=== PATIENT | male | born 1935 | race Caucasian/White ===

== ENCOUNTER 2017-12-18 22:21 | Inpatient (IN) | payer OTHER, SELFPAY ==
[2017-12-18 22:30] VITALS: BP 181/77; BP 181/87; PULSE 70; RESP 27; RESP 36; TEMP 36.1; O2SAT 98
[2017-12-18] MEDS: HYDROMORPHONE 1 MG INJ IV (22:35)
--- NOTE | 2017-12-18 22:44 | DI.CT.S_ITS ---
PROCEDURE: CT CHEST ABD PEL WO CON INDICATIONS: 82-year-old male with severe central abdominal pain. TECHNIQUE: Intravenous contrast was not administered due to poor renal function. Noncontrast 5 mm thick sections acquired from the lung apices to the symphysis pubis. 5 mm thick coronal and sagittal reformats acquired, with additional 7 mm coronal MIP reformats through the lungs. For radiation dose reduction, the following was used: automated exposure control, adjustment of mA and/or kV according to patient size. COMPARISON: [facility], CT, THORAX WITHOUT CONTRAST, 08/02/2016, 9:55. Outside Facility, [facility], CT THORAX/ABD/PELVIS W/O CONTRAST, 09/21/2011, 8:53. FINDINGS: Preliminary interpretation rendered by [facility]. Image quality: Multiple images are degraded by respiratory motion. CHEST: Lungs and pleura: No acute pulmonary opacities. Several calcified right middle lobe granulomas are again noted. No pleural effusions or pneumothorax. Central and peripheral airways are patent are normal in caliber. Mediastinum: There is moderate cardiomegaly, without pericardial effusion. No mediastinal adenopathy by CT size criteria. Calcified right hilar lymph node is again noted. Thoracic aorta and central pulmonary arteries are normal in size. Esophagus is normal in caliber, with small hiatal hernia. Chest wall: No axillary or supraclavicular adenopathy by size criteria. Nonacute lateral left seventh rib fracture is present. Thyroid gland is small in size. ABDOMEN: Solid organs: Liver is normal in size. Gallbladder wall thickness is normal. Pancreas is normal in contours. Spleen is normal in size. No adrenal nodules. Both kidneys are normal in size, without hydronephrosis or nephrolithiasis. Peritoneum and bowel: Small and large bowel loops are normal in caliber and wall thickness. There is mild descending and sigmoid colon diverticulosis. The appendix is unable to be visualized in the absence of contrast. No free fluid or air. Nodes and vessels: No retroperitoneal or mesenteric adenopathy by size criteria. Aorta and inferior vena cava are normal in size. There is bilateral renal artery ostial atherosclerosis. Miscellaneous: No ventral hernias. PELVIS: Genitourinary: Bladder wall thickness is normal. Prostate gland is normal in size. Miscellaneous: Small fat-containing left inguinal hernia is present. No inguinal adenopathy by CT size criteria. Bones: No suspicious bony lesions. No vertebral body compression fractures. There is moderate right and mild left hip joint degeneration. There is multilevel lumbar and lower thoracic spine disc degeneration. IMPRESSION: 1. No imaging explanation for severe abdominal pain. The appendix is unable to be visualized in the absence of contrast. Absence of right lower quadrant mesentery inflammatory changes would make acute appendicitis less likely. 2. Descending and sigmoid colon diverticulosis, without acute diverticulitis. 3. Right hilar and pulmonary remote granulomatous disease. 4. Small retrocardiac hiatal hernia. 5. Small fat-containing left inguinal hernia. No significant discrepancy with preliminary [employer] report. Dictated by: Benji Guzman M.D. on 12/19/2017 at 7:42 Approved by: Benji Guzman M.D. on 12/19/2017 at 8:01
[2017-12-18 22:53] LABS: Add Manual Diff / Slide Review NO; Basophils Percent Auto 0.9 % (0-2); Eosinophils Percent Auto 5.4 % (2-4); Hematocrit 43.5 % (41-53); Hemoglobin 14.5 g/dL (13.5-17.5); Lymphocytes Percent Auto 29.7 % (25-40); Mean Corpuscular HGB Conc 33.4 % (30-36); Mean Corpuscular Hemoglobin 30.7 PG (26-34); Mean Corpuscular Volume 91.9 fL (80-100); Monocytes Percent Auto 10.3 % (3-14); Neutrophils Absolute Auto 4100 /uL (3000-5900); Neutrophils Percent Auto 53.7 % (50-75); Platelet Count 187 X10^3/uL (150-400); Red Blood Cell Count 4.74 X10^6/uL (4.5-5.9); Red Cell Distribution Width 14.6 % (11.6-14.8); White Blood Cell Count 7.7 X10^3/uL (4.5-11.0)
[2017-12-18 23:00] VITALS: BP 191/99; PULSE 97; RESP 15; O2SAT 100
[2017-12-18 23:03] LABS: Alanine Aminotransferase 25 IU/L (21-72); Albumin 4.9 g/dL (3.5-5.0); Albumin Globulin Ratio 1.2 (1.0-2.8); Alkaline Phosphatase 85 U/L (38-126); Aspartate Aminotransferase 24 IU/L (17-59); BUN Creatinine Ratio 17.5 (6-22); Bilirubin Total 0.6 mg/dL (0.2-1.3); Blood Urea Nitrogen 28 mg/dL (9-20); Calcium 9.6 mg/dL (8.4-10.2); Carbon Dioxide 25 mmol/L (22-32); Chloride 102 mmol/L (98-107); Estimated Glomerular Filt Rate 41.7 mL/min (>60); Glucose 117 mg/dL (80-110); HEMOLYSIS < 15 (0-50); Lipase 182 U/L (23-300); Potassium 3.8 mmol/L (3.4-5.1); Sodium 144 mmol/L (137-145); Total Protein 8.9 g/dL (6.3-8.2)
--- NOTE | 2017-12-18 23:05 | ED_ITS ---
HPI - Abdominal Pain General Chief Complaint: Abdominal Pain Stated Complaint: STOMACH PAIN SHAKY Time Seen by Provider: 12/18/17 22:34 Source: patient Mode of arrival: ambulatory Limitations: no limitations History of Present Illness HPI narrative: The patient experienced sudden onset of central abdominal pain about 2 hr ago. He was at rest when the pain occurred suddenly. The pain is focused centrally but is throughout his abdomen. There is no associated back pain. He has no chest pain, palpitations or dyspnea, although he is breathing rapidly. He has no recent illness. He is not experiencing nausea, vomiting or any recent diarrhea or constipation. He has no urinary complaints. He has had no recent fever or chills. He denies any history of coronary artery disease, arrhythmia, or known vascular disease. Related Data Home Medications Medication Instructions Recorded Confirmed [cinnamon] #0 07/13/16 11/15/17 [coQ10] #0 07/13/16 11/15/17 cholecalciferol (vitamin D3) 2,000 units PO DAILY #0 07/13/16 12/19/17 [Vitamin D3] multivitamin [Multiple Vitamins] 1 dose PO DAILY #0 07/13/16 12/19/17 vit C,N-[id number]-lutein-zeaxan 1 dose PO DAILY #0 07/13/16 12/19/17 [PreserVision AREDS 2] polyethylene glycol 3350 [Miralax] 17 gm PO QDAY #0 04/04/17 12/19/17 folic acid 0.4 mg PO DAILY #0 08/29/17 12/19/17 amlodipine 10 mg tablet 10 mg PO DAILY 11/15/17 12/19/17 donepezil 10 mg tablet 10 mg PO BEDTIME 11/15/17 12/19/17 Don-Mag 1 dose PO DAILY 12/19/17 12/19/17 fluocinonide 1 % TOPICAL SEE INSTRUCTIONS 12/19/17 12/19/17 Previous Rx's Medication Instructions Recorded levothyroxine [Levoxyl] 112 mcg PO QDAY #90 tab 05/03/17 tamsulosin [Flomax] 0.4 mg PO QDAY #90 cap 05/03/17 triamcinolone acetonide 1 shima TOPICAL BID #60 ml 05/12/17 varicella-zoster glycoE [id number] 0.5 ml IM ONCE #1 each 11/15/17 adj(PF) 50 mcg/0.5 mL IM suspension Allergies Allergy/AdvReac Type Severity Reaction Status Date / Time SULFA Allergy Severe Difficulty Uncoded 12/19/17 03:32 Breathing Review of Systems Review of Systems All systems reviewed & are unremarkable except as noted in HPI and below Constitutional Reports as per HPI, Denies chills, Denies fatigue, Denies fever(s) and Denies night sweats ENT Ears, Nose, Mouth, and Throat: Denies change in voice, Denies dizziness and Denies neck pain Cardiovascular Denies chest pain, Denies irregular heart rhythm, Denies lightheadedness, Denies palpitations, Denies dyspnea, Denies dyspnea on exertion and Denies orthopnea Respiratory Denies cough, Denies dyspnea, Denies dyspnea on exertion and Denies wheezing Gastrointestinal Gastrointestinal: Reports as per HPI Genitourinary Denies hematuria, Denies flank pain, Denies urinary incontinence and Denies urinary urgency Musculoskeletal Denies back pain, Denies myalgias, Denies neck pain and Denies numbness Integumentary/Breasts Denies pruritus, Denies erythema, Denies rash and Denies wounds Neurologic Denies confusion, Denies dizziness and Denies numbness Psychiatric Denies confusion Endocrine Denies fatigue and Denies palpitations Allergic/Immunologic Denies wheezing PFSH Medical History BPH (benign prostatic hyperplasia) (Acute) Chicken pox (Acute) Hypertension (Acute) Hypothyroid (Acute) Kidney insufficiency (Acute) Pulmonary fibrosis (Acute) Tuberculosis, pulmonary fibrosis, bacterial/histologic exam unknown (Acute) Surgical History Total knee replacement status (Acute) History of tonsillectomy Status post appendectomy Family History Father Heart disease Social History Smoking Status: Never smoker Exam Initial Vital Signs Initial Vital Signs: Vital Signs Temperature 97.0 F L 12/18/17 22:30 Pulse Rate 70 12/18/17 22:30 Respiratory Rate 36 H 12/18/17 22:30 Blood Pressure 181/77 H 12/18/17 22:30 Pulse Oximetry 98 12/18/17 22:30 Const General: cooperative, well developed and in distress Nutritional Appearance: overweight Orientation: alert and oriented x3 HENMT Head: normocephalic and atraumatic Ears: external ears normal and TM's normal bilaterally Nose: external nose normal and No nasal discharge Face and sinus: sinuses nontender, face symmetric, no sinus tenderness and No dry mucous membranes Mouth: oral mucosae normal and moist mucous membranes Teeth and gingiva: dentition normal Throat: tonsils normal and uvula midline Eyes General: appearance normal, both eyes and all related structures Eyelids: eyelids normal Conjunctivae: conjunctivae normal Sclera: sclerae normal Pupils: PERRL EOM: EOM intact bilaterally Neck Neck: normal visual inspection, trachea midline, No lymphadenopathy, No midline deformity and No JVD Chest Chest: normal inspection of the chest Resp Effort & Inspection: normal respiratory effort, able to speak in complete sentences, no respiratory distress and no use of accessory muscles Auscultation: clear to auscultation bilaterally, no rales, no rhonchi and no wheezes Cardio Rate: regular rate Rhythm: regular rhythm Heart Sounds: no click, no gallops, no murmurs and no rubs Pulses: normal peripheral pulses GI Inspection: distended Palpation: no hepatosplenomegaly, No pulsatile mass and tender (Significant central abdominal tenderness with guarding and mild rebound) Percussion: abnormal to percussion and no fluid wave Auscultation: normal bowel sounds Back/Spine/Pelvis Back: No CVA tenderness Thoracic/Lumbar Spine: thoracic and lumbar spine normal to inspection Skin General: no rashes or lesions noted, No jaundice and No petechiae Neuro General: alert, oriented x3, gait normal and no focal motor deficits Speech: speech normal Extrem General: full ROM, no clubbing, cyanosis or edema, no pedal edema and no calf tenderness Course Orders Ordered: ED Orders 12/18/17 22:44 CT chest abd pel wo con Stat EKG-12 Lead Stat 12/18/17 22:48 Complete Blood Count AUTO DIFF Stat Comprehensive Metabolic Panel Stat Lipase Stat 12/18/17 23:20 Urine Microscopic Stat 12/18/17 23:25 Troponin I Stat Acetaminophen (Tylenol) 650 mg PO Q6HR PRN PRN Reason: As Needed for Fever/Mild Pain Sodium Chloride (Normal Saline 0.9%) 1,000 mls @ 150 mls/hr IV CONT DEBBIE Last Infusion: 12/19/17 02:55 Dose: 150 mls/hr Admin: 12/18/17 23:41 Dose: 150 mls/hr Sodium Chloride (Normal Saline 0.9%) 1,000 mls @ 125 mls/hr IV CONT DEBBIE Discontinued Medications Acetaminophen (Tylenol) 650 mg PO NOW ONE Stop: 12/18/17 23:42 Last Admin: 12/18/17 23:45 Dose: 325 mg Hydromorphone HCl (Dilaudid) 1 mg IV Q15M DEBBIE Stop: 12/18/17 23:01 Last Admin: 12/18/17 22:35 Dose: 1 mg Lorazepam (Ativan) 1 mg IV NOW ONE Stop: 12/18/17 23:42 Last Admin: 12/18/17 23:49 Dose: 1 mg Ondansetron HCl (Zofran) 4 mg IV NOW ONE Stop: 12/19/17 00:23 Last Admin: 12/19/17 00:30 Dose: 4 mg Vital Signs - 8 hr 12/18/17 22:30 12/18/17 23:00 12/19/17 00:07 Temperature 97.0 F L Pulse Rate 70 97 H 74 Pulse Rate [Orthostatic Lying] Pulse Rate [Orthostatic Sitting] Pulse Rate [Orthostatic Standing] Respiratory Rate 27 H 15 16 Blood Pressure 181/87 H Blood Pressure [Orthostatic Lying] Blood Pressure [Orthostatic Sitting] Blood Pressure [Orthostatic Standing] Blood Pressure [Right Arm] 181/77 H 191/99 H 179/98 H Pulse Oximetry 98 100 99 12/19/17 00:29 12/19/17 01:15 12/19/17 02:31 Temperature Pulse Rate 74 78 Pulse Rate [Orthostatic Lying] 79 Pulse Rate [Orthostatic Sitting] 84 Pulse Rate [Orthostatic Standing] 94 H Respiratory Rate 14 14 Blood Pressure Blood Pressure [Orthostatic Lying] 167/93 H Blood Pressure [Orthostatic Sitting] 179/132 H Blood Pressure [Orthostatic Standing] 182/97 H Blood Pressure [Right Arm] 179/98 H 147/91 H Pulse Oximetry 99 100 MDM - Abdominal Pain Medical Records Attestation: I reviewed the patient's medical records. Lab Data Attestation: I reviewed the patient's lab results. Result diagrams: 12/18/17 22:48 12/18/17 22:48 Lab Results 12/18/17 12/18/17 12/18/17 Range/Units 22:48 22:48 23:20 WBC 7.7 (4.5-11.0) X10^3/uL RBC 4.74 (4.5-5.9) X10^6/uL Hgb 14.5 (13.5-17.5) g/dL Hct 43.5 (41-53) % MCV 91.9 (80-100) fL MCH 30.7 (26-34) PG MCHC 33.4 (30-36) % RDW 14.6 (11.6-14.8) % Plt Count 187 (150-400) X10^3/uL Neut % (Auto) 53.7 (50-75) % Lymph % (Auto) 29.7 (25-40) % [place] % (Auto) 10.3 (3-14) % Eos % (Auto) 5.4 H (2-4) % Baso % (Auto) 0.9 (0-2) % Neut # (Auto) 4100 (8158-8751) /uL Sodium 144 (137-145) mmol/L Potassium 3.8 (3.4-5.1) mmol/L Chloride 102 (98-107) mmol/L Carbon Dioxide 25 (22-32) mmol/L BUN 28 H (9-20) mg/dL Creatinine 1.60 H (0.66-1.25) mg/dL Estimated GFR 41.7 L (>60) mL/min BUN/Creatinine Ratio 17.5 (6-22) Glucose 117 H (80-110) mg/dL Calcium 9.6 (8.4-10.2) mg/dL Total Bilirubin 0.6 (0.2-1.3) mg/dL AST 24 (17-59) IU/L ALT 25 (21-72) IU/L Alkaline Phosphatase 85 (38-126) U/L Troponin I (0.01-0.034) ng/mL Total Protein 8.9 H (6.3-8.2) g/dL Albumin 4.9 (3.5-5.0) g/dL Globulin 4.0 (1.7-4.1) g/dL Albumin/Globulin Ratio 1.2 (1.0-2.8) Lipase 182 (23-300) U/L Urine RBC None seen (0-5/HPF) Urine WBC None seen (0-5/HPF) Urine Bacteria None seen (None) Ur Culture Indicated? Cult not indicated Micro UA Comment Microscopic normal 12/18/17 Range/Units 23:25 WBC (4.5-11.0) X10^3/uL RBC (4.5-5.9) X10^6/uL Hgb (13.5-17.5) g/dL Hct (41-53) % MCV (80-100) fL MCH (26-34) PG MCHC (30-36) % RDW (11.6-14.8) % Plt Count (150-400) X10^3/uL Neut % (Auto) (50-75) % Lymph % (Auto) (25-40) % [place] % (Auto) (3-14) % Eos % (Auto) (2-4) % Baso % (Auto) (0-2) % Neut # (Auto) (0525-1062) /uL Sodium (137-145) mmol/L Potassium (3.4-5.1) mmol/L Chloride (98-107) mmol/L Carbon Dioxide (22-32) mmol/L BUN (9-20) mg/dL Creatinine (0.66-1.25) mg/dL Estimated GFR (>60) mL/min BUN/Creatinine Ratio (6-22) Glucose (80-110) mg/dL Calcium (8.4-10.2) mg/dL Total Bilirubin (0.2-1.3) mg/dL AST (17-59) IU/L ALT (21-72) IU/L Alkaline Phosphatase (38-126) U/L Troponin I 0.040 H (0.01-0.034) ng/mL Total Protein (6.3-8.2) g/dL Albumin (3.5-5.0) g/dL Globulin (1.7-4.1) g/dL Albumin/Globulin Ratio (1.0-2.8) Lipase (23-300) U/L Urine RBC (0-5/HPF) Urine WBC (0-5/HPF) Urine Bacteria (None) Ur Culture Indicated? Micro UA Comment Imaging Data CT-Chest/abd/pelvis: Radiologist's impression: No pulmonary consolidation or mass. Atherosclerotic disease. Small esophageal hiatal hernia. Fat containing inguinal and umbilical hernias. No appendicitis, diverticulitis or mechanical bowel obstruction. ECG Data Attestation: I personally reviewed and interpreted this ECG as follows: (Normal sinus rhythm rate 74 bpm. Borderline left axis deviation. Moderate IVCD. Nonspecific T-wave changes, no acute ST elevation. Normal intervals.) MDM Narrative Medical decision making narrative: The patient's workup has been relatively benign. He continues to complain of abdominal pain. His blood pressure has been running high, often up to 180 systolic. He has no complaints of headache, visual changes or chest pain. Cardiac workup was benign. We have tried to stand the patient, he will not stand. He will not ambulate. It is recognized that he has memory issues, obviously a degree of dementia. His tells me now that he is slow to ambulate at home. He is up and about very infrequently. The abdominal pain is ongoing, but nonspecific. I discussed his care with the on-call physician, Dr. Herman. The patient be admitted observation. Discharge Plan Departure Patient Disposition: Admitted as Observation Clinical Impression: Abdominal pain, Memory deficit, Ambulatory dysfunction Discharge Date/Time: 12/19/17 02:56 Interventions: ED Discharge Assessment Last Done: 12/19/17 02:55 Admit Date/Time: 12/19/17 02:09 Admit Provider: Vinnie Herman
[2017-12-18 23:33] LABS: Bacteria Urine None Seen; RBC Urine None Seen (0-5/HPF); WBC Urine None Seen (0-5/HPF)
[2017-12-18 23:40] LABS: Culture Indicated Urine Cult Not Indicated; Urine Comments Microscopic Normal
[2017-12-18] MEDS: SODIUM CHLORIDE 0.9% 1,000 ML 150 ML IV (23:41)
[2017-12-18] MEDS: ACETAMINOPHEN 325 MG TABLET 650 MG PO (23:45)
[2017-12-18] MEDS: LORazepam 2 MG/ML SYRINGE 1 MG IV (23:49)
[2017-12-19] VITALS (24 sets, daily range): BP systolic 114–182; BP diastolic 73–132; PULSE 56–94; RESP 12–23; TEMP 36.3–36.9; O2SAT 90–100; BMI 32.3
--- NOTE | 2017-12-19 | DI.CT.S_ITS ---
PROCEDURE: CT ANGIO CHEST INDICATIONS: 82 year-old male with abdominal pain and hypoxia. TECHNIQUE: eGFR level is 41.7. After the administration of intravenous contrast, 2 mm thick sections acquired from the pulmonary apices to the posterior costophrenic angles. 3-dimensional maximum intensity projection (MIP) coronal and sagittal reformats were then acquired through the thorax. For radiation dose reduction, the following was used: automated exposure control, adjustment of mA and/or kV according to patient size. COMPARISON: [facility], CT, CT CHEST ABD PEL WO CON, 12/18/2017, 22:52. FINDINGS: Image quality: Excellent. Pulmonary arteries: Pulmonary arteries are normal in size, and demonstrate no intraluminal filling defects to suggest central pulmonary embolism. Lungs and pleura: No acute airspace opacities. On axial image 26, 4 mm nodule lies adjacent to the right minor fissure, likely a small intrapulmonary lymph node. Several calcified right middle lobe granulomas are again noted. No pleural effusions or pneumothorax. Central and peripheral airways are patent. Mediastinum: There is cardiomegaly as before, without pericardial effusion. No mediastinal or hilar adenopathy. Several calcified right hilar lymph nodes are again noted. Thoracic aorta is normal in caliber and enhancement. Esophagus is normal in caliber, with a small hiatal hernia. Bones and chest wall: No suspicious bony lesions. Nonacute lateral left seventh rib fracture is present. There is lower thoracic spine disc degeneration. Thyroid gland is small in overall size. No axillary or supraclavicular adenopathy. Abdomen: Visualized upper abdominal solid organs appear normal in the early arterial phase of enhancement. IMPRESSION: 1. No evidence for central pulmonary embolism. 2. Right hilar and right middle lobe remote granulomatous disease. 3. Nonacute lateral left seventh rib fracture. Dictated by: Benji Guzman M.D. on 12/19/2017 at 9:12 Approved by: Benji Guzman M.D. on 12/19/2017 at 9:24
--- NOTE | 2017-12-19 00:15 | PC.NURSE ---
Pt states the pain in my stomach is not as bad as it was. Unable to put a number on 0-10 pain scale, but states it is better than before.
[2017-12-19] MEDS: ONDANSETRON 4 MG/2 ML INJ IV (00:30)
--- NOTE | 2017-12-19 01:17 | PC.NURSE ---
Pt unable to stand without assistance. Was holding onto two RN's on either side of him to stand straight. Did not attempt to ambulate him, due to unsteadiness on his feet. Provider aware.
[2017-12-19] MEDS: SODIUM CHLORIDE 0.9% 1,000 ML 125 ML IV ×2 (02:50→08:29)
--- NOTE | 2017-12-19 04:03 | PC.ADMIT ---
Addendum entered by Katelyn Hassan R.N. 12/19/17 06:54: Pt daughter, Faith called, spoke with her and updated her on POC for pt. Pt brought in med list and will update. Pt asleep. voiding in the urinal. will continue to monitor. bed alarm on, side rails upx3. belongings and call light within reach. Original Note: Admit note/outfitter cabin: Pt arrive to floor via stretcher with TIANA LONG and . fluids running, 125cc/hr, NS. Pt oriented but seems to have mild dementia. Pt able to scoot onto slider board and help with rolling. brief applied, pt uses urinal and voids about 100cc at a time. Pt states he dribbles during the night. Pt and worried about his oxygen as pt has severe sleep apnea (not yet diagnosed or treated) after med adim in ED pt stated he de-sated down to the 80s and oxygen was applied. upon transfer and vitals taken pt was 100 on RA, oxygen removed. and pt seemed a bit upset and was worried. admission completed by and pt laying comfortably in bed. Pt oxygen checked and was 95% on RA but pt said angrily that he wasn't sleeping yet and that it will get lower Pt placed on 1L oxygen. Pt given call light, warm blankets and water. Pt bed alarm on. side rails upx3. belongings and call light within reach. will continue to monitor pt for safety. has pt belongings. pt and oriented to room and hospital procedures.
[2017-12-19 10:11] LABS: Add Manual Diff / Slide Review NO; Eosinophils Percent Auto 1.6 % (2-4); Hematocrit 41.1 % (41-53); Hemoglobin 13.8 g/dL (13.5-17.5); Mean Corpuscular HGB Conc 33.5 % (30-36); Mean Corpuscular Hemoglobin 30.6 PG (26-34); Mean Corpuscular Volume 91.3 fL (80-100); Monocytes Percent Auto 8.4 % (3-14); Neutrophils Absolute Auto 10400 /uL (3000-5900); Platelet Count 157 X10^3/uL (150-400); Red Cell Distribution Width 14.1 % (11.6-14.8); White Blood Cell Count 13.5 X10^3/uL (4.5-11.0)
--- NOTE | 2017-12-19 11:42 | PT.IPTN ---
Surgery Performed Operation Date: 12/19/17 12:15 <No data on this case meets the specified criteria> Physical Therapy Treatment Note M3 PT-IP Subjective Start: 12/19/17 11:40 Freq: NEEDED Status: Active Protocol: Document 12/19/17 11:40 AB (Rec: 12/19/17 11:42 AB [id number]) Subjective Physical Therapy Visit Type Notes checked on pt and pt was being wheeled out of his room. nurse stated that pt will be having umbilical hernia repair surgery. will f/u when pt is ready for PT.
[2017-12-19] MEDS: CEFAZOLIN VIAL 1 GM in SODIUM CHLORIDE 0.9% 100 ML 200 ML IV (11:55)
--- NOTE | 2017-12-19 11:56 | PC.NURSE ---
Pt down to surgery at 1000 am for a hernia repair. He has been A&ox3 this morning. Skin clear. BT hypoactive on the left side and abscent on the r.side. Pt has been A&ox3, family in room and very attentive to care.
--- NOTE | 2017-12-19 12:07 | SUR.OPER ---
Supine on padded OR bed, head on pillow, arms secured on padded arm boards at <90 degrees abduction, legs uncrossed, safety belt at thigh, tape over blanket over lower legs.
[2017-12-19] MEDS: BUPIVACAINE 0.5% (PF) 30 ML VIAL INJ (12:21)
--- NOTE | 2017-12-19 13:42 | PM.HP.1 ---
History of Present Illness Date Patient Seen: 12/19/17 Time Patient Seen: 13:43 Chief complaint: ABD Pain/ Memory Deficit/ Ambulatory Dysfunction Narrative: Abdominal pain Patient admitted early this morning through the emergency room for abdominal pain. Patient began to have vague abdominal pain yesterday afternoon after having had some soup. During the course of the day the pain seemed to increase. He apparently vomited last night Two days ago on Monday he felt perfectly well. He also felt perfectly well yesterday morning on Monday no fever chills has had decreased urine output decreased energy had 1 bowel movement yesterday normally has more than 1. Para pain is periumbilical at generalized. He was seen in the emergency room and apparently emergency room was issues thought there may well be a umbilical hernia and pushed on him umbilicus presumably ?reduced? the hernia and the patient states his pain M improved and since he went away. is here with him and she agrees with his impression He has had no melena no hematochezia no history of same. No history of any in hernias Patient currently denies any pain however has been given some medications Patient History Medical History BPH (benign prostatic hyperplasia) (Acute) Cataract (Acute) Chicken pox (Acute) Hypertension (Acute) Hypothyroid (Acute) Kidney insufficiency (Acute) Macular degeneration (Acute) Pulmonary fibrosis (Acute) Sleep apnea (Acute) Tuberculosis, pulmonary fibrosis, bacterial/histologic exam unknown (Acute) Surgical History Total knee replacement status (Acute) History of tonsillectomy Status post appendectomy Family & Social History Family History: Reviewed 12/19/17 by Cortes Sanders MD Social History: household members spouse Prior Living Arrangements House Safety & Behavioral: Feels Safe in Current Yes Environment Been Physically Hurt or No Threatened By a Person Suicidal Ideation Description None Suicide Plan Description No Plan Tobacco & Substance use: Smoking Status Never smoker alcohol intake never Substance Use Type does not use Comment: Patient has recent history of memory impairment is being in the process of being evaluated by same. Has been placed on donepezil 10 mg daily does not seem to be helping Additionally he has a diagnosis of sleep apnea apparently was evaluated by neurologist in [place] recommended sleep study but insurance would not cover him so we made a referral to the local sleeps lab which apparently appointment is not available until end of January. So this will be pursued. Meds Home Medications Medication Instructions Recorded Confirmed Type cholecalciferol (vitamin D3) 2,000 units PO DAILY #0 07/13/16 12/19/17 History [Vitamin D3] multivitamin [Multiple Vitamins] 1 dose PO DAILY #0 07/13/16 12/19/17 History polyethylene glycol 3350 [Miralax] 17 gm PO QDAY #0 04/04/17 12/19/17 History levothyroxine [Levoxyl] 112 mcg PO QDAY #90 tab 05/03/17 12/19/17 Rx tamsulosin [Flomax] 0.4 mg PO QDAY #90 cap 05/03/17 12/19/17 Rx triamcinolone acetonide 1 shima TOPICAL BID #60 ml 05/12/17 12/19/17 Rx folic acid 0.4 mg PO DAILY #0 08/29/17 12/19/17 History donepezil 10 mg tablet 10 mg PO BEDTIME 11/15/17 12/19/17 History varicella-zoster glycoE vacc-[id number] 0.5 ml IM ONCE #1 each 11/15/17 12/19/17 Rx adj(PF) 50 mcg/0.5 mL IM susp, kit amlodipine 5 mg PO DAILY 12/19/17 12/19/17 History calcium carb-D3-mag ox-zinc ox 1 dose PO DAILY 12/19/17 12/19/17 History [Don Mag Zinc Plus D3] cinnamon bark [Cinnamon] 500 mg PO DAILY 12/19/17 12/19/17 History fluocinonide 1 % TOPICAL SEE INSTRUCTIONS 12/19/17 12/19/17 History Allergies Allergy/AdvReac Type Severity Reaction Status Date / Time SULFA Allergy Severe Difficulty Uncoded 12/19/17 10:18 Breathing Review of Systems Review of Systems All systems reviewed & are unremarkable except as noted in HPI and below Exam Vital Signs (past 8 hours): - 12/19/17 08:40 12/19/17 10:19 12/19/17 10:57 Temperature 97.5 F L 97.4 F L Pulse Rate 66 68 Respiratory Rate 18 17 Blood Pressure 151/97 H 168/95 H Pulse Oximetry 97 95 95 12/19/17 11:34 12/19/17 12:23 12/19/17 12:28 Temperature 98.2 F Pulse Rate 67 67 Respiratory Rate 20 20 Blood Pressure 139/89 H 132/88 H Pulse Oximetry 99 93 94 12/19/17 12:34 12/19/17 12:38 12/19/17 12:54 Temperature Pulse Rate 67 61 60 Respiratory Rate 23 14 18 Blood Pressure 149/95 H 154/91 H 148/85 H Pulse Oximetry 98 98 90 L 12/19/17 13:10 12/19/17 13:33 Temperature 98.2 F 98.1 F Pulse Rate 63 58 L Respiratory Rate 16 18 Blood Pressure 146/80 H 145/80 H Pulse Oximetry 94 Oxygen Delivery Method Room Air Oxygen Flow Rate 4 Narrative Exam Narrative: Gen.: Skin: Warm well perfused. No prominent lesions. Nonicteric. HEENT: PERRL., normal EOM, external ears canals TMs normal, nasal mucosa normal and midline septum, oropharynx without lesions. Neck: Trachea midline. Thyroid nontender and not enlarged. Carotids without bruits. No lymphadenopathy Back: No obvious deformity or tenderness. Chest: Clear to P&A. Symmetric. CV: RRR no murmur or gallop. No JVD. Abdomen: No masses bruits. He has decreased bowel sounds. He does have generalized tenderness periumbilically no rebound no guarding no actual hernias palpated but there does seem to be some weakness around the umbilicus y. Neuro: Cranial nerves II through XII grossly intact. Sensory and motor exams intact. Gait normal. Mental status: Intact for screening overall memory is impaired to some degree but aware that he is in the hospital Extremities: No cyanosis clubbing or edema Musculoskeletal: No gross deformities Lymphatics: Negative for lymphadenopathy, supraclavicular axillary or inguinal Objective Labs Result Diagrams: 12/19/17 09:57 12/18/17 22:48 Labs: Laboratory Results - last 24 hr 12/18/17 12/18/17 12/18/17 22:48 22:48 23:20 WBC 7.7 RBC 4.74 Hgb 14.5 Hct 43.5 MCV 91.9 MCH 30.7 MCHC 33.4 RDW 14.6 Plt Count 187 Neut % (Auto) 53.7 Lymph % (Auto) 29.7 Lamb % (Auto) 10.3 Eos % (Auto) 5.4 H Baso % (Auto) 0.9 Neut # (Auto) 4100 Sodium 144 Potassium 3.8 Chloride 102 Carbon Dioxide 25 BUN 28 H Creatinine 1.60 H Estimated GFR 41.7 L BUN/Creatinine Ratio 17.5 Glucose 117 H Calcium 9.6 Total Bilirubin 0.6 AST 24 ALT 25 Alkaline Phosphatase 85 Troponin I Total Protein 8.9 H Albumin 4.9 Globulin 4.0 Albumin/Globulin Ratio 1.2 Lipase 182 Urine RBC None seen Urine WBC None seen Urine Bacteria None seen Ur Culture Indicated? Cult not indicated Micro UA Comment Microscopic normal Blood Type Antibody Screen 12/18/17 12/19/17 12/19/17 23:25 09:57 09:57 WBC 13.5 H D RBC 4.50 Hgb 13.8 Hct 41.1 MCV 91.3 MCH 30.6 MCHC 33.5 RDW 14.1 Plt Count 157 Neut % (Auto) 77.0 H D Lymph % (Auto) 12.0 L Lamb % (Auto) 8.4 Eos % (Auto) 1.6 L Baso % (Auto) 1.0 Neut # (Auto) 28749 H Sodium Potassium Chloride Carbon Dioxide BUN Creatinine Estimated GFR BUN/Creatinine Ratio Glucose Calcium Total Bilirubin AST ALT Alkaline Phosphatase Troponin I 0.040 H Total Protein Albumin Globulin Albumin/Globulin Ratio Lipase Urine RBC Urine WBC Urine Bacteria Ur Culture Indicated? Micro UA Comment Blood Type O Positive labs reviewed Antibody Screen Negative Assessment & Plan Plan: Assessment/Plan Narrative: 1. Patient has abdominal pain of less than 24 hr duration. General exam shows persistent tenderness. Concern being he has ventral/umbilical hernia/inguinal hernia that may be contributing to his discomfort. Will have surgical consult. Additionally will get a chest CTA concern being pulmonary embolism. Because of patient's memory impairment perhaps history is less than ideal 2. Memory impairment stable getting along with family medications probably not terribly helpful 3. History of hypothyroidism stable. Para 4. BPH stable. As stated paste will be be placed NPO IV fluids to be obtained surgical consult forthcoming Quality VTE Deep Vein Thrombosis/Pulmonary Embolism Present on Admission: No
[2017-12-19] MEDS: SODIUM CHLORIDE 0.9% 1,000 ML 150 ML IV (13:43)
--- NOTE | 2017-12-19 15:43 | CM.DANOTE ---
DCP/Assessment: Reviewed chart. Patient is a 82yr old male admitted under OBS status with abd pain. Primary payor is 1)[facility]. PCP is Dr. Sanders. Spoke with Dr. Sanders this AM. He reports that patient/family will need assistance with d/c planning. PT/OT evaluations pending. In addition, Dr. Sanders ordered surgery evaluation. Turns out patient evaluated by surgery and needed hernia repair. Surgery completed today. Met with patient and son/Kai at bedside explained CM/SW role. Patient recently returned from surgery and is very groggy at time of visit. Son reports that patient resides with spouse/Marva in [place]. Patient and spouse have been fairly I in ADL's. However, son and daughter/Steffanie have been interested in getting them some additional assistance in the home for everyday tasks. At this time d/c needs unknown. Notified son that once therapy has seen patient, recommendations will be made. They could possibly include home with HH vs. SNF. Son believes that patient will be much more open to HH. Son also indicates that family having been trying to get patient into sleep clinic for consultation. Patient sleeping poorly which has had an effect on his activity. VIOLIN TEACHER placed call to sleep clinic and they confirm that consultation scheduled for 02-21-18. VIOLIN TEACHER asked if there was anyway that could be done sooner? Clinic reports that they do not have any sooner appointments but that patient will be placed on wait list if there is a cancellation. If patient/family decide that they do not want to wait there are sleep centers at [facility], [facility], and [facility]. [place] would need to verify that these locations are contracted if patient chooses to switch locations. In addition, unsure if they have appointments any sooner. Notified son that CM team would follow up closely with patient and spouse re: safe planning. If HH recommended by therapy might be helpful to add JAZMIN,RN, and VIOLIN TEACHER. Son indicates patient with early stages of dementia. P: CM team to follow closely. Anticipate home with HH vs. SNF. [place] CM is Marline Hall [phone]. IRVIN Higgins
--- NOTE | 2017-12-19 16:21 | PT.IIE ---
Surgery Performed Operation Date: 12/19/17 12:15 Actual Procedures p Hernia Repair - Umbilical - Beau Donaldson MD Surgical History (Last Reviewed 12/19/17 @ 13:46 by Cortes Sanders MD) Total knee replacement status (Acute) History of tonsillectomy Status post appendectomy Medical History (Last Reviewed 12/19/17 @ 13:46 by Cortes Sanders MD) Abdominal distention (Acute) BPH (benign prostatic hyperplasia) (Acute) Abdominal pain (Acute) Memory deficit (Acute) Ambulatory dysfunction (Acute) BPH (benign prostatic hyperplasia) (Acute) Cataract (Acute) Chicken pox (Acute) Hypertension (Acute) Hypothyroid (Acute) Kidney insufficiency (Acute) Macular degeneration (Acute) Pulmonary fibrosis (Acute) Sleep apnea (Acute) Tuberculosis, pulmonary fibrosis, bacterial/histologic exam unknown (Acute) Physical Therapy Inpatient Evaluation/Re-Eval M1 PT/OT-IP Prior Functional Status Start: 12/19/17 11:40 Freq: NEEDED Status: Active Protocol: Document 12/19/17 16:04 IJS (Rec: 12/19/17 16:20 IJS [email or web address]) Medical Review Prior Functional Status Medical History Reviewed Yes Diet/Fluid Consistency Regular Communication Indonesian Mobility and Gait Independent with periodic single point cane use. Activities of Daily Living and IADL's Independent Prior Functional Level (Other details) Does not drive much but still can. Social History Household Members spouse Living Arrangements House Number of Floors (Floors) One Floor Number of Stairs To Enter/Railing? one step with rail or ramp entry Home Environment Standard Height Toilet Ramp Home Equipment Front Wheel Walker Straight Cane Grab Bars In Shower Employment Status Retired Additional Social History Comment Son present for treatment and very supportive. M2 PT-IP Current Condition Start: 12/19/17 11:40 Freq: NEEDED Status: Active Protocol: Document 12/19/17 16:04 IJS (Rec: 12/19/17 16:20 IJS [email or web address]) Physical Therapy Current Condition Current Condition Evaluation Date 12/19/17 Treatment Diagnosis Walking/gait disturbance secondary to hernia repair/ surgery Onset Date 12-19-17 Precautions Other Precautions Umbilical hernia repair put gait belt above this area. Weight Bearing Status Weight Bearing Status Full Weight Bearing M3 PT-IP Subjective Start: 12/19/17 11:40 Freq: NEEDED Status: Active Protocol: Document 12/19/17 16:04 IJS (Rec: 12/19/17 16:20 IJS [email or web address]) Subjective Physical Therapy Visit Type Type Initial Evaluation Visit Start Time 03:45 Visit Stop Time 04:05 Total Visit Minutes 20 Number of BALL POINT SPLITTER Visits 0 Physical Therapy Visit Comments Patient Comments Only hurts when moving around, has been moving legs in bed, agrees to get up. Wants to be as independent as he can. Patient/Caregiver Goals Return home Therapy Pain Assessment Pain When Pain Assessed During Mobility Pain Present Pain Present Pain Reported Location Lower Abdomen Scale Used Numeric (1 - 10) Description Acute Pain Behaviors Facial Grimacing Pain Management Techniques Re-positioning M4 PT-IP Mobility and Gait Start: 12/19/17 11:40 Freq: NEEDED Status: Active Protocol: Document 12/19/17 16:04 IJS (Rec: 12/19/17 16:20 IJS [email or web address]) PT-Bed Mobility Assessment Rolling Type of Rolling Log Rolling Roll to Left Level of Assist Moderate Assistance 1 Person Assistance Supine to Sit Supine to Sit Minimal Assistance 1 Person Assistance Bedrails Scooting Scooting to Edge of Bed Independent PT-Transfer Assessment Sit to and From Stand Sit to and from Stand Contact Guard Assistance Equipment Transfer Assistive Device Front Wheeled Walker Orthotic/Prosthetic Devices or Brace: No Transfers Transfer Destination Chair Transfer Technique Stand Pivot Transfer Ability Level of Assist Contact Guard Assistance Comments Mobility Comments Pain rated as 1/10 at rest, 4/ 10 with mobility. Gait Assessment Gait Gait Assistance Required: Contact Guard Assist Distance (Feet) (feet) 20 Able to Maintain Weight Bearing Status Yes During Gait Assistive Devices Assistive Device Gait Belt Front Wheeled Walker Orthotic/Prosthetic Devices or Brace: No Gait Deviations General Gait Pattern Decreased Stride Length Decreased Feet Clearance Factors Limiting Gait Function Factors Limiting Gait Function Decreased Activity Tolerance Comments Gait Comments Tends to want to shuffle feet, unequal stride lengths but stable with walker. PT-Balance Assessment Sitting Balance and Reactions Static Sitting Balance Ability Good Dynamic Sitting Balance Ability Good Standing Balance and Reactions Static Standing Balance Ability Good Dynamic Standing Balance Ability Good Comments Other Balance Tests/Deviations/Treatment Standing with walker reaching : with one hand at a time to touch mine. M5 PT-IP Objective Assessments Start: 12/19/17 11:40 Freq: NEEDED Status: Active Protocol: Document 12/19/17 16:04 IJS (Rec: 12/19/17 16:20 IJS [email or web address]) Orientation Orientation/Cognition Level of Alertness Alert Orientation Name Age Birthday Date Situation Language Function Ability No Deficits Noted Safety Awareness Understands Safety Issues Memory Description No Deficits Noted Comments It is noted in his history that he has short term memory impairment but I did not notice during evaluation. Gross Range of Motion Upper Extremity ROM Assessment Within Functional Limits Lower Extremity ROM Assessment Within Functional Limits Strength Upper Extremity Strength Assessment Within Functional Limits Lower Extremity Strength Assessment Within Functional Limits Coordination Assessment Gross Coordination Gross Coordination WNL Assessment Pronation/Supination Test Normal Performance Foot Tapping Test Normal Performance Heel on Brumfield Test Normal Performance Sensation Assessment Sensation Gross Sensation WNL Light Touch Intact Muscle Tone Muscle Tone WNL Yes M6 PT-IP Treatment Start: 12/19/17 11:40 Freq: NEEDED Status: Active Protocol: Document 12/19/17 16:04 IJS (Rec: 12/19/17 16:20 IJS [email or web address]) Physical Therapy Treatment Exercises Exercises Ankle Pumps Heel Slides Shoulder Flexion Elbow Flexion/Extension Wrist ROM Hand ROM Education Education Provided Safety M7 PT-IP Assessment and Plan Start: 12/19/17 11:40 Freq: NEEDED Status: Active Protocol: Document 12/19/17 16:04 IJS (Rec: 12/19/17 16:20 IJS [email or web address]) PT Summary Assessment and Plan Potential Rehabilitation Potential Excellent Status of Condition at Evaluation Stable Summary Impairments Pain Assessment Summary Day of surgery, expected pain, did well with mobility. Goals Bed Mobility Goal Independent Transfer Goal Standby Assistance Gait Goal Standby Assistance Front Wheel Walker Gait Distance 150 Days to Meet Goals 2 Frequency of Treatment Frequency Of Treatment Twice a Day Treatment Plan Physical Therapy Treatment Plan Bed Mobility Training Transfer Training Gait Training Therapeutic Exercise Discharge Planning Recommendations To Nursing Amount of Assist Needed 1 Person Assist Discharge Recommendations PT Discharge Recommendations Home Home Health Equipment Needed for Home Before Will likely need a FWW he said Discharge he has one but not sure where it is.
--- NOTE | 2017-12-19 16:25 | OT.IP.EVAL ---
M3 OT- IP Subjective and Pain Start: 12/19/17 16:23 Freq: Status: Active Protocol: Document 12/19/17 16:23 NORRIS (Rec: 12/19/17 16:24 PJIsra [id number]) OT- Subjective Occupational Therapy Visit Type Notes OT referral received. Pt to surgery today so will hold OT evaluation until tomorrow and recheck status in AM. No charge.
--- NOTE | 2017-12-19 16:34 | OP_ITS ---
DATE OF SERVICE: 12/19/2017 PREOP DIAGNOSIS: Umbilical hernia, recently incarcerated. POSTOP DIAGNOSIS: Umbilical hernia, recently incarcerated. PROCEDURE: Repair of umbilical hernia. SURGEON: Beau Donaldson MD DESCRIPTION OF PROCEDURE: The patient was properly identified during a surgical pause. Under general endotracheal anesthesia prepped and draped in a sterile fashion with exposure of the mid abdomen. A curvilinear infraumbilical incision was made exposing the linea alba fascia. The umbilicus was elevated cephalad exposing a 1.5 cm clearly marginated umbilical hernia defect. There was properitoneal fat incarcerated in this defect at surgery, and I'm thinking last night when he came to the ER there was probably that loop of small bowel which you can see on CT scan in the hernia. At this time, there was no bowel in the hernia sac. I did a direct repair in this 82-year-old man not using mesh, suturing the fascia back together with 0 Prolene in continuous fashion, 2 layers of repair. The wound was irrigated, the subcu closed with fine Vicryl. There was excellent hemostasis achieved with the Bovie, and then the skin was stapled. A sterile dressing was applied. He tolerated this procedure very well. Rom Paulino - /duke/katlin doc#: [id number]/job#: [id number] dd: 12/19/2017 12:28:00 dt: 12/19/2017 16:25:00 DICTATING /COPIES TO: Beau Donaldson MD COPIES MNE: LIBORIO
[2017-12-20 00:25] VITALS: BP 159/98; PULSE 80; RESP 18; TEMP 36.7; O2SAT 94
[2017-12-20 00:30] VITALS: O2SAT 94
[2017-12-20 04:49] VITALS: BP 163/97; PULSE 74; RESP 19; TEMP 36.5; O2SAT 94
--- NOTE | 2017-12-20 05:40 | PC.NURSE ---
NOC Note: Pt is able to reposition in bed with minimal assist. drsg to ABD with small amount of shadowing. Stated that he only has pain in the ABD with movement and declined PRN medication. BT x4 and denies nausea. LCTA. PP++. Pt is able to use the call light to make needs known but has attempted to get out of bed with out assistance twice this shift, bed alarm on for safety.
[2017-12-20 06:12] LABS: Add Manual Diff / Slide Review NO; Basophils Percent Auto 0.6 % (0-2); Eosinophils Percent Auto 4.6 % (2-4); Hematocrit 40.4 % (41-53); Hemoglobin 13.8 g/dL (13.5-17.5); Lymphocytes Percent Auto 12.4 % (25-40); Mean Corpuscular HGB Conc 34.1 % (30-36); Mean Corpuscular Hemoglobin 31.1 PG (26-34); Mean Corpuscular Volume 91.3 fL (80-100); Monocytes Percent Auto 10.6 % (3-14); Neutrophils Absolute Auto 7100 /uL (3000-5900); Neutrophils Percent Auto 71.8 % (50-75); Platelet Count 160 X10^3/uL (150-400); Red Blood Cell Count 4.43 X10^6/uL (4.5-5.9); Red Cell Distribution Width 14.3 % (11.6-14.8); White Blood Cell Count 9.8 X10^3/uL (4.5-11.0)
[2017-12-20 06:24] LABS: BUN Creatinine Ratio 12.3 (6-22); Blood Urea Nitrogen 16 mg/dL (9-20); Calcium 8.6 mg/dL (8.4-10.2); Carbon Dioxide 25 mmol/L (22-32); Chloride 104 mmol/L (98-107); Glucose 121 mg/dL (80-110); HEMOLYSIS < 15 (0-50); Potassium 3.5 mmol/L (3.4-5.1); Sodium 142 mmol/L (137-145)
[2017-12-20 07:00] VITALS: O2SAT 93
[2017-12-20 07:35] VITALS: BP 136/94; PULSE 89; RESP 18; TEMP 36.4; O2SAT 94
--- NOTE | 2017-12-20 09:52 | PC.NURSE ---
pt is slightly agitated this morning. He used call mace and had to use the urinal. Voided about 75cc. Moved to chair where he ate a bit of his breakfast and had some hot chocolate. Ate a few bites of food and drank about 3/4 of sathish. Up with 1pa and his walker. Pt is unsteady on his feet. He is a possible discharge today. dressing to abdomen with some old shadow drainage and bt+x4 in all quadrants.
--- NOTE | 2017-12-20 11:08 | PT.IPTN ---
Surgery Performed Operation Date: 12/19/17 12:15 Actual Procedures p Hernia Repair - Umbilical - Beau Donaldson MD Physical Therapy Treatment Note M2 PT-IP Current Condition Start: 12/19/17 11:40 Freq: NEEDED Status: Active Protocol: Document 12/19/17 16:04 IJS (Rec: 12/19/17 16:20 IJS [email or web address]) Physical Therapy Current Condition Current Condition Evaluation Date 12/19/17 Treatment Diagnosis Walking/gait disturbance secondary to hernia repair/ surgery Onset Date 12-19-17 Precautions Other Precautions Umbilical hernia repair put gait belt above this area. Weight Bearing Status Weight Bearing Status Full Weight Bearing M3 PT-IP Subjective Start: 12/19/17 11:40 Freq: NEEDED Status: Active Protocol: Document 12/20/17 11:05 GGD (Rec: 12/20/17 11:08 GGD [id number]) Subjective Physical Therapy Visit Type Type Treatment Note Visit Start Time 10:15 Visit Stop Time 11:00 Total Visit Minutes 45 Number of LINUX SERVER ADMINISTRATOR Visits 1 Physical Therapy Visit Comments Patient Comments Pt states he will need help at home. Therapy Pain Assessment Pain When Pain Assessed During Mobility Pain Present Pain Present Pain Reported M4 PT-IP Mobility and Gait Start: 12/19/17 11:40 Freq: NEEDED Status: Active Protocol: Document 12/20/17 11:05 GGD (Rec: 12/20/17 11:08 GGD [id number]) PT-Bed Mobility Assessment Rolling Type of Rolling Log Rolling Supine to Sit Supine to Sit Contact Guard Assistance Bedrails Sit to Supine Sit to Supine Minimal Assistance 1 Person Assistance Bedrails PT-Transfer Assessment Sit to and From Stand Sit to and from Stand Contact Guard Assistance Comments Mobility Comments hearing care professional training for bed mobility and transfers. Gait Assessment Gait Gait Assistance Required: Contact Guard Assist Distance (Feet) (feet) 40 Able to Maintain Weight Bearing Status Yes During Gait Assistive Devices Assistive Device Gait Belt Front Wheeled Walker Orthotic/Prosthetic Devices or Brace: No Gait Deviations General Gait Pattern Decreased Stride Length Decreased Feet Clearance Factors Limiting Gait Function Factors Limiting Gait Function Decreased Activity Tolerance Comments Gait Comments Pt ambulated to bathroom and then chair, in chair with alarm on. M5 PT-IP Objective Assessments Start: 12/19/17 11:40 Freq: NEEDED Status: Active Protocol: Document 12/19/17 16:04 IJS (Rec: 12/19/17 16:20 IJS [email or web address]) Orientation Orientation/Cognition Level of Alertness Alert Orientation Name Age Birthday Date Situation Language Function Ability No Deficits Noted Safety Awareness Understands Safety Issues Memory Description No Deficits Noted Comments It is noted in his history that he has short term memory impairment but I did not notice during evaluation. Gross Range of Motion Upper Extremity ROM Assessment Within Functional Limits Lower Extremity ROM Assessment Within Functional Limits Strength Upper Extremity Strength Assessment Within Functional Limits Lower Extremity Strength Assessment Within Functional Limits Coordination Assessment Gross Coordination Gross Coordination WNL Assessment Pronation/Supination Test Normal Performance Foot Tapping Test Normal Performance Heel on Brumfield Test Normal Performance Sensation Assessment Sensation Gross Sensation WNL Light Touch Intact Muscle Tone Muscle Tone WNL Yes M6 PT-IP Treatment Start: 12/19/17 11:40 Freq: NEEDED Status: Active Protocol: Document 12/20/17 11:05 GGD (Rec: 12/20/17 11:08 GGD [id number]) Physical Therapy Treatment Education Education Provided Safety M7 PT-IP Assessment and Plan Start: 12/19/17 11:40 Freq: NEEDED Status: Active Protocol: Document 12/20/17 11:05 GGD (Rec: 12/20/17 11:08 GGD [id number]) PT Summary Assessment and Plan Frequency of Treatment Frequency Of Treatment Twice a Day Treatment Plan Physical Therapy Treatment Plan Bed Mobility Training Transfer Training Gait Training Therapeutic Exercise Discharge Planning Recommendations To Nursing Amount of Assist Needed 1 Person Assist Discharge Recommendations PT Discharge Recommendations Home Home Health
--- NOTE | 2017-12-20 13:10 | PC.NURSE ---
Pt is getting in shower now, cnas are going to assist pt. He is going home today. Per Report from Noc shift the last two days. Pt has been on 1-2L of o2 as sats have dropped down into the high 70s and low 80s. Just called and got orders for RT to evaluate pts o2 sats and see if he can qualify for home oxygen.
--- NOTE | 2017-12-20 13:15 | OT.IP.EVAL ---
Surgery Performed Operation Date: 12/19/17 12:15 Actual Procedures p Hernia Repair - Umbilical - Beau Donaldson MD Past Medical History (Last Reviewed 12/19/17 @ 13:46 by Cortes Sanders MD) Abdominal distention (Acute) BPH (benign prostatic hyperplasia) (Acute) Abdominal pain (Acute) Memory deficit (Acute) Ambulatory dysfunction (Acute) BPH (benign prostatic hyperplasia) (Acute) Cataract (Acute) Chicken pox (Acute) Hypertension (Acute) Hypothyroid (Acute) Kidney insufficiency (Acute) Macular degeneration (Acute) Pulmonary fibrosis (Acute) Sleep apnea (Acute) Tuberculosis, pulmonary fibrosis, bacterial/histologic exam unknown (Acute) Surgical History (Last Reviewed 12/19/17 @ 13:46 by Cortes Sanders MD) Total knee replacement status (Acute) History of tonsillectomy Status post appendectomy Occupational Therapy Inpatient Evaluation/Re-Eval M1 PT/OT-IP Prior Functional Status Start: 12/19/17 11:40 Freq: NEEDED Status: Active Protocol: Document 12/20/17 12:52 PJM (Rec: 12/20/17 13:14 PJM [id number]) Medical Review Prior Functional Status Medical History Reviewed Yes Diet/Fluid Consistency Regular Communication Welsh Mobility and Gait Independent with periodic single point cane use. Activities of Daily Living and IADL's Independent with eating, grooming, dressing except struggling with socks per . Pt reluctant to shower at home due to fear of falling, per . Prior Functional Level (Other details) does all IADLS and driving. Social History Household Members spouse Living Arrangements House Number of Floors (Floors) One Floor Number of Stairs To Enter/Railing? one step with rail or ramp entry Home Environment Standard Height Toilet High Toilet Ramp Home Equipment Front Wheel Walker Straight Cane Shower Seat with Backrest Hand Held Shower Long Handled Shoe Horn Instrument Room Technician Grab Bars In Shower Employment Status Retired Additional Social History Comment and daughter here this session. has obtained toilet safety frame from [employer] and purchased shower seat with backrest and armrests. Daughter installed hand held shower hose. Daughter to obtain hard sock aid for pt. M2 OT-IP Current Condition Start: 12/19/17 16:23 Freq: Status: Active Protocol: Document 12/20/17 12:52 PJM (Rec: 12/20/17 13:14 PJM [id number]) Occupational Therapy Current Condition Current Condition Evaluation Date 12/20/17 Treatment Diagnosis decreased self care and functional mobility s/p umbilical hernia repair Post Operative Precautions Abdominal Surgery Precautions Log Roll Lifting Restrictions Gait Belt above Incisional Area Weight Bearing Status Weight Bearing Status Full Weight Bearing M3 OT- IP Subjective and Pain Start: 12/19/17 16:23 Freq: Status: Active Protocol: Document 12/20/17 12:52 PJM (Rec: 12/20/17 13:14 PJM [id number]) OT- Subjective Occupational Therapy Visit Type Type Initial Evaluation Visit Start Time 11:20 Visit Stop Time 12:07 Total Visit Minutes 47 Occupational Therapy Visit Comments Patient Comments I know I will be able to do better when I am healed up. Patient/Caregiver Goals to go home today OT Pain Assessment Pain When Pain Assessed After Treatment Pain Present Pain Present Pain Reported Location Lower Abdomen Intensity 3 Scale Used Numeric (1 - 10) Description Aching Pain Behaviors Guarding M4 OT- IP ADL's Start: 12/19/17 16:23 Freq: Status: Active Protocol: Document 12/20/17 12:52 PJM (Rec: 12/20/17 13:14 PJ [id number]) OT [id number] General Evaluation Diet Level for Self-Feeding general Self-Feeding Ability Independent OT ADL-Grooming General Evaluation Grooming Ability Standby Assistance Areas Needing Assistance Retrieving/Set-up of Grooming Items Comments OT Grooming Comments Recommend pt complete grooming tasks seated until dynamic standing balance improves. OT ADL-Oral Care General Eval Oral Care Ability Standby Assistance Comments Oral Care Comments Recommend pt complete grooming tasks seated until dynamic standing balance improves. OT ADL-Dressing General Eval Upper Body Dressing Ability Standby Assistance Lower Body Dressing Ability Minimal Assistance Areas Needing Assistance Pull-Over Shirt Pants/Shorts Socks Shoes Assistive Devices Dressing Assistive Devices Long Handled Shoe Horn Instrument Room Technician Sock Aid Comments OT Dressing Comments Pt had one significant loss of balance while standing to remove robe requiring min assist from therapist to correct. educated and verbalizes understanding that she will need to provide close SBA to CGA for standing balance during standing dressing tasks. OT ADL-Toileting Comments OT Toileting Comments did not occur this session. can assist PRN at home OT ADL-Bathing Comments OT Bathing Comments Pt declined to shower here. reports pt needs RX shampoo which is not here. Provided education re: bathroom safety equipt options and daughter will obtain long bath sponge for pt. M5 OT- IP IADL's Start: 12/19/17 16:23 Freq: Status: Active Protocol: Document 12/20/17 12:52 PJM (Rec: 12/20/17 13:14 [facility] NR) OT-Instrumental Activities of Daily Living Deficits IADL Deficits Identified Deficits Home Safety Awareness Awareness of Need for Assistance at Home Good Awareness Medication Management Medication Management Caregiver Administers Money Management Money Management Caregiver Provides Assistance Meal Preparation Meal Preparation Caregiver Provides Assist Concrete Precast Moulder Concrete Precast Moulder Caregiver Provides Assist Driving Driving Caregiver Provides Assist M6 OT- IP Functional Cognition Start: 12/19/17 16:23 Freq: Status: Active Protocol: Document 12/20/17 12:52 PJM (Rec: 12/20/17 13:14 [facility] NR) Cognitive Factors Limiting Selfcare Function Cognitive Ability Level of Alertness Alert Patient Orientation Name Place Situation Attention Span Ability Capable of Focused Attention Ability to Follow Commands Able to Follow One Step Commands Safety Awareness Decreased Ability to Apply Precautions Underestimates Need for Assistance Problem Solving Ability Needs Assist to Identify Solutions Cognitive Comments Cognitive Assessment Comments Pt recalls abdominal precautions but needs min cues to follow them. OT- Vision and Hearing OT- Hearing Assessment OT- Hearing Assessment WFL OT- Vision Assessment Vision History Cataracts Glaucoma Visual Acuity WFL Glasses All The Time Vision Assessment Comments Pt denies any changes since admit. M7 OT- IP Mobility and Balance Start: 12/19/17 16:23 Freq: Status: Active Protocol: Document 12/20/17 12:52 PJM (Rec: 12/20/17 13:14 [facility] NR) OT-Transfer Assessment Comments Mobility Comments did not occur, pt seen up in recliner, see P.T. notes OT- Gait Assessment Comments Gait Ability Comments see P.T. notes OT- Balance Assessment Sitting Balance and Reactions Static Sitting Balance Ability Good Dynamic Sitting Balance Ability Good Standing Balance and Reactions Static Standing Balance Ability Fair Dynamic Standing Balance Ability Fair Comments Other Balance Tests/Deviations/Treatment Pt comes to standing with : effort and attempting to manage lower body clothing in partial stand. M8 OT- IP Objective Assessments Start: 12/19/17 16:23 Freq: Status: Active Protocol: Document 12/20/17 12:52 PJM (Rec: 12/20/17 13:14 PJM [id number]) OT Gross Range of Motion Upper Extremity Range of Motion Assessment Within Functional Limits OT Strength Upper Extremity Strength Assessment Within Functional Limits OT- Coordination Assessment Comments Coordination Comments BUE WFL OT-Muscle Tone Assessment Muscle Tone WNL Yes OT Sensation Assessment Comments Summary Comments Pt denies BUE deficits. M9 OT- IP Assessment and Plan Start: 12/19/17 16:23 Freq: Status: Active Protocol: Document 12/20/17 12:52 PJM (Rec: 12/20/17 13:14 PJM [id number]) OT Summary Assessment and Plan Potential Rehabilitation Potential Good Analytic Complexity at Evaluation Low Summary OT Impairments Pain Balance Functional Cognition Functional Mobility Dressing Toileting Bathing Toilet Transfers Shower Transfers Assessment Summary Low complexity OT assessment completed with emphasis on self care skills. Pt currently has performance deficits in standing balance during lower body dressing and grooming, bathing and toileting. Provided education to pt, , daughter re: bathroom safety equipt options and use of financial aid coordinator, sock aid, long shoe horn for lower body dressing. Pt/family verbalize understanding of all education and pt plans to d/c home today with 24 hr assist from , 2 daughters. Recommend HH OT followup to increased independence and safety with self care skills in home setting. Goals Self-Feeding Goal Minimal Assistance Discharge Recommendations OT Discharge Recommendations Home with 24/ Assist Other Discharge Recommendations HH OT Home Equipment Needs daughter to obtain hard sock aid and long bath sponge for pt
--- NOTE | 2017-12-20 15:28 | CM.DPNOTE ---
DC NOte: Requested to review DCP w/pt and family by Dr Sanders. F2F signed for HH. Met w/pt, spouse, and two dtrs Steffanie and Rachell, son Kai arriving later. Watched as PT worked w/pt then allowed spouse to assist w/bed mobility. PT has cleared pt for home although all agree the home plan may be difficult if pt does not comply w/spouse or family's cueing and/or suggestions for safe transfer, ambulation, etc. Pt fairly grumpy during this visit, raises his voice at family members and shouts directives. 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 All agree pt can go home today if DC and all approve HH referral, whomever can f/u the soonest. Dtrs and son will assist spouse at home for at least 48-72 hrs. Requested that senior admin assist [place] make HH referral to agency that can f/u w/in 24 hrs, ideally. [facility] can f/u tomorrow, , if pt is DC today. Made referral for RN/PT/OT/SAWMILL OR TIMBER YARD WORKER/TECHNICAL MAINTENANCE SPECIALIST (per request of pt's family). This TECHNICAL MAINTENANCE SPECIALIST updated pt's family outside the rm (pt getting a shower) that [facility] can f/u w/in 24 hrs, also provided Senior Resource Guide w/home cg agency numbers dog eared. Home is expected, w/[facility], likely later today, w/family to assist at home. IRVIN Norton
--- NOTE | 2017-12-20 16:36 | PC.NURSE ---
Discharge note: Patient discharged home via WC with daughter and at side. Patient awake and alert, in no apparent distress. Discussed discharge instructions and importance of F/U with PMD Sanders for suture removal. PMD nurse to call to arrange appointment. Family and patient verabalized understanding of discharge instructions.
--- NOTE | 2017-12-20 19:59 | P.DS_ITS ---
History of Present Illness Chief complaint: ABD Pain/ Memory Deficit/ Ambulatory Dysfunction Narrative: Abdominal pain Patient admitted early this morning through the emergency room for abdominal pain. Patient began to have vague abdominal pain yesterday afternoon after having had some soup. During the course of the day the pain seemed to increase. He apparently vomited last night Two days ago on Monday he felt perfectly well. He also felt perfectly well yesterday morning on Monday no fever chills has had decreased urine output decreased energy had 1 bowel movement yesterday normally has more than 1. Para pain is periumbilical at generalized. He was seen in the emergency room and apparently emergency room was issues thought there may well be a umbilical hernia and pushed on him umbilicus presumably ?reduced? the hernia and the patient states his pain M improved and since he went away. is here with him and she agrees with his impression He has had no melena no hematochezia no history of same. No history of any in hernias Patient currently denies any pain however has been given some medications Discharge Providers Date of admission: 12/20/17 15:32 Primary care physician: Cortes Sanders MD Consults: 12/19/17 08:25 Consult to Physical Therapy Evaluate & Treat Comment: Physician Instructions: Evaluate and Treat 12/19/17 08:26 Consult to General Surgery Routine Comment: Consulting Provider: Cortes Sanders Reason for consultation: abd pain Has provider been notified: Yes 12/19/17 08:28 Consult to Discharge Planning Routine Comment: needs sleep study 12/19/17 08:29 Consult to Physical Therapy Evaluate & Treat Comment: Physician Instructions: Evaluate and Treat 12/19/17 08:53 Consult to Occupational Therapy Evaluate & Treat Comment: Physician Instructions: Evaluate and treat 12/20/17 12:12 Consult to Home Health Routine Comment: Reason For Exam: HH RN/PT/OT/INCIDENT ANALYST/WASHCOAT WIPER Upon DC Discharge provider: Cortes Sanders MD Summary Discharge Diagnosis: Incarcerated umbilical hernia. 2. sleep apnea. 3. memory impairment Hospital Course: Patient was admitted to the emergency room for abdominal pain. The pain seemed improved after Dr. Emanuel apparently reduced incarcerated umbilical hernia. The patient was seen by general surgeon who felt that the umbilical hernia was in fact the problem and the patient underwent repair of the umbilical hernia. The surgery went well without difficulties Patient was eating normal foods on discharge and passing gas His 2nd problem was his sleep apnea patient has had chronic sleep apnea has been evaluated by this in the past. During the daytime his oxygen saturation on room air would be 96% when he laid down and go to sleep his oxygen levels could drop into the mid 70s but responded medially to 2 L of nasal oxygen. The patient had been arranged to have a sleep study as an outpatient but not until end of January to [facility]. After much consultation and discussion and has sling with [place] he has an appointment made by me with sleep study lab she had a Shmuel January 03 Patient was sent home on nighttime oxygen and presumably and I times sleep study will be evaluated as per oxygen supply organization I will see him back for follow-up in approximately 2 weeks unclear when the surgeon wants to see him but yet to be determined Exam Vital Signs (past 8 hours): Oxygen Delivery Method Room Air Oxygen Flow Rate 2 Objective Labs Result Diagrams: 12/20/17 05:50 12/20/17 05:50 Labs: Laboratory Results - last 24 hr 12/20/17 12/20/17 05:50 05:50 WBC 9.8 RBC 4.43 L Hgb 13.8 Hct 40.4 L MCV 91.3 MCH 31.1 MCHC 34.1 RDW 14.3 Plt Count 160 Neut % (Auto) 71.8 Lymph % (Auto) 12.4 L Guadalupe % (Auto) 10.6 Eos % (Auto) 4.6 H Baso % (Auto) 0.6 Neut # (Auto) 7100 H Sodium 142 Potassium 3.5 Chloride 104 Carbon Dioxide 25 BUN 16 Creatinine 1.30 H Estimated GFR 53.0 L BUN/Creatinine Ratio 12.3 Glucose 121 H Calcium 8.6 Discharge Plan Discharge Plan Patient Disposition: Home, Self-Care Discharge comment: [facility] sleep [facility], , january 03 Provider Discharge Instructions Diet: Regular Activity: normal Oxygen: 1-2 l/m at bedtime Wound Care Report to your healthcare provider any signs of infection, such as:: chills, fever, night sweats, increased pain and unusual drainage Dressing: change dressing daily Discharge Data Primary Care Provider: Cortes Sanders Attending Provider: Beau Donaldson Admit Date/Time: 12/20/17 15:32 Discharges patient from system. Discharge Date/Time: 12/20/17 16:36 Quality VTE Deep Vein Thrombosis/Pulmonary Embolism Present on Admission: No
--- NOTE | 2017-12-21 15:24 | CM.SWNOTE ---
ED SUPERVISOR [employer] was contacted as pt returned to the ED after being home one day. It was reported that the home oxygen was not delivered by [facility]. Respiratory Therapy, Wilver, was contacted and stated that he would contact [facility] to inquire what occurred as it was supposed to be delivered last night. SUPERVISOR [employer] spoke briefly with pt's who stated that [facility] did arrive this AM, took pt's vitals and suggested that he come to the ED. Respiratory to follow up with contacting [facility] and clarifying any concerns regarding the Home 02 delivery. No further SW needs identified.
== END 2017-12-20 16:36 | disposition home or self-care (01) | DRG 355 ==
LOC: ED 12-19 01:39 → AC 12-19 02:12
PROVIDERS: Admitting Provider Internal Medicine; Emergency Provider Emergency Medicine; Family Provider Family Medicine; PCP Family Medicine; Visit Provider Surgery
PROC: 0WQF0ZZ Repair Abdominal Wall, Open Approach (ICD-10-PCS; principal; 2017-12-19 12:15)
DX: K42.0 Umbilical hernia with obstruction, without gangrene (principal); N40.0 Benign prostatic hyperplasia without lower urinary tract symptoms; I10 Essential (primary) hypertension; E03.9 Hypothyroidism, unspecified; H35.30 Unspecified macular degeneration; G47.33 Obstructive sleep apnea (adult) (pediatric); R41.3 Other amnesia
CPT/HCPCS: 36415; 36591; 49587; 71250; 71275; 74176; 80048; 80053; 81003; 81015; 83690; 84484; 85025; 86850; 86900; 86901; 93005; 94760; 96374; 96375; 97116; 97161; 97165; 97530; 97535; 99238; 99285; G0378; J0131; J0690; J1170; J2060; J2405; J2704; J3010; Q9967

== ENCOUNTER 2017-12-21 14:17 | Observation (INO) | payer OTHER, SELFPAY ==
[2017-12-19 02:17] VITALS: BMI 32.3
[2017-12-21] VITALS (7 sets, daily range): BP systolic 127–159; BP diastolic 78–97; PULSE 59–79; RESP 18–22; TEMP 36.4–36.8; O2SAT 94–97; BMI 32.0
--- NOTE | 2017-12-21 14:26 | ED_ITS ---
HPI - General Adult General Chief complaint: Abdominal Pain Stated complaint: ELEVATED BP,SAYS DISCHARGED TO SOON Time Seen by Provider: 12/21/17 14:23 Source: patient Mode of arrival: wheelchair Limitations: no limitations History of Present Illness HPI narrative: Patient is an 82-year-old male who was discharged yesterday. Apparently visiting nurse saw him him that his oxygen level was low and that his recent umbilical hernia surgery incision site looked infected. He is overall of requiring more help the home extremely weak. He has not had any fever or chills no chest pain or shortness of breath. He has longstanding sleep apnea he was supposed to get oxygen at home however it has not yet been delivered. He has not yet had a sleep study. He has been passing gas but no bowel movements he has no vomiting. He has not had any fever. He had a CT chest abdomen and pelvis on December 18. CT was negative for PE at that time. However he was found to have incarcerated umbilical hernia. Related Data Home Medications Medication Instructions Recorded Confirmed cholecalciferol (vitamin D3) 2,000 units PO DAILY #0 07/13/16 12/21/17 [Vitamin D3] multivitamin [Multiple Vitamins] 1 dose PO DAILY #0 07/13/16 12/21/17 polyethylene glycol 3350 [Miralax] 17 gm PO QDAY #0 04/04/17 12/21/17 folic acid 0.4 mg PO DAILY #0 08/29/17 12/21/17 donepezil 10 mg tablet 10 mg PO BEDTIME 11/15/17 12/21/17 amlodipine 5 mg PO DAILY 12/19/17 12/21/17 calcium carb-D3-mag ox-zinc ox 1 dose PO DAILY 12/19/17 12/21/17 [Don Mag Zinc Plus D3] cinnamon bark [Cinnamon] 500 mg PO DAILY 12/19/17 12/21/17 fluocinonide 1 % TOPICAL SEE INSTRUCTIONS 12/19/17 12/21/17 acetaminophen [Acetaminophen Extra 1,000 mg PO Q6H PRN 12/21/17 12/21/17 Strength] Previous Rx's Medication Instructions Recorded levothyroxine [Levoxyl] 112 mcg PO QDAY #90 tab 05/03/17 tamsulosin [Flomax] 0.4 mg PO QDAY #90 cap 05/03/17 triamcinolone acetonide 1 shima TOPICAL BID #60 ml 05/12/17 Allergies Allergy/AdvReac Type Severity Reaction Status Date / Time Sulfa (Sulfonamide Allergy Intermediate Hives Verified 12/21/17 14:33 Antibiotics) Review of Systems Review of Systems All systems reviewed & are unremarkable except as noted in HPI and below Constitutional Reports as per HPI ENT Ears, Nose, Mouth, and Throat: Denies dizziness Cardiovascular Denies chest pain, Denies irregular heart rhythm, Denies lightheadedness, Denies palpitations and Denies orthopnea Respiratory Reports as per HPI Gastrointestinal Gastrointestinal: Reports as per HPI, Reports abdominal pain, Reports change in bowel habits, Denies diarrhea, Denies nausea and Denies vomiting Musculoskeletal Denies back pain, Denies muscle weakness, Denies numbness and Denies tingling Neurologic Denies confusion, Denies dizziness, Denies numbness and Denies tingling Psychiatric Denies confusion Endocrine Denies palpitations [facility] Medical History Abdominal distention (Acute) BPH (benign prostatic hyperplasia) (Acute) Abdominal pain (Acute) Memory deficit (Acute) Ambulatory dysfunction (Acute) BPH (benign prostatic hyperplasia) (Acute) Cataract (Acute) Chicken pox (Acute) Hypertension (Acute) Hypothyroid (Acute) Kidney insufficiency (Acute) Macular degeneration (Acute) Pulmonary fibrosis (Acute) Sleep apnea (Acute) Tuberculosis, pulmonary fibrosis, bacterial/histologic exam unknown (Acute) Surgical History History of umbilical hernia repair (Acute ~12/19/17) Total knee replacement status (Acute) History of tonsillectomy Status post appendectomy Social History household members: spouse Smoking Status: Never smoker alcohol intake: never Exam Initial Vital Signs Initial Vital Signs: Vital Signs Pulse Rate 70 12/21/17 14:25 Respiratory Rate 18 12/21/17 14:25 Blood Pressure 127/97 H 12/21/17 14:25 Pulse Oximetry 95 12/21/17 14:25 Const General: cooperative and comfortable Nutritional Appearance: average body habitus and well nourished HENMT Head: normal to inspection and normocephalic Chest Chest: normal inspection of the chest Resp Effort & Inspection: normal respiratory effort and able to speak in complete sentences Auscultation: clear to auscultation bilaterally Cardio Palpation: normal PMI Rhythm: regular rhythm Heart Sounds: S1 normal and S2 normal GI Palpation: soft, No firm and tender (Mild diffuse tenderness) Other: Incision site is does is clean and dry, with clean bandage no surrounding erythema Skin General: no rashes or lesions noted Neuro General: alert, awake and oriented x3 Cranial Nerves: CN's II-XI intact bilaterally Extrem General: normal to inspection and full ROM Right upper extremity: normal to inspection and full ROM Left upper extremity: normal to inspection and full ROM Right lower extremity: normal to inspection and full ROM Course Orders Ordered: ED Orders 12/21/17 14:44 XR acute abdomen series Stat 12/21/17 14:58 Complete Blood Count AUTO DIFF Stat Comprehensive Metabolic Panel Stat 12/21/17 15:01 Consult to Painter Helper Stat 12/21/17 15:46 Consult to Physical Therapy Evaluate & Treat Vital Signs - 8 hr 12/21/17 14:25 12/21/17 14:29 12/21/17 15:02 Temperature 97.5 F L Pulse Rate 70 72 71 Respiratory Rate 18 22 19 Blood Pressure 159/83 H Blood Pressure [Right Arm] 127/97 H 142/88 H Pulse Oximetry 95 96 95 12/21/17 16:18 12/21/17 16:22 Temperature 97.6 F Pulse Rate 79 59 L Respiratory Rate 22 18 Blood Pressure Blood Pressure [Right Arm] 141/78 H Pulse Oximetry 97 96 Medical Decision Making [facility] Narrative Medical decision making narrative: Patient is not hypoxic while he is awake. However it has been documented multiple times that he is hypoxic when he sleeps. Even though oxygen was delivered upon discharge apparently he does not qualify. They need more testing and studies done. He has progressively become weaker after being discharged. He is requiring significant assistance. Physical therapy on available to evaluate in the ED. Dr. Sanders has been updated on symptoms and test results. He agrees to observation, with intent on getting oxygen for home tomorrow. Lab Data Result diagrams: 12/21/17 14:58 12/21/17 14:58 Lab Results 12/21/17 12/21/17 Range/Units 14:58 14:58 WBC 7.7 (4.5-11.0) X10^3/uL RBC 4.27 L (4.5-5.9) X10^6/uL Hgb 13.2 L (13.5-17.5) g/dL Hct 39.0 L (41-53) % MCV 91.4 (80-100) fL MCH 31.0 (26-34) PG MCHC 34.0 (30-36) % RDW 14.5 (11.6-14.8) % Plt Count 170 (150-400) X10^3/uL Neut % (Auto) 61.7 (50-75) % Lymph % (Auto) 18.4 L (25-40) % [place] % (Auto) 12.3 (3-14) % Eos % (Auto) 6.7 H (2-4) % Baso % (Auto) 0.9 (0-2) % Neut # (Auto) 4700 (0302-7807) /uL Sodium 140 (137-145) mmol/L Potassium 3.7 (3.4-5.1) mmol/L Chloride 102 (98-107) mmol/L Carbon Dioxide 26 (22-32) mmol/L BUN 25 H (9-20) mg/dL Creatinine 1.40 H (0.66-1.25) mg/dL Estimated GFR 48.6 L (>60) mL/min BUN/Creatinine Ratio 17.9 (6-22) Glucose 104 (80-110) mg/dL Calcium 8.8 (8.4-10.2) mg/dL Total Bilirubin 0.9 (0.2-1.3) mg/dL AST 31 (17-59) IU/L ALT 22 (21-72) IU/L Alkaline Phosphatase 68 (38-126) U/L Total Protein 7.7 (6.3-8.2) g/dL Albumin 4.2 (3.5-5.0) g/dL Globulin 3.5 (1.7-4.1) g/dL Albumin/Globulin Ratio 1.2 (1.0-2.8) Imaging Data Abdominal x-ray: Radiologist's impression: PROCEDURE: XR ACUTE ABDOMEN SERIES INDICATIONS: 82 year-old male with recent hernia repair and shortness of breath. TECHNIQUE: One view chest and two views of the abdomen were acquired. COMPARISON: [facility], ABDOMEN ACUTE SERIES, 03/28/2017, 14:15. [facility], CHEST 2 VIEW, 07/09/2016, 9:55. [facility], CR, CHEST 2 VIEW , 05/11/2016, 12:28. FINDINGS: Surgical changes and devices: Lower abdominal laparotomy staple line is present. Chest: Lungs are clear. Mild cardiomegaly is unchanged. No pleural effusions. No pneumoperitoneum. Abdomen: Bowel gas pattern is normal. No suspicious calcifications. Visualized solid organ contours appear normal. Bones: No suspicious bony lesions. There is multilevel lumbar spine disc degeneration, as well as mild bilateral hip joint degeneration. IMPRESSION: 1. No radiographic explanation for postoperative abdominal pain. 2. Cardiomegaly as before. Dictated by: Benji Guzman M.D. on 12/21/2017 at 15:31 Discharge Plan Departure Patient Disposition: Admitted as Observation Clinical Impression: Hypoventilation, Weakness, MOJGAN (obstructive sleep apnea)
--- NOTE | 2017-12-21 14:44 | DI.RAD.S_ITS ---
PROCEDURE: XR ACUTE ABDOMEN SERIES INDICATIONS: 82 year-old male with recent hernia repair and shortness of breath. TECHNIQUE: One view chest and two views of the abdomen were acquired. COMPARISON: [facility], ABDOMEN ACUTE SERIES, 03/28/2017, 14:15. [facility], CHEST 2 VIEW, 07/09/2016, 9:55. [facility], CHEST 2 VIEW, 05/11/2016, 12:28. FINDINGS: Surgical changes and devices: Lower abdominal laparotomy staple line is present. Chest: Lungs are clear. Mild cardiomegaly is unchanged. No pleural effusions. No pneumoperitoneum. Abdomen: Bowel gas pattern is normal. No suspicious calcifications. Visualized solid organ contours appear normal. Bones: No suspicious bony lesions. There is multilevel lumbar spine disc degeneration, as well as mild bilateral hip joint degeneration. IMPRESSION: 1. No radiographic explanation for postoperative abdominal pain. 2. Cardiomegaly as before. Dictated by: Benji Guzman M.D. on 12/21/2017 at 15:31 Approved by: Benji Guzman M.D. on 12/21/2017 at 15:32
[2017-12-21 15:01] LABS: Add Manual Diff / Slide Review NO; Basophils Percent Auto 0.9 % (0-2); Eosinophils Percent Auto 6.7 % (2-4); Hemoglobin 13.2 g/dL (13.5-17.5); Lymphocytes Percent Auto 18.4 % (25-40); Mean Corpuscular Volume 91.4 fL (80-100); Monocytes Percent Auto 12.3 % (3-14); Neutrophils Absolute Auto 4700 /uL (3000-5900); Neutrophils Percent Auto 61.7 % (50-75); Platelet Count 170 X10^3/uL (150-400); Red Blood Cell Count 4.27 X10^6/uL (4.5-5.9); Red Cell Distribution Width 14.5 % (11.6-14.8); White Blood Cell Count 7.7 X10^3/uL (4.5-11.0)
[2017-12-21 15:12] LABS: Alanine Aminotransferase 22 IU/L (21-72); Albumin 4.2 g/dL (3.5-5.0); Albumin Globulin Ratio 1.2 (1.0-2.8); Alkaline Phosphatase 68 U/L (38-126); Aspartate Aminotransferase 31 IU/L (17-59); BUN Creatinine Ratio 17.9 (6-22); Bilirubin Total 0.9 mg/dL (0.2-1.3); Blood Urea Nitrogen 25 mg/dL (9-20); Calcium 8.8 mg/dL (8.4-10.2); Carbon Dioxide 26 mmol/L (22-32); Chloride 102 mmol/L (98-107); Estimated Glomerular Filt Rate 48.6 mL/min (>60); Globulin 3.5 g/dL (1.7-4.1); Glucose 104 mg/dL (80-110); HEMOLYSIS < 15 (0-50); Potassium 3.7 mmol/L (3.4-5.1); Sodium 140 mmol/L (137-145); Total Protein 7.7 g/dL (6.3-8.2)
--- NOTE | 2017-12-21 16:19 | PC.NURSE ---
Pt w/ unsteady gait, generalized weakness, increased shortness of breath w/ ambulation. Increased abd pain w/ ambulation. states she is unable to care for him at home.
--- NOTE | 2017-12-21 17:41 | P.HP_ITS ---
History of Present Illness Date Patient Seen: 12/21/17 Time Patient Seen: 17:19 Chief complaint: ELEVATED BP,SAYS DISCHARGED TO SOON Narrative: Hypoventilation Patient presented to the ER this afternoon. Complaining of shortness of breath and and blood pressure being elevated. The patient was discharged last evening from [facility]. He was admitted that morning for abdominal pain found to have a reduced incarcerated umbilical hernia. This was repaired by a surgeon no difficulty. He was discharged after he was eating normal foods home without difficulties Since then is he has had some discomfort is abdominal incision Primary problem is his hypoventilation. Patient has documented sleep apnea in the past has documented sleep apnea in the present. He has not had a official sleep study due to scheduling difficulties. He currently has a sleep study scheduled with with the P mallorie seen Shmuel January 03. Meanwhile patient has hypoventilation when he goes to sleep his oxygen saturations dropped down into the 70s This was observed been documented here on hospital and with was given supplemental oxygen oxygen levels returned to 95%. The patient is awake and talking his O2 sats on room air 95%. As stated above when he goes to sleep his oxygen saturations dropped into the 80s and 70s responding easily to nasal oxygen. We attempted to get him home O2 last night upon discharge but was unsuccessful for very since administrative difficulties Patient can came back to the ER today after having been seen by home health who is concerned about blood pressure and is abdominal incision neither which are issues The patient is seen in the ER this evening resting quietly awake conversant on room air O2 sats normal The patient is admitted for observation stay to get a continuous 12 18 our oxygen saturation monitor for documentation purposes so that [employer] will pay for [facility] to provide home oxygen. Documentation it was in the chart on the admission 2 days ago was inadequate apparently Otherwise is been no change in the patient's status or his history Patient History Medical History Abdominal distention (Acute) BPH (benign prostatic hyperplasia) (Acute) Abdominal pain (Acute) Memory deficit (Acute) Ambulatory dysfunction (Acute) BPH (benign prostatic hyperplasia) (Acute) Cataract (Acute) Chicken pox (Acute) Hypertension (Acute) Hypothyroid (Acute) Kidney insufficiency (Acute) Macular degeneration (Acute) Pulmonary fibrosis (Acute) Sleep apnea (Acute) Tuberculosis, pulmonary fibrosis, bacterial/histologic exam unknown (Acute) Surgical History History of umbilical hernia repair (Acute ~12/19/17) Total knee replacement status (Acute) History of tonsillectomy Status post appendectomy Family & Social History Social History: household members spouse Safety & Behavioral: Feels Safe in Current Yes Environment Tobacco & Substance use: Smoking Status Never smoker alcohol intake never Substance Use Type does not use Meds Home Medications Medication Instructions Recorded Confirmed Type cholecalciferol (vitamin D3) 2,000 units PO DAILY #0 07/13/16 12/21/17 History [Vitamin D3] multivitamin [Multiple Vitamins] 1 dose PO DAILY #0 07/13/16 12/21/17 History polyethylene glycol 3350 [Miralax] 17 gm PO QDAY #0 04/04/17 12/21/17 History levothyroxine [Levoxyl] 112 mcg PO QDAY #90 tab 05/03/17 12/21/17 Rx tamsulosin [Flomax] 0.4 mg PO QDAY #90 cap 05/03/17 12/21/17 Rx triamcinolone acetonide 1 shmia TOPICAL BID #60 ml 05/12/17 12/21/17 Rx folic acid 0.4 mg PO DAILY #0 08/29/17 12/21/17 History donepezil 10 mg tablet 10 mg PO BEDTIME 11/15/17 12/21/17 History amlodipine 5 mg PO DAILY 12/19/17 12/21/17 History calcium carb-D3-mag ox-zinc ox 1 dose PO DAILY 12/19/17 12/21/17 History [Don Mag Zinc Plus D3] cinnamon bark [Cinnamon] 500 mg PO DAILY 12/19/17 12/21/17 History fluocinonide 1 % TOPICAL SEE INSTRUCTIONS 12/19/17 12/21/17 History acetaminophen [Acetaminophen Extra 1,000 mg PO Q6H PRN 12/21/17 12/21/17 History Strength] Allergies Allergy/AdvReac Type Severity Reaction Status Date / Time Sulfa (Sulfonamide Allergy Intermediate Hives Verified 12/21/17 14:33 Antibiotics) Exam Vital Signs (past 8 hours): - 12/21/17 14:25 12/21/17 14:29 12/21/17 15:02 Temperature 97.5 F L Pulse Rate 70 72 71 Respiratory Rate 18 22 19 Blood Pressure 159/83 H Blood Pressure [Right Arm] 127/97 H 142/88 H Pulse Oximetry 95 96 95 12/21/17 16:18 12/21/17 16:22 Temperature 97.6 F Pulse Rate 79 59 L Respiratory Rate 22 18 Blood Pressure Blood Pressure [Right Arm] 141/78 H Pulse Oximetry 97 96 Oxygen Delivery Method Room Air Narrative Exam Narrative: Gen.: Skin: Warm well perfused. No prominent lesions. Nonicteric. HEENT: PERRL., normal EOM, external ears canals TMs normal, nasal mucosa normal and midline septum, oropharynx without lesions. Neck: Trachea midline. Thyroid nontender and not enlarged. Carotids without bruits. No lymphadenopathy Back: [No obvious deformity or tenderness]. Chest: [Clear to P&A. Symmetric]. CV: [RRR no murmur or gallop. No JVD]. Abdomen: [No masses bruits tenderness or visceromegaly]. Neuro: [Cranial nerves II through XII grossly intact. Sensory and motor exams intact. Gait normal.] Mental status: [Intact for screening] Extremities: [No cyanosis clubbing or edema] Musculoskeletal: [No gross deformities] Lymphatics: [Negative for lymphadenopathy, supraclavicular axillary or inguinal ] . Patient is seen in the ER resting quietly appears in no distress on room air conversant alert and oriented x3 Lab x-rays reviewed all of which were unremarkable Objective Labs Result Diagrams: 12/21/17 14:58 12/21/17 14:58 Labs: Laboratory Results - last 24 hr 12/21/17 12/21/17 14:58 14:58 WBC 7.7 RBC 4.27 L Hgb 13.2 L Hct 39.0 L MCV 91.4 MCH 31.0 MCHC 34.0 RDW 14.5 Plt Count 170 Neut % (Auto) 61.7 Lymph % (Auto) 18.4 L [place] % (Auto) 12.3 Eos % (Auto) 6.7 H Baso % (Auto) 0.9 Neut # (Auto) 4700 Sodium 140 Potassium 3.7 Chloride 102 Carbon Dioxide 26 BUN 25 H Creatinine 1.40 H Estimated GFR 48.6 L BUN/Creatinine Ratio 17.9 Glucose 104 Calcium 8.8 Total Bilirubin 0.9 AST 31 ALT 22 Alkaline Phosphatase 68 Total Protein 7.7 Albumin 4.2 Globulin 3.5 Albumin/Globulin Ratio 1.2 Assessment & Plan Plan: Assessment/Plan Narrative: Patient has well documented sleep apnea in the past. He has not had a recent sleep study and that is scheduled for December 30. He clearly will be benefitting from CPAP para 1 area. He currently has hypoventilation as documented here and on hospital but none in adequate documentation for [place]/apparatus and oxygen. He will be a a admitted overnight observation for continuous O2 saturation monitoring he will be given supplemental oxygen with his O2 sat drops under 85% for instructions to Respiratory therapy Once this is completed overnight will be discharged with intent of having home O2 arranged and delivered tomorrow afternoon for him to use tomorrow night There is no change in medications no other labs ordered. Dr. Ferraro is teacher emotionally impaired for me to night. Dr. John is on-call tomorrow. 1 of whom will be seeing patient tomorrow and be discharging him
--- NOTE | 2017-12-21 21:13 | PC.NURSE ---
Admit note: Patient admitted from ED to AC accompanied by and son via gurney. Awake and alert, calm and cooperative. Needs occasional re orientation and reassurance. Reports minimal pain to abdominal incision with activity only. Patient had an explosive large soft BM upon arrival to floor, reported relief. Up out of bed to BSC with 2 person assist, only able to stand and pivot. Generalized weakness noted. RT notified regarding continuos pulse ox monitoring. O2 sat 96% on RA while awake and during light sleep. Family and patient updated regarding plan of care, BA active and call light within reach.
[2017-12-22 00:10] VITALS: BP 131/83; PULSE 67; RESP 16; TEMP 37.2; O2SAT 94
[2017-12-22 05:37] VITALS: BP 142/90; PULSE 71; RESP 16; TEMP 36.6; O2SAT 93
[2017-12-22 07:45] VITALS: BP 113/68; PULSE 70; RESP 16; TEMP 36.6; O2SAT 95
--- NOTE | 2017-12-22 09:52 | PM.DS.1 ---
History of Present Illness Date Patient Seen: 12/22/17 Time Patient Seen: 08:00 Chief complaint: ELEVATED BP,SAYS DISCHARGED TO SOON Discharge Providers Date of admission: 12/21/17 18:29 Primary care physician: Cortes Sanders MD Consults: 12/21/17 15:01 Consult to Demand Equipment Repairer Stat Comment: 12/21/17 15:46 Consult to Physical Therapy Evaluate & Treat Comment: Physician Instructions: Evaluate and Treat 12/22/17 08:37 Consult to Occupational Therapy Evaluate & Treat Comment: Physician Instructions: Evaluate and treat Discharge provider: Kelly Ferraro MD Summary Discharge Diagnosis: Obesity hypoventilation syndrome/probable obstructive sleep apnea with sleep study pending January 03, 2018 History of tuberculosis Hypothyroidism Mild cognitive impairment BPH Status post abdominal hernia repair Hospital Course: Patient is a 82-year-old gentleman who presented to the emergency room after feeling generally unwell with hypertension. He is status post abdominal hernia repair. Attempt was made to get the patient home oxygen until at which time it can be determined whether he had obstructive sleep apnea which required positive pressure. However, this was not possible and patient was kept in the hospital overnight for an oxygen study. He did meet the criteria and did qualify for home O2. He did desaturate multiple times to below 85% for a cumulative total of 12-1/2 minutes at rest. His diagnosis is at this point, obesity (E66.2). Patient's vital signs with the exception of the above otherwise remained stable and unconcerning. Status at Discharge Overall status at discharge: patient is back to baseline Time Spent with Patient Less than 30 minutes Exam Vital Signs (past 8 hours): - GENERAL: Well-developed well-nourished man in no acute distress, but appearing uncomfortable. HEENT: Normocephalic, atraumatic, pupils equal and reactive to light and accommodation. LUNG: Clear to auscultation bilaterally. No wheeze or crackles or rhonchi. No increased work in breathing. CV: Regular rate and rhythm. No murmurs rubs or gallops. No lower extremity edema AFFECT: Alert and oriented X3. Conversational and appropriate. 12/22/17 05:37 12/22/17 07:45 Temperature 97.9 F 97.8 F Pulse Rate 71 70 Respiratory Rate 16 16 Blood Pressure 142/90 H 113/68 Pulse Oximetry 93 95 Oxygen Delivery Method Room Air Objective Labs Result Diagrams: 12/21/17 14:58 12/21/17 14:58 Labs: Laboratory Results - last 24 hr 12/21/17 12/21/17 14:58 14:58 WBC 7.7 RBC 4.27 L Hgb 13.2 L Hct 39.0 L MCV 91.4 MCH 31.0 MCHC 34.0 RDW 14.5 Plt Count 170 Neut % (Auto) 61.7 Lymph % (Auto) 18.4 L [place] % (Auto) 12.3 Eos % (Auto) 6.7 H Baso % (Auto) 0.9 Neut # (Auto) 4700 Sodium 140 Potassium 3.7 Chloride 102 Carbon Dioxide 26 BUN 25 H Creatinine 1.40 H Estimated GFR 48.6 L BUN/Creatinine Ratio 17.9 Glucose 104 Calcium 8.8 Total Bilirubin 0.9 AST 31 ALT 22 Alkaline Phosphatase 68 Total Protein 7.7 Albumin 4.2 Globulin 3.5 Albumin/Globulin Ratio 1.2 Discharge Plan Discharge Plan Discharge Problem: Hypoventilation, Weakness, MOJGAN (obstructive sleep apnea) Patient Disposition: Home, Self-Care Under care of provider: Dr. Cortes Sanders MD Transportation: Private vehicle Provider Discharge Instructions Oxygen: Home O2 as per above Wound Care Other wound treatment: Follow-up with Dr. Cortes Sanders Discharge Data Primary Care Provider: Cortes Sanders Attending Provider: Cortes Sanders Admit Date/Time: 12/21/17 18:29
--- NOTE | 2017-12-22 10:05 | PT.IIE ---
Surgical History (Last Updated 12/21/17 @ 14:33 by Yamila Harmon RN) History of umbilical hernia repair (Acute ~12/19/17) Total knee replacement status (Acute) History of tonsillectomy Status post appendectomy Medical History (Last Reviewed 12/21/17 @ 17:19 by Elly Dias DO) Abdominal distention (Acute) BPH (benign prostatic hyperplasia) (Acute) Abdominal pain (Acute) Memory deficit (Acute) Ambulatory dysfunction (Acute) BPH (benign prostatic hyperplasia) (Acute) Cataract (Acute) Chicken pox (Acute) Hypertension (Acute) Hypothyroid (Acute) Kidney insufficiency (Acute) Macular degeneration (Acute) Pulmonary fibrosis (Acute) Sleep apnea (Acute) Tuberculosis, pulmonary fibrosis, bacterial/histologic exam unknown (Acute) Physical Therapy Inpatient Evaluation/Re-Eval M1 PT/OT-IP Prior Functional Status Start: 12/22/17 09:44 Freq: NEEDED Status: Active Protocol: Document 12/22/17 09:45 IJS (Rec: 12/22/17 10:04 IJS [id number]) Medical Review Prior Functional Status Medical History Reviewed Yes Diet/Fluid Consistency Regular Communication Some short term memory loss. Not sure why he is here as he has had truble with breathing at night for a long time. Mobility and Gait Independent without assistive device, now needs walker. Activities of Daily Living and IADL's assists with putting on socks otherwise he states independent. Social History Household Members spouse Living Arrangements House Number of Floors (Floors) One Floor Home Environment Standard Height Toilet Home Equipment Front Wheel Walker Straight Cane Grab Bars Near Toilet Grab Bars In Shower Employment Status Retired Additional Social History Comment Family states they cannot physically assist him at home. M2 PT-IP Current Condition Start: 12/22/17 09:44 Freq: NEEDED Status: Active Protocol: Document 12/22/17 09:45 IJS (Rec: 12/22/17 10:04 IJS [id number]) Physical Therapy Current Condition Current Condition Evaluation Date 12/22/17 Treatment Diagnosis Weakness, SOB Onset Date 12/19/17 Precautions Abdominal Surgery Precautions Log Roll Lifting Restrictions Gait Belt above Incisional Area Weight Bearing Status Weight Bearing Status Full Weight Bearing M3 PT-IP Subjective Start: 12/22/17 09:44 Freq: NEEDED Status: Active Protocol: Document 12/22/17 09:45 IJS (Rec: 12/22/17 10:04 IJS [id number]) Subjective Physical Therapy Visit Type Type Initial Evaluation Visit Start Time 09:00 Visit Stop Time 09:28 Total Visit Minutes 28 Number of ACCOUNT SUPPORT SPECIALIST Visits 0 Physical Therapy Visit Comments Patient Comments Agreeable to get up and walk, not sure why he has not gotten up eariler. Therapy Pain Assessment Pain When Pain Assessed During Mobility Pain Present Pain Present Pain Reported Location Lower Abdomen Scale Used Numeric (1 - 10) Description Dull Pain Management Techniques Re-positioning M4 PT-IP Mobility and Gait Start: 12/22/17 09:44 Freq: NEEDED Status: Active Protocol: Document 12/22/17 09:45 IJS (Rec: 12/22/17 10:04 S [id number]) PT-Bed Mobility Assessment Rolling Type of Rolling Log Rolling Roll to Right Level of Assist Standby Assistance 1 Person Assistance Supine to Sit Supine to Sit Standby Assistance Bedrails Scooting Scooting to Edge of Bed Independent PT-Transfer Assessment Sit to and From Stand Sit to and from Stand Contact Guard Assistance Equipment Transfer Assistive Device Gait Belt Front Wheeled Walker Transfers Transfer Destination Chair Transfer Technique Stand Step Pivot Transfer Ability Level of Assist Standby Assistance 1 Person Assistance Comments Mobility Comments Slow to move but able to get up with SBA and bed rail. Pain graded as 2/10 with mobility in his abdominal incision area. Dressing dry with ink outline of where there was some slight drainage . Gait Assessment Gait Gait Assistance Required: Contact Guard Assist 1 Person Assist Able to Maintain Weight Bearing Status Yes During Gait Assistive Devices Assistive Device Gait Belt Front Wheeled Walker Orthotic/Prosthetic Devices or Brace: No Gait Deviations General Gait Pattern Decreased Stride Length Comments Gait Comments Gait X 212' with FWW initially to the bathroom but unable to void. Then walked around loop. PT-Balance Assessment Sitting Balance and Reactions Static Sitting Balance Ability Normal Dynamic Sitting Balance Ability Normal Standing Balance and Reactions Static Standing Balance Ability Normal Dynamic Standing Balance Ability Good Device Used FWW M5 PT-IP Objective Assessments Start: 12/22/17 09:44 Freq: NEEDED Status: Active Protocol: Document 12/22/17 09:45 IJS (Rec: 12/22/17 10:04 IJS [id number]) Orientation Orientation/Cognition Level of Alertness Alert Orientation Name Age Place Language Function Ability No Deficits Noted Safety Awareness Understands Safety Issues Memory Description Short Term Impaired Gross Range of Motion Upper Extremity ROM Assessment Within Functional Limits Lower Extremity ROM Assessment Within Functional Limits Strength Upper Extremity Strength Assessment Within Functional Limits Lower Extremity Strength Assessment Within Functional Limits Comments Strength Comments Low endurance, encouragement to keep active and move more frequently. Coordination Assessment Gross Coordination Gross Coordination WNL Assessment Pronation/Supination Test Normal Performance Foot Tapping Test Normal Performance Heel on Brumfield Test Normal Performance Sensation Assessment Sensation Gross Sensation WNL Light Touch Intact Proprioception (Position) Intact Muscle Tone Muscle Tone WNL Yes Other Assessments Other Other Assessments Will need encouragement to stay active at home. Declined a shower because it would take too much energy. M6 PT-IP Treatment Start: 12/22/17 09:44 Freq: NEEDED Status: Active Protocol: Document 12/22/17 09:45 IJS (Rec: 12/22/17 10:04 IJS [id number]) Physical Therapy Treatment Exercises Exercises Ankle Pumps M7 PT-IP Assessment and Plan Start: 12/22/17 09:44 Freq: NEEDED Status: Active Protocol: Document 12/22/17 09:45 IJS (Rec: 12/22/17 10:04 IJS [id number]) PT Summary Assessment and Plan Potential Rehabilitation Potential Good Status of Condition at Evaluation Stable Summary Impairments Pain Assessment Summary Post admit day #1, did well with mobility and encouragement, no loss of balance with use of walker. Goals Bed Mobility Goal Independent Transfer Goal Independent Gait Goal Standby Assistance Gait Distance 250' Days to Meet Goals 1 Frequency of Treatment Frequency Of Treatment Twice a Day Treatment Plan Physical Therapy Treatment Plan Bed Mobility Training Transfer Training Gait Training Therapeutic Exercise Balance Retraining Recommendations To Nursing Amount of Assist Needed Standby Assistance 1 Person Assist Discharge Recommendations PT Discharge Recommendations Home Home Health Equipment Needed for Home Before Would benefit from a bed rail Discharge for assist in/out of bed.
--- NOTE | 2017-12-22 10:16 | PC.NURSE ---
Pt denies pain and nausea, oxygen study complete by RT, Dr Ferraro in to assess patient. Pt ambulated in [place] with therapy and fww. Spoke with patients spouse who reports oxygen was delivered to home last evening. Pt has discharge orders.
--- NOTE | 2017-12-22 14:49 | CM.DPNOTE ---
Reviewed chart. Met w/pt and his before pt left the floor. Pt went home and HH RN sent him back to the ER for high BP. Pt's home O2 was not delivered until last night at approx 2300. Spouse appreciative of the HH RN and wants [facility] to be notified that she will be taking pt back home today. Pt's son and dtrs will be available over the w/e to assist prn. Updated Zee w/ [facility] [employer] that pt went back home today, then faxed H+P and DC summary per request. IRVIN Norton
== END 2017-12-22 11:34 | disposition home or self-care (01) ==
LOC: ED 16:30 → AC 18:30
PROVIDERS: Admitting Provider Family Medicine; Emergency Provider Emergency Medicine; Family Provider Family Medicine; PCP Family Medicine; Visit Provider Family Medicine
DX: R06.89 Other abnormalities of breathing (principal); R10.9 Unspecified abdominal pain; G47.33 Obstructive sleep apnea (adult) (pediatric); R53.1 Weakness; E66.9 Obesity, unspecified; E03.9 Hypothyroidism, unspecified; Z98.890 Other specified postprocedural states; G31.84 Mild cognitive impairment of uncertain or unknown etiology
CPT/HCPCS: 36591; 74022; 80053; 85025; 94762; 97161; 99283; 99285; G0378

== ENCOUNTER 2018-02-02 16:05 | Emergency (ER) | payer OTHER, SELFPAY ==
[2018-02-02 14:18] VITALS: BMI 32.0
[2018-02-02 16:25] VITALS: BP 142/72; PULSE 61; RESP 18; TEMP 36.4; O2SAT 97
--- NOTE | 2018-02-02 16:52 | ED.SOB ---
HPI - SOB/Dyspnea General Chief Complaint: Shortness of Breath/Dyspnea Stated Complaint: SENT FROM WALK IN Time Seen by Provider: 02/02/18 16:51 Source: patient Mode of arrival: ambulatory Limitations: no limitations History of Present Illness The patient is here due to nocturnal dyspnea. Patient underwent repair of an umbilical hernia about 1 month ago. During the operation was discovered that he drops his O2 sats when sedated. It sounds as if he was a bit sleepy diagnosed with sleep apnea. He started a CPAP machine 3 days ago. He is having difficulty with the fit, his oxygen sats dropped when he uses the machine. He is using the machine during daytime hours to try to become accustomed to it. Between last month and now he has been using oxygen at night. He denies fever, productive cough, orthopnea or peripheral edema. Related Data Home Medications Medication Instructions Recorded Confirmed cholecalciferol (vitamin D3) 2,000 units PO DAILY #0 07/13/16 02/02/18 [Vitamin D3] multivitamin [Multiple Vitamins] 1 dose PO DAILY #0 07/13/16 02/02/18 polyethylene glycol 3350 [Miralax] 17 gm PO QDAY PRN #0 04/04/17 02/02/18 folic acid 0.4 mg PO DAILY #0 08/29/17 02/02/18 donepezil 10 mg tablet 10 mg PO QAM 11/15/17 02/02/18 amlodipine 5 mg PO DAILY 12/19/17 02/02/18 calcium carb-D3-mag ox-zinc ox 1 dose PO DAILY 12/19/17 02/02/18 [Don Mag Zinc Plus D3] fluocinonide 1 % TOPICAL SEE INSTRUCTIONS 12/19/17 02/02/18 acetaminophen [Acetaminophen Extra 1,000 mg PO Q6H PRN 12/21/17 02/02/18 Strength] tamsulosin [Flomax] 0.4 mg PO QPM 02/02/18 02/02/18 triamcinolone acetonide 1 shima TOPICAL BID PRN 02/02/18 02/02/18 Previous Rx's Medication Instructions Recorded levothyroxine [Levoxyl] 112 mcg PO QDAY #90 tab 05/03/17 Allergies Allergy/AdvReac Type Severity Reaction Status Date / Time Sulfa (Sulfonamide Allergy Intermediate Hives Verified 02/02/18 16:29 Antibiotics) Review of Systems Review of Systems All systems reviewed & are unremarkable except as noted in HPI and below Constitutional Denies chills, Denies fever(s), Denies lethargy and Denies weakness Eyes Denies change in vision, Denies eye discharge, Denies irritation and Denies loss of vision ENT Ears, Nose, Mouth, and Throat: Denies change in voice, Denies neck pain and Denies sore throat Cardiovascular Denies chest pain, Denies diaphoresis, Denies syncope, Denies rapid heart rate, Denies irregular heart rhythm, Denies lightheadedness, Denies palpitations, Reports dyspnea (At night only), Denies dyspnea on exertion and Denies orthopnea Respiratory Denies cough, Reports dyspnea (At night only), Denies dyspnea on exertion and Denies wheezing Gastrointestinal Gastrointestinal: Denies abdominal pain, Denies change in bowel habits, Denies diarrhea, Denies nausea and Denies vomiting Musculoskeletal Denies back pain and Denies neck pain Integumentary/Breasts Denies pruritus, Denies erythema, Denies rash and Denies wounds Neurologic Denies syncope, Denies loss of vision and Denies weakness Endocrine Denies palpitations Allergic/Immunologic Denies wheezing [facility] Medical History Hypothyroidism (04/05/16) Abdominal distention (Chronic) Abdominal pain (Chronic) Memory deficit (Chronic) Ambulatory dysfunction (Chronic) BPH (benign prostatic hyperplasia) (Chronic) Cataract (Chronic 1999) Dandruff (Chronic) Hearing loss (Chronic) Hypertension (Chronic) Hypothyroid (Chronic) Kidney insufficiency (Chronic) Macular degeneration (Chronic) Polymyalgia rheumatica (Chronic) Psoriasis (Chronic) Pulmonary fibrosis (Chronic) Scoliosis (Chronic) Sleep apnea (Chronic) Abnormal CXR (chest x-ray) (Resolved ~194) Chicken pox (Resolved ~1955) Finger fracture (Resolved ~1945) Measles (Resolved ~1955) Mumps (Resolved ~1955) Rubella (Resolved) Tuberculosis (Resolved ~1939) Vertigo (Resolved 2009) Surgical History Anesthesia (Resolved) History of tonsillectomy (Resolved ~1940) History of umbilical hernia repair (Resolved 12/19/17) Status post appendectomy (Resolved 2008) Family History Father Heart disease Brother No problems noted. Grandfather No problems noted. Mother Tuberculosis Son FSHD (facioscapulohumeral muscular dystrophy) Social History household members: spouse Smoking Status: Never smoker alcohol intake: never Exam Initial Vital Signs Initial Vital Signs: Vital Signs Temperature 97.6 F 02/02/18 16:25 Pulse Rate 61 02/02/18 16:25 Respiratory Rate 18 02/02/18 16:25 Blood Pressure 142/72 H 02/02/18 16:25 Pulse Oximetry 97 02/02/18 16:25 Const General: cooperative, healthy appearing, comfortable, well developed, well groomed and No acute distress Nutritional Appearance: well nourished Orientation: alert, awake, oriented x3 and not confused HENMT Head: normocephalic and atraumatic Ears: external ears normal and TM's normal bilaterally Nose: external nose normal and No nasal discharge Face and sinus: sinuses nontender, face symmetric, no sinus tenderness and No dry mucous membranes Mouth: oral mucosae normal and moist mucous membranes Teeth and gingiva: dentition normal Throat: tonsils normal and uvula midline Neck Neck: No lymphadenopathy and No JVD Thyroid: thyroid normal Carotids: normal carotid upstroke Chest Chest: normal inspection of the chest Resp Effort & Inspection: normal respiratory effort, able to speak in complete sentences, no respiratory distress, not tachypneic and no use of accessory muscles Auscultation: clear to auscultation bilaterally, no rales, no rhonchi and no wheezes Cardio Rate: regular rate Rhythm: regular rhythm Heart Sounds: no click, no gallops, no murmurs and no rubs Pulses: normal peripheral pulses GI Inspection: non-distended Palpation: soft, no hepatosplenomegaly, No guarding, No pulsatile mass and No tender Auscultation: normal bowel sounds Back/Spine/Pelvis Back: No CVA tenderness Cervical Spine: cervical ROM normal and No pain with cervical ROM Thoracic/Lumbar Spine: thoracic and lumbar spine normal to inspection Skin General: no rashes or lesions noted, No jaundice and No petechiae Neuro General: alert, oriented x3, gait normal and no focal motor deficits Speech: speech normal Extrem General: full ROM, no clubbing, cyanosis or edema and no calf tenderness Course Orders Ordered: ED Orders 02/02/18 16:52 Consult to Respiratory Therapy Evaluate & Treat EKG-12 Lead Stat 02/02/18 16:53 XR chest 1V Stat 02/02/18 17:23 Blood Culture Stat Urine Culture Stat Urine Microscopic Stat 02/02/18 17:25 B Type Natriuretic Peptide Stat Basic Metabolic Panel Stat Complete Blood Count AUTO DIFF Stat D Dimer Stat Magnesium Stat Troponin & CK Cardiac Panel Stat Discontinued Medications Albuterol/Ipratropium (Duoneb) 3 ml INH NOW ONE Stop: 02/02/18 16:53 Last Admin: 02/02/18 17:25 Dose: 3 ml Methylprednisolone (Solu-Medrol 125 Mg Vial) 125 mg IV NOW ONE Stop: 02/02/18 16:53 Last Admin: 02/02/18 17:36 Dose: 125 mg Vital Signs - 8 hr 02/02/18 16:25 02/02/18 17:25 Temperature 97.6 F Pulse Rate 61 61 Respiratory Rate 18 22 Blood Pressure 142/72 H Pulse Oximetry 97 98 MDM - SOB/Dyspnea Lab Data Result diagrams: 02/02/18 17:25 02/02/18 17:25 Lab Results 02/02/18 02/02/18 02/02/18 Range/Units 17:23 17:25 17:25 WBC 5.6 (4.5-11.0) X10^3/uL RBC 4.10 L (4.5-5.9) X10^6/uL Hgb 12.7 L (13.5-17.5) g/dL Hct 37.3 L (41-53) % MCV 91.0 (80-100) fL MCH 30.9 (26-34) PG MCHC 33.9 (30-36) % RDW 14.5 (11.6-14.8) % Plt Count 174 (150-400) X10^3/uL Neut % (Auto) 51.2 (50-75) % Lymph % (Auto) 28.2 (25-40) % [place] % (Auto) 12.4 (3-14) % Eos % (Auto) 6.8 H (2-4) % Baso % (Auto) 1.4 (0-2) % Neut # (Auto) 2900 L (3776-3063) /uL D-Dimer 571 H (<230) ng/mL Sodium (137-145) mmol/L Potassium (3.4-5.1) mmol/L Chloride (98-107) mmol/L Carbon Dioxide (22-32) mmol/L BUN (9-20) mg/dL Creatinine (0.66-1.25) mg/dL Estimated GFR (>60) mL/min BUN/Creatinine Ratio (6-22) Glucose (80-110) mg/dL Calcium (8.4-10.2) mg/dL Magnesium (1.6-2.3) mg/dL Total Creatine Kinase (55-170) U/L Troponin I (0.01-0.034) ng/mL B-Natriuretic Peptide 146.0 H (<100) Urine RBC None seen (0-5/HPF) Urine WBC 5-10/hpf H (0-5/HPF) Urine Bacteria None seen (None) Ur Culture Indicated? Specimen cultured Micro UA Comment Not Reportable 02/02/18 Range/Units 17:25 WBC (4.5-11.0) X10^3/uL RBC (4.5-5.9) X10^6/uL Hgb (13.5-17.5) g/dL Hct (41-53) % MCV (80-100) fL MCH (26-34) PG MCHC (30-36) % RDW (11.6-14.8) % Plt Count (150-400) X10^3/uL Neut % (Auto) (50-75) % Lymph % (Auto) (25-40) % [place] % (Auto) (3-14) % Eos % (Auto) (2-4) % Baso % (Auto) (0-2) % Neut # (Auto) (2177-0005) /uL D-Dimer (<230) ng/mL Sodium 141 (137-145) mmol/L Potassium 3.7 (3.4-5.1) mmol/L Chloride 101 (98-107) mmol/L Carbon Dioxide 30 (22-32) mmol/L BUN 23 H (9-20) mg/dL Creatinine 1.80 H (0.66-1.25) mg/dL Estimated GFR 36.4 L (>60) mL/min BUN/Creatinine Ratio 12.8 (6-22) Glucose 84 (80-110) mg/dL Calcium 8.9 (8.4-10.2) mg/dL Magnesium 2.2 (1.6-2.3) mg/dL Total Creatine Kinase 78 (55-170) U/L Troponin I < 0.012 (0.01-0.034) ng/mL B-Natriuretic Peptide (<100) Urine RBC (0-5/HPF) Urine WBC (0-5/HPF) Urine Bacteria (None) Ur Culture Indicated? Micro UA Comment Imaging Data Chest x-ray: Radiologist's impression: Small 3 mm pulmonary nodules at the lateral right lung base, which may represent pulmonary granulomas. An outpatient followup CT of the chest is suggested if there are clinical risk factors for lung malignancy such as a history of smoking. Otherwise, no focal airspace disease ECG Data Attestation: I personally reviewed and interpreted this ECG as follows: (Sinus bradycardia rate 52 bpm. Borderline left axis deviation. Nonspecific ST T wave changes. Normal intervals. No ectopy.) [facility] Narrative Medical decision making narrative: The patient's clinical findings were discussed with the on-call physician, Dr. Herman. The elevation to the D-dimer was discussed. The patient has no hypoxia, dyspnea, or hemoptysis. He has no peripheral edema. Furthermore he has no evidence of arrhythmia, or evidence of infection. Dr. Herman concurs with outpatient follow-up and management. I think his nocturnal dyspnea is his primary disease process, sleep apnea. There are no acute findings. Discharge Plan Departure Patient Disposition: Home, Self-Care Clinical Impression: Apnea, sleep Instructions: DI for Obstructive Sleep Apnea -- Adult Activity Restrictions/Additional Instructions: Continue using nighttime oxygen. There is no acute cardiac, respiratory, or infectious process. Mature experiencing is likely just a continuation of the sleep apnea which is being treated. I have contacted the on-call physician for Dr. Sanders. You will be given a follow-up appointment Dr. Sanders. Return here as needed. Prescriptions: No Action cholecalciferol (vitamin D3) [Vitamin D3] 2,000 UNIT capsule 2,000 units PO DAILY Qty: 0 RF: 0 multivitamin [Multiple Vitamins] 1 EACH tablet 1 dose PO DAILY Qty: 0 RF: 0 polyethylene glycol 3350 [Miralax] 119 GM powder 17 gm PO QDAY PRN (Reason: Constipation) Qty: 0 RF: 0 levothyroxine [Levoxyl] 112 MCG tablet 112 mcg PO QDAY Qty: 90 RF: 3 folic acid 0.4 MG tablet 0.4 mg PO DAILY Qty: 0 RF: 0 donepezil 10 mg tablet 10 mg PO QAM RF: 0 acetaminophen [Acetaminophen Extra Strength] 500 mg Tablet 1,000 mg PO Q6H PRN (Reason: Pain (Scale Score 1-3)) RF: 0 tamsulosin [Flomax] 0.4 MG capsule 0.4 mg PO QPM RF: 0 triamcinolone acetonide 0.1 % lotion 1 shima Topical BID PRN (Reason: skin condition) RF: 0 fluocinonide 0.05 % solution 1 % Topical SEE INSTRUCTIONS RF: 0 amlodipine 5 mg Tablet 5 mg PO DAILY RF: 0 calcium carb-D3-mag ox-zinc ox [Don Mag Zinc Plus D3] 333 mg-133 unit -133 mg-5 mg Tablet 1 dose PO DAILY RF: 0
--- NOTE | 2018-02-02 16:53 | DI.RAD.S_ITS ---
PROCEDURE: XR CHEST 1V INDICATIONS: Dyspnea TECHNIQUE: One view of the chest was acquired. COMPARISON: [facility], CHEST 2 VIEW, 07/09/2016, 9:55. [facility], CHEST 2 VIEW, 05/11/2016, 12:28. FINDINGS: Surgical changes and devices: None. Lungs and pleura: No pleural effusions or pneumothorax. Lungs are clear. Mediastinum: Cardiac and mediastinal silhouettes appear enlarged/widened, but this is unchanged from prior exams of 07/09/16 and 05/11/16. There are multiple small pulmonary nodules at the lateral right lung base measuring up to 3 mm in greatest diameter. Bones and chest wall: No suspicious bony lesions. Overlying soft tissues appear unremarkable. There are multilevel degenerative changes of the spine. IMPRESSION: Small 3 mm pulmonary nodules at the lateral right lung base, which may represent pulmonary granulomas. An outpatient followup CT of the chest is suggested if there are clinical risk factors for lung malignancy such as a history of smoking. Otherwise, no focal airspace disease. Dictated by: Rm Obrien M.D. on 02/02/2018 at 17:25 Approved by: Rm Obrien M.D. on 02/02/2018 at 17:30
[2018-02-02 17:25] VITALS: PULSE 61; RESP 22; O2SAT 98
[2018-02-02] MEDS: ALBUTEROL/IPRATROPIUM 3 ML AMPUL INH (17:25)
[2018-02-02 17:34] LABS: Add Manual Diff / Slide Review NO; Basophils Percent Auto 1.4 % (0-2); Eosinophils Percent Auto 6.8 % (2-4); Hematocrit 37.3 % (41-53); Hemoglobin 12.7 g/dL (13.5-17.5); Lymphocytes Percent Auto 28.2 % (25-40); Mean Corpuscular HGB Conc 33.9 % (30-36); Mean Corpuscular Hemoglobin 30.9 PG (26-34); Monocytes Percent Auto 12.4 % (3-14); Neutrophils Absolute Auto 2900 /uL (3000-5900); Neutrophils Percent Auto 51.2 % (50-75); Platelet Count 174 X10^3/uL (150-400); Red Cell Distribution Width 14.5 % (11.6-14.8); White Blood Cell Count 5.6 X10^3/uL (4.5-11.0)
[2018-02-02] MEDS: methylPREDNISolone 125 MG/2 ML VIAL IV (17:36)
[2018-02-02 17:39] LABS: Bacteria Urine None Seen; RBC Urine None Seen (0-5/HPF)
[2018-02-02 17:45] LABS: D Dimer 571 ng/mL (<230)
[2018-02-02 17:46] LABS: BUN Creatinine Ratio 12.8 (6-22); Blood Urea Nitrogen 23 mg/dL (9-20); Calcium 8.9 mg/dL (8.4-10.2); Carbon Dioxide 30 mmol/L (22-32); Chloride 101 mmol/L (98-107); Creatine Kinase 78 U/L (55-170); Estimated Glomerular Filt Rate 36.4 mL/min (>60); Glucose 84 mg/dL (80-110); HEMOLYSIS < 15 (0-50); Magnesium 2.2 mg/dL (1.6-2.3); Potassium 3.7 mmol/L (3.4-5.1); Sodium 141 mmol/L (137-145)
[2018-02-02 17:50] LABS: WBC Urine 5-10/HPF (0-5/HPF)
[2018-02-02 17:51] LABS: Culture Indicated Urine Specimen Cultured
[2018-02-02 17:58] LABS: Troponin I < 0.012 ng/mL (0.01-0.034)
[2018-02-02 18:47] VITALS: BP 123/71; PULSE 64; RESP 15; O2SAT 99
== END 2018-02-02 18:48 | disposition home or self-care (01) ==
PROVIDERS: Emergency Provider Emergency Medicine; Family Provider Family Medicine; PCP Family Medicine
DX: G47.30 Sleep apnea, unspecified (principal)
CPT/HCPCS: 36415; 36591; 71045; 80048; 81003; 81015; 82550; 82553; 82962; 83735; 83880; 84484; 85025; 85379; 87040; 87086; 93005; 93010; 94640; 96372; 99283; 99285; J2930

== ENCOUNTER → 2018-02-16 16:28 | Outpatient (CLI) | payer OTHER, SELFPAY ==
[2018-02-02 14:18] VITALS: BMI 32.0
[2018-02-16 18:06] LABS: Thyroid Stimulating Hormone 3.34 uIU/mL (0.47-4.68)
== END ==
PROVIDERS: Family Provider Family Medicine; PCP Family Medicine; Visit Provider Family Medicine
DX: E03.9 Hypothyroidism, unspecified (principal)
CPT/HCPCS: 36415; 84443

== ENCOUNTER → 2018-02-22 16:09 | Outpatient (CLI) | payer OTHER, SELFPAY ==
[2018-02-02 14:18] VITALS: BMI 32.0
[2018-02-22 17:39] LABS: Add Manual Diff / Slide Review NO; Basophils Percent Auto 1.3 % (0-2); Eosinophils Percent Auto 6.7 % (2-4); Hematocrit 40.6 % (41-53); Hemoglobin 13.6 g/dL (13.5-17.5); Lymphocytes Percent Auto 29.2 % (25-40); Mean Corpuscular HGB Conc 33.6 % (30-36); Mean Corpuscular Hemoglobin 30.7 PG (26-34); Mean Corpuscular Volume 91.4 fL (80-100); Monocytes Percent Auto 10.3 % (3-14); Neutrophils Absolute Auto 2900 /uL (3000-5900); Neutrophils Percent Auto 52.5 % (50-75); Platelet Count 194 X10^3/uL (150-400); Red Blood Cell Count 4.44 X10^6/uL (4.5-5.9); Red Cell Distribution Width 14.9 % (11.6-14.8); White Blood Cell Count 5.5 X10^3/uL (4.5-11.0)
[2018-02-22 17:48] LABS: BUN Creatinine Ratio 14.7 (6-22); Blood Urea Nitrogen 22 mg/dL (9-20); Estimated Glomerular Filt Rate 44.9 mL/min (>60)
== END ==
PROVIDERS: Family Provider Family Medicine; PCP Family Medicine; Visit Provider Family Medicine
DX: R42 Dizziness and giddiness (principal)
CPT/HCPCS: 36415; 82565; 84520; 85025

== ENCOUNTER 2018-05-11 06:26 | Emergency (ER) | payer OTHER, SELFPAY ==
[2018-03-21 16:59] VITALS: BMI 32.0
[2018-05-11 06:30] VITALS: BP 154/127; PULSE 68; RESP 18; O2SAT 100
[2018-05-11 06:36] VITALS: BP 154/127; PULSE 68; RESP 22; TEMP 37; O2SAT 99; BMI 29.5
--- NOTE | 2018-05-11 06:47 | ED.ABDPAIN ---
HPI - Abdominal Pain <Tima Cheng, DO - Last Filed: 05/16/18 07:07> General Chief Complaint: Abdominal Pain Stated Complaint: PAIN IN STOMACH Time Seen by Provider: 05/11/18 06:33 Source: patient and family Mode of arrival: ambulatory Limitations: no limitations History of Present Illness HPI narrative: 83-year-old gentleman who earlier this year had a umbilical hernia repair here for evaluation of lower left-sided abdominal pain. Patient states that it started a couple hours prior to arrival here in the emergency department. He states that it woke him up from sleep. He states that he did vomit twice which did not changes abdominal pain. He states that he urinated a couple times this morning and had no problems with this in this also did not changes abdominal pain. He also had 1 bowel movement this morning which did not change his pain. Does not know whether not there was any blood. No fevers. Related Data Home Medications Medication Instructions Recorded Confirmed cholecalciferol (vitamin D3) 2,000 units PO DAILY #0 07/13/16 05/11/18 [Vitamin D3] multivitamin [Multiple Vitamins] 1 dose PO DAILY #0 07/13/16 05/11/18 polyethylene glycol 3350 [Miralax] 17 gm PO QDAY PRN #0 04/04/17 05/11/18 folic acid 0.4 mg PO DAILY #0 08/29/17 05/11/18 donepezil 10 mg tablet 10 mg PO QAM 11/15/17 05/11/18 calcium carb-D3-mag ox-zinc ox 1 tab PO DAILY 12/19/17 05/11/18 [Don Mag Zinc Plus D3] fluocinonide 1 % TOPICAL SEE INSTRUCTIONS 12/19/17 05/11/18 acetaminophen [Acetaminophen Extra 1,000 mg PO Q6H PRN 12/21/17 05/11/18 Strength] tamsulosin [Flomax] 0.4 mg PO QPM 02/02/18 05/11/18 triamcinolone acetonide 1 shima TOPICAL BID PRN 02/02/18 05/11/18 trazodone 50 mg tablet 50 mg PO DAILY 03/21/18 05/11/18 levothyroxine 112 mcg PO DAILY 05/11/18 05/11/18 Previous Rx's Medication Instructions Recorded loperamide 2 mg capsule 2 mg PO Q2-4H PRN #30 cap 02/20/18 meclizine 25 mg tablet 25 mg PO BID-TID PRN #30 tab 02/22/18 alprazolam 0.25 mg tablet 0.25 mg PO QID PRN #30 tab 03/21/18 amlodipine 5 mg tablet 5 mg PO DAILY #90 tab 03/22/18 hydrocodone-acetaminophen [[place]] 1 tab PO Q4-6H PRN #10 tab 05/11/18 ondansetron 4 mg PO Q6-8H PRN #10 tab 05/11/18 Allergies Allergy/AdvReac Type Severity Reaction Status Date / Time Sulfa (Sulfonamide Allergy Intermediate Hives Verified 05/11/18 06:40 Antibiotics) Review of Systems <Tima Cheng DO - Last Filed: 05/16/18 07:07> Constitutional Denies fever(s) and Denies headache(s) ENT Ears, Nose, Mouth, and Throat: Denies vertigo, Denies dizziness and Denies headache(s) Cardiovascular Denies chest pain and Denies dyspnea Respiratory Denies dyspnea Gastrointestinal Gastrointestinal: Reports abdominal pain, Denies melena, Denies constipation, Reports nausea and Reports vomiting Genitourinary Denies dysuria Musculoskeletal Denies myalgias and Denies arthralgias Integumentary/Breasts Denies lesions and Denies rash Neurologic Denies vertigo, Denies dizziness and Denies headache(s) Hematologic/Lymphatic Denies easy bleeding and Denies easy bruising Exam <Tima Cheng DO - Last Filed: 05/16/18 07:07> Initial Vital Signs Initial Vital Signs: Vital Signs Pulse Rate 68 05/11/18 06:30 Respiratory Rate 18 05/11/18 06:30 Blood Pressure 154/127 H 05/11/18 06:30 Pulse Oximetry 100 05/11/18 06:30 Const General: cooperative, well developed, well groomed and No acute distress Orientation: alert, awake, oriented to person, oriented to place and not oriented to time [facility] Head: normocephalic Resp Effort & Inspection: normal respiratory effort Auscultation: clear to auscultation bilaterally Cardio Rate: regular rate Rhythm: regular rhythm GI Inspection: non-distended Palpation: soft, No firm, guarding and tender (Bilateral lower abdomen left upper abdomen) Back/Spine/Pelvis Back: No CVA tenderness Skin Lesions: no lesions Rashes: no rashes Other: Well-healed incision infraumbilical consistent with his umbilical hernia repair Neuro General: alert, awake and moves all extremities Speech: speech normal Extrem General: normal to inspection, capillary refill normal and No edema Psych Appearance: grossly normal and well kempt <DO Shannon Rios Last Filed: 05/11/18 13:25> Initial Vital Signs Initial Vital Signs: Vital Signs Pulse Rate 68 05/11/18 06:30 Respiratory Rate 18 05/11/18 06:30 Blood Pressure 154/127 H 05/11/18 06:30 Pulse Oximetry 100 05/11/18 06:30 Course <DO Shannon Cabrales Last Filed: 05/16/18 07:07> Orders Ordered: Discontinued Medications Sodium Chloride (Normal Saline 0.9%) 1,000 mls @ 500 mls/hr IV BOLUS ONE Stop: 05/11/18 08:39 Last Infusion: 05/11/18 08:42 Dose: 0 mls/hr Admin: 05/11/18 06:50 Dose: 500 mls/hr Morphine Sulfate (Morphine) 4 mg IV NOW ONE Stop: 05/11/18 06:47 Last Admin: 05/11/18 06:51 Dose: 4 mg Morphine Sulfate (Morphine Sulfate) 2 mg IV NOW ONE Stop: 05/11/18 09:43 Last Admin: 05/11/18 09:47 Dose: 2 mg Ondansetron HCl (Zofran) 4 mg IV NOW ONE Stop: 05/11/18 06:47 Last Admin: 05/11/18 06:52 Dose: 4 mg Vital Signs - 8 hr 05/11/18 06:30 05/11/18 06:36 05/11/18 07:30 Temperature 98.6 F Pulse Rate 68 68 66 Respiratory Rate 18 22 20 Blood Pressure 154/127 H Blood Pressure [Right Arm] 154/127 H 165/91 H Pulse Oximetry 100 99 98 05/11/18 08:00 05/11/18 09:56 05/11/18 11:20 Temperature Pulse Rate 70 65 70 Respiratory Rate 18 15 Blood Pressure 126/67 Blood Pressure [Right Arm] 154/85 H Pulse Oximetry 96 95 93 <DO Shannon Rios Last Filed: 05/11/18 13:25> Orders Ordered: Discontinued Medications Sodium Chloride (Normal Saline 0.9%) 1,000 mls @ 500 mls/hr IV BOLUS ONE Stop: 05/11/18 08:39 Last Infusion: 05/11/18 08:42 Dose: 0 mls/hr Admin: 05/11/18 06:50 Dose: 500 mls/hr Morphine Sulfate (Morphine) 4 mg IV NOW ONE Stop: 05/11/18 06:47 Last Admin: 05/11/18 06:51 Dose: 4 mg Morphine Sulfate (Morphine Sulfate) 2 mg IV NOW ONE Stop: 05/11/18 09:43 Last Admin: 05/11/18 09:47 Dose: 2 mg Ondansetron HCl (Zofran) 4 mg IV NOW ONE Stop: 05/11/18 06:47 Last Admin: 05/11/18 06:52 Dose: 4 mg Vital Signs - 8 hr 05/11/18 06:30 05/11/18 06:36 05/11/18 07:30 Temperature 98.6 F Pulse Rate 68 68 66 Respiratory Rate 18 22 20 Blood Pressure 154/127 H Blood Pressure [Right Arm] 154/127 H 165/91 H Pulse Oximetry 100 99 98 05/11/18 08:00 05/11/18 09:56 05/11/18 11:20 Temperature Pulse Rate 70 65 70 Respiratory Rate 18 15 Blood Pressure 126/67 Blood Pressure [Right Arm] 154/85 H Pulse Oximetry 96 95 93 MDM - Abdominal Pain <Tima Cheng DO - Last Filed: 05/16/18 07:07> Lab Data Result diagrams: 05/11/18 06:53 05/11/18 06:53 Lab Results 05/11/18 05/11/18 Range/Units 06:53 06:53 WBC 8.6 (4.5-11.0) X10^3/uL RBC 4.43 L (4.5-5.9) X10^6/uL Hgb 13.9 (13.5-17.5) g/dL Hct 40.2 L (41-53) % MCV 90.7 (80-100) fL MCH 31.4 (26-34) PG MCHC 34.6 (30-36) % RDW 14.5 (11.6-14.8) % Plt Count 185 (150-400) X10^3/uL Neut % (Auto) 80.7 H (50-75) % Lymph % (Auto) 11.6 L (25-40) % Pershing % (Auto) 6.3 (3-14) % Eos % (Auto) 0.5 L (2-4) % Baso % (Auto) 0.9 (0-2) % Neut # (Auto) 7000 H (7411-3910) /uL Sodium 143 (137-145) mmol/L Potassium 3.9 (3.4-5.1) mmol/L Chloride 101 (98-107) mmol/L Carbon Dioxide 25 (22-32) mmol/L BUN 22 H (9-20) mg/dL Creatinine 1.60 H (0.66-1.25) mg/dL Estimated GFR 41.6 L (>60) mL/min BUN/Creatinine Ratio 13.8 (6-22) Glucose 142 H (80-110) mg/dL Calcium 9.4 (8.4-10.2) mg/dL Total Bilirubin 0.5 (0.2-1.3) mg/dL AST 20 (17-59) IU/L ALT 15 L (21-72) IU/L Alkaline Phosphatase 87 (38-126) U/L Total Protein 8.4 H (6.3-8.2) g/dL Albumin 4.7 (3.5-5.0) g/dL Globulin 3.7 (1.7-4.1) g/dL Albumin/Globulin Ratio 1.3 (1.0-2.8) Lipase 169 (23-300) U/L Point of care testing: Urine Dip Bedside Urine Glucose Negative Bedside Urine Bilirubin - Negative Bedside Urine Ketone - Negative Urine Specific [place] 1.015 Bedside Urine Occult Blood - Negative Bedside Urine pH 8.0 Bedside Urine Protein +/- 15 Bedside Urine Urobilinogen - Negative Bedside Urine Nitrite - Negative Bedside Urine Leukocytes - Negative Esterase MDM Narrative Medical decision making narrative: Patient with bilateral lower abdomen and left-sided abdominal pain with some guarding. Labs ordered. CT scan ordered. Patient was given pain medication. Care turned over to day provider change of shift to follow up on labs and CT results. <Elly Dias, DO - Last Filed: 05/11/18 13:25> Lab Data Attestation: I reviewed the patient's lab results. Lab Results 05/11/18 05/11/18 Range/Units 06:53 06:53 WBC 8.6 (4.5-11.0) X10^3/uL RBC 4.43 L (4.5-5.9) X10^6/uL Hgb 13.9 (13.5-17.5) g/dL Hct 40.2 L (41-53) % MCV 90.7 (80-100) fL MCH 31.4 (26-34) PG MCHC 34.6 (30-36) % RDW 14.5 (11.6-14.8) % Plt Count 185 (150-400) X10^3/uL Neut % (Auto) 80.7 H (50-75) % Lymph % (Auto) 11.6 L (25-40) % Pershing % (Auto) 6.3 (3-14) % Eos % (Auto) 0.5 L (2-4) % Baso % (Auto) 0.9 (0-2) % Neut # (Auto) 7000 H (2547-0620) /uL Sodium 143 (137-145) mmol/L Potassium 3.9 (3.4-5.1) mmol/L Chloride 101 (98-107) mmol/L Carbon Dioxide 25 (22-32) mmol/L BUN 22 H (9-20) mg/dL Creatinine 1.60 H (0.66-1.25) mg/dL Estimated GFR 41.6 L (>60) mL/min BUN/Creatinine Ratio 13.8 (6-22) Glucose 142 H (80-110) mg/dL Calcium 9.4 (8.4-10.2) mg/dL Total Bilirubin 0.5 (0.2-1.3) mg/dL AST 20 (17-59) IU/L ALT 15 L (21-72) IU/L Alkaline Phosphatase 87 (38-126) U/L Total Protein 8.4 H (6.3-8.2) g/dL Albumin 4.7 (3.5-5.0) g/dL Globulin 3.7 (1.7-4.1) g/dL Albumin/Globulin Ratio 1.3 (1.0-2.8) Lipase 169 (23-300) U/L Point of care testing: Urine Dip Bedside Urine Glucose Negative Bedside Urine Bilirubin - Negative Bedside Urine Ketone - Negative Urine Specific [place] 1.015 Bedside Urine Occult Blood - Negative Bedside Urine pH 8.0 Bedside Urine Protein +/- 15 Bedside Urine Urobilinogen - Negative Bedside Urine Nitrite - Negative Bedside Urine Leukocytes - Negative Esterase Imaging Data CT scan - abdomen: Radiologist's impression: Signed Patient: Rom Paulino CMR#: [id number] : 6Acct:[id number] Age/Sex: 83 / MDate of Service: 05/11/18 Loc: ED Accession Number: [id number] Procedure: CT abdomen pelvis w con Ordering Provider: Tima Cheng D.O. PROCEDURE: CT ABDOMEN PELVIS W CON INDICATIONS: Left-sided abdominal pain TECHNIQUE: After the administration of intravenous contrast, 5 mm thick sections acquired from the diaphragm to the symphysis. 5 mm coronal and sagittal reformats were acquired. For radiation dose reduction, the following was used: automated exposure control, adjustment of mA and/or kV according to patient size. COMPARISON: None. FINDINGS: Image quality: Excellent. ABDOMEN: Lung bases: Lung bases are clear except for 2 small adjacent calcified granulomas lateral segment right middle lobe. Heart size is normal. Solid organs: Liver is normal in size and enhancement. Gallbladder gallstones are present within the gallbladder lumen.. Biliary system is non dilated. Pancreas enhances normally. Spleen is normal in size and enhancement. No adrenal nodules. Kidneys demonstrate normal size and enhancement, without hydronephrosis. Peritoneum and bowel: Bowel loops demonstrate normal wall thickness and caliber. No free fluid or air. Nodes and vessels: No retroperitoneal or mesenteric adenopathy by size criteria. Aorta and inferior vena cava are normal in size. Miscellaneous: No ventral hernias. PELVIS: Genitourinary: Bladder wall thickness is normal. Miscellaneous: No inguinal hernias or adenopathy. Mild diverticulosis without acute diverticulitis. Bones: No suspicious bony lesions. No vertebral body compression fractures. IMPRESSION: Gallbladder calculi are present, but they are radiolucent. They would be more accurately assessed if clinically indicated by gallbladder ultrasound which also could accurately assess for gallbladder wall thickening. Through the abdomen and pelvis no intestinal obstruction or perforation is seen. Mild sigmoid diverticulosis, no acute diverticulitis. Incidental note is made of 2 very small adjacent calcified granulomas at the right lower lung, lateral segment right middle lobe, requiring no followup. Dictated by: Lucio Pinon M.D. on 05/11/2018 at 9:09 US - abdomen: Radiologist's impression: [address] [id number] Ultrasound Report Signed Patient: Rom Paulino [facility]#: [id number] : 6Acct:[id number] Age/Sex: 83 / MDate of Service: 05/11/18 Loc: ED Accession Number: [id number] Procedure: US abdomen limited Ordering Provider: Elly Dias D.O. PROCEDURE: US ABDOMEN LIMITED INDICATIONS: RUQ pain TECHNIQUE: Real-time focused scanning was performed of the abdomen, with image documentation. COMPARISON: [facility], CT, CT ABDOMEN PELVIS W CON, 05/11/2018, 7:39. FINDINGS: The gallbladder is normal in size and contains multiple gallstones and probable sludge. There appears to be mild thickening of the gallbladder wall, which measures up to 4 mm in thickness. No pericholecystic fluid is identified. The patient did not exhibit a positive sonographic Aguilar's sign. The common bile duct measures approximately 4 mm in diameter. Please note that the liver, pancreas, right kidney, abdominal aorta, and inferior vena cava were not imaged. IMPRESSION: Cholelithiasis with gallbladder wall thickening is nonspecific. Please correlate clinically to exclude acute cholecystitis. Dictated by: Silvano Spencer M.D. on 05/11/2018 at 9:39 Approved by: Silvano Spencer M.D. on 05/11/2018 at 9:41 MDM Narrative Medical decision making narrative: Patient seen evaluated by me signed out by mold shifter provider. Awaiting CT results. His pain is better after the morphine seems to have more periumbilical pain. He has no right upper quadrant pain. CT does show gallstones however he does not have any bilirubin or liver enzymes if he is not tenderness right upper quadrant. At this time blood work is reassuring CT does not show any sign of obstruction. Possible gastroenteritis. I discussed all findings with the patient and son, Education has been performed regarding treatment plan, diagnosis, warning signs and symptoms and all concerns have been addressed. Verbally agree with and understood all of the above. Discharge Plan Departure Patient Disposition: Home Clinical Impression: Abdominal pain, Cholelithiasis Discharge Date/Time: 05/11/18 11:20 Interventions: ED Discharge Assessment Last Done: 05/11/18 11:20 Instructions: DI for Gallstones, DI for Abdominal Pain-Adult Activity Restrictions/Additional Instructions: *You have been diagnosed with abdominal pain, gallstone *What to do: At this time gallstones are not causing a problem. There is no sign of infection or blockage. Blood work is reassuring. *Continue to take medications as directed [place] 1-2 tablet every 6 hr if needed for severe pain Zofran 4 mg every 6-8 hours if needed for nausea *Follow up with your primary care provider in 2-3 days *Return to ER if you should have worsening pain persistent vomiting, fever or any new, worsening or concerning symptoms CONTROLLED SUBSTANCE DISCHARGE (Narcotoic/benzodiazepine/Flexeril/Phenergan) 1. You have been prescribed narcotic medications, it does have acetaminophen/Tylenol/paracetamol in it so do not take extra Tylenol or Tylenol containing products 2. Please understand that we cannot provide further refills of narcotics, benzodiazepines or controlled substances through the ED and her pain management will need to be through your provider. 3. While on these medications you cannot drive or operate heavy machinery. 4. You cannot sign legal documents or perform any duties such as this. 5. As long as you're taking opiate pain medications he should also be taking a stool softener such as Colace, Dulcolax, MiraLAX or prune juice, to help avoid constipation. Prescriptions: New hydrocodone-acetaminophen [[place]] 5-325 mg tablet 1 tab PO Q4-6H PRN (Reason: pain) Qty: 10 RF: 0 ondansetron 4 mg tablet,disintegrating 4 mg PO Q6-8H PRN (Reason: nausea and vomiting) Qty: 10 RF: 0 No Action cholecalciferol (vitamin D3) [Vitamin D3] 2,000 UNIT capsule 2,000 units PO DAILY Qty: 0 RF: 0 multivitamin [Multiple Vitamins] 1 EACH tablet 1 dose PO DAILY Qty: 0 RF: 0 polyethylene glycol 3350 [Miralax] 119 GM powder 17 gm PO QDAY PRN (Reason: Constipation) Qty: 0 RF: 0 folic acid 0.4 MG tablet 0.4 mg PO DAILY Qty: 0 RF: 0 loperamide 2 mg capsule 2 mg PO Q2-4H PRN (Reason: loose stool) Qty: 30 RF: 0 amlodipine 5 mg tablet 5 mg PO DAILY Qty: 90 RF: 3 donepezil 10 mg tablet 10 mg PO QAM RF: 0 meclizine 25 mg tablet 25 mg PO BID-TID PRN (Reason: dizziness) Qty: 30 RF: 5 trazodone 50 mg tablet 50 mg PO DAILY RF: 0 alprazolam [Xanax] 0.25 mg tablet 0.25 mg PO QID PRN (Reason: anxiety) Qty: 30 RF: 5 acetaminophen [Acetaminophen Extra Strength] 500 mg Tablet 1,000 mg PO Q6H PRN (Reason: Pain (Scale Score 1-3)) RF: 0 tamsulosin [Flomax] 0.4 MG capsule 0.4 mg PO QPM RF: 0 triamcinolone acetonide 0.1 % lotion 1 shima Topical BID PRN (Reason: skin condition) RF: 0 levothyroxine 112 mcg Tablet 112 mcg PO DAILY RF: 0 fluocinonide 0.05 % solution 1 % Topical SEE INSTRUCTIONS RF: 0 calcium carb-D3-mag ox-zinc ox [Don Mag Zinc Plus D3] 333 mg-133 unit -133 mg-5 mg Tablet 1 tab PO DAILY RF: 0 Referrals: Cortes Sanders MD [Primary Care Provider] -
[2018-05-11] MEDS: SODIUM CHLORIDE 0.9% 1,000 ML 500 ML IV (06:50)
[2018-05-11] MEDS: MORPHINE 4 MG/ML INJ IV (06:51)
--- NOTE | 2018-05-11 06:51 | ED_ITS ---
HPI - Abdominal Pain <Tima Cheng, DO - Last Filed: 05/16/18 07:07> General Chief Complaint: Abdominal Pain Stated Complaint: PAIN IN STOMACH Time Seen by Provider: 05/11/18 06:33 Source: patient and family Mode of arrival: ambulatory Limitations: no limitations History of Present Illness HPI narrative: 83-year-old gentleman who earlier this year had a umbilical hernia repair here for evaluation of lower left-sided abdominal pain. Patient states that it started a couple hours prior to arrival here in the emergency department. He states that it woke him up from sleep. He states that he did vomit twice which did not changes abdominal pain. He states that he urinated a couple times this morning and had no problems with this in this also did not changes abdominal pain. He also had 1 bowel movement this morning which did not change his pain. Does not know whether not there was any blood. No fevers. Related Data Home Medications Medication Instructions Recorded Confirmed cholecalciferol (vitamin D3) 2,000 units PO DAILY #0 07/13/16 05/11/18 [Vitamin D3] multivitamin [Multiple Vitamins] 1 dose PO DAILY #0 07/13/16 05/11/18 polyethylene glycol 3350 [Miralax] 17 gm PO QDAY PRN #0 04/04/17 05/11/18 folic acid 0.4 mg PO DAILY #0 08/29/17 05/11/18 donepezil 10 mg tablet 10 mg PO QAM 11/15/17 05/11/18 calcium carb-D3-mag ox-zinc ox 1 tab PO DAILY 12/19/17 05/11/18 [Don Mag Zinc Plus D3] fluocinonide 1 % TOPICAL SEE INSTRUCTIONS 12/19/17 05/11/18 acetaminophen [Acetaminophen Extra 1,000 mg PO Q6H PRN 12/21/17 05/11/18 Strength] tamsulosin [Flomax] 0.4 mg PO QPM 02/02/18 05/11/18 triamcinolone acetonide 1 shima TOPICAL BID PRN 02/02/18 05/11/18 trazodone 50 mg tablet 50 mg PO DAILY 03/21/18 05/11/18 levothyroxine 112 mcg PO DAILY 05/11/18 05/11/18 Previous Rx's Medication Instructions Recorded loperamide 2 mg capsule 2 mg PO Q2-4H PRN #30 cap 02/20/18 meclizine 25 mg tablet 25 mg PO BID-TID PRN #30 tab 02/22/18 alprazolam 0.25 mg tablet 0.25 mg PO QID PRN #30 tab 03/21/18 amlodipine 5 mg tablet 5 mg PO DAILY #90 tab 03/22/18 hydrocodone-acetaminophen [Brockway] 1 tab PO Q4-6H PRN #10 tab 05/11/18 ondansetron 4 mg PO Q6-8H PRN #10 tab 05/11/18 Allergies Allergy/AdvReac Type Severity Reaction Status Date / Time Sulfa (Sulfonamide Allergy Intermediate Hives Verified 05/11/18 06:40 Antibiotics) Review of Systems <Tima Cheng DO - Last Filed: 05/16/18 07:07> Constitutional Denies fever(s) and Denies headache(s) ENT Ears, Nose, Mouth, and Throat: Denies vertigo, Denies dizziness and Denies headache(s) Cardiovascular Denies chest pain and Denies dyspnea Respiratory Denies dyspnea Gastrointestinal Gastrointestinal: Reports abdominal pain, Denies melena, Denies constipation, Reports nausea and Reports vomiting Genitourinary Denies dysuria Musculoskeletal Denies myalgias and Denies arthralgias Integumentary/Breasts Denies lesions and Denies rash Neurologic Denies vertigo, Denies dizziness and Denies headache(s) Hematologic/Lymphatic Denies easy bleeding and Denies easy bruising Exam <Tima Cheng DO - Last Filed: 05/16/18 07:07> Initial Vital Signs Initial Vital Signs: Vital Signs Pulse Rate 68 05/11/18 06:30 Respiratory Rate 18 05/11/18 06:30 Blood Pressure 154/127 H 05/11/18 06:30 Pulse Oximetry 100 05/11/18 06:30 Const General: cooperative, well developed, well groomed and No acute distress Orientation: alert, awake, oriented to person, oriented to place and not oriented to time [facility] Head: normocephalic Resp Effort & Inspection: normal respiratory effort Auscultation: clear to auscultation bilaterally Cardio Rate: regular rate Rhythm: regular rhythm GI Inspection: non-distended Palpation: soft, No firm, guarding and tender (Bilateral lower abdomen left upper abdomen) Back/Spine/Pelvis Back: No CVA tenderness Skin Lesions: no lesions Rashes: no rashes Other: Well-healed incision infraumbilical consistent with his umbilical hernia repair Neuro General: alert, awake and moves all extremities Speech: speech normal Extrem General: normal to inspection, capillary refill normal and No edema Psych Appearance: grossly normal and well kempt <DO Shannon Rios Last Filed: 05/11/18 13:25> Initial Vital Signs Initial Vital Signs: Vital Signs Pulse Rate 68 05/11/18 06:30 Respiratory Rate 18 05/11/18 06:30 Blood Pressure 154/127 H 05/11/18 06:30 Pulse Oximetry 100 05/11/18 06:30 Course <DO Shannon Cabrales Last Filed: 05/16/18 07:07> Orders Ordered: Discontinued Medications Sodium Chloride (Normal Saline 0.9%) 1,000 mls @ 500 mls/hr IV BOLUS ONE Stop: 05/11/18 08:39 Last Infusion: 05/11/18 08:42 Dose: 0 mls/hr Admin: 05/11/18 06:50 Dose: 500 mls/hr Morphine Sulfate (Morphine) 4 mg IV NOW ONE Stop: 05/11/18 06:47 Last Admin: 05/11/18 06:51 Dose: 4 mg Morphine Sulfate (Morphine Sulfate) 2 mg IV NOW ONE Stop: 05/11/18 09:43 Last Admin: 05/11/18 09:47 Dose: 2 mg Ondansetron HCl (Zofran) 4 mg IV NOW ONE Stop: 05/11/18 06:47 Last Admin: 05/11/18 06:52 Dose: 4 mg Vital Signs - 8 hr 05/11/18 06:30 05/11/18 06:36 05/11/18 07:30 Temperature 98.6 F Pulse Rate 68 68 66 Respiratory Rate 18 22 20 Blood Pressure 154/127 H Blood Pressure [Right Arm] 154/127 H 165/91 H Pulse Oximetry 100 99 98 05/11/18 08:00 05/11/18 09:56 05/11/18 11:20 Temperature Pulse Rate 70 65 70 Respiratory Rate 18 15 Blood Pressure 126/67 Blood Pressure [Right Arm] 154/85 H Pulse Oximetry 96 95 93 <DO Shannon Rios Last Filed: 05/11/18 13:25> Orders Ordered: Discontinued Medications Sodium Chloride (Normal Saline 0.9%) 1,000 mls @ 500 mls/hr IV BOLUS ONE Stop: 05/11/18 08:39 Last Infusion: 05/11/18 08:42 Dose: 0 mls/hr Admin: 05/11/18 06:50 Dose: 500 mls/hr Morphine Sulfate (Morphine) 4 mg IV NOW ONE Stop: 05/11/18 06:47 Last Admin: 05/11/18 06:51 Dose: 4 mg Morphine Sulfate (Morphine Sulfate) 2 mg IV NOW ONE Stop: 05/11/18 09:43 Last Admin: 05/11/18 09:47 Dose: 2 mg Ondansetron HCl (Zofran) 4 mg IV NOW ONE Stop: 05/11/18 06:47 Last Admin: 05/11/18 06:52 Dose: 4 mg Vital Signs - 8 hr 05/11/18 06:30 05/11/18 06:36 05/11/18 07:30 Temperature 98.6 F Pulse Rate 68 68 66 Respiratory Rate 18 22 20 Blood Pressure 154/127 H Blood Pressure [Right Arm] 154/127 H 165/91 H Pulse Oximetry 100 99 98 05/11/18 08:00 05/11/18 09:56 05/11/18 11:20 Temperature Pulse Rate 70 65 70 Respiratory Rate 18 15 Blood Pressure 126/67 Blood Pressure [Right Arm] 154/85 H Pulse Oximetry 96 95 93 MDM - Abdominal Pain <Tima Cheng DO - Last Filed: 05/16/18 07:07> Lab Data Result diagrams: 05/11/18 06:53 05/11/18 06:53 Lab Results 05/11/18 05/11/18 Range/Units 06:53 06:53 WBC 8.6 (4.5-11.0) X10^3/uL RBC 4.43 L (4.5-5.9) X10^6/uL Hgb 13.9 (13.5-17.5) g/dL Hct 40.2 L (41-53) % MCV 90.7 (80-100) fL MCH 31.4 (26-34) PG MCHC 34.6 (30-36) % RDW 14.5 (11.6-14.8) % Plt Count 185 (150-400) X10^3/uL Neut % (Auto) 80.7 H (50-75) % Lymph % (Auto) 11.6 L (25-40) % [place] % (Auto) 6.3 (3-14) % Eos % (Auto) 0.5 L (2-4) % Baso % (Auto) 0.9 (0-2) % Neut # (Auto) 7000 H (0412-5697) /uL Sodium 143 (137-145) mmol/L Potassium 3.9 (3.4-5.1) mmol/L Chloride 101 (98-107) mmol/L Carbon Dioxide 25 (22-32) mmol/L BUN 22 H (9-20) mg/dL Creatinine 1.60 H (0.66-1.25) mg/dL Estimated GFR 41.6 L (>60) mL/min BUN/Creatinine Ratio 13.8 (6-22) Glucose 142 H (80-110) mg/dL Calcium 9.4 (8.4-10.2) mg/dL Total Bilirubin 0.5 (0.2-1.3) mg/dL AST 20 (17-59) IU/L ALT 15 L (21-72) IU/L Alkaline Phosphatase 87 (38-126) U/L Total Protein 8.4 H (6.3-8.2) g/dL Albumin 4.7 (3.5-5.0) g/dL Globulin 3.7 (1.7-4.1) g/dL Albumin/Globulin Ratio 1.3 (1.0-2.8) Lipase 169 (23-300) U/L Point of care testing: Urine Dip Bedside Urine Glucose Negative Bedside Urine Bilirubin - Negative Bedside Urine Ketone - Negative Urine Specific Burna 1.015 Bedside Urine Occult Blood - Negative Bedside Urine pH 8.0 Bedside Urine Protein +/- 15 Bedside Urine Urobilinogen - Negative Bedside Urine Nitrite - Negative Bedside Urine Leukocytes - Negative Esterase MDM Narrative Medical decision making narrative: Patient with bilateral lower abdomen and left -sided abdominal pain with some guarding. Labs ordered. CT scan ordered. Patient was given pain medication. Care turned over to day provider change of shift to follow up on labs and CT results. <Elly Dias, DO - Last Filed: 05/11/18 13:25> Lab Data Attestation: I reviewed the patient's lab results. Lab Results 05/11/18 05/11/18 Range/Units 06:53 06:53 WBC 8.6 (4.5-11.0) X10^3/uL RBC 4.43 L (4.5-5.9) X10^6/uL Hgb 13.9 (13.5-17.5) g/dL Hct 40.2 L (41-53) % MCV 90.7 (80-100) fL MCH 31.4 (26-34) PG MCHC 34.6 (30-36) % RDW 14.5 (11.6-14.8) % Plt Count 185 (150-400) X10^3/uL Neut % (Auto) 80.7 H (50-75) % Lymph % (Auto) 11.6 L (25-40) % [place] % (Auto) 6.3 (3-14) % Eos % (Auto) 0.5 L (2-4) % Baso % (Auto) 0.9 (0-2) % Neut # (Auto) 7000 H (9548-1587) /uL Sodium 143 (137-145) mmol/L Potassium 3.9 (3.4-5.1) mmol/L Chloride 101 (98-107) mmol/L Carbon Dioxide 25 (22-32) mmol/L BUN 22 H (9-20) mg/dL Creatinine 1.60 H (0.66-1.25) mg/dL Estimated GFR 41.6 L (>60) mL/min BUN/Creatinine Ratio 13.8 (6-22) Glucose 142 H (80-110) mg/dL Calcium 9.4 (8.4-10.2) mg/dL Total Bilirubin 0.5 (0.2-1.3) mg/dL AST 20 (17-59) IU/L ALT 15 L (21-72) IU/L Alkaline Phosphatase 87 (38-126) U/L Total Protein 8.4 H (6.3-8.2) g/dL Albumin 4.7 (3.5-5.0) g/dL Globulin 3.7 (1.7-4.1) g/dL Albumin/Globulin Ratio 1.3 (1.0-2.8) Lipase 169 (23-300) U/L Point of care testing: Urine Dip Bedside Urine Glucose Negative Bedside Urine Bilirubin - Negative Bedside Urine Ketone - Negative Urine Specific Burna 1.015 Bedside Urine Occult Blood - Negative Bedside Urine pH 8.0 Bedside Urine Protein +/- 15 Bedside Urine Urobilinogen - Negative Bedside Urine Nitrite - Negative Bedside Urine Leukocytes - Negative Esterase Imaging Data CT scan - abdomen: Radiologist's impression: Signed Patient: Rom Paulino CMR#: [id number] : 6Acct:[id number] Age/Sex: 83 / MDate of Service: 05/11/18 Loc: ED Accession Number: [id number] Procedure: CT abdomen pelvis w con Ordering Provider: Tima Cheng D.O. PROCEDURE: CT ABDOMEN PELVIS W CON INDICATIONS: Left-sided abdominal pain TECHNIQUE: After the administration of intravenous contrast, 5 mm thick sections acquired from the diaphragm to the symphysis. 5 mm coronal and sagittal reformats were acquired. For radiation dose reduction, the following was used: automated exposure control, adjustment of mA and/or kV according to patient size. COMPARISON: None. FINDINGS: Image quality: Excellent. ABDOMEN: Lung bases: Lung bases are clear except for 2 small adjacent calcified granulomas lateral segment right middle lobe. Heart size is normal. Solid organs: Liver is normal in size and enhancement. Gallbladder gallstones are present within the gallbladder lumen.. Biliary system is non dilated. Pancreas enhances normally. Spleen is normal in size and enhancement. No adrenal nodules. Kidneys demonstrate normal size and enhancement, without hydronephrosis. Peritoneum and bowel: Bowel loops demonstrate normal wall thickness and caliber. No free fluid or air. Nodes and vessels: No retroperitoneal or mesenteric adenopathy by size criteria. Aorta and inferior vena cava are normal in size. Miscellaneous: No ventral hernias. PELVIS: Genitourinary: Bladder wall thickness is normal. Miscellaneous: No inguinal hernias or adenopathy. Mild diverticulosis without acute diverticulitis. Bones: No suspicious bony lesions. No vertebral body compression fractures. IMPRESSION: Gallbladder calculi are present, but they are radiolucent. They would be more accurately assessed if clinically indicated by gallbladder ultrasound which also could accurately assess for gallbladder wall thickening. Through the abdomen and pelvis no intestinal obstruction or perforation is seen. Mild sigmoid diverticulosis, no acute diverticulitis. Incidental note is made of 2 very small adjacent calcified granulomas at the right lower lung, lateral segment right middle lobe, requiring no followup. Dictated by: Lucio Pinon M.D. on 05/11/2018 at 9:09 US - abdomen: Radiologist's impression: [address] [id number] Ultrasound Report Signed Patient: Rom Paulino [facility]#: [id number] : 6Acct:[id number] Age/Sex: 83 / MDate of Service: 05/11/18 Loc: ED Accession Number: [id number] Procedure: US abdomen limited Ordering Provider: Elly Dias D.O. PROCEDURE: US ABDOMEN LIMITED INDICATIONS: RUQ pain TECHNIQUE: Real-time focused scanning was performed of the abdomen, with image documentation. COMPARISON: [facility], CT, CT ABDOMEN PELVIS W CON, 05/11/2018, 7:39. FINDINGS: The gallbladder is normal in size and contains multiple gallstones and probable sludge. There appears to be mild thickening of the gallbladder wall, which measures up to 4 mm in thickness. No pericholecystic fluid is identified. The patient did not exhibit a positive sonographic Aguilar's sign. The common bile duct measures approximately 4 mm in diameter. Please note that the liver, pancreas, right kidney, abdominal aorta, and inferior vena cava were not imaged. IMPRESSION: Cholelithiasis with gallbladder wall thickening is nonspecific. Please correlate clinically to exclude acute cholecystitis. Dictated by: Silvano Spencer M.D. on 05/11/2018 at 9:39 Approved by: Silvano Spencer M.D. on 05/11/2018 at 9:41 MDM Narrative Medical decision making narrative: Patient seen evaluated by me signed out by night filler provider. Awaiting CT results. His pain is better after the morphine seems to have more periumbilical pain. He has no right upper quadrant pain. CT does show gallstones however he does not have any bilirubin or liver enzymes if he is not tenderness right upper quadrant. At this time blood work is reassuring CT does not show any sign of obstruction. Possible gastroenteritis. I discussed all findings with the patient and son, Education has been performed regarding treatment plan, diagnosis, warning signs and symptoms and all concerns have been addressed. Verbally agree with and understood all of the above. Discharge Plan Departure Patient Disposition: Home Clinical Impression: Abdominal pain, Cholelithiasis Discharge Date/Time: 05/11/18 11:20 Interventions: ED Discharge Assessment Last Done: 05/11/18 11:20 Instructions: DI for Gallstones, DI for Abdominal Pain-Adult Activity Restrictions/Additional Instructions: *You have been diagnosed with abdominal pain, gallstone *What to do: At this time gallstones are not causing a problem. There is no sign of infection or blockage. Blood work is reassuring. *Continue to take medications as directed Brockway 1-2 tablet every 6 hr if needed for severe pain Zofran 4 mg every 6-8 hours if needed for nausea *Follow up with your primary care provider in 2-3 days *Return to ER if you should have worsening pain persistent vomiting, fever or any new, worsening or concerning symptoms CONTROLLED SUBSTANCE DISCHARGE (Narcotoic/benzodiazepine/Flexeril/Phenergan) 1. You have been prescribed narcotic medications, it does have acetaminophen/ Tylenol/paracetamol in it so do not take extra Tylenol or Tylenol containing products 2. Please understand that we cannot provide further refills of narcotics, benzodiazepines or controlled substances through the ED and her pain management will need to be through your provider. 3. While on these medications you cannot drive or operate heavy machinery. 4. You cannot sign legal documents or perform any duties such as this. 5. As long as you're taking opiate pain medications he should also be taking a stool softener such as Colace, Dulcolax, MiraLAX or prune juice, to help avoid constipation. Prescriptions: New hydrocodone-acetaminophen [Brockway] 5-325 mg tablet 1 tab PO Q4-6H PRN (Reason: pain) Qty: 10 RF: 0 ondansetron 4 mg tablet,disintegrating 4 mg PO Q6-8H PRN (Reason: nausea and vomiting) Qty: 10 RF: 0 No Action cholecalciferol (vitamin D3) [Vitamin D3] 2,000 UNIT capsule 2,000 units PO DAILY Qty: 0 RF: 0 multivitamin [Multiple Vitamins] 1 EACH tablet 1 dose PO DAILY Qty: 0 RF: 0 polyethylene glycol 3350 [Miralax] 119 GM powder 17 gm PO QDAY PRN (Reason: Constipation) Qty: 0 RF: 0 folic acid 0.4 MG tablet 0.4 mg PO DAILY Qty: 0 RF: 0 loperamide 2 mg capsule 2 mg PO Q2-4H PRN (Reason: loose stool) Qty: 30 RF: 0 amlodipine 5 mg tablet 5 mg PO DAILY Qty: 90 RF: 3 donepezil 10 mg tablet 10 mg PO QAM RF: 0 meclizine 25 mg tablet 25 mg PO BID-TID PRN (Reason: dizziness) Qty: 30 RF: 5 trazodone 50 mg tablet 50 mg PO DAILY RF: 0 alprazolam [Xanax] 0.25 mg tablet 0.25 mg PO QID PRN (Reason: anxiety) Qty: 30 RF: 5 acetaminophen [Acetaminophen Extra Strength] 500 mg Tablet 1,000 mg PO Q6H PRN (Reason: Pain (Scale Score 1-3)) RF: 0 tamsulosin [Flomax] 0.4 MG capsule 0.4 mg PO QPM RF: 0 triamcinolone acetonide 0.1 % lotion 1 shima Topical BID PRN (Reason: skin condition) RF: 0 levothyroxine 112 mcg Tablet 112 mcg PO DAILY RF: 0 fluocinonide 0.05 % solution 1 % Topical SEE INSTRUCTIONS RF: 0 calcium carb-D3-mag ox-zinc ox [Don Mag Zinc Plus D3] 333 mg-133 unit -133 mg- 5 mg Tablet 1 tab PO DAILY RF: 0 Referrals: Cortes Sanders MD [Primary Care Provider] -
[2018-05-11] MEDS: ONDANSETRON 4 MG/2 ML INJ IV (06:52)
[2018-05-11 07:03] LABS: Add Manual Diff / Slide Review NO; Basophils Percent Auto 0.9 % (0-2); Eosinophils Percent Auto 0.5 % (2-4); Hematocrit 40.2 % (41-53); Hemoglobin 13.9 g/dL (13.5-17.5); Lymphocytes Percent Auto 11.6 % (25-40); Mean Corpuscular HGB Conc 34.6 % (30-36); Mean Corpuscular Hemoglobin 31.4 PG (26-34); Mean Corpuscular Volume 90.7 fL (80-100); Monocytes Percent Auto 6.3 % (3-14); Neutrophils Absolute Auto 7000 /uL (3000-5900); Neutrophils Percent Auto 80.7 % (50-75); Platelet Count 185 X10^3/uL (150-400); Red Blood Cell Count 4.43 X10^6/uL (4.5-5.9); Red Cell Distribution Width 14.5 % (11.6-14.8); White Blood Cell Count 8.6 X10^3/uL (4.5-11.0)
[2018-05-11 07:12] LABS: Alanine Aminotransferase 15 IU/L (21-72); Albumin 4.7 g/dL (3.5-5.0); Albumin Globulin Ratio 1.3 (1.0-2.8); Alkaline Phosphatase 87 U/L (38-126); Aspartate Aminotransferase 20 IU/L (17-59); BUN Creatinine Ratio 13.8 (6-22); Bilirubin Total 0.5 mg/dL (0.2-1.3); Blood Urea Nitrogen 22 mg/dL (9-20); Calcium 9.4 mg/dL (8.4-10.2); Carbon Dioxide 25 mmol/L (22-32); Chloride 101 mmol/L (98-107); Estimated Glomerular Filt Rate 41.6 mL/min (>60); Globulin 3.7 g/dL (1.7-4.1); Glucose 142 mg/dL (80-110); HEMOLYSIS < 15 (0-50); Lipase 169 U/L (23-300); Potassium 3.9 mmol/L (3.4-5.1); Sodium 143 mmol/L (137-145); Total Protein 8.4 g/dL (6.3-8.2)
[2018-05-11 07:30] VITALS: BP 165/91; PULSE 66; RESP 20; O2SAT 98
--- NOTE | 2018-05-11 07:54 | DI.CT.S_ITS ---
PROCEDURE: CT ABDOMEN PELVIS W CON INDICATIONS: Left-sided abdominal pain TECHNIQUE: After the administration of intravenous contrast, 5 mm thick sections acquired from the diaphragm to the symphysis. 5 mm coronal and sagittal reformats were acquired. For radiation dose reduction, the following was used: automated exposure control, adjustment of mA and/or kV according to patient size. COMPARISON: None. FINDINGS: Image quality: Excellent. ABDOMEN: Lung bases: Lung bases are clear except for 2 small adjacent calcified granulomas lateral segment right middle lobe. Heart size is normal. Solid organs: Liver is normal in size and enhancement. Gallbladder gallstones are present within the gallbladder lumen.. Biliary system is non dilated. Pancreas enhances normally. Spleen is normal in size and enhancement. No adrenal nodules. Kidneys demonstrate normal size and enhancement, without hydronephrosis. Peritoneum and bowel: Bowel loops demonstrate normal wall thickness and caliber. No free fluid or air. Nodes and vessels: No retroperitoneal or mesenteric adenopathy by size criteria. Aorta and inferior vena cava are normal in size. Miscellaneous: No ventral hernias. PELVIS: Genitourinary: Bladder wall thickness is normal. Miscellaneous: No inguinal hernias or adenopathy. Mild diverticulosis without acute diverticulitis. Bones: No suspicious bony lesions. No vertebral body compression fractures. IMPRESSION: Gallbladder calculi are present, but they are radiolucent. They would be more accurately assessed if clinically indicated by gallbladder ultrasound which also could accurately assess for gallbladder wall thickening. Through the abdomen and pelvis no intestinal obstruction or perforation is seen. Mild sigmoid diverticulosis, no acute diverticulitis. Incidental note is made of 2 very small adjacent calcified granulomas at the right lower lung, lateral segment right middle lobe, requiring no followup. Dictated by: Lucio Pinon M.D. on 05/11/2018 at 9:09 Approved by: Lucio Pinon M.D. on 05/11/2018 at 9:11
[2018-05-11 08:00] VITALS: PULSE 70; O2SAT 96
--- NOTE | 2018-05-11 09:42 | DI.US.S_ITS ---
PROCEDURE: US ABDOMEN LIMITED INDICATIONS: RUQ pain TECHNIQUE: Real-time focused scanning was performed of the abdomen, with image documentation. COMPARISON: [facility], CT, CT ABDOMEN PELVIS W CON, 05/11/2018, 7:39. FINDINGS: The gallbladder is normal in size and contains multiple gallstones and probable sludge. There appears to be mild thickening of the gallbladder wall, which measures up to 4 mm in thickness. No pericholecystic fluid is identified. The patient did not exhibit a positive sonographic Aguilar's sign. The common bile duct measures approximately 4 mm in diameter. Please note that the liver, pancreas, right kidney, abdominal aorta, and inferior vena cava were not imaged. IMPRESSION: Cholelithiasis with gallbladder wall thickening is nonspecific. Please correlate clinically to exclude acute cholecystitis. Dictated by: Silvano Spencer M.D. on 05/11/2018 at 9:39 Approved by: Silvano Spencer M.D. on 05/11/2018 at 9:41
[2018-05-11] MEDS: MORPHINE 5 MG/ML INJ 2 MG IV (09:47)
[2018-05-11 09:56] VITALS: BP 154/85; PULSE 65; RESP 18; O2SAT 95
[2018-05-11 11:20] VITALS: BP 126/67; PULSE 70; RESP 15; O2SAT 93
--- NOTE | 2018-05-12 15:26 | PC.NURSE ---
call back, no questions, satisfied with visits.
== END 2018-05-11 11:20 | disposition home or self-care (01) ==
PROVIDERS: Emergency Medicine; Emergency Provider Emergency Medicine; Family Provider Family Medicine; PCP Family Medicine
DX: K80.20 Calculus of gallbladder without cholecystitis without obstruction (principal); R10.9 Unspecified abdominal pain
CPT/HCPCS: 36591; 51798; 74177; 76700; 76705; 80053; 81003; 83690; 85025; 96361; 96374; 96375; 96376; 99284; 99285; J2270; J2405; Q9967

== ENCOUNTER 2018-05-25 14:49 | Emergency (ER) | payer OTHER, SELFPAY ==
[2018-05-22 08:39] VITALS: BMI 32.0
[2018-05-25 15:11] VITALS: BP 150/77; PULSE 49; RESP 12; TEMP 36.3; O2SAT 100
--- NOTE | 2018-05-25 15:27 | DI.RAD.S_ITS ---
PROCEDURE: XR CHEST 1V INDICATIONS: chest pain TECHNIQUE: One view of the chest was acquired. COMPARISON: [facility], CR, XR CHEST 1V, 02/02/2018, 16:57. FINDINGS: Surgical changes and devices: None. Lungs and pleura: No pleural effusions or pneumothorax. Increased interstitial lung markings are again seen suggestive of chronic interstitial lung parenchymal disease. Mediastinum: Tortuous thoracic aorta is seen.. Heart size is enlarged. Bones and chest wall: No suspicious bony lesions. Overlying soft tissues appear unremarkable. IMPRESSION: Cardiomegaly. No acute cardiopulmonary pathology. Dictated by: Lang Hernandez M.D. on 05/25/2018 at 16:50 Approved by: Lang Hernandez M.D. on 05/25/2018 at 16:51
[2018-05-25 15:30] VITALS: BP 137/70; PULSE 52; RESP 18; O2SAT 98
--- NOTE | 2018-05-25 15:47 | DI.US.S_ITS ---
PROCEDURE: US ABDOMEN LIMITED INDICATIONS: abdominal pain, hx gallstones TECHNIQUE: Real-time focused scanning was performed of the abdomen, with image documentation. COMPARISON: [facility], , US ABDOMEN LIMITED, 05/11/2018, 10:04. FINDINGS: Stones and sludge are seen. The gallbladder wall is mildly thickened at 4 mm. No specific pericholecystic fluid is seen. The sonographic Aguilar sign is negative. The common bile duct measures at the upper limits of normal for a patient of this age at 7 mm. IMPRESSION: Gallstones and sludge can be seen. Mild thickening of the gallbladder wall is seen. These imaging findings are moderately suspicious for cholecystitis. However, no pericholecystic fluid is seen and a sonographic Aguilar sign is negative. Please correlate with physical examination findings, patient presentation, and laboratory values. Note: Concordant preliminary findings given by the pathology manager upon the completion of the examination to Dr. Taylor at [address] time on May 25, 2018. Dictated by: Manny Del Cid M.D. on 05/25/2018 at 16:28 Approved by: Manny Del Cid M.D. on 05/25/2018 at 16:30
--- NOTE | 2018-05-25 15:53 | ED_ITS ---
HPI - Weakness General Chief complaint: Weakness Stated complaint: Weakness Time Seen by Provider: 05/25/18 15:14 Source: patient and family () Mode of arrival: EMS Limitations: altered mental status History of Present Illness HPI Narrative: An 83-year-old male who comes to the emergency department with complaint of weakness or fatigue. According the patient he feels fine. His states that earlier today he was doing fine he walked from the kitchen to the living area and was sitting in his chair. She states that he was not very talkative Um and seemed very tired. She states that he seemed weak. She did not note any new weakness. He has chronic lower extremity weakness on the right side but this did not seem increased. Patient has not been complaining of any headaches, no chest pain, no shortness of breath, he denies any nausea or vomiting. He did have some loose stool when they were sitting him up for EMS. Patient has not been having any urinary issues that him in her his described. Patient has some memory issues according to his and he has difficulty giving history majority of the history comes from his . He had a HIDA scan and evaluation for gallbladder infection or stones week or 2 ago. He is being set up to see Dr. Galeano for possible removal of his gallbladder. He is currently denying abdominal pain but when he has palpation of his abdomen he is quite tender. He is able to tell me his name, he does ask me some questions repeatedly. He is somewhat cooperative but not always. Related Data Home Medications Medication Instructions Recorded Confirmed cholecalciferol (vitamin D3) 2,000 units PO DAILY #0 07/13/16 05/25/18 [Vitamin D3] multivitamin [Multiple Vitamins] 1 dose PO DAILY #0 07/13/16 05/25/18 polyethylene glycol 3350 [Miralax] 17 gm PO QDAY PRN #0 04/04/17 05/25/18 folic acid 0.4 mg PO DAILY #0 08/29/17 05/25/18 calcium carb-D3-mag ox-zinc ox 1 tab PO DAILY 12/19/17 05/25/18 [Don Mag Zinc Plus D3] fluocinonide 1 % TOPICAL SEE INSTRUCTIONS 12/19/17 05/25/18 acetaminophen [Acetaminophen Extra 1,000 mg PO Q6H PRN 12/21/17 05/25/18 Strength] tamsulosin [Flomax] 0.4 mg PO QPM 02/02/18 05/25/18 trazodone 50 mg tablet 50 mg PO BEDTIME 03/21/18 05/25/18 levothyroxine 112 mcg PO DAILY 05/11/18 05/25/18 PreserVision AREDS-2 2 cap PO DAILY 05/25/18 05/25/18 donepezil 10 mg PO DAILY 05/25/18 05/25/18 loperamide 2 mg PO PRN PRN 05/25/18 05/25/18 Previous Rx's Medication Instructions Recorded alprazolam 0.25 mg tablet 0.25 mg PO QID PRN #30 tab 03/21/18 amlodipine 5 mg tablet 5 mg PO DAILY #90 tab 03/22/18 hydrocodone-acetaminophen [[place]] 1 tab PO Q4-6H PRN #10 tab 05/11/18 ondansetron 4 mg PO Q6-8H PRN #10 tab 05/11/18 Allergies Allergy/AdvReac Type Severity Reaction Status Date / Time Sulfa (Sulfonamide Allergy Intermediate Hives Verified 05/25/18 15:10 Antibiotics) Review of Systems Review of Systems All systems reviewed & are unremarkable except as noted in HPI and below Constitutional Denies chills, Denies fever(s), Denies frequent falls, Denies headache(s), Reports malaise and Reports weakness ENT Ears, Nose, Mouth, and Throat: Denies dizziness and Denies headache(s) Cardiovascular Denies chest pain, Denies syncope, Denies irregular heart rhythm, Denies lightheadedness, Denies palpitations, Denies dyspnea, Denies dyspnea on exertion and Denies orthopnea Respiratory Denies cough, Denies dyspnea, Denies dyspnea on exertion and Denies wheezing Gastrointestinal Gastrointestinal: Denies abdominal pain, Denies change in bowel habits, Denies constipation, Reports diarrhea, Denies nausea and Denies vomiting Genitourinary Denies hematuria, Denies flank pain, Denies urinary incontinence and Denies urinary urgency Musculoskeletal Denies numbness Neurologic Reports as per HPI, Denies dizziness, Denies syncope, Denies frequent falls, Denies headache(s), Reports focal weakness (chronic lower extremity weakness), Denies numbness, Denies sensory deficit, Reports weakness and Reports other ( chronic memory loss.) Endocrine Denies palpitations Allergic/Immunologic Denies wheezing [facility] Medical History Hypothyroidism (Chronic 04/05/16) Abdominal distention (Chronic) Abdominal pain (Chronic) Memory deficit (Chronic) Ambulatory dysfunction (Chronic) BPH (benign prostatic hyperplasia) (Chronic) Cataract (Chronic 1999) Dandruff (Chronic) Hearing loss (Chronic) Hypertension (Chronic) Hypothyroid (Chronic) Kidney insufficiency (Chronic) Macular degeneration (Chronic) Polymyalgia rheumatica (Chronic) Psoriasis (Chronic) Pulmonary fibrosis (Chronic) Scoliosis (Chronic) Sleep apnea (Chronic) Abnormal CXR (chest x-ray) (Resolved ~194) Chicken pox (Resolved ~1955) Finger fracture (Resolved ~1945) Measles (Resolved ~1955) Mumps (Resolved ~1955) Rubella (Resolved) Tuberculosis (Resolved ~1939) Vertigo (Resolved 2009) Surgical History Anesthesia (Resolved) History of tonsillectomy (Resolved ~1940) History of umbilical hernia repair (Resolved 12/19/17) Status post appendectomy (Resolved 2008) Social History household members: spouse Smoking Status: Never smoker alcohol intake: never Exam Narrative Exam Narrative: GEN: well nourished, well appearing male, alert and oriented x 2, patient appears to be in mild distress. Per patient is at normal mental baseline. HEENT: Atraumatic, pupils are equal round reactive to light, extraocular movements are intact, nares are clear, TMs are clear with no fluid, there is no conjunctival pallor. Throat is clear without any exudates, erythema, tonsillar enlargement or uvular deviation, no facial droop HEART: Regular rate and rhythm without murmur, clicks, rubs. Pulses are equal in upper and lower extremities LUNGS:Lungs clear to auscultation, no wheezes, rales, crackles, chest moves symmetrically ABD:bowel sounds normal, soft, moderate generalized abdominal tenderness, no guarding, rebound, rigidity, non-distended, no masses noted, no hepatosplenomegaly :No CVA tenderness MSCL: Non-tender, no muscle atrophy, muscles strength 5/5 upper extremities, full range of motion upper extremities. NEURO:CN 2-12 intact, sensation normal Initial Vital Signs Initial Vital Signs: Vital Signs Temperature 97.4 F L 05/25/18 15:11 Pulse Rate 49 L 05/25/18 15:11 Respiratory Rate 12 05/25/18 15:11 Blood Pressure 150/77 H 05/25/18 15:11 Pulse Oximetry 100 05/25/18 15:11 Course Orders Ordered: ED Orders 05/25/18 15:27 XR chest 1V Stat 05/25/18 15:47 US abdomen limited Stat 05/25/18 15:48 Complete Blood Count AUTO DIFF Stat Comprehensive Metabolic Panel Stat Lipase Stat Partial Thromboplastin Time Stat Prothrombin Time INR Stat Troponin & CK Cardiac Panel Stat Discontinued Medications Sodium Chloride (Normal Saline 0.9%) 1,000 mls @ 150 mls/hr IV CONT DEBBIE Last Infusion: 05/25/18 18:48 Dose: 0 mls/hr Admin: 05/25/18 16:09 Dose: 150 mls/hr Morphine Sulfate (Morphine) 4 mg IV NOW ONE Stop: 05/25/18 15:48 Last Admin: 05/25/18 16:08 Dose: 4 mg Vital Signs - 8 hr 05/25/18 15:11 05/25/18 15:30 05/25/18 16:00 Temperature 97.4 F L Pulse Rate 49 L 52 L 63 Respiratory Rate 12 18 26 H Blood Pressure 150/77 H Blood Pressure [Right Arm] 137/70 139/77 Pulse Oximetry 100 98 100 05/25/18 17:04 05/25/18 18:00 Temperature Pulse Rate 56 L 54 L Respiratory Rate 18 18 Blood Pressure Blood Pressure [Right Arm] 155/77 H 128/67 Pulse Oximetry 97 96 MDM - Weakness Lab Data Attestation: I reviewed the patient's lab results. Result diagrams: 05/25/18 15:48 05/25/18 15:48 Lab Results 05/25/18 05/25/18 05/25/18 Range/Units 15:48 15:48 15:48 WBC 6.6 (4.5-11.0) X10^3/uL RBC 4.38 L (4.5-5.9) X10^6/uL Hgb 13.6 (13.5-17.5) g/dL Hct 39.7 L (41-53) % MCV 90.8 (80-100) fL MCH 31.1 (26-34) PG MCHC 34.2 (30-36) % RDW 14.6 (11.6-14.8) % Plt Count 235 (150-400) X10^3/uL Neut % (Auto) 52.8 (50-75) % Lymph % (Auto) 29.2 (25-40) % Walsh % (Auto) 11.3 (3-14) % Eos % (Auto) 5.5 H (2-4) % Baso % (Auto) 1.2 (0-2) % Neut # (Auto) 3500 (9944-2979) /uL PT 13.3 H (10.1-12.7) SECONDS INR 1.2 (0.9-1.3) APTT 29 (26.4-36.2) SECONDS Sodium 142 (137-145) mmol/L Potassium 4.0 (3.4-5.1) mmol/L Chloride 103 (98-107) mmol/L Carbon Dioxide 24 (22-32) mmol/L BUN 22 H (9-20) mg/dL Creatinine 1.70 H (0.66-1.25) mg/dL Estimated GFR 38.8 L (>60) mL/min BUN/Creatinine Ratio 12.9 (6-22) Glucose 88 (80-110) mg/dL Calcium 9.3 (8.4-10.2) mg/dL Total Bilirubin 0.6 (0.2-1.3) mg/dL AST 20 (17-59) IU/L ALT 16 L (21-72) IU/L Alkaline Phosphatase 84 (38-126) U/L Total Creatine Kinase 50 L (55-170) U/L CK-MB (CK-2) TNP CK-MB (CK-2) Rel Index TNP Troponin I < 0.012 (0.01-0.034) ng/mL Total Protein 8.2 (6.3-8.2) g/dL Albumin 4.5 (3.5-5.0) g/dL Globulin 3.7 (1.7-4.1) g/dL Albumin/Globulin Ratio 1.2 (1.0-2.8) Lipase 281 (23-300) U/L Urine Dip Bedside Urine Glucose Negative Bedside Urine Bilirubin - Negative Bedside Urine Ketone +/- 5 Bedside Urine Occult Blood - Negative Bedside Urine pH 8.5 Bedside Urine Protein +/- 15 Bedside Urine Urobilinogen - Negative Bedside Urine Nitrite - Negative Bedside Urine Leukocytes - Negative Esterase Imaging Data Chest x-ray: Radiologist's impression: [address] [address] XRay Report Signed Patient: Rom Paulino CMR#: [id number] : [id number]:[id number] Age/Sex: 83 / MDate of Service: 05/25/18 Loc: ED Accession Number: [id number] Procedure: XR chest 1V Ordering Provider: Stacy Taylor D.O. PROCEDURE: XR CHEST 1V INDICATIONS: chest pain TECHNIQUE: One view of the chest was acquired. COMPARISON: [facility], , XR CHEST 1V, 02/02/2018, 16:57. FINDINGS: Surgical changes and devices: None. Lungs and pleura: No pleural effusions or pneumothorax. Increased interstitial lung markings are again seen suggestive of chronic interstitial lung parenchymal disease. Mediastinum: Tortuous thoracic aorta is seen.. Heart size is enlarged. Bones and chest wall: No suspicious bony lesions. Overlying soft tissues appear unremarkable. IMPRESSION: Cardiomegaly. No acute cardiopulmonary pathology. Dictated by: Lang Hernandez M.D. on 05/25/2018 at 16:50 Approved by: Lang Hernandez M.D. on 05/25/2018 at 16:51 US - abdomen: Radiologist's impression: [address] [address] Ultrasound Report Signed Patient: Rom Paulino CMR#: [id number] : [id number]:[id number] Age/Sex: 83 / MDate of Service: 05/25/18 Loc: ED Accession Number: [id number] Procedure: US abdomen limited Ordering Provider: Stacy Taylor D.O. PROCEDURE: US ABDOMEN LIMITED INDICATIONS: abdominal pain, hx gallstones TECHNIQUE: Real-time focused scanning was performed of the abdomen, with image documentation. COMPARISON: [facility], , US ABDOMEN LIMITED, 05/11/2018, 10:04. FINDINGS: Stones and sludge are seen. The gallbladder wall is mildly thickened at 4 mm. No specific pericholecystic fluid is seen. The sonographic Aguilar sign is negative. The common bile duct measures at the upper limits of normal for a patient of this age at 7 mm. IMPRESSION: Gallstones and sludge can be seen. Mild thickening of the gallbladder wall is seen. These imaging findings are moderately suspicious for cholecystitis. However, no pericholecystic fluid is seen and a sonographic Aguilar sign is negative. Please correlate with physical examination findings, patient presentation, and laboratory values. Note: Concordant preliminary findings given by the asw/asuw tactical air controller upon the completion of the examination to Dr. Taylor at [address] [place] time on May 25, 2018. Dictated by: Manny Del Cid M.D. on 05/25/2018 at 16:28 Approved by: Manny Del Cid M.D. on 05/25/2018 at 16:30 ECG Data Attestation: I personally reviewed and interpreted this ECG as follows: Interpretation: Sinus bradycardia with a rate of 50 P are 236 QRS of 114 and QTC of 454. Nonspecific ST changes. 02/02/18 EKG is similar. MDM Narrative Medical decision making narrative: Patient's lab work shows no acute changes, he does have some ketones in his urine. Ultrasound shows gallstones as well as sludge there is negative sonographic Aguilar sign. Patient has possibility of cholecystitis but no clear infection. Patient was generalized tenderness on exam but on re-evaluation is no longer tender in the abdomen. He did receive pain medication here in the department. Patient has not had any fevers he has follow-up on Monday with Dr. Galeano about getting his gallbladder removed he has no other neurologic signs or symptoms. He would like to return home and his is comfortable with him returning home. Plan for patient to return if any worsening symptoms over the weekend otherwise. Discharge Plan Departure Patient Disposition: Home Clinical Impression: Weakness, Gallstones Discharge Date/Time: 05/25/18 18:50 Interventions: ED Discharge Assessment Last Done: 05/25/18 18:49 Activity Restrictions/Additional Instructions: Follow up at your appointment with Dr. Galeano on Monday. Continue home medications as prescribed. Increase fluid intake/Encourage hydration as your labs/urine show you are a little dehydrated. Return to ER for fevers greater than 100.4F, new abdominal pain, vomiting, black or bloody stools, worsening weakness, vision changes, new speech changes, shortness of breath, chest pain or other new/concerning symptoms. Prescriptions: No Action cholecalciferol (vitamin D3) [Vitamin D3] 2,000 UNIT capsule 2,000 units PO DAILY Qty: 0 RF: 0 multivitamin [Multiple Vitamins] 1 EACH tablet 1 dose PO DAILY Qty: 0 RF: 0 polyethylene glycol 3350 [Miralax] 119 GM powder 17 gm PO QDAY PRN (Reason: Constipation) Qty: 0 RF: 0 folic acid 0.4 MG tablet 0.4 mg PO DAILY Qty: 0 RF: 0 amlodipine 5 mg tablet 5 mg PO DAILY Qty: 90 RF: 3 trazodone 50 mg tablet 50 mg PO BEDTIME RF: 0 alprazolam [Xanax] 0.25 mg tablet 0.25 mg PO QID PRN (Reason: anxiety) Qty: 30 RF: 5 acetaminophen [Acetaminophen Extra Strength] 500 mg Tablet 1,000 mg PO Q6H PRN (Reason: Pain (Scale Score 1-3)) RF: 0 tamsulosin [Flomax] 0.4 MG capsule 0.4 mg PO QPM RF: 0 levothyroxine 112 mcg Tablet 112 mcg PO DAILY RF: 0 hydrocodone-acetaminophen [[place]] 5-325 mg tablet 1 tab PO Q4-6H PRN (Reason: pain) Qty: 10 RF: 0 ondansetron 4 mg tablet,disintegrating 4 mg PO Q6-8H PRN (Reason: nausea and vomiting) Qty: 10 RF: 0 loperamide 2 mg Capsule 2 mg PO PRN PRN (Reason: Diarrhea) RF: 0 donepezil 10 mg tablet 10 mg PO DAILY RF: 0 PreserVision AREDS-2 2 cap PO DAILY RF: 0 fluocinonide 0.05 % solution 1 % Topical SEE INSTRUCTIONS RF: 0 calcium carb-D3-mag ox-zinc ox [Don Mag Zinc Plus D3] 333 mg-133 unit -133 mg- 5 mg Tablet 1 tab PO DAILY RF: 0 Referrals: Cortes Sanders MD [Primary Care Provider] -
[2018-05-25 15:56] LABS: Add Manual Diff / Slide Review NO; Basophils Percent Auto 1.2 % (0-2); Eosinophils Percent Auto 5.5 % (2-4); Hematocrit 39.7 % (41-53); Hemoglobin 13.6 g/dL (13.5-17.5); Lymphocytes Percent Auto 29.2 % (25-40); Mean Corpuscular HGB Conc 34.2 % (30-36); Mean Corpuscular Hemoglobin 31.1 PG (26-34); Mean Corpuscular Volume 90.8 fL (80-100); Monocytes Percent Auto 11.3 % (3-14); Neutrophils Absolute Auto 3500 /uL (3000-5900); Neutrophils Percent Auto 52.8 % (50-75); Platelet Count 235 X10^3/uL (150-400); Red Blood Cell Count 4.38 X10^6/uL (4.5-5.9); Red Cell Distribution Width 14.6 % (11.6-14.8); White Blood Cell Count 6.6 X10^3/uL (4.5-11.0)
[2018-05-25 16:00] VITALS: BP 139/77; PULSE 63; RESP 26; O2SAT 100
[2018-05-25 16:02] LABS: INR 1.2 (0.9-1.3); Prothrombin Time 13.3 SECONDS (10.1-12.7)
[2018-05-25 16:05] LABS: PTT Partial Thromboplastin Tim 29 SECONDS (26.4-36.2)
[2018-05-25 16:06] LABS: Alanine Aminotransferase 16 IU/L (21-72); Albumin 4.5 g/dL (3.5-5.0); Albumin Globulin Ratio 1.2 (1.0-2.8); Alkaline Phosphatase 84 U/L (38-126); Aspartate Aminotransferase 20 IU/L (17-59); BUN Creatinine Ratio 12.9 (6-22); Bilirubin Total 0.6 mg/dL (0.2-1.3); Blood Urea Nitrogen 22 mg/dL (9-20); Calcium 9.3 mg/dL (8.4-10.2); Carbon Dioxide 24 mmol/L (22-32); Chloride 103 mmol/L (98-107); Creatine Kinase 50 U/L (55-170); Estimated Glomerular Filt Rate 38.8 mL/min (>60); Globulin 3.7 g/dL (1.7-4.1); Glucose 88 mg/dL (80-110); HEMOLYSIS 15 (0-50); Lipase 281 U/L (23-300); Sodium 142 mmol/L (137-145); Total Protein 8.2 g/dL (6.3-8.2)
[2018-05-25] MEDS: MORPHINE 4 MG/ML INJ IV (16:08)
[2018-05-25] MEDS: SODIUM CHLORIDE 0.9% 1,000 ML 150 ML IV (16:09)
[2018-05-25 16:22] LABS: Troponin I < 0.012 ng/mL (0.01-0.034)
[2018-05-25 17:04] VITALS: BP 155/77; PULSE 56; RESP 18; O2SAT 97
[2018-05-25 18:00] VITALS: BP 128/67; PULSE 54; RESP 18; O2SAT 96
== END 2018-05-25 18:50 | disposition home or self-care (01) ==
PROVIDERS: Emergency Provider Emergency Medicine; Family Provider Family Medicine; PCP Family Medicine
DX: K80.20 Calculus of gallbladder without cholecystitis without obstruction (principal); R53.1 Weakness
CPT/HCPCS: 36415; 71045; 76705; 80053; 81003; 82550; 83690; 84484; 85025; 85610; 85730; 93005; 96361; 96374; 99283; 99285; J2270

== ENCOUNTER 2018-06-04 11:15 | Outpatient (RCR) | payer OTHER, SELFPAY ==
[2018-03-21 16:59] VITALS: BMI 32.0
--- NOTE | 2018-04-19 11:15 | PT.OIE ---
Current Diagnoses Other abnormalities of gait and mobility (04/19/18) Weakness (04/19/18) Past Medical History (Last Reviewed 02/02/18 @ 18:18 by Hank Emanuel MD) Hypothyroidism (Chronic 04/05/16) Abdominal distention (Chronic) Abdominal pain (Chronic) Memory deficit (Chronic) Ambulatory dysfunction (Chronic) BPH (benign prostatic hyperplasia) (Chronic) Cataract (Chronic 1999) Dandruff (Chronic) Hearing loss (Chronic) Hypertension (Chronic) Hypothyroid (Chronic) Kidney insufficiency (Chronic) Macular degeneration (Chronic) Polymyalgia rheumatica (Chronic) Psoriasis (Chronic) Pulmonary fibrosis (Chronic) Scoliosis (Chronic) Sleep apnea (Chronic) Abnormal CXR (chest x-ray) (Resolved ~1939) Chicken pox (Resolved ~1955) Finger fracture (Resolved ~1945) Measles (Resolved ~1955) Mumps (Resolved ~1955) Rubella (Resolved) Tuberculosis (Resolved ~1939) Vertigo (Resolved 2009) Past Surgical History (Last Reviewed 02/02/18 @ 18:18 by Hank Emanuel MD) Anesthesia (Resolved) History of tonsillectomy (Resolved ~1940) History of umbilical hernia repair (Resolved 12/19/17) Status post appendectomy (Resolved 2008) Provider Visit Care Team Role Provider Type Cortes Sanders MD Attending Provider Physician Family Provider Primary Care Provider Specialty: Family Practice Address: [address] [place] [address] Email: [email or web address] Physical Therapy Initial Evaluation PT-OP-A Visit Information Start: 04/19/18 11:13 Freq: Status: Active Protocol: Document 04/19/18 11:15 AMB (Rec: 04/22/18 14:22 AMB [email or web address]) Out-Patient Physical Therapy Visit Information Visit Information Visit Type Initial Evaluation Visit Start Time 11:15 Visit Stop Time 12:05 Total Visit Minutes 50 Visit Number 1 Evaluation Information Evaluation Date 04/19/18 PT-OP-B Current Condition Start: 04/19/18 11:13 Freq: Status: Active Protocol: Document 04/19/18 11:15 AMB (Rec: 04/22/18 14:22 AMB [email or web address]) Current Condition History of Current Condition Onset Date Summer 2017 Current Complaints impaired balance/ gait History of Current Condition The patient attends PT with his who does the majority of the talking. She states that in November, the patient had hernia surgery and since then his mobility has declined. He has a history of dementia, and it has been getting worse. Previously he was ambulating with a SPC, now he uses a 4WW in home and a FWW in the community. He has just finished with home health. They have a caregiver who comes into the home 4x/week for 6 hours. The patient has a lift recliner, his helps him with lower body dressing, but he does the upper body dressing. He stands in the shower and has grab bars, he does not want a shower chair. He has had one fall in the last 6 months, when [place] the [employer] [place] in [place], per the caregiver's report he was able to crawl and pull himself up with the railing. He does have some urinary incontinence and therefore does not drink much water. He has a history of vertigo. About 1 month ago , spinning. Now reports that he can move his head around and get in and out of bed without any spinning. Treatment Goals Patient/Caregiver Goals Improve sit to stand/ gait Prior Functional Status Baseline Function- ADL's Modified Independent Baseline Function- Mobility Modified Independent Current Functional Impairments (Reported) Functional Limitations- ADL's Assist with shower/ lower body dressing Functional Limitations- Mobility/Gait Uses 4WW/ FWW for mobility Personal Factors Other Personal Factors That May Effect History of TB as a child, HTN, Therapy/Recovery macular degeneration, vertigo PT-OP-C Subjective Start: 04/19/18 11:13 Freq: Status: Active Protocol: Document 04/19/18 11:15 AMB (Rec: 04/22/18 14:22 AMB [email or web address]) Patient Questionnaires ABC- Activity Specific Balance Confidence Scale ABC Score 83 ABC Functional Impairment 1 to <20% Impaired (Score 81- 99) Dizziness Handicap Inventory DHI Score 32 DHI Functional Impairment 20 to 39% Impaired (Score 20- 39) OP-PT Pain Assessment Comments Pain Comments pt denies current pain PT-OP-E Functional Tests Start: 04/19/18 11:13 Freq: Status: Active Protocol: Document 04/19/18 11:15 AMB (Rec: 10/28/18 14:11 AMB [email or web address]) Functional Tests Dynamic Gait Index (DGI) Score 9 DGI Impairment Rating 60 to <80% Impaired (Score 5-9 ) Timed Up and Go (TUG) Score 34 Comments with FWW TUG Impairment Rating 100% Impaired (Score 20) PT-OP-G Mobility & Gait Start: 04/19/18 11:13 Freq: Status: Active Protocol: Document 04/19/18 11:15 AMB (Rec: 04/22/18 14:11 AMB [email or web address]) OP Gait Assessment Comments Gait Comments Pt ambulates very slowly with his FWW, when asked he can walk faster, but his chosen speed is slow and careful. Stair Climbing Evaluation Evaluation Level of Assist On Stairs Standby Assistance Devices Stair Climbing Assistive Devices Left Railing Right Railing Technique/Endurance Stair Climbing Direction Ascend and Descend Stair Climbing Technique Step Over Step Number of Steps Climbed 3 Stair Climbing Set # Repetitions (reps) 1 PT-OP-M Strength Start: 04/22/18 13:54 Freq: Status: Active Protocol: Document 04/19/18 11:15 AMB (Rec: 04/22/18 14:11 AMB [email or web address]) Hip Strength Hip Manual Muscle Testing Right Flexion (L2) 3 Fair Extension (S1) 3 Fair Abduction 3 Fair Adduction 3 Fair Comments pain with abdominal cramp during testing Left Flexion (L2) 4- Good- Extension (S1) 4- Good- Abduction 4- Good- Adduction 4- Good- Knee Strength Knee Manual Muscle Testing Right Flexion (S2) 4+ Good+ Left Flexion (S2) 4 Good Extension (L3) 4+ Good+ Ankle/Foot Strength Ankle and Foot Manual Muscle Testing Right Dorsiflexion (L4) 4 Good Plantarflexion (S1) 3 Fair Left Dorsiflexion (L4) 4 Good Plantarflexion (S1) 3 Fair PT-OP-T Assessment and Plan Start: 04/19/18 11:13 Freq: Status: Active Protocol: Document 04/19/18 11:15 AMB (Rec: 04/22/18 14:30 AMB [email or web address]) Physical Therapy Assessment Rehab Potential Rehabilitation Potential Good Evaluation Complexity Number of Personal Factors/Comorbidities 3 or More Number of Body Systems Impaired 4 or More Clinical Presentation at Evaluation Evolving Impairments Impairments Balance Functional Mobility Gait Strength Transfers Other Concerns Fall Risk high Goals Three Impairment LE strength Short Term Goal (STG) The patient will be independent and consistent with a LE strengthening program. STG Duration 5 weeks Two Impairment balance Short Term Goal (STG) The patient will show reduced risk of falling by increasing his DGI score from 924 to 15. STG Duration 5 weeks Wire Hanger Goal (LTG) The patient will show improved static balance by balancing without UE support and a narrow base of support for 10 seconds without LOB. LTG Duration 10 weeks One Impairment gait Short Term Goal (STG) The patient will ambulate in his home with his FWW for 10 minutes without need for a rest break and without LOB. STG Duration 5 weeks Skilled Nursing Goal (LTG) The patient will improve his TUG from 34 seconds to 18 seconds with a FWW. LTG Duration 10 weeks Assessment Summary Assessment The patient attends physical therapy following discharge from home health physical therapy. He has had a decline in function over the past 6 months since his hernia surgery, and now walks quite slowly with a walker and needs assistance for lower body dressing, showering, and intermittently sit to stand. He will benefit from PT to encourage him in strengthening , improving his balance, and endurance, and reducing his overall fall risk. Physical Therapy Plan Frequency and Duration Frequency of Treatment 1x/Week Duration of Treatment 10 weeks Plan of Care Start Date 04/19/18 Plan of Care End Date 06/28/18 Therapeutic Interventions Therapeutic Interventions Balance Training Gait Training Home Exercise Program Manual Therapy Neuromuscular Re-education Self-Care/Home Management Therapeutic Activities Therapeutic Exercises Next Visit Focus/Plan Next Note Type Treatment Note Next Visit Plan Progress gait/ balance/ LE strengthening
--- NOTE | 2018-04-19 11:15 | PT.OPPOC ---
Current Diagnoses Other abnormalities of gait and mobility (04/19/18) Weakness (04/19/18) Provider Visit Care Team Role Provider Type Cortes Sanders MD Attending Provider Physician Family Provider Primary Care Provider Specialty: Family Practice Address: [address] [place] [address], [id number] Email: [email or web address] Plan Of Care PT-OP-T Assessment and Plan Start: 04/19/18 11:13 Freq: Status: Active Protocol: Document 04/19/18 11:15 AMB (Rec: 04/22/18 14:30 AMB [email or web address]) Physical Therapy Assessment Rehab Potential Rehabilitation Potential Good Evaluation Complexity Number of Personal Factors/Comorbidities 3 or More Number of Body Systems Impaired 4 or More Clinical Presentation at Evaluation Evolving Impairments Impairments Balance Functional Mobility Gait Strength Transfers Other Concerns Fall Risk high Goals Three Impairment LE strength Short Term Goal (STG) The patient will be independent and consistent with a LE strengthening program. STG Duration 5 weeks Two Impairment balance Short Term Goal (STG) The patient will show reduced risk of falling by increasing his DGI score from 03/19 to . STG Duration 5 weeks Prison Goal (LTG) The patient will show improved static balance by balancing without UE support and a narrow base of support for 10 seconds without LOB. LTG Duration 10 weeks One Impairment gait Short Term Goal (STG) The patient will ambulate in his home with his FWW for 10 minutes without need for a rest break and without LOB. STG Duration 5 weeks Type Caster Goal (LTG) The patient will improve his TUG from 34 seconds to 18 seconds with a FWW. LTG Duration 10 weeks Assessment Summary Assessment The patient attends physical therapy following discharge from home health physical therapy. He has had a decline in function over the past 6 months since his hernia surgery, and now walks quite slowly with a walker and needs assistance for lower body dressing, showering, and intermittently sit to stand. He will benefit from PT to encourage him in strengthening , improving his balance, and endurance, and reducing his overall fall risk. Physical Therapy Plan Frequency and Duration Frequency of Treatment 1x/Week Duration of Treatment 10 weeks Plan of Care Start Date 04/19/18 Plan of Care End Date 06/28/18 Therapeutic Interventions Therapeutic Interventions Balance Training Gait Training Home Exercise Program Manual Therapy Neuromuscular Re-education Self-Care/Home Management Therapeutic Activities Therapeutic Exercises Next Visit Focus/Plan Next Note Type Treatment Note Next Visit Plan Progress gait/ balance/ LE strengthening Plan of Care Dates Plan of Care Start Date 04/19/18 Plan of Care End Date 06/28/18 Please Sign and Return: I have reviewed this Plan of Care and certify that the skilled therapy services above are required to meet the patient?s needs. Physician Signature Date Printed Name and Credentials Clinical Instructor Signature Printed Name and Credentials
--- NOTE | 2018-04-26 12:00 | PT.OTN ---
Current Diagnoses Other abnormalities of gait and mobility (04/26/18) Weakness (04/26/18) Physical Therapy Treatment Note PT-OP-A Visit Information Start: 04/19/18 11:13 Freq: Status: Active Protocol: Document 04/26/18 10:30 AMB (Rec: 04/30/18 07:26 AMB [email or web address]) Out-Patient Physical Therapy Visit Information Visit Information Visit Type Treatment Note Visit Start Time 10:35 Visit Stop Time 11:15 Total Visit Minutes 40 Visit Number 2 PT-OP-B Current Condition Start: 04/19/18 11:13 Freq: Status: Active Protocol: Document 04/19/18 11:15 AMB (Rec: 04/22/18 14:22 AMB [email or web address]) Current Condition History of Current Condition Onset Date Summer 2017 Current Complaints impaired balance/ gait History of Current Condition The patient attends PT with his who does the majority of the talking. She states that in November, the patient had hernia surgery and since then his mobility has declined. He has a history of dementia, and it has been getting worse. Previously he was ambulating with a SPC, now he uses a 4WW in home and a FWW in the community. He has just finished with home health. They have a caregiver who comes into the home 4x/week for 6 hours. The patient has a lift recliner, his helps him with lower body dressing, but he does the upper body dressing. He stands in the shower and has grab bars, he does not want a shower chair. He has had one fall in the last 6 months, when [place] on the [employer] [place] in February, per the caregiver's report he was able to crawl and pull himself up with the railing. He does have some urinary incontinence and therefore does not drink much water. He has a history of vertigo. About 1 month ago , spinning. Now reports that he can move his head around and get in and out of bed without any spinning. 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 The caregiver states that the patient was quite tired after his last PT visit and that he slept most of the day. PT-OP-E Functional Tests Start: 04/19/18 11:13 Freq: Status: Active Protocol: Document 04/19/18 11:15 AMB (Rec: 04/22/18 14:11 AMB [email or web address]) Functional Tests Dynamic Gait Index (DGI) Score 9 DGI Impairment Rating 60 to <80% Impaired (Score 5-9 ) Timed Up and Go (TUG) Score 34 Comments with FWW TUG Impairment Rating 100% Impaired (Score 20) PT-OP-G Mobility & Gait Start: 04/19/18 11:13 Freq: Status: Active Protocol: Document 04/19/18 11:15 AMB (Rec: 04/22/18 14:11 AMB [email or web address]) OP Gait Assessment Comments Gait Comments Pt ambulates very slowly with his FWW, when asked he can walk faster, but his chosen speed is slow and careful. Stair Climbing Evaluation Evaluation Level of Assist On Stairs Standby Assistance Devices Stair Climbing Assistive Devices Left Railing Right Railing Technique/Endurance Stair Climbing Direction Ascend and Descend Stair Climbing Technique Step Over Step Number of Steps Climbed 3 Stair Climbing Set # Repetitions (reps) 1 PT-OP-M Strength Start: 04/22/18 13:54 Freq: Status: Active Protocol: Document 04/19/18 11:15 AMB (Rec: 04/22/18 14:11 AMB [email or web address]) Hip Strength Hip Manual Muscle Testing Right Flexion (L2) 3 Fair Extension (S1) 3 Fair Abduction 3 Fair Adduction 3 Fair Comments pain with abdominal cramp during testing Left Flexion (L2) 4- Good- Extension (S1) 4- Good- Abduction 4- Good- Adduction 4- Good- Knee Strength Knee Manual Muscle Testing Right Flexion (S2) 4+ Good+ Left Flexion (S2) 4 Good Extension (L3) 4+ Good+ Ankle/Foot Strength Ankle and Foot Manual Muscle Testing Right Dorsiflexion (L4) 4 Good Plantarflexion (S1) 3 Fair Left Dorsiflexion (L4) 4 Good Plantarflexion (S1) 3 Fair PT-OP-Q Treatments Start: 04/19/18 11:13 Freq: Status: Active Protocol: Document 04/26/18 10:30 AMB (Rec: 04/30/18 07:26 AMB [email or web address]) Cardio Equipment Recumbent Elliptical (Biodex) Duration (Minutes) 5 Resistance 2 Gym Equipment Shuttle Balance 1 Details YELLOW Reps/Duration 10 min Comments WBOS: head turns, eyes open/ eyes closed Therapeutic Exercises Standing Exercises 3 Standing Exercise Name hip abduction Reps/Minutes with UE support 2 Standing Exercise Name marching in place Comments with UE support 1 Standing Exercise Name sit to stand Comments needs to use UE support Neuro Re-Education Treatment Balance Activities 2 Details single leg stance Comments with Ue support, CGA 1 Details tandem stance Comments with UE support, CGA PT-OP-T Assessment and Plan Start: 04/19/18 11:13 Freq: Status: Active Protocol: Document 04/26/18 10:30 AMB (Rec: 04/30/18 07:26 AMB [email or web address]) Physical Therapy Assessment Assessment Summary Assessment Discussed HEP with caregiver, she seems to be giving him approriate cues with his exercises, although the balance exercises are hard. Physical Therapy Plan Next Visit Focus/Plan Next Note Type Treatment Note Next Visit Plan Progress gait/ balance/ LE strengthening
--- NOTE | 2018-05-02 13:24 | PT.OTN ---
Current Diagnoses Other abnormalities of gait and mobility (05/02/18) Weakness (05/02/18) Physical Therapy Treatment Note PT-OP-A Visit Information Start: 04/19/18 11:13 Freq: Status: Active Protocol: Document 05/02/18 11:15 AMB (Rec: 05/02/18 13:24 AMB [email or web address]) Out-Patient Physical Therapy Visit Information Visit Information Visit Type Treatment Note Visit Start Time 11:15 Visit Stop Time 12:00 Total Visit Minutes 40 Visit Number 3 Evaluation Information Evaluation Date 04/19/18 PT-OP-B Current Condition Start: 04/19/18 11:13 Freq: Status: Active Protocol: Document 04/19/18 11:15 AMB (Rec: 04/22/18 14:22 AMB [email or web address]) Current Condition History of Current Condition Onset Date Summer 2017 Current Complaints impaired balance/ gait History of Current Condition The patient attends PT with his who does the majority of the talking. She states that in November, the patient had hernia surgery and since then his mobility has declined. He has a history of dementia, and it has been getting worse. Previously he was ambulating with a SPC, now he uses a 4WW in home and a FWW in the community. He has just finished with home health. They have a caregiver who comes into the home 4x/week for 6 hours. The patient has a lift recliner, his helps him with lower body dressing, but he does the upper body dressing. He stands in the shower and has grab bars, he does not want a shower chair. He has had one fall in the last 6 months, when [place], per the caregiver's report he was able to crawl and pull himself up with the railing. He does have some urinary incontinence and therefore does not drink much water. He has a history of vertigo. About 1 month ago , spinning. Now reports that he can move his head around and get in and out of bed without any spinning. 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 She states that he did fine after last appointment. PT-OP-E Functional Tests Start: 04/19/18 11:13 Freq: Status: Active Protocol: Document 04/19/18 11:15 AMB (Rec: 04/22/18 14:11 AMB [email or web address]) Functional Tests Dynamic Gait Index (DGI) Score 9 DGI Impairment Rating 60 to <80% Impaired (Score 5-9 ) Timed Up and Go (TUG) Score 34 Comments with FWW TUG Impairment Rating 100% Impaired (Score 20) PT-OP-G Mobility & Gait Start: 04/19/18 11:13 Freq: Status: Active Protocol: Document 04/19/18 11:15 AMB (Rec: 04/22/18 14:11 AMB [email or web address]) OP Gait Assessment Comments Gait Comments Pt ambulates very slowly with his FWW, when asked he can walk faster, but his chosen speed is slow and careful. Stair Climbing Evaluation Evaluation Level of Assist On Stairs Standby Assistance Devices Stair Climbing Assistive Devices Left Railing Right Railing Technique/Endurance Stair Climbing Direction Ascend and Descend Stair Climbing Technique Step Over Step Number of Steps Climbed 3 Stair Climbing Set # Repetitions (reps) 1 PT-OP-M Strength Start: 04/22/18 13:54 Freq: Status: Active Protocol: Document 04/19/18 11:15 AMB (Rec: 04/22/18 14:11 AMB [email or web address]) Hip Strength Hip Manual Muscle Testing Right Flexion (L2) 3 Fair Extension (S1) 3 Fair Abduction 3 Fair Adduction 3 Fair Comments pain with abdominal cramp during testing Left Flexion (L2) 4- Good- Extension (S1) 4- Good- Abduction 4- Good- Adduction 4- Good- Knee Strength Knee Manual Muscle Testing Right Flexion (S2) 4+ Good+ Left Flexion (S2) 4 Good Extension (L3) 4+ Good+ Ankle/Foot Strength Ankle and Foot Manual Muscle Testing Right Dorsiflexion (L4) 4 Good Plantarflexion (S1) 3 Fair Left Dorsiflexion (L4) 4 Good Plantarflexion (S1) 3 Fair PT-OP-Q Treatments Start: 04/19/18 11:13 Freq: Status: Active Protocol: Document 05/02/18 11:15 AMB (Rec: 05/02/18 13:24 AMB [email or web address]) Gym Equipment Shuttle Recovery Bilateral Squats Resistance 100# Reps/Time 3x10 Therapeutic Exercises Standing Exercises 6 Standing Exercise Name side stepping Comments with yellow t band at rail 5 Standing Exercise Name hamstring stretch Reps/Minutes 30x2 Comments on stair 4 Standing Exercise Name calf stretch Reps/Minutes 30x2 Comments on [place] Gait Training Gait Activity 3 Description hurdles Comments in // bars, trying to reduce UE support 2 Description stair step ups Comments with 2 rails 1 Description FWW smooth surface Distance/Duration 250' Comments vc for posture Neuro Re-Education Treatment Balance Activities 4 Details forward/retro walking Reps/Duration 30'x4 Comments at railing 3 Details stair tap ups Comments 6 step without rail, Quentin required to prevent LOB PT-OP-T Assessment and Plan Start: 04/19/18 11:13 Freq: Status: Active Protocol: Document 05/02/18 11:15 AMB (Rec: 05/02/18 13:24 AMB [email or web address]) Physical Therapy Assessment Assessment Summary Assessment Pt tolerated treatment well today, needed two water breaks for a bit of a rest, but otherwise kept working the entire time. Physical Therapy Plan Next Visit Focus/Plan Next Note Type Treatment Note Next Visit Plan Progress gait/ balance/ LE strengthening
--- NOTE | 2018-05-08 15:39 | PT.OTN ---
Current Diagnoses Other abnormalities of gait and mobility (05/08/18) Weakness (05/08/18) Physical Therapy Treatment Note PT-OP-A Visit Information Start: 04/19/18 11:13 Freq: Status: Active Protocol: Document 05/08/18 15:31 SA (Rec: 05/08/18 15:38 SA [email or web address]) Out-Patient Physical Therapy Visit Information Visit Information Visit Type Treatment Note Visit Start Time 13:00 Visit Stop Time 13:45 Total Visit Minutes 45 Visit Number 4 Number of GAS COMBUSTION ENGINEER Visits 1 PT-OP-B Current Condition Start: 04/19/18 11:13 Freq: Status: Active Protocol: Document 04/19/18 11:15 AMB (Rec: 04/22/18 14:22 AMB [email or web address]) Current Condition History of Current Condition Onset Date Summer 2017 Current Complaints impaired balance/ gait History of Current Condition The patient attends PT with his who does the majority of the talking. She states that in November, the patient had hernia surgery and since then his mobility has declined. He has a history of dementia, and it has been getting worse. Previously he was ambulating with a SPC, now he uses a 4WW in home and a FWW in the community. He has just finished with home health. They have a caregiver who comes into the home 4x/week for 6 hours. The patient has a lift recliner, his helps him with lower body dressing, but he does the upper body dressing. He stands in the shower and has grab bars, he does not want a shower chair. He has had one fall in the last 6 months, when out on the [place] [place] in February, per the caregiver's report he was able to crawl and pull himself up with the railing. He does have some urinary incontinence and therefore does not drink much water. He has a history of vertigo. About 1 month ago , spinning. Now reports that he can move his head around and get in and out of bed without any spinning. 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 Patient Reported Progress Improving PT-OP-E Functional Tests Start: 04/19/18 11:13 Freq: Status: Active Protocol: Document 04/19/18 11:15 AMB (Rec: 04/22/18 14:11 AMB [email or web address]) Functional Tests Dynamic Gait Index (DGI) Score 9 DGI Impairment Rating 60 to <80% Impaired (Score 5-9 ) Timed Up and Go (TUG) Score 34 Comments with FWW TUG Impairment Rating 100% Impaired (Score 20) PT-OP-G Mobility & Gait Start: 04/19/18 11:13 Freq: Status: Active Protocol: Document 04/19/18 11:15 AMB (Rec: 04/22/18 14:11 AMB [email or web address]) OP Gait Assessment Comments Gait Comments Pt ambulates very slowly with his FWW, when asked he can walk faster, but his chosen speed is slow and careful. Stair Climbing Evaluation Evaluation Level of Assist On Stairs Standby Assistance Devices Stair Climbing Assistive Devices Left Railing Right Railing Technique/Endurance Stair Climbing Direction Ascend and Descend Stair Climbing Technique Step Over Step Number of Steps Climbed 3 Stair Climbing Set # Repetitions (reps) 1 PT-OP-M Strength Start: 04/22/18 13:54 Freq: Status: Active Protocol: Document 04/19/18 11:15 AMB (Rec: 04/22/18 14:11 AMB [email or web address]) Hip Strength Hip Manual Muscle Testing Right Flexion (L2) 3 Fair Extension (S1) 3 Fair Abduction 3 Fair Adduction 3 Fair Comments pain with abdominal cramp during testing Left Flexion (L2) 4- Good- Extension (S1) 4- Good- Abduction 4- Good- Adduction 4- Good- Knee Strength Knee Manual Muscle Testing Right Flexion (S2) 4+ Good+ Left Flexion (S2) 4 Good Extension (L3) 4+ Good+ Ankle/Foot Strength Ankle and Foot Manual Muscle Testing Right Dorsiflexion (L4) 4 Good Plantarflexion (S1) 3 Fair Left Dorsiflexion (L4) 4 Good Plantarflexion (S1) 3 Fair PT-OP-Q Treatments Start: 04/19/18 11:13 Freq: Status: Active Protocol: Document 05/08/18 15:31 SA (Rec: 05/08/18 15:38 SA [email or web address]) Cardio Equipment Recumbent Elliptical (Biodex) Duration (Minutes) 5 Resistance 2 Gym Equipment Shuttle Recovery Bilateral Squats Resistance 100# Reps/Time 3x10 Shuttle Balance 1 Details YELLOW Reps/Duration 10 min Comments Head turns, eyes closed/open, UE movements Therapeutic Exercises Standing Exercises 6 Standing Exercise Name side stepping Comments with yellow t band at rail 5 Standing Exercise Name hamstring stretch Reps/Minutes 30x2 Comments on stair 4 Standing Exercise Name calf stretch Reps/Minutes 30x2 Comments on OM 3 Standing Exercise Name hip abduction Reps/Minutes with UE support 2 Standing Exercise Name marching in place Comments with UE support 1 Standing Exercise Name sit to stand Reps/Minutes 6x Comments UE use Gait Training Gait Activity 3 Description hurdles Comments single bar with LORRAINE support 2 Description stair step ups Comments with 2 rails 1 Description 4WW today, even surface Distance/Duration 200 feet Comments vc for posture PT-OP-T Assessment and Plan Start: 04/19/18 11:13 Freq: Status: Active Protocol: Document 05/08/18 15:31 SA (Rec: 05/08/18 15:38 SA [email or web address]) Physical Therapy Assessment Assessment Summary Assessment Pt tolerated treatment well, 2 seated rest breaks. Education provided for safe use of 4WW during transfers but pateint not receptive. Physical Therapy Plan Next Visit Focus/Plan Next Note Type Treatment Note Next Visit Plan Continue to progress dynamic balance, revisit safe use of AD.
--- NOTE | 2018-05-15 14:22 | PT.OTN ---
Current Diagnoses Other abnormalities of gait and mobility (05/15/18) Weakness (05/15/18) Physical Therapy Treatment Note PT-OP-A Visit Information Start: 04/19/18 11:13 Freq: Status: Active Protocol: Document 05/15/18 14:12 SA (Rec: 05/15/18 14:22 SA [email or web address]) Out-Patient Physical Therapy Visit Information Visit Information Visit Type Treatment Note Visit Start Time 13:00 Visit Stop Time 13:45 Total Visit Minutes 45 Visit Number 5 Number of BUSINESS PROCESS MANAGER Visits 2 PT-OP-B Current Condition Start: 04/19/18 11:13 Freq: Status: Active Protocol: Document 04/19/18 11:15 AMB (Rec: 04/22/18 14:22 AMB [email or web address]) Current Condition History of Current Condition Onset Date Summer 2017 Current Complaints impaired balance/ gait History of Current Condition The patient attends PT with his who does the majority of the talking. She states that in November, the patient had hernia surgery and since then his mobility has declined. He has a history of dementia, and it has been getting worse. Previously he was ambulating with a SPC, now he uses a 4WW in home and a FWW in the community. He has just finished with home health. They have a caregiver who comes into the home 4x/week for 6 hours. The patient has a lift recliner, his helps him with lower body dressing, but he does the upper body dressing. He stands in the shower and has grab bars, he does not want a shower chair. He has had one fall in the last 6 months, [place] [employer] [place], per the caregiver's report he was able to crawl and pull himself up with the railing. He does have some urinary incontinence and therefore does not drink much water. He has a history of vertigo. About 1 month ago , spinning. Now reports that he can move his head around and get in and out of bed without any spinning. 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 It was worse yesterday than it is today. PT-OP-E Functional Tests Start: 04/19/18 11:13 Freq: Status: Active Protocol: Document 04/19/18 11:15 AMB (Rec: 04/22/18 14:11 AMB [email or web address]) Functional Tests Dynamic Gait Index (DGI) Score 9 DGI Impairment Rating 60 to <80% Impaired (Score 5-9 ) Timed Up and Go (TUG) Score 34 Comments with FWW TUG Impairment Rating 100% Impaired (Score 20) PT-OP-G Mobility & Gait Start: 04/19/18 11:13 Freq: Status: Active Protocol: Document 04/19/18 11:15 AMB (Rec: 04/22/18 14:11 AMB [email or web address]) OP Gait Assessment Comments Gait Comments Pt ambulates very slowly with his FWW, when asked he can walk faster, but his chosen speed is slow and careful. Stair Climbing Evaluation Evaluation Level of Assist On Stairs Standby Assistance Devices Stair Climbing Assistive Devices Left Railing Right Railing Technique/Endurance Stair Climbing Direction Ascend and Descend Stair Climbing Technique Step Over Step Number of Steps Climbed 3 Stair Climbing Set # Repetitions (reps) 1 PT-OP-M Strength Start: 04/22/18 13:54 Freq: Status: Active Protocol: Document 04/19/18 11:15 AMB (Rec: 04/22/18 14:11 AMB [email or web address]) Hip Strength Hip Manual Muscle Testing Right Flexion (L2) 3 Fair Extension (S1) 3 Fair Abduction 3 Fair Adduction 3 Fair Comments pain with abdominal cramp during testing Left Flexion (L2) 4- Good- Extension (S1) 4- Good- Abduction 4- Good- Adduction 4- Good- Knee Strength Knee Manual Muscle Testing Right Flexion (S2) 4+ Good+ Left Flexion (S2) 4 Good Extension (L3) 4+ Good+ Ankle/Foot Strength Ankle and Foot Manual Muscle Testing Right Dorsiflexion (L4) 4 Good Plantarflexion (S1) 3 Fair Left Dorsiflexion (L4) 4 Good Plantarflexion (S1) 3 Fair PT-OP-Q Treatments Start: 04/19/18 11:13 Freq: Status: Active Protocol: Document 05/15/18 14:12 SA (Rec: 05/15/18 14:22 [email or web address]) Cardio Equipment Recumbent Bicycle Duration (Minutes) 7 Resistance 8 Therapeutic Exercises Standing Exercises 6 Standing Exercise Name side stepping Comments Red TB 5 Standing Exercise Name hamstring stretch Reps/Minutes 30x2 Comments on stair 4 Standing Exercise Name calf stretch Reps/Minutes 30x2 Comments on MO 3 Standing Exercise Name Hip ABD and hip EXT Reps/Minutes with UE support 2 Standing Exercise Name marching in place Comments with UE support 1 Standing Exercise Name sit to stand Reps/Minutes 6x Comments from low chair with UE use Gait Training Gait Activity Safe transfers with 4WW Comments Pt to square up to chair with 4WW prior to sitting. Tends to park 4WW off to side than struggle to step over it prior to sitting. 2 Description stair step ups Comments with 2 rails 1 Description 4WW, even surfaces Distance/Duration 250 feet Comments Cues for upright posture. PT-OP-T Assessment and Plan Start: 04/19/18 11:13 Freq: Status: Active Protocol: Document 05/15/18 14:12 (Rec: 05/15/18 14:22 [email or web address]) Physical Therapy Assessment Progress Towards Goals Progress Towards Goals Slow Progress due to Medical Issues Assessment Summary Assessment Limited dynamic balance training, focusing on LE strength d/t patient's c/o dizziness and Vertigo like sx. BP WNLs Physical Therapy Plan Next Visit Focus/Plan Next Note Type Treatment Note Next Visit Plan Continue with LE strengthening , safe gait and transfer training with 4WW and assess Vertigo like sx next visit.
--- NOTE | 2018-05-21 12:59 | PT.OTN ---
Current Diagnoses Other abnormalities of gait and mobility (05/21/18) Weakness (05/21/18) Physical Therapy Treatment Note PT-OP-A Visit Information Start: 04/19/18 11:13 Freq: Status: Active Protocol: Document 05/21/18 11:15 AMB (Rec: 05/21/18 11:25 AMB [id number]) Out-Patient Physical Therapy Visit Information Visit Information Visit Type Treatment Note Visit Start Time 11:15 Visit Stop Time 12:00 Total Visit Minutes 45 Visit Number 6 Number of ARTIFACTS CONSERVATOR Visits 0 Evaluation Information Evaluation Date 04/19/18 PT-OP-B Current Condition Start: 04/19/18 11:13 Freq: Status: Active Protocol: Document 04/19/18 11:15 AMB (Rec: 04/22/18 14:22 AMB [email or web address]) Current Condition History of Current Condition Onset Date Summer 2017 Current Complaints impaired balance/ gait History of Current Condition The patient attends PT with his who does the majority of the talking. She states that in November, the patient had hernia surgery and since then his mobility has declined. He has a history of dementia, and it has been getting worse. Previously he was ambulating with a SPC, now he uses a 4WW in home and a FWW in the community. He has just finished with home health. They have a caregiver who comes into the home 4x/week for 6 hours. The patient has a lift recliner, his helps him with lower body dressing, but he does the upper body dressing. He stands in the shower and has grab bars, he does not want a shower chair. He has had one fall in the last 6 months, when out on the [place] in February, per the caregiver's report he was able to crawl and pull himself up with the railing. He does have some urinary incontinence and therefore does not drink much water. He has a history of vertigo. About 1 month ago , spinning. Now reports that he can move his head around and get in and out of bed without any spinning. 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 PT-OP-E Functional Tests Start: 04/19/18 11:13 Freq: Status: Active Protocol: Document 04/19/18 11:15 AMB (Rec: 04/22/18 14:11 AMB [email or web address]) Functional Tests Dynamic Gait Index (DGI) Score 9 DGI Impairment Rating 60 to <80% Impaired (Score 5-9 ) Timed Up and Go (TUG) Score 34 Comments with FWW TUG Impairment Rating 100% Impaired (Score 20) PT-OP-G Mobility & Gait Start: 04/19/18 11:13 Freq: Status: Active Protocol: Document 04/19/18 11:15 AMB (Rec: 04/22/18 14:11 AMB [email or web address]) OP Gait Assessment Comments Gait Comments Pt ambulates very slowly with his FWW, when asked he can walk faster, but his chosen speed is slow and careful. Stair Climbing Evaluation Evaluation Level of Assist On Stairs Standby Assistance Devices Stair Climbing Assistive Devices Left Railing Right Railing Technique/Endurance Stair Climbing Direction Ascend and Descend Stair Climbing Technique Step Over Step Number of Steps Climbed 3 Stair Climbing Set # Repetitions (reps) 1 PT-OP-M Strength Start: 04/22/18 13:54 Freq: Status: Active Protocol: Document 04/19/18 11:15 AMB (Rec: 04/22/18 14:11 AMB [email or web address]) Hip Strength Hip Manual Muscle Testing Right Flexion (L2) 3 Fair Extension (S1) 3 Fair Abduction 3 Fair Adduction 3 Fair Comments pain with abdominal cramp during testing Left Flexion (L2) 4- Good- Extension (S1) 4- Good- Abduction 4- Good- Adduction 4- Good- Knee Strength Knee Manual Muscle Testing Right Flexion (S2) 4+ Good+ Left Flexion (S2) 4 Good Extension (L3) 4+ Good+ Ankle/Foot Strength Ankle and Foot Manual Muscle Testing Right Dorsiflexion (L4) 4 Good Plantarflexion (S1) 3 Fair Left Dorsiflexion (L4) 4 Good Plantarflexion (S1) 3 Fair PT-OP-Q Treatments Start: 04/19/18 11:13 Freq: Status: Active Protocol: Document 05/21/18 11:15 AMB (Rec: 05/21/18 11:33 AMB [id number]) Cardio Equipment Recumbent Elliptical ([employer]) Duration (Minutes) 5 Resistance 3 Gym Equipment Shuttle Recovery Unilateral Squats Resistance 75# Shuttle Recovery Platform Stable Reps/Time 3x10 Shuttle Balance 1 Details YELLOW Reps/Duration 10 min Comments Head turns, eyes closed/open, UE movements Therapeutic Exercises Standing Exercises 2 Standing Exercise Name marching in place Comments with UE support 1 Standing Exercise Name sit to stand Reps/Minutes 6x Comments UE use PT-OP-T Assessment and Plan Start: 04/19/18 11:13 Freq: Status: Active Protocol: Document 05/21/18 11:15 AMB (Rec: 05/21/18 12:57 AMB [email or web address]) Physical Therapy Assessment Assessment Summary Assessment Pt with apparent resolution of dizziness. Pt needed encouragement in strengthening exercises, but was able to tolerate well.
--- NOTE | 2018-06-04 13:54 | PT.OTN ---
Current Diagnoses Other abnormalities of gait and mobility (06/04/18) Weakness (06/04/18) Physical Therapy Treatment Note PT-OP-A Visit Information Start: 04/19/18 11:13 Freq: Status: Active Protocol: Document 06/04/18 11:15 AMB (Rec: 06/04/18 13:53 AMB [email or web address]) Out-Patient Physical Therapy Visit Information Visit Information Visit Type Treatment Note Visit Start Time 11:15 Visit Stop Time 12:00 Total Visit Minutes 45 Visit Number 7 Number of INDUSTRY CONSULTANT Visits 0 Evaluation Information Evaluation Date 04/19/18 PT-OP-B Current Condition Start: 04/19/18 11:13 Freq: Status: Active Protocol: Document 04/19/18 11:15 AMB (Rec: 04/22/18 14:22 AMB [email or web address]) Current Condition History of Current Condition Onset Date Summer 2017 Current Complaints impaired balance/ gait History of Current Condition The patient attends PT with his who does the majority of the talking. She states that in November, the patient had hernia surgery and since then his mobility has declined. He has a history of dementia, and it has been getting worse. Previously he was ambulating with a SPC, now he uses a 4WW in home and a FWW in the community. He has just finished with home health. They have a caregiver who comes into the home 4x/week for 6 hours. The patient has a lift recliner, his helps him with lower body dressing, but he does the upper body dressing. He stands in the shower and has grab bars, he does not want a shower chair. He has had one fall in the last 6 months, when out on the [employer] in February, per the caregiver's report he was able to crawl and pull himself up with the railing. He does have some urinary incontinence and therefore does not drink much water. He has a history of vertigo. About 1 month ago , spinning. Now reports that he can move his head around and get in and out of bed without any spinning. 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 He says that he is feeling fine now, but his says he is scheduled to get his gallbladder out tomorrow. She is hoping that he will be able to get home health after that, but does not want us to discharge this case yet until she is sure he will be getting home health. PT-OP-E Functional Tests Start: 04/19/18 11:13 Freq: Status: Active Protocol: Document 06/04/18 11:15 AMB (Rec: 06/04/18 13:53 AMB [email or web address]) Functional Tests Dynamic Gait Index (DGI) Score 11 DGI Impairment Rating 40 to <60% Impaired (Score 10- 14) Timed Up and Go (TUG) Score 29 Comments with 4WW TUG Impairment Rating 100% Impaired (Score 20) PT-OP-G Mobility & Gait Start: 04/19/18 11:13 Freq: Status: Active Protocol: Document 04/19/18 11:15 AMB (Rec: 04/22/18 14:11 AMB [email or web address]) OP Gait Assessment Comments Gait Comments Pt ambulates very slowly with his FWW, when asked he can walk faster, but his chosen speed is slow and careful. Stair Climbing Evaluation Evaluation Level of Assist On Stairs Standby Assistance Devices Stair Climbing Assistive Devices Left Railing Right Railing Technique/Endurance Stair Climbing Direction Ascend and Descend Stair Climbing Technique Step Over Step Number of Steps Climbed 3 Stair Climbing Set # Repetitions (reps) 1 PT-OP-M Strength Start: 04/22/18 13:54 Freq: Status: Active Protocol: Document 04/19/18 11:15 AMB (Rec: 04/22/18 14:11 AMB [email or web address]) Hip Strength Hip Manual Muscle Testing Right Flexion (L2) 3 Fair Extension (S1) 3 Fair Abduction 3 Fair Adduction 3 Fair Comments pain with abdominal cramp during testing Left Flexion (L2) 4- Good- Extension (S1) 4- Good- Abduction 4- Good- Adduction 4- Good- Knee Strength Knee Manual Muscle Testing Right Flexion (S2) 4+ Good+ Left Flexion (S2) 4 Good Extension (L3) 4+ Good+ Ankle/Foot Strength Ankle and Foot Manual Muscle Testing Right Dorsiflexion (L4) 4 Good Plantarflexion (S1) 3 Fair Left Dorsiflexion (L4) 4 Good Plantarflexion (S1) 3 Fair PT-OP-Q Treatments Start: 04/19/18 11:13 Freq: Status: Active Protocol: Document 06/04/18 11:15 AMB (Rec: 06/04/18 13:53 AMB [email or web address]) Therapeutic Exercises Standing Exercises 2 Standing Exercise Name marching in place Comments with UE support 1 Standing Exercise Name sit to stand Reps/Minutes 6x Comments UE use Gait Training Gait Activity 3 Description hurdles Comments single bar with LORRAINE support 2 Description stair step ups Comments with 2 rails 1 Description 4WW, even surfaces Distance/Duration 300 feet Comments Cues for upright posture. PT-OP-T Assessment and Plan Start: 04/19/18 11:13 Freq: Status: Active Protocol: Document 06/04/18 11:15 AMB (Rec: 06/04/18 13:53 AMB [email or web address]) Physical Therapy Assessment Goals Three Impairment LE strength Short Term Goal (STG) The patient will be independent and consistent with a LE strengthening program. STG Duration 5 weeks Two Impairment balance Short Term Goal (STG) The patient will show reduced risk of falling by increasing his DGI score from 03/19 to . 06/04 PROGRESS MADE- 05/19 STG Duration 5 weeks Mcfp Goal (LTG) The patient will show improved static balance by balancing without UE support and a narrow base of support for 10 seconds without LOB. LTG Duration MET One Impairment gait Short Term Goal (STG) The patient will ambulate in his home with his FWW for 10 minutes without need for a rest break and without LOB. STG Duration 5 weeks Cargo Router Goal (LTG) The patient will improve his TUG from 34 seconds to 18 seconds with a FWW. 06/04: PROGRESS MADE 29. LTG Duration 10 weeks Assessment Summary Assessment The patient has improved slightly in both his DGI and TUG scores. He is still in the high fall risk category. Physical Therapy Plan Next Visit Focus/Plan Next Visit Plan Possible d/c due to upcoming surgery
--- NOTE | 2018-06-13 10:08 | PT.OPDS ---
Current Diagnoses Other abnormalities of gait and mobility (06/04/18) Weakness (06/04/18) Provider Visit Care Team Role Provider Type Cortes Sanders MD Attending Provider Physician Family Provider Primary Care Provider Specialty: Family Practice Address: [address] [place] [address], [id number] Email: [email or web address] Visit Number Visit Number 7 Discharge Summary PT-OP-B Current Condition Start: 04/19/18 11:13 Freq: Status: Active Protocol: Document 04/19/18 11:15 AMB (Rec: 04/22/18 14:22 AMB [email or web address]) Current Condition History of Current Condition Onset Date Summer 2017 Current Complaints impaired balance/ gait History of Current Condition The patient attends PT with his who does the majority of the talking. She states that in November, the patient had hernia surgery and since then his mobility has declined. He has a history of dementia, and it has been getting worse. Previously he was ambulating with a SPC, now he uses a 4WW in home and a FWW in the community. He has just finished with home health. They have a caregiver who comes into the home 4x/week for 6 hours. The patient has a lift recliner, his helps him with lower body dressing, but he does the upper body dressing. He stands in the shower and has grab bars, he does not want a shower chair. He has had one fall in the last 6 months, when out on the [facility] plants in February, per the caregiver's report he was able to crawl and pull himself up with the railing. He does have some urinary incontinence and therefore does not drink much water. He has a history of vertigo. About 1 month ago , spinning. Now reports that he can move his head around and get in and out of bed without any spinning. 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 He says that he is feeling fine now, but his says he is scheduled to get his gallbladder out tomorrow. She is hoping that he will be able to get home health after that, but does not want us to discharge this case yet until she is sure he will be getting home health. PT-OP-E Functional Tests Start: 04/19/18 11:13 Freq: Status: Active Protocol: Document 06/04/18 11:15 AMB (Rec: 06/04/18 13:53 AMB [email or web address]) Functional Tests Dynamic Gait Index (DGI) Score 11 DGI Impairment Rating 40 to <60% Impaired (Score 10- 14) Timed Up and Go (TUG) Score 29 Comments with 4WW TUG Impairment Rating 100% Impaired (Score 20) PT-OP-G Mobility & Gait Start: 04/19/18 11:13 Freq: Status: Active Protocol: Document 04/19/18 11:15 AMB (Rec: 04/22/18 14:11 AMB [email or web address]) OP Gait Assessment Comments Gait Comments Pt ambulates very slowly with his FWW, when asked he can walk faster, but his chosen speed is slow and careful. Stair Climbing Evaluation Evaluation Level of Assist On Stairs Standby Assistance Devices Stair Climbing Assistive Devices Left Railing Right Railing Technique/Endurance Stair Climbing Direction Ascend and Descend Stair Climbing Technique Step Over Step Number of Steps Climbed 3 Stair Climbing Set # Repetitions (reps) 1 PT-OP-M Strength Start: 04/22/18 13:54 Freq: Status: Active Protocol: Document 04/19/18 11:15 AMB (Rec: 04/22/18 14:11 AMB [email or web address]) Hip Strength Hip Manual Muscle Testing Right Flexion (L2) 3 Fair Extension (S1) 3 Fair Abduction 3 Fair Adduction 3 Fair Comments pain with abdominal cramp during testing Left Flexion (L2) 4- Good- Extension (S1) 4- Good- Abduction 4- Good- Adduction 4- Good- Knee Strength Knee Manual Muscle Testing Right Flexion (S2) 4+ Good+ Left Flexion (S2) 4 Good Extension (L3) 4+ Good+ Ankle/Foot Strength Ankle and Foot Manual Muscle Testing Right Dorsiflexion (L4) 4 Good Plantarflexion (S1) 3 Fair Left Dorsiflexion (L4) 4 Good Plantarflexion (S1) 3 Fair PT-OP-T Assessment and Plan Start: 04/19/18 11:13 Freq: Status: Active Protocol: Document 06/04/18 11:15 AMB (Rec: 06/04/18 13:53 AMB [email or web address]) Physical Therapy Assessment Goals Three Impairment LE strength Short Term Goal (STG) The patient will be independent and consistent with a LE strengthening program. STG Duration 5 weeks Two Impairment balance Short Term Goal (STG) The patient will show reduced risk of falling by increasing his DGI score from 03/19 to . 06/04 PROGRESS MADE- 05/19 STG Duration 5 weeks Detention Goal (LTG) The patient will show improved static balance by balancing without UE support and a narrow base of support for 10 seconds without LOB. LTG Duration MET One Impairment gait Short Term Goal (STG) The patient will ambulate in his home with his FWW for 10 minutes without need for a rest break and without LOB. STG Duration 5 weeks Detention Goal (LTG) The patient will improve his TUG from 34 seconds to 18 seconds with a FWW. 06/04: PROGRESS MADE . LTG Duration 10 weeks Assessment Summary Assessment The patient has improved slightly in both his DGI and TUG scores. He is still in the high fall risk category. Physical Therapy Plan Next Visit Focus/Plan Next Visit Plan The patient is discharged due to recent surgery and receiving home health PT.
== END 2018-11-14 14:24 ==
LOC: PHYS 11:15
PROVIDERS: Family Provider Family Medicine; PCP Family Medicine; Visit Provider Family Medicine
DX: R26.89 Other abnormalities of gait and mobility (principal); R53.1 Weakness
CPT/HCPCS: 97110; 97112; 97116; 97162

== ENCOUNTER 2018-06-06 17:16 | Observation (INO) | payer OTHER, SELFPAY ==
[2018-05-22 08:39] VITALS: BMI 32.0
[2018-05-30 12:47] VITALS: BMI 28.7
[2018-06-05] VITALS (11 sets, daily range): BP systolic 91–151; BP diastolic 45–88; PULSE 58–70; RESP 14–17; TEMP 35.9–37.2; O2SAT 88–99; BMI 28.7
--- NOTE | 2018-06-05 | PATH_ITS ---
[facility] Accession Number: [id number] . 01 Material submitted: . GALLBLADDER . 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 MRV/06/07/2018 . 02 Electronically signed: . Brian Johnston MD, Pathologist NPI- [id number] . 01 Gross description: . Received in formalin, labeled gallbladder, is an intact gallbladder (length-7.5 cm, diameter-2.7 cm) with mendoza-pink smooth and shiny serosa and a patent cystic duct. No lymph nodes are identified. The lumen contains green-brown gelatinous bile and multiple jerry-orange smooth solid calculi (5.1 x 2.5 x 1.2 cm in aggregate). The mucosa is mendoza-jerry smooth and flat. The wall is up to 0.2 cm thick. No nodules, masses or lesions are identified. Section code: (A1) cystic duct resection margin and two serial sections from the body; (A2) two longitudinal sections from the fundus. ([id number]) /[facility] . 02 Pathologist provided ICD-10: K80.64 . 02 CPT . [id number] Performed at: 01 [facility] [address] [facility], [place], [place] [id number] MD Jay Gold MD Phone: [phone] Performed at: [address] [facility] [address] [place], [place] [id number] MD Katelyn Mae MD Phone: [phone]
[2018-06-05] MEDS: LACTATED RINGERS 1,000 ML 100 ML IV (15:03)
--- NOTE | 2018-06-05 16:03 | PM.PREOP ---
Pre-operative Note Interval Note Pre-op Check: Yes History & Physical Reviewed by Physician and Yes Exam Performed Changes: No
[2018-06-05] MEDS: CEFAZOLIN 2 GM/100 ML FROZ.PIGGY IV (16:17)
--- NOTE | 2018-06-05 16:42 | SUR.OPER ---
Supine on padded OR bed, head on pillow, arms secured on padded arm boards at <90 degrees abduction, legs uncrossed, safety belt at thigh, tape over blanket over lower legs.
[2018-06-05] MEDS: BUPIVACAINE 0.5% (PF) VIAL 30 ML INJ (16:50)
[2018-06-05] MEDS: LIDOCAINE 1% W/EPI INJ 20 ML INJ (16:53)
[2018-06-05] MEDS: LACTATED RINGERS 1,000 ML 42 ML IV (18:05)
--- NOTE | 2018-06-05 18:40 | P.OP_ITS ---
Operative Date/Time/Diagnoses Date of procedure: 06/05/18 Time of procedure: 18:30 Pre-op diagnosis: Chronic cholecystitis secondary to cholelithiasis Post-op diagnosis: same Procedure & Clinicians Procedure: Laparoscopic cholecystectomy Same procedure as scheduled: Yes Indications: 83-year-old frail male who presented with progressive intermittent vague epigastric and abdominal pain of unclear etiology. He was also experiencing unintended weight loss. Examination and evaluation revealed thickened gallbladder with multiple stones. Patient otherwise is a relatively poor historian with significant confusion issues. After lengthy discussion he and the family wished to proceed with laparoscopic cholecystectomy in an effort to relieve his symptoms. Surgeon: Alberto Galeano Click Yes if Unassisted: Yes Anesthesia Type: General Operative Notes Findings: 1. Extremely thickened chronically inflamed gallbladder with dense adhesions between the gallbladder wall, omentum, and duodenum 2. Thickened cystic duct that otherwise appeared to be of normal caliber 3. Multiple small and large gallstones throughout the gallbladder 4. Thick viscous bile within the gallbladder lumen but no obvious pus 5. Aberrant right hepatic artery that was immediately adjacent to the infundibulum of the gallbladder giving rise to very short anterior posterior cystic artery branches. Arterial structures were densely adherent to the gallbladder wall secondary to chronic inflammation. Closure Type: primary Specimen(s): other (Gallbladder) Implants & Drains: Ten Taiwanese flat Timi-Otero drain into the subhepatic space and right upper quadrant placed to bulb suction Applied: drain(s) (As above) Estimated Blood Loss (mL): 30 Blood products transfused: none Procedure in detail: After obtaining informed consent the patient was brought to the operating room placed supine on the table. After satisfactory induction of anesthesia a SCOAP time-out was performed per standard protocol. Abdomen was prepped and draped in usual sterile fashion. A one-to-one mixture 1% lidocaine with 1 :100,000 epinephrine and 0.5% plain Marcaine was injected in the skin and subcutaneous tissue at the superior aspect of the umbilicus for postoperative analgesia. Vertical midline incision was created with 11 scalpel blade for distance of approximately 3 cm at the superior aspect of the umbilicus. Blunt dissection revealed the rectus fascia which was divided in the midline under direct visualization with 11 scalpel blade. Fascial edges were secured bilaterally with Ecsar clamps and elevated into the operative field. Fascia was secured superiorly and inferiorly with interrupted 0 Vicryl suture. Underlying peritoneum was visualized and entered with hemostats under direct visualization. Blunt 12 mm Huffman trocar was then inserted and a carbon dioxide pneumoperitoneum was created. Abdomen was visually explored with a 30 degree 5 mm laparoscope. Findings are as above. Patient was placed in reverse Trendelenburg position and a 5 mm trocar was placed in the epigastric region just to the right of the falciform ligament after injecting local anesthesia and incising the skin with a 11 scalpel blade. In a similar fashion two other 5 mm trocars were placed in the right lateral abdomen. Fundus of the gallbladder was quite inflamed and indurated as well as thickened. A large ratcheted grasper was required to secure the fundus and retracted superiorly and medially over the liver edge. There were significant adhesions as above which were meticulously dissected away from the gallbladder wall using a combination of monopolar cautery and the Maryland dissector. Great care was taken to avoid injury to the duodenum and stomach which were immediately adjacent to the gallbladder. A 2nd ratchet grasper was placed on the infundibulum of the gallbladder which was then retracted inferiorly and laterally. Meticulous dissection in the triangle of Calot was performed with a combination of the [place] dissector, right angle dissector, and Kittner dissector. Eventually the cystic duct and its junction with the gallbladder was identified and the duct was encircled thereby isolating it from surrounding dense connective tissue and adhesions. Three clips were placed proximally and 1 distally and the duct divided with the laparoscopic scissors. Meticulous dissection of the arterial structures revealed the findings as above. This was a quite difficult dissection given the anatomy as well as the significant chronic inflammation and scar that were present around the vessels. Eventually these branches were isolated and controlled with 2 clips proximally and 1 distally then divided with the scissors. Monopolar cautery was used to liberate the gallbladder from the hepatic bed. Great care was taken avoid injury to adjacent structures including the aberrant right hepatic artery. Gallbladder was placed in a endo- pouch and retrieved through the umbilical incision then sent for permanent section. Timi-Otero drain was brought through the epigastric incision and placed in the subhepatic space. Distal end of the drain was brought out through the right lateral 5 mm trocar site. Drain was secured to the skin with 3 0 nylon suture. Drain was cut to appropriate length and placed to bulb suction. Patient was returned to supine position after verifying hemostasis. There was no evidence of bile leak after meticulously examining the previously placed clips as well as liver bed. Right upper quadrant was irrigated with copious amounts of sterile saline solution which was suctioned from the abdomen and noted to be clear. Instruments and trocars were removed under direct visualization. Hemostasis was again verified. Carbon dioxide was evacuated. Fascia at the umbilical site was closed with the previously placed 0 Vicryl suture. Skin at the 3 remaining incisions was closed in a running subcuticular fashion with 4 0 Monocryl suture. Dermal adhesive was applied. Sterile dressing was applied to the drain. Anesthesia was reversed and patient extubated in the operating room. He was taken recovery stable condition. Complications: none Condition: stable Disposition: PACU Plan for aftercare: 1. Admit for overnight observation 2. Teach family drain care
[2018-06-05] MEDS: SODIUM CHLORIDE 0.9% 1,000 ML 100 ML IV (19:58)
--- NOTE | 2018-06-05 23:11 | PC.NURSE ---
Pt denies any discomfort when asked. SpO2 95% 2L. Three lap sites, Stable post op course. Call light w/in reach, bed alarm on for pt safety.
[2018-06-06] VITALS (10 sets, daily range): BP systolic 127–137; BP diastolic 68–79; PULSE 60–69; RESP 16–20; TEMP 36.5–37.1; O2SAT 94–96
[2018-06-06] MEDS: PANTOPRAZOLE 20 MG TABLET PO (05:54)
[2018-06-06] MEDS: LEVOTHYROXINE 112 MCG TABLET PO (05:54)
[2018-06-06] MEDS: SODIUM CHLORIDE 0.9% 1,000 ML 100 ML IV (06:21)
--- NOTE | 2018-06-06 09:06 | CM.DANOTE ---
DCP: Case received, EMR reviewed and met with patient. Introduced self and role to , patient has early dementia, was sleeping. DCP template completed with information currently available. Patient is an 83 year old male who admitted to the care of the hospitalist team. PCP: Dr. Sanders, surgeon, Dr. Galeano. Payer: confirmed: [facility] Advantage. Patient came to hospital for a procedure. Has history of chronic cholecystitis. had a Lap procedure done today. Spoke to , who was at bedside, Marquez. Lives here in town with spouse. Stated that he recently had home health for physical therapy. She is not sure which agency, thinks it was the one in town. Patient has early dementia, and has a private caregiver coming into the home a few days a week. stated she has to help him with showers and prepares meals. P: To be determined, may need to order home health, if will be beneficial for patient. Will also depend if patient returns home with drain, or has incision, for he may need nursing. Kay Swartz RN/Extrusion Bender
[2018-06-06] MEDS: CHOLECALCIFEROL (VITAMIN D3) 1,000 UNIT TABLET 2000 UNIT PO (09:59)
[2018-06-06] MEDS: AMLODIPINE 5 MG TABLET PO (09:59)
[2018-06-06] MEDS: DONEPEZIL 5 MG TABLET 10 MG PO (09:59)
[2018-06-06] MEDS: ONDANSETRON 4 MG ODT PO (10:00)
--- NOTE | 2018-06-06 10:08 | PT.IIE ---
Current Diagnoses Calculus of gallbladder without cholecystitis without obstruction (06/05/18) Surgery Performed Operation Date: 06/05/18 15:30 Actual Procedures p Laparoscopic Cholecystectomy - Alberto Galeano MD Surgical History (Last Reviewed 05/30/18 @ 16:32 by Alberto Galeano MD) H/O hernia repair (Acute ~12/19/17) Anesthesia (Resolved) History of tonsillectomy (Resolved ~1940) History of umbilical hernia repair (Resolved 12/19/17) Status post appendectomy (Resolved 2008) Medical History (Last Reviewed 05/30/18 @ 16:32 by Alberto Galeano MD) Hypothyroidism (Chronic 04/05/16) Abdominal distention (Chronic) Abdominal pain (Chronic) Memory deficit (Chronic) Ambulatory dysfunction (Chronic) Atherosclerosis (Acute) Cardiomegaly (Acute) Diverticulosis (Acute) EKG abnormalities (Acute) Emphysema (subcutaneous) (surgical) resulting from a procedure (Acute) Granulomatous disease (Acute) Poor kidney function (Acute) Reactive airway disease (Acute) Shortness of breath (Acute) BPH (benign prostatic hyperplasia) (Chronic) Cataract (Chronic 1999) Dandruff (Chronic) Hearing loss (Chronic) Hypertension (Chronic) Hypothyroid (Chronic) Kidney insufficiency (Chronic) Macular degeneration (Chronic) Polymyalgia rheumatica (Chronic) Psoriasis (Chronic) Pulmonary fibrosis (Chronic) Scoliosis (Chronic) Sleep apnea (Chronic) Abnormal CXR (chest x-ray) (Resolved ~194) Chicken pox (Resolved ~1955) Finger fracture (Resolved ~194) Measles (Resolved ~1955) Mumps (Resolved ~1955) Rubella (Resolved) Tuberculosis (Resolved ~1939) Vertigo (Resolved 2009) Physical Therapy Inpatient Evaluation/Re-Eval M1 PT/OT-IP Prior Functional Status Start: 06/06/18 09:34 Freq: NEEDED Status: Active Protocol: Document 06/06/18 09:35 ZURI (Rec: 06/06/18 10:07 ZURI [id number]) Medical Review Prior Functional Status Medical History Reviewed Yes Diet/Fluid Consistency Regular Communication Mild memory deficits per and medical history Mobility and Gait Modified indep at home but requires assistance with sit to stand. Able to amb 50 ft with four WW independent Use rails and grab bars bed to bathroom/toilet One fall in the last six months due to tripped incident Activities of Daily Living and IADL's Has caregiver 4 x/wk support for 6-8 hrs a day Social History Household Members spouse Living Arrangements House Number of Floors (Floors) One Floor Number of Stairs To Enter/Railing? None Home Environment High Toilet Home Equipment Front Wheel Walker Four Wheel Walker Grab Bars Near Toilet Grab Bars In Shower Employment Status Retired M2 PT-IP Current Condition Start: 06/06/18 09:34 Freq: NEEDED Status: Active Protocol: Document 06/06/18 09:35 EA (Rec: 06/06/18 10:07 EA [id number]) Physical Therapy Current Condition Current Condition Evaluation Date 12/22/17 Treatment Diagnosis s/p Laparoscopic Cholecystectomy Precautions Abdominal Surgery Precautions Log Roll Lifting Restrictions Gait Belt above Incisional Area Other Precautions Umbilical hernia repair put gait belt above this area. Weight Bearing Status Weight Bearing Status Weight Bear as Tolerated M3 PT-IP Subjective Start: 06/06/18 09:34 Freq: NEEDED Status: Active Protocol: Document 06/06/18 09:35 EA (Rec: 06/06/18 10:07 EA [id number]) Subjective Physical Therapy Visit Type Type Initial Evaluation Visit Start Time 08:45 Visit Stop Time 09:30 Total Visit Minutes 45 Number of SHUTTLER CAR Visits 0 Physical Therapy Visit Comments Patient Comments Patient agreeable for transfers chair. Patient reports would like to stay at home once discharge and states just give me one day and I' ll show you what I can do. Patient Goals Patient wants to get back to home and back to previous level of function Therapy Pain Assessment Pain When Pain Assessed At Rest Pain Present Pain Present Pain Reported Location Lower Abdomen Intensity 3 Description Acute M4 PT-IP Mobility and Gait Start: 06/06/18 09:34 Freq: NEEDED Status: Active Protocol: Document 06/06/18 09:35 EA (Rec: 06/06/18 10:07 EA [id number]) PT-Bed Mobility Assessment Rolling Type of Rolling Log Rolling Level of Assist Minimal Assistance Scooting Scooting to Edge of Bed Minimal Assistance PT-Transfer Assessment Sit to and From Stand Sit to and from Stand Contact Guard Assistance Equipment Transfer Assistive Device Front Wheeled Walker Transfers Transfer Destination Bed Chair Bedside Commode Transfer Technique Stepping Comments Mobility Comments HOB elevated by 20 deg due to potential symptoms of vertigo (no noted during this transfers) Patient refused to use gait belt though explained well the benefits. Patient requires constant cues during turning and backing up to the chair. Gait Assessment Gait Gait Assistance Required: Contact Guard Assist Distance (Feet) 6 Able to Maintain Weight Bearing Status Yes During Gait Assistive Devices Assistive Device Front Wheeled Walker Gait Deviations General Gait Pattern Decreased Stride Length Decreased Feet Clearance Flexed Trunk Wide Based Gait Factors Limiting Gait Function Factors Limiting Gait Function Decreased Activity Tolerance Decreased Strength Pain Poor Balance Comments Gait Comments Patient requires frequent rests, constant cues for posture. PT-Balance Assessment Sitting Balance and Reactions Static Sitting Balance Ability Good Dynamic Sitting Balance Ability Fair Standing Balance and Reactions Static Standing Balance Ability Good Dynamic Standing Balance Ability Fair M5 PT-IP Objective Assessments Start: 06/06/18 09:34 Freq: NEEDED Status: Active Protocol: Document 06/06/18 09:35 EA (Rec: 06/06/18 10:07 EA [id number]) Orientation Orientation/Cognition Level of Alertness Alert Orientation Name Age Day of Week Place Situation Safety Awareness Decreased Safety Awareness Comments Patient able to communicate verbally well but recent memory deficits noted. Gross Range of Motion Upper Extremity ROM Assessment Within Functional Limits Lower Extremity ROM Assessment Within Functional Limits Strength Upper Extremity Strength Assessment Within Functional Limits Shoulder 4 Elbow 4 Wrist 4 Hand 4 Lower Extremity Strength Hip 3+ Knee 4 Ankle 4 Comments Strength Comments General deconditioning rather that neurological weakness. Coordination Assessment Gross Coordination Gross Coordination WNL Assessment Finger to Nose Test Minimal Impairment Pronation/Supination Test Minimal Impairment Foot Tapping Test Normal Performance M6 PT-IP Treatment Start: 06/06/18 09:34 Freq: NEEDED Status: Active Protocol: Document 06/06/18 09:35 EA (Rec: 06/06/18 10:07 EA [id number]) Physical Therapy Treatment Exercises Exercises Ankle Pumps Heel Slides Straight Leg Raises Education Education Provided Precautions Weight Bearing Status Safety M7 PT-IP Assessment and Plan Start: 06/06/18 09:34 Freq: NEEDED Status: Active Protocol: Document 06/06/18 09:35 EA (Rec: 06/06/18 10:07 EA [id number]) PT Summary Assessment and Plan Potential Rehabilitation Potential Good Status of Condition at Evaluation Stable Summary Impairments Pain Strength Balance Cognition Bed Mobility Transfers Gait Activity Tolerance Assessment Summary Patient demonstrated moderate difficulty with transfer due to decreased tolerance to activity, surgical pain, balance, de-conditioned body with obvious SOB during mobility. Patient requires assistance at this time in all transfers and mobility for safety. Patient would benefit with skilled PT to reach SBA level of assistance prior to discharge. Goals Bed Mobility Goal Standby Assistance Transfer Goal Standby Assistance Gait Goal Standby Assistance Gait Distance 30 ft Days to Meet Goals 2 Frequency of Treatment Frequency Of Treatment Twice a Day Treatment Plan Physical Therapy Treatment Plan Bed Mobility Training Transfer Training Gait Training Therapeutic Exercise Balance Retraining Post Op Education Discharge Planning Neuromuscular Re-ed Recommendations To Nursing Amount of Assist Needed 1 Person Assist Discharge Recommendations PT Discharge Recommendations Home with 16/01 Assist Home Health
--- NOTE | 2018-06-06 10:30 | PT.IIE ---
Current Diagnoses Calculus of gallbladder without cholecystitis without obstruction (06/05/18) Surgery Performed Operation Date: 06/05/18 15:30 Actual Procedures p Laparoscopic Cholecystectomy - Alberto Galeano MD Surgical History (Last Reviewed 05/30/18 @ 16:32 by Alberto Galeano MD) H/O hernia repair (Acute ~12/19/17) Anesthesia (Resolved) History of tonsillectomy (Resolved ~1940) History of umbilical hernia repair (Resolved 12/19/17) Status post appendectomy (Resolved 2008) Medical History (Last Reviewed 05/30/18 @ 16:32 by Alberto Galeano MD) Hypothyroidism (Chronic 04/05/16) Abdominal distention (Chronic) Abdominal pain (Chronic) Memory deficit (Chronic) Ambulatory dysfunction (Chronic) Atherosclerosis (Acute) Cardiomegaly (Acute) Diverticulosis (Acute) EKG abnormalities (Acute) Emphysema (subcutaneous) (surgical) resulting from a procedure (Acute) Granulomatous disease (Acute) Poor kidney function (Acute) Reactive airway disease (Acute) Shortness of breath (Acute) BPH (benign prostatic hyperplasia) (Chronic) Cataract (Chronic 1999) Dandruff (Chronic) Hearing loss (Chronic) Hypertension (Chronic) Hypothyroid (Chronic) Kidney insufficiency (Chronic) Macular degeneration (Chronic) Polymyalgia rheumatica (Chronic) Psoriasis (Chronic) Pulmonary fibrosis (Chronic) Scoliosis (Chronic) Sleep apnea (Chronic) Abnormal CXR (chest x-ray) (Resolved ~194) Chicken pox (Resolved ~1955) Finger fracture (Resolved ~194) Measles (Resolved ~1955) Mumps (Resolved ~1955) Rubella (Resolved) Tuberculosis (Resolved ~1939) Vertigo (Resolved 2009) Physical Therapy Inpatient Evaluation/Re-Eval M1 PT/OT-IP Prior Functional Status Start: 06/06/18 09:34 Freq: NEEDED Status: Active Protocol: Document 06/06/18 09:35 ZURI (Rec: 06/06/18 10:07 ZURI [id number]) Medical Review Prior Functional Status Medical History Reviewed Yes Diet/Fluid Consistency Regular Communication Mild memory deficits per and medical history Mobility and Gait Modified indep at home but requires assistance with sit to stand. Able to amb 50 ft with four WW independent Use rails and grab bars bed to bathroom/toilet One fall in the last six months due to tripped incident Activities of Daily Living and IADL's Has caregiver 4 x/wk support for 6-8 hrs a day Social History Household Members spouse Living Arrangements House Number of Floors (Floors) One Floor Number of Stairs To Enter/Railing? None Home Environment High Toilet Home Equipment Front Wheel Walker Four Wheel Walker Grab Bars Near Toilet Grab Bars In Shower Employment Status Retired M2 PT-IP Current Condition Start: 06/06/18 09:34 Freq: NEEDED Status: Active Protocol: Document 06/06/18 09:35 EA (Rec: 06/06/18 10:07 EA [id number]) Physical Therapy Current Condition Current Condition Evaluation Date 06/06/18 Treatment Diagnosis s/p Laparoscopic Cholecystectomy Onset Date 06/05/18 Precautions Abdominal Surgery Precautions Log Roll Lifting Restrictions Gait Belt above Incisional Area Other Precautions Umbilical hernia repair put gait belt above this area. Weight Bearing Status Weight Bearing Status Weight Bear as Tolerated M3 PT-IP Subjective Start: 06/06/18 09:34 Freq: NEEDED Status: Active Protocol: Document 06/06/18 09:35 EA (Rec: 06/06/18 10:07 EA [id number]) Subjective Physical Therapy Visit Type Type Initial Evaluation Visit Start Time 08:45 Visit Stop Time 09:30 Total Visit Minutes 45 Number of DYE RANGE OPERATOR Visits 0 Physical Therapy Visit Comments Patient Comments Patient agreeable for transfers chair. Patient reports would like to stay at home once discharge and states just give me one day and I' ll show you what I can do. Patient Goals Patient wants to get back to home and back to previous level of function Therapy Pain Assessment Pain When Pain Assessed At Rest Pain Present Pain Present Pain Reported Location Lower Abdomen Intensity 3 Description Acute M4 PT-IP Mobility and Gait Start: 06/06/18 09:34 Freq: NEEDED Status: Active Protocol: Document 06/06/18 09:35 EA (Rec: 06/06/18 10:07 EA [id number]) PT-Bed Mobility Assessment Rolling Type of Rolling Log Rolling Level of Assist Minimal Assistance Scooting Scooting to Edge of Bed Minimal Assistance PT-Transfer Assessment Sit to and From Stand Sit to and from Stand Contact Guard Assistance Equipment Transfer Assistive Device Front Wheeled Walker Transfers Transfer Destination Bed Chair Bedside Commode Transfer Technique Stepping Comments Mobility Comments HOB elevated by 20 deg due to potential symptoms of vertigo (no noted during this transfers) Patient refused to use gait belt though explained well the benefits. Patient requires constant cues during turning and backing up to the chair. Gait Assessment Gait Gait Assistance Required: Contact Guard Assist Distance (Feet) 6 Able to Maintain Weight Bearing Status Yes During Gait Assistive Devices Assistive Device Front Wheeled Walker Gait Deviations General Gait Pattern Decreased Stride Length Decreased Feet Clearance Flexed Trunk Wide Based Gait Factors Limiting Gait Function Factors Limiting Gait Function Decreased Activity Tolerance Decreased Strength Pain Poor Balance Comments Gait Comments Patient requires frequent rests, constant cues for posture. PT-Balance Assessment Sitting Balance and Reactions Static Sitting Balance Ability Good Dynamic Sitting Balance Ability Fair Standing Balance and Reactions Static Standing Balance Ability Good Dynamic Standing Balance Ability Fair M5 PT-IP Objective Assessments Start: 06/06/18 09:34 Freq: NEEDED Status: Active Protocol: Document 06/06/18 09:35 EA (Rec: 06/06/18 10:07 EA [id number]) Orientation Orientation/Cognition Level of Alertness Alert Orientation Name Age Day of Week Place Situation Safety Awareness Decreased Safety Awareness Comments Patient able to communicate verbally well but recent memory deficits noted. Gross Range of Motion Upper Extremity ROM Assessment Within Functional Limits Lower Extremity ROM Assessment Within Functional Limits Strength Upper Extremity Strength Assessment Within Functional Limits Shoulder 4 Elbow 4 Wrist 4 Hand 4 Lower Extremity Strength Hip 3+ Knee 4 Ankle 4 Comments Strength Comments General body de-conditioned rather that neurological weakness. Coordination Assessment Gross Coordination Gross Coordination WNL Assessment Finger to Nose Test Minimal Impairment Pronation/Supination Test Minimal Impairment Foot Tapping Test Normal Performance M6 PT-IP Treatment Start: 06/06/18 09:34 Freq: NEEDED Status: Active Protocol: Document 06/06/18 09:35 EA (Rec: 06/06/18 10:07 EA [id number]) Physical Therapy Treatment Exercises Exercises Ankle Pumps Heel Slides Straight Leg Raises Education Education Provided Precautions Weight Bearing Status Safety M7 PT-IP Assessment and Plan Start: 06/06/18 09:34 Freq: NEEDED Status: Active Protocol: Document 06/06/18 09:35 EA (Rec: 06/06/18 10:07 EA [id number]) PT Summary Assessment and Plan Potential Rehabilitation Potential Good Status of Condition at Evaluation Stable Summary Impairments Pain Strength Balance Cognition Bed Mobility Transfers Gait Activity Tolerance Assessment Summary Patient demonstrated moderate difficulty with transfer due to decreased tolerance to activity, surgical pain, balance, de-conditioned body with obvious SOB during mobility. Patient requires assistance at this time in all transfers and mobility for safety. Patient would benefit with skilled PT to reach SBA level of assistance prior to discharge. Goals Bed Mobility Goal Standby Assistance Transfer Goal Standby Assistance Gait Goal Standby Assistance Gait Distance 30 ft Days to Meet Goals 2 Frequency of Treatment Frequency Of Treatment Twice a Day Treatment Plan Physical Therapy Treatment Plan Bed Mobility Training Transfer Training Gait Training Therapeutic Exercise Balance Retraining Post Op Education Discharge Planning Neuromuscular Re-ed Recommendations To Nursing Amount of Assist Needed 1 Person Assist Discharge Recommendations PT Discharge Recommendations Home with 16/01 Assist Home Health
--- NOTE | 2018-06-06 11:49 | P.PN_ITS ---
Subjective Date Patient Seen: 06/06/18 Time Patient Seen: 11:44 Interval history: Had an episode of vertigo this morning resulting in nausea and vomiting. Received a dose of meclizine and is doing better. He has these episodes at home periodically as well. Pain is otherwise well controlled. No chest pain or shortness of breath. Requires assistance as per baseline to get the bedside chair. Has been evaluated by Physical therapy this morning. Recommendations noted. Exam Vital Signs (past 8 hours): - 06/06/18 06:53 06/06/18 08:28 06/06/18 09:35 Temperature 98.8 F 97.9 F Pulse Rate 69 67 Respiratory Rate 18 18 Blood Pressure 131/71 133/68 Pulse Oximetry 96 95 95 Oxygen Delivery Method Room Air Oxygen Flow Rate 0 Narrative Exam Narrative: Elderly male sitting comfortably in bedside chair in no acute distress. Alert but forgetful as per baseline mental status. He repeats his questions several times even after I have answered them appropriately. His is at the bedside for my entire visit. I have also discussed his case at his request with his son via telephone this morning. Patient is afebrile and otherwise hemodynamically stable with normal blood pressure and no tachycardia Timi-Otero drain is collecting approximately 50 cc of serosanguineous fluid only overnight. No bile. incisions are clean, dry, and intact without erythema or ecchymosis. Abdomen is soft and nondistended. He is appropriately tender without guarding or rebound. Adequate urine output extremities show no clubbing or cyanosis. Baseline bipedal edema remains stable and unchanged. Objective Labs Labs: No new laboratory or radiographic studies review Assessment & Plan Plan: Assessment/Plan Narrative: 83-year-old male with multiple comorbid medical conditions and overall physical debilitation who had been receiving outpatient physical therapy now stable postoperative day 1 from laparoscopic cholecystectomy. No evidence of hemorrhage or bile leak. Continue Timi-Otero drain. Teach family care as instructed. Plan to remove the drain next week in the office if stable. I have reordered his meclizine which he takes for his intermittent vertigo. Continue medications otherwise per home regimen as well as current oxycodone as needed. Out of bed with assistance per physical therapy. I do not believe that another 2 days of physical therapy in the hospital will make any drastic impact on his overall mobility. The major question is whether he will be safe in his home environment without increased fall risk. his fall risk was relatively elevated at home at baseline. I have discussed this with him, his son, and his in extensive detail. We discussed the possibility of longterm facility for rehabilitation. Patient is not interested in such. We will therefore continue to work with him with physical therapy and I have requested discharge coordinators to evaluate for home physical therapy on a more frequent basis than what he has been receiving prior to surgery. At this point he is not yet taking adequate oral intake. Will monitor this throughout the day. If he improves and is otherwise stable with physical therapy he may be discharged home this evening, but I suspect that he will need to spend another night until outpatient physical therapy arrangements can be made. Tentative discharge tomorrow. All questions were answered to their satisfaction , and all parties voiced understanding. Orders were written.
--- NOTE | 2018-06-06 16:38 | PT.IPTN ---
Current Diagnoses Calculus of gallbladder without cholecystitis without obstruction (06/05/18) Surgery Performed Operation Date: 06/05/18 15:30 Actual Procedures p Laparoscopic Cholecystectomy - Alberto Galeano MD Physical Therapy Treatment Note M2 PT-IP Current Condition Start: 06/06/18 09:34 Freq: NEEDED Status: Active Protocol: Document 06/06/18 09:35 EA (Rec: 06/06/18 10:07 EA [id number]) Physical Therapy Current Condition Current Condition Evaluation Date 06/06/18 Treatment Diagnosis s/p Laparoscopic Cholecystectomy Onset Date 06/05/18 Precautions Abdominal Surgery Precautions Log Roll Lifting Restrictions Gait Belt above Incisional Area Other Precautions Umbilical hernia repair put gait belt above this area. Weight Bearing Status Weight Bearing Status Weight Bear as Tolerated M3 PT-IP Subjective Start: 06/06/18 09:34 Freq: NEEDED Status: Active Protocol: Document 06/06/18 16:26 SA (Rec: 06/06/18 16:38 SA [id number]) Subjective Physical Therapy Visit Type Type Treatment Note Visit Start Time 13:54 Visit Stop Time 14:19 Total Visit Minutes 25 Number of SOCIAL WORK COORDINATOR Visits 1 Physical Therapy Visit Comments Patient Comments Pt up in chair visiting with family, agreeable to PT. Therapy Pain Assessment Pain When Pain Assessed At Rest Pain Present Pain Present Pain Reported Location Lower Abdomen Intensity 3 Description Acute Pain Management Techniques Modification of Treatment Re-positioning Timing of Activity with Medications M4 PT-IP Mobility and Gait Start: 06/06/18 09:34 Freq: NEEDED Status: Active Protocol: Document 06/06/18 16:26 SA (Rec: 06/06/18 16:38 SA [id number]) PT-Transfer Assessment Sit to and From Stand Sit to and from Stand Contact Guard Assistance Equipment Transfer Assistive Device Front Wheeled Walker Transfers Transfer Destination Chair Transfer Technique Stand Step Pivot Transfer Ability Level of Assist Contact Guard Assistance Comments Mobility Comments Pt refused use of gait belt. Sit to stands from chair 3x with CGA and mod cues for safety. Denied increase in abdominal pain with movement. Pt impulsive, needs cues for safety. Gait Assessment Gait Gait Assistance Required: Contact Guard Assist Distance (Feet) 8 Able to Maintain Weight Bearing Status Yes During Gait Assistive Devices Assistive Device Front Wheeled Walker Gait Deviations General Gait Pattern Decreased Stride Length Decreased Feet Clearance Flexed Trunk Wide Based Gait Factors Limiting Gait Function Factors Limiting Gait Function Decreased Activity Tolerance Decreased Strength Pain Poor Balance Comments Gait Comments Verbal/tactile cues for upright posture and and safe use FWW. M5 PT-IP Objective Assessments Start: 06/06/18 09:34 Freq: NEEDED Status: Active Protocol: Document 06/06/18 09:35 EA (Rec: 06/06/18 10:07 EA [id number]) Orientation Orientation/Cognition Level of Alertness Alert Orientation Name Age Day of Week Place Situation Safety Awareness Decreased Safety Awareness Comments Patient able to communicate verbally well but recent memory deficits noted. Gross Range of Motion Upper Extremity ROM Assessment Within Functional Limits Lower Extremity ROM Assessment Within Functional Limits Strength Upper Extremity Strength Assessment Within Functional Limits Shoulder 4 Elbow 4 Wrist 4 Hand 4 Lower Extremity Strength Hip 3+ Knee 4 Ankle 4 Comments Strength Comments General deconditioning rather that neurological weakness. Coordination Assessment Gross Coordination Gross Coordination WNL Assessment Finger to Nose Test Minimal Impairment Pronation/Supination Test Minimal Impairment Foot Tapping Test Normal Performance M6 PT-IP Treatment Start: 06/06/18 09:34 Freq: NEEDED Status: Active Protocol: Document 06/06/18 16:26 SA (Rec: 06/06/18 16:38 SA [id number]) Physical Therapy Treatment Exercises Exercises Ankle Pumps Heel Slides Straight Leg Raises Education Education Provided Precautions Weight Bearing Status Safety M7 PT-IP Assessment and Plan Start: 06/06/18 09:34 Freq: NEEDED Status: Active Protocol: Document 06/06/18 16:26 SA (Rec: 06/06/18 16:38 SA [id number]) PT Summary Assessment and Plan Summary Assessment Summary Pt with decreased mobility and poor safety awareness, CGA for transfers and ambulation with cues for posture and safe use of FWW. Frequency of Treatment Frequency Of Treatment Twice a Day Recommendations To Nursing Amount of Assist Needed 1 Person Assist Discharge Recommendations PT Discharge Recommendations Home with 16/01 Assist Home Health
[2018-06-06] MEDS: TAMSULOSIN 0.4 MG CAPSULE PO (17:10)
--- NOTE | 2018-06-06 18:48 | PC.NURSE ---
Addendum entered by Tammy Harley R.N. 06/06/18 21:44: Pt sat in chair most of evening. Yogi any discomfort. Pleasantly confused at times. SALO drain intact/patent. Planning D/C in am. Call light w/in reach, bed alarm on for pt. safety. Continue w/plan of care. Original Note: Pt sitting up in chair, Denies discomfort. Abdominal sites CDI. IVF infusing into the right wrist @ 100cc/hr via pump w/o incidence. MARK drain intact/patent. Stable post op course.
[2018-06-07] VITALS: BP 122/58; PULSE 58; RESP 18; TEMP 36.6
[2018-06-07] MEDS: SODIUM CHLORIDE 0.9% 1,000 ML 100 ML IV (03:30)
[2018-06-07] MEDS: LEVOTHYROXINE 112 MCG TABLET PO (06:19)
[2018-06-07] MEDS: PANTOPRAZOLE 20 MG TABLET PO (06:19)
[2018-06-07 06:28] VITALS: BP 156/85; PULSE 67; RESP 18; TEMP 37.2
--- NOTE | 2018-06-07 07:17 | PC.NURSE ---
06/07 0720 pt alert and oriented but frequently forgetful, easily reoriented, and not showing to be impulsive, Bed alarm maintained. Pt adamant that staff keep interruptions minimal as he was extremely tired, tried to comply as much as possible, refusing scheduled zofran and denies need for any prn analgesics. Otherwise VSS on RA. MARK drain with 70cc out.
[2018-06-07 08:45] VITALS: BP 133/57; PULSE 57; RESP 22; TEMP 35.9; O2SAT 94
[2018-06-07 09:00] VITALS: O2SAT 94
[2018-06-07] MEDS: CHOLECALCIFEROL (VITAMIN D3) 1,000 UNIT TABLET 2000 UNIT PO (09:10)
[2018-06-07] MEDS: AMLODIPINE 5 MG TABLET PO (09:10)
[2018-06-07] MEDS: DONEPEZIL 5 MG TABLET 10 MG PO (09:10)
--- NOTE | 2018-06-07 10:39 | CM.DPC ---
DCP Cont: Spoke to patient, has elected [facility], went over Medicare choice list. Patient does not have discharge orders as of yet, awaiting orders. When received, can order. feels that nursing should come in for first visit to check surgical site. Also, O.T/P.T. is to be ordered. Face to face was already signed yesterday. [facility] Kay Swartz RN/Supervisor [place]
[2018-06-07 11:30] VITALS: BP 150/83; PULSE 79; RESP 20; TEMP 36.4; O2SAT 95
--- NOTE | 2018-06-07 12:15 | PT.IPTN ---
Current Diagnoses Calculus of gallbladder without cholecystitis without obstruction (06/06/18) Surgery Performed Operation Date: 06/05/18 15:30 Actual Procedures p Laparoscopic Cholecystectomy - Alberto Galeano MD Physical Therapy Treatment Note M2 PT-IP Current Condition Start: 06/06/18 09:34 Freq: NEEDED Status: Active Protocol: Document 06/06/18 09:35 EA (Rec: 06/06/18 10:07 EA [id number]) Physical Therapy Current Condition Current Condition Evaluation Date 06/06/18 Treatment Diagnosis s/p Laparoscopic Cholecystectomy Onset Date 06/05/18 Precautions Abdominal Surgery Precautions Log Roll Lifting Restrictions Gait Belt above Incisional Area Other Precautions Umbilical hernia repair put gait belt above this area. Weight Bearing Status Weight Bearing Status Weight Bear as Tolerated M3 PT-IP Subjective Start: 06/06/18 09:34 Freq: NEEDED Status: Active Protocol: Document 06/07/18 12:08 SA (Rec: 06/07/18 12:15 SA [id number]) Subjective Physical Therapy Visit Type Type Treatment Note Visit Start Time 10:50 Visit Stop Time 11:10 Total Visit Minutes 20 Number of ACROBATIC DANCER Visits 2 Physical Therapy Visit Comments Patient Comments Pt seated in chair, present. They are ready for d/ c. Therapy Pain Assessment Pain When Pain Assessed During Mobility Pain Present Pain Present Pain Reported Location Lower Abdomen Intensity 1 Description Acute Pain Management Techniques Modification of Treatment Re-positioning Timing of Activity with Medications M4 PT-IP Mobility and Gait Start: 06/06/18 09:34 Freq: NEEDED Status: Active Protocol: Document 06/07/18 12:08 SA (Rec: 06/07/18 12:15 SA [id number]) PT-Transfer Assessment Sit to and From Stand Sit to and from Stand Standby Assistance Equipment Transfer Assistive Device Front Wheeled Walker Transfers Transfer Destination Chair Transfer Technique Stand Step Pivot Transfer Ability Level of Assist Standby Assistance Comments Mobility Comments Pt needs frequent redirection to tasks, transfers with FWW and SBA with cues for safety. Pt refuses use of gait belt. Gait Assessment Gait Gait Assistance Required: Contact Guard Assist Distance (Feet) 100 Assistive Devices Assistive Device Front Wheeled Walker Gait Deviations General Gait Pattern Decreased Stride Length Decreased Feet Clearance Flexed Trunk Wide Based Gait Factors Limiting Gait Function Factors Limiting Gait Function Decreased Activity Tolerance Decreased Strength Pain Poor Balance Comments Gait Comments Increased gait distance and quality of gait with decreased flexed posture. Improved ability to take longer steps. Cues for safety as pt is impulsive. PT-Balance Assessment Comments Other Balance Tests/Deviations/Treatment Discussion with regarding : amount of caregiver help she recieves and set up at home. Pt has no equipment needs. M5 PT-IP Objective Assessments Start: 06/06/18 09:34 Freq: NEEDED Status: Active Protocol: Document 06/06/18 09:35 EA (Rec: 06/06/18 10:07 EA [id number]) Orientation Orientation/Cognition Level of Alertness Alert Orientation Name Age Day of Week Place Situation Safety Awareness Decreased Safety Awareness Comments Patient able to communicate verbally well but recent memory deficits noted. Gross Range of Motion Upper Extremity ROM Assessment Within Functional Limits Lower Extremity ROM Assessment Within Functional Limits Strength Upper Extremity Strength Assessment Within Functional Limits Shoulder 4 Elbow 4 Wrist 4 Hand 4 Lower Extremity Strength Hip 3+ Knee 4 Ankle 4 Comments Strength Comments General deconditioning rather that neurological weakness. Coordination Assessment Gross Coordination Gross Coordination WNL Assessment Finger to Nose Test Minimal Impairment Pronation/Supination Test Minimal Impairment Foot Tapping Test Normal Performance M6 PT-IP Treatment Start: 06/06/18 09:34 Freq: NEEDED Status: Active Protocol: Document 06/07/18 12:08 SA (Rec: 06/07/18 12:15 SA [id number]) Physical Therapy Treatment Exercises Exercises Ankle Pumps Heel Slides Straight Leg Raises Education Education Provided Precautions Weight Bearing Status Safety M7 PT-IP Assessment and Plan Start: 06/06/18 09:34 Freq: NEEDED Status: Active Protocol: Document 06/07/18 12:08 SA (Rec: 06/07/18 12:15 SA [id number]) PT Summary Assessment and Plan Potential Rehabilitation Potential Good Status of Condition at Evaluation Stable Summary Assessment Summary Pt impulsive but demonstrates better safety awareness today, uses FWW safely. Pt to d/c home with who is primary caregiver but has help for a few hours 5x a week. Pt to receive home health services. Frequency of Treatment Frequency Of Treatment Twice a Day Recommendations To Nursing Amount of Assist Needed 1 Person Assist Discharge Recommendations PT Discharge Recommendations Home with 16/01 Assist Home Health
--- NOTE | 2018-06-07 12:32 | P.DS_ITS ---
History of Present Illness Date Patient Seen: 06/07/18 Time Patient Seen: 12:26 Chief complaint: [id number] lap radha Narrative: 83-year-old male who presented with vague abdominal pain and occasional right upper quadrant tenderness in association with progressive anorexia and unexpected weight loss. Examination and evaluation were consistent with chronic cholecystitis and cholelithiasis. He was recommended to undergo laparoscopic cholecystectomy in an effort to relieve his symptoms. Discharge Providers Date of admission: 06/06/18 17:16 Primary care physician: Cortes Sanders MD Consults: 06/05/18 19:25 Consult to Physical Therapy Evaluate & Treat Comment: Physician Instructions: Evaluate and Treat 06/06/18 11:50 Consult to Discharge Planning Routine Comment: home PT/OT Discharge provider: Alberto Galeano MD Discharge Date: 06/07/18 Summary Discharge Diagnosis: Hypothyroidism (Chronic 04/05/16) Abdominal distention (Chronic) Abdominal pain (Chronic) Memory deficit (Chronic) Ambulatory dysfunction (Chronic) Atherosclerosis (Acute) Cardiomegaly (Acute) Diverticulosis (Acute) EKG abnormalities (Acute) Emphysema (subcutaneous) (surgical) resulting from a procedure (Acute) Granulomatous disease (Acute) Poor kidney function (Acute) Reactive airway disease (Acute) Shortness of breath (Acute) BPH (benign prostatic hyperplasia) (Chronic) Cataract (Chronic 1999) Dandruff (Chronic) Hearing loss (Chronic) Hypertension (Chronic) Hypothyroid (Chronic) Kidney insufficiency (Chronic) Macular degeneration (Chronic) Polymyalgia rheumatica (Chronic) Psoriasis (Chronic) Pulmonary fibrosis (Chronic) Scoliosis (Chronic) Sleep apnea (Chronic) Abnormal CXR (chest x-ray) (Resolved ~194) Chicken pox (Resolved ~1955) Finger fracture (Resolved ~1945) Measles (Resolved ~1955) Mumps (Resolved ~1955) Rubella (Resolved) Tuberculosis (Resolved ~1939) Vertigo (Resolved 2009) H/O hernia repair (Acute ~12/19/17) Anesthesia (Resolved) History of tonsillectomy (Resolved ~1940) History of umbilical hernia repair (Resolved 12/19/17) Status post appendectomy (Resolved 2008) Cholelithiasis with chronic hemorrhagic cholecystitis Laparoscopic cholecystectomy this admission Hospital Course: Patient was admitted for laparoscopic cholecystectomy as planned. However, he required drain placement given the significant cholecystitis discovered at the time of surgery. In addition, he has baseline mild dementia and significant physical debilitation requiring physical therapy in the past. In fact, he was still receiving outpatient physical therapy at the time of surgery. He was therefore admitted for inpatient physical therapy evaluation, convalescence, and drainage occasion along with his family. He had some mild nausea that resolved immediately postoperatively. He is tolerating a diet including liquids at the time of discharge. He has had return of normal baseline bowel and bladder function. He has remained afebrile and otherwise hemodynamically stable throughout his entire stay. He did receive physical therapy evaluation while an inpatient. He remains a significant fall risk and requires assistance with ambulation along with his walker which is his normal at baseline. He refused along with his family any consideration whatsoever for jail facility placement. We had recommended such for ongoing rehabilitation. He did not even wish to discuss the option. We therefore arrange for physical therapy as an outpatient to resume on a more frequent basis as he continues his rehabilitation. His family has learned drain care. In addition a have a visiting caregiver to assist. His incisions otherwise are healing nicely and he has no evidence of any other complications or problems. Drain output is serosanguineous only. No bile. Because of his stable condition and desire to return home he is discharged and today with physical therapy and home assistance as above. He will follow up next week in the surgery clinic for drain removal. He and his family understand the call or return sooner if he has any fever, chills, inability to tolerate a diet, progressive pain, unusual drain output, or any other issues. Status at Discharge Cognitive/behavioral status at discharge: Alert. Forgetful but oriented to place and self. Baseline mental status. Functional status at discharge: uses cane/walker (Ambulate with assistance as above) Overall status at discharge: patient is progressing back to baseline Time Spent with Patient Less than 30 minutes Exam Vital Signs (past 8 hours): - 06/07/18 06:28 06/07/18 08:45 06/07/18 09:00 Temperature 98.9 F 96.6 F L Pulse Rate 67 57 L Respiratory Rate 18 22 Blood Pressure 156/85 H 133/57 L Pulse Oximetry 94 94 06/07/18 11:30 Temperature 97.6 F Pulse Rate 79 Respiratory Rate 20 Blood Pressure 150/83 H Pulse Oximetry 95 Oxygen Delivery Method Room Air Oxygen Flow Rate 0 Narrative Exam Narrative: Elderly male in no acute distress. Lying comfortably in bed. Alert. Denies pain. In fact, he is refusing pain medication. Afebrile with normal heart rate. Blood pressure normal. Urine output is adequate. Tolerated breakfast and lunch. Sclera nonicteric Chest clear to auscultation bilaterally. No crackles or wheezes Abdomen is protuberant but soft and nondistended. Appropriately tender to palpation with no guarding or rebound. Drain output is serosanguineous only. No bile. Incisions are clean, dry, and intact without erythema or ecchymosis. No hematoma or seroma Extremities show no clubbing or cyanosis Objective Labs Labs: No new laboratory or radiographic studies for review Discharge Plan Discharge Plan Patient Disposition: Home Discharge Med Rec/Prescriptions Prescriptions: New sennosides [Senokot] 8.6 mg tablet 8.6 mg PO BEDTIME Qty: 10 RF: 1 docusate sodium [Colace] 100 mg capsule 100 mg PO BID Qty: 14 RF: 1 oxycodone 5 mg tablet 5 mg PO Q4-6H PRN (Reason: pain) Qty: 30 RF: 0 Continue multivitamin [Multiple Vitamins] 1 EACH tablet 1 dose PO DAILY Qty: 0 RF: 0 polyethylene glycol 3350 [Miralax] 119 GM powder 17 gm PO QDAY PRN (Reason: Constipation) Qty: 0 RF: 0 folic acid 0.4 MG tablet 0.4 mg PO DAILY Qty: 0 RF: 0 amlodipine 5 mg tablet 5 mg PO DAILY Qty: 90 RF: 3 trazodone 50 mg tablet 50 mg PO BEDTIME RF: 0 alprazolam [Xanax] 0.25 mg tablet 0.25 mg PO QID PRN (Reason: anxiety) Qty: 30 RF: 5 tamsulosin [Flomax] 0.4 MG capsule 0.4 mg PO QPM RF: 0 levothyroxine 112 mcg Tablet 112 mcg PO DAILY RF: 0 ondansetron 4 mg tablet,disintegrating 4 mg PO Q6-8H PRN (Reason: nausea and vomiting) Qty: 10 RF: 0 loperamide 2 mg Capsule 2 mg PO PRN PRN (Reason: Diarrhea) RF: 0 donepezil 10 mg tablet 10 mg PO DAILY RF: 0 cholecalciferol (vitamin D3) [Vitamin D3] 1,000 unit Tablet 2,000 unit PO DAILY RF: 0 fluocinonide 0.05 % solution 1 % Topical SEE INSTRUCTIONS RF: 0 calcium carb-D3-mag ox-zinc ox [Don Mag Zinc Plus D3] 333 mg-133 unit -133 mg- 5 mg Tablet 1 tab PO DAILY RF: 0 triamcinolone acetonide 1 applic Topical DIRECTED RF: 0 Follow up/Referrals: Alberto Galeano MD [Physician] - 06/11/18 12:00 am (Please call office for exact appointment time if not already scheduled) Provider Discharge Instructions Diet: Diet as Tolerated Activity: Home physical therapy as ordered Use walker Ambulate with assistance Cold/Heat Therapy: Apply ice pack to incisions as needed for comfort Other treatments: Empty and record drain output at least once daily as instructed Skin/Wound/Dressing Care Report to your healthcare provider any signs of infection, such as:: chills, fever, increased pain, unusual drainage and unusual redness Dressing: May replace dressing around drain once daily and as needed after shower Discharge Data Primary Care Provider: Cortes Sanders Attending Provider: Alberto Galeano Admit Date/Time: 06/06/18 17:16
--- NOTE | 2018-06-07 12:44 | CM.DPC ---
DCP Cont: Received discharge orders. Went ahead and completed face to face and printed out home health orders for nursing, O.T/P.T. Will fax information to [facility]. P: Patient to go home today. Kay Abdullahi RN/[employer]
--- NOTE | 2018-06-07 12:48 | CM.DPC ---
Referral faxed to [facility] per Venessa
--- NOTE | 2018-06-07 13:36 | PC.NURSE ---
Discharge PIV removed prior to d/c. Pt's aware of how to empty MARK drain, she demonstrated emptying of drain and recording on sheet. and pt aware to keep drain in place and showed them how to change dressing around MARK site as well. Pt and stated understanding of how to empty drain and change dressing around MARK. D/c instructions provided to pt and his . Notified of f/u apt with MD and also to contact MD with any additional questions or concerns. Pt left in w/c with RN escort to 's car. Pt states he took all belongings with him.
== END 2018-06-07 13:20 | disposition home or self-care (01) ==
LOC: OR 06-07 06:44
PROVIDERS: Admitting Provider Surgery; PCP Family Medicine; Visit Provider Surgery
PROC: 0FT44ZZ Resection of Gallbladder, Percutaneous Endoscopic Approach (ICD-10-PCS; CPT 47562; principal; 2018-06-05 15:30)
DX: K80.10 Calculus of gallbladder with chronic cholecystitis without obstruction (principal); G47.33 Obstructive sleep apnea (adult) (pediatric); E03.9 Hypothyroidism, unspecified; T81.8 Other complications of procedures, not elsewhere classified; F03.90 Unspecified dementia, unspecified severity, without behavioral disturbance, psychotic disturbance, mood disturbance, and anxiety; I10 Essential (primary) hypertension; M35.3 Polymyalgia rheumatica; N18.9 Chronic kidney disease, unspecified; I51.7 Cardiomegaly
CPT/HCPCS: 47562; 97116; 97530; 97535; G0378; J0360; J0690; J1170; J2405; J2704

== ENCOUNTER → 2018-08-30 16:17 | Outpatient (CLI) | payer OTHER, SELFPAY ==
[2018-06-05 19:46] VITALS: BMI 28.7
[2018-08-30 18:00] LABS: Add Manual Diff / Slide Review NO; Basophils Absolute Auto 100 /uL (0-100); Basophils Percent Auto 1.6 % (0-2); Eosinophils Absolute Auto 500 /uL (0-450); Eosinophils Percent Auto 6.8 % (2-4); Hematocrit 40.6 % (41-53); Hemoglobin 13.4 g/dL (13.5-17.5); Lymphocytes Absolute Auto 2300 /uL (1100-4500); Lymphocytes Percent Auto 30.9 % (25-40); Mean Corpuscular HGB Conc 33.1 % (30-36); Mean Corpuscular Hemoglobin 30.9 PG (26-34); Mean Corpuscular Volume 93.3 fL (80-100); Monocytes Absolute Auto 900 /uL (0-900); Neutrophils Absolute Auto 3600 /uL (1500-7000); Neutrophils Percent Auto 48.7 % (50-75); Platelet Count 161 X10^3/uL (150-400); Red Blood Cell Count 4.35 X10^6/uL (4.5-5.9); Red Cell Distribution Width 15.2 % (11.6-14.8); White Blood Cell Count 7.4 X10^3/uL (4.5-11.0)
[2018-08-30 18:56] LABS: BUN Creatinine Ratio 14.1 (6-22); Blood Urea Nitrogen 24 mg/dL (9-20); Calcium 8.9 mg/dL (8.4-10.2); Carbon Dioxide 29 mmol/L (22-32); Chloride 102 mmol/L (98-107); Estimated Glomerular Filt Rate 38.8 mL/min (>60); Glucose 95 mg/dL (80-110); HEMOLYSIS < 15 (0-50); Potassium 4.9 mmol/L (3.4-5.1); Sodium 143 mmol/L (137-145)
== END ==
PROVIDERS: PCP Family Medicine; Visit Provider Family Medicine
DX: E03.9 Hypothyroidism, unspecified (principal); I10 Essential (primary) hypertension; R53.1 Weakness
CPT/HCPCS: 80048; 85025

== ENCOUNTER → 2018-09-05 17:03 | Outpatient (CLI) | payer OTHER, SELFPAY ==
[2018-06-05 19:46] VITALS: BMI 28.7
[2018-09-05 17:58] LABS: BUN Creatinine Ratio 12.5 (6-22); Blood Urea Nitrogen 20 mg/dL (9-20); Calcium 8.9 mg/dL (8.4-10.2); Carbon Dioxide 23 mmol/L (22-32); Chloride 105 mmol/L (98-107); Estimated Glomerular Filt Rate 41.6 mL/min (>60); Glucose 93 mg/dL (80-110); HEMOLYSIS 19 (0-50); Potassium 4.2 mmol/L (3.4-5.1); Sodium 140 mmol/L (137-145)
[2018-09-05 18:29] LABS: Thyroid Stimulating Hormone 3.94 uIU/mL (0.47-4.68)
== END ==
PROVIDERS: PCP Family Medicine; Visit Provider Family Medicine
DX: N28.9 Disorder of kidney and ureter, unspecified (principal); E03.9 Hypothyroidism, unspecified
CPT/HCPCS: 36415; 80048; 84443

== ENCOUNTER 2018-12-14 15:15 | Outpatient (RCR) | payer OTHER, SELFPAY ==
[2018-06-05 19:46] VITALS: BMI 28.7
--- NOTE | 2018-08-14 12:50 | PT.OIE ---
Current Diagnoses Other abnormalities of gait and mobility (08/14/18) Unspecified abnormalities of gait and mobility (08/14/18) Past Medical History (Last Reviewed 05/30/18 @ 16:32 by Alberto Galeano MD) Hypothyroidism (Chronic 04/05/16) Abdominal distention (Chronic) Abdominal pain (Chronic) Memory deficit (Chronic) Ambulatory dysfunction (Chronic) Atherosclerosis (Acute) Cardiomegaly (Acute) Diverticulosis (Acute) EKG abnormalities (Acute) Emphysema (subcutaneous) (surgical) resulting from a procedure (Acute) Granulomatous disease (Acute) Poor kidney function (Acute) Reactive airway disease (Acute) Shortness of breath (Acute) BPH (benign prostatic hyperplasia) (Chronic) Cataract (Chronic 1999) Dandruff (Chronic) Hearing loss (Chronic) Hypertension (Chronic) Hypothyroid (Chronic) Kidney insufficiency (Chronic) Macular degeneration (Chronic) Polymyalgia rheumatica (Chronic) Psoriasis (Chronic) Pulmonary fibrosis (Chronic) Scoliosis (Chronic) Sleep apnea (Chronic) Abnormal CXR (chest x-ray) (Resolved ~194) Chicken pox (Resolved ~1955) Finger fracture (Resolved ~194) Measles (Resolved ~1955) Mumps (Resolved ~1955) Rubella (Resolved) Tuberculosis (Resolved ~194) Vertigo (Resolved 2009) Past Surgical History (Last Reviewed 05/30/18 @ 16:32 by Alberto Galeano MD) H/O hernia repair (Acute ~12/19/17) Anesthesia (Resolved) History of tonsillectomy (Resolved ~1940) History of umbilical hernia repair (Resolved 12/19/17) Status post appendectomy (Resolved 2008) Provider Visit Care Team Role Provider Type Cortes Sanders MD Attending Provider Physician Primary Care Provider Specialty: Family Practice Address: [address] [place] [address], [facility] Email: [email or web address] Physical Therapy Initial Evaluation PT-OP-A Visit Information Start: 08/14/18 12:14 Freq: Status: Active Protocol: Document 08/14/18 11:15 HH (Rec: 08/14/18 12:50 HH [email or web address]) Out-Patient Physical Therapy Visit Information Visit Information Visit Type Initial Evaluation Visit Start Time 11:15 Visit Stop Time 12:05 Total Visit Minutes 50 Visit Number 1 Number of RESEARCH HYDRAULIC ENGINEER Visits 0 Evaluation Information Evaluation Date 08/14/18 Precautions Precautions Fall risks PT-OP-B Current Condition Start: 08/14/18 12:14 Freq: Status: Active Protocol: Document 08/14/18 11:15 (Rec: 08/14/18 12:50 [email or web address]) Current Condition History of Current Condition Onset Date 2017 Current Complaints Impaired balance and gait, generalized muscle weakness History of Current Condition Pt attends PT with his who gives most of the pt's medical history and current conditions. Pt had hernia surgery in last November and his mobility has declined since then. Pt also had another gallbladder surgery at the end of April. Pt has a hx of dementia and it has been progressively getting worse. Pt is able to follow commands during session. Pt states pt currently uses FWW for home and community mobility. Pt received PT and outpatient PT before his gallbladder surgery. He just finised PT last week. Pt has a CG who comes into the home 4x/week for 6 hours. Pt states his balance and strength has been slightly getting better since his last surgery. Pt is now able to dress his lower body under supervision/ min A. He stands in the shower and has grab bars, he does not want a shower chair. Pt needs assistance to shower his back due to significant kyphotic posture. Pt and his denies falls for the past couple months and pt also denies he has had any spinning sensation with head turns/ getting in and out of the bed. Treatment Goals Patient/Caregiver Goals To strengthen B LE improve overall walking and standing balance. improve his kyphotic posture. Prior Functional Status Baseline Function- ADL's Modified Independent Baseline Function- Mobility Modified Independent Current Functional Impairments (Reported) Functional Limitations- ADL's Assist with shower need supervision for home and community mobility, especially turning Functional Limitations- Mobility/Gait Use FWW for mobility at all times. Personal Factors Other Personal Factors That May Effect Dementia Therapy/Recovery HTN macular degeneration PT-OP-C Subjective Start: 08/14/18 12:14 Freq: Status: Active Protocol: Document 08/14/18 11:15 (Rec: 08/14/18 12:50 [email or web address]) OP-PT Subjective Patient Comments Patient Comments Pt amb slowly with his FWW and very cautious regarding his overall movements, especially chair transfers. PT-OP-D Balance Start: 08/14/18 12:14 Freq: Status: Active Protocol: Document 08/14/18 11:15 HH (Rec: 08/14/18 12:50 [email or web address]) Bach Balance Assessment Evaluation Sitting to Standing Ability Independent w/Hands Unsupported Stance Supervision- 2 minutes Sitting Unsupported, Feet on Floor Safely- 2 minutes Standing to Sitting Ability Assist, Control w/Hands Transfer Ability Supervision, Verbal Cues Unsupported Stance- Eyes Closed Supervision, 10 seconds Unsupported Stance- Eyes Open Supervision to maintain Reaching Forward Standing Safely, 5 inches Pick- Up Object From Floor Supervision Look Behind Shoulder - Standing Supervision w/Turning Turning 360 Degrees Turns slowly, but safely Unsupported Stance, Alternating Feet on 4 Steps w/Supervision Stair Unsupported Tandem Stance Assist to Step-15 seconds Unilateral Leg Stance Lifts Leg/Unable to Hold Total Score Bach Total Score (out of 56 points) 34 Bach Impairment Rating 20 to 39% Impaired (Score 34- 44) PT-OP-E Functional Tests Start: 08/14/18 12:14 Freq: Status: Active Protocol: Document 08/14/18 11:15 HH (Rec: 08/14/18 12:50 [email or web address]) Functional Tests Five Times Sit to Stand Test Score 35 Comments with push off from B UEs on surface Timed Up and Go (TUG) Score 25 seconds PT-OP-G Mobility & Gait Start: 08/14/18 12:14 Freq: Status: Active Protocol: Document 08/14/18 11:15 HH (Rec: 08/14/18 12:50 [email or web address]) OP Mobility Evaluation Transfers Sit to Stand B UE push off from surface Pt tends to have slight retropulsion during STS OP Gait Assessment Gait Gait Assistance Required: Standby Assistance Able to Maintain Weight Bearing Status Yes During Gait Assistive Devices Assistive Device Front Wheeled Walker Factors Limiting Gait Function Factors Limiting Gait Function Decreased Activity Tolerance Decreased Strength Poor Balance Poor Safety Awareness PT-OP-J Posture/Palpation/Skin Start: 08/14/18 12:14 Freq: Status: Active Protocol: Document 08/14/18 11:15 HH (Rec: 08/14/18 12:50 [email or web address]) Posture Evaluation Position Standing T-Spine Posture Increased Kyphosis L-Spine Posture Flattened Scapula Posture (L) Protracted (R) Protracted PT-OP-M Strength Start: 08/14/18 12:14 Freq: Status: Active Protocol: Document 08/14/18 11:15 (Rec: 08/14/18 12:50 [email or web address]) Hip Strength Hip Manual Muscle Testing Left Flexion (L2) 4 Good Extension (S1) 4 Good Abduction 4 Good Adduction 4 Good Right Flexion (L2) 3+ Fair+ Extension (S1) 3+ Fair+ Abduction 3+ Fair+ Adduction 3+ Fair+ External Rotation 3+ Fair+ Internal Rotation 3+ Fair+ Knee Strength Knee Manual Muscle Testing Left Flexion (S2) 4 Good Extension (L3) 4 Good Right Flexion (S2) 4 Good Extension (L3) 4 Good PT-OP-Q Treatments Start: 08/14/18 12:14 Freq: Status: Active Protocol: Document 08/14/18 11:15 (Rec: 08/14/18 12:50 [email or web address]) Therapeutic Activity Therapeutic Activity sit to stand Name sit to stand (chair touch ) Reps/Minutes 10 x 2 Neuro Re-Education Treatment Balance Activities heel toe walk Details with grab bar Comments 15 feet x 4 PT-OP-T Assessment and Plan Start: 08/14/18 12:14 Freq: Status: Active Protocol: Document 08/14/18 11:15 (Rec: 08/14/18 12:50 [email or web address]) Physical Therapy Assessment Rehab Potential Rehabilitation Potential Good Evaluation Complexity Number of Personal Factors/Comorbidities 3 or More Number of Body Systems Impaired 4 or More Clinical Presentation at Evaluation Evolving Impairments Impairments Activity Tolerance Balance Functional Activities Functional Mobility Gait Posture ROM Strength Other Concerns Fall Risk high Barriers to Rehabilitation dementia Goals overall mobility Impairment TUG Prison Goal (LTG) improve his TUG time from 25 seconds to 17 seconds LTG Duration 12 weels balance Impairment BACH Prison Goal (LTG) to improve his BACH score from 34 to 40 LTG Duration 12 weeks strength Impairment Impairement B LE strength Short Term Goal (STG) will be independent to participate HEP consistently., to increase 1/2 MMT grossly for B LEs strength STG Duration 6 weeks Prison Goal (LTG) Will be able to perform sit to stand without UE push off LTG Duration 12 weeks Assessment Summary Assessment Pt attends PT with his today following d/c from PT . Pt has progressively getting better in overall mobility and balance very slowly per 's report. Upon assessment , pt demonstrates significant balance deficits with head turns in standing and single leg stance. Pt also presented significant ROM loss at thoracic spine. Pt currently requires constant supervision for functional mobility and need min A from CG/ for showering and dressing, transfer/ sit to stand from low chair. Pt will benefit from skilled PT for balance traning, postural training and gait training to improve his overall mobility and reduce his fall risks. Physical Therapy Plan Frequency and Duration Frequency of Treatment 1x/Week Duration of Treatment 12 weeks Plan of Care Start Date 08/14/18 Plan of Care End Date 11/11/18 Therapeutic Interventions Therapeutic Interventions Balance Training Coordination Training Gait Training Home Exercise Program Neuromuscular Re-education Patient/Caregiver Education Self-Care/Home Management Therapeutic Activities Therapeutic Exercises Next Visit Focus/Plan Next Note Type Treatment Note Next Visit Plan review HEP balance training with head turns, single leg balance, step over tino B LE strengthening postural training (T spine)
--- NOTE | 2018-08-14 12:50 | PT.OPPOC ---
Current Diagnoses Other abnormalities of gait and mobility (08/14/18) Unspecified abnormalities of gait and mobility (08/14/18) Provider Visit Care Team Role Provider Type Cortes Sanders MD Attending Provider Physician Primary Care Provider Specialty: Family Practice Address: [address] [place] [address], [id number] Email: [email or web address] Plan Of Care PT-OP-T Assessment and Plan Start: 08/14/18 12:14 Freq: Status: Active Protocol: Document 08/14/18 11:15 (Rec: 08/14/18 12:50 [email or web address]) Physical Therapy Assessment Rehab Potential Rehabilitation Potential Good Evaluation Complexity Number of Personal Factors/Comorbidities 3 or More Number of Body Systems Impaired 4 or More Clinical Presentation at Evaluation Evolving Impairments Impairments Activity Tolerance Balance Functional Activities Functional Mobility Gait Posture ROM Strength Other Concerns Fall Risk high Barriers to Rehabilitation dementia Goals overall mobility Impairment TUG Safety Relief Valve Technician Goal (LTG) improve his TUG time from 25 seconds to 17 seconds LTG Duration 12 weels balance Impairment BACH Safety Relief Valve Technician Goal (LTG) to improve his BACH score from 34 to 40 LTG Duration 12 weeks strength Impairment Impairement B LE strength Short Term Goal (STG) will be independent to participate HEP consistently., to increase 1/2 MMT grossly for B LEs strength STG Duration 6 weeks Fdc Goal (LTG) Will be able to perform sit to stand without UE push off LTG Duration 12 weeks Assessment Summary Assessment Pt attends PT with his today following d/c from PT . Pt has progressively getting better in overall mobility and balance very slowly per 's report. Upon assessment , pt demonstrates significant balance deficits with head turns in standing and single leg stance. Pt also presented significant ROM loss at thoracic spine. Pt currently requires constant supervision for functional mobility and need min A from CG/ for showering and dressing, transfer/ sit to stand from low chair. Pt will benefit from skilled PT for balance traning, postural training and gait training to improve his overall mobility and reduce his fall risks. Physical Therapy Plan Frequency and Duration Frequency of Treatment 1x/Week Duration of Treatment 12 weeks Plan of Care Start Date 08/14/18 Plan of Care End Date 11/11/18 Therapeutic Interventions Therapeutic Interventions Balance Training Coordination Training Gait Training Home Exercise Program Neuromuscular Re-education Patient/Caregiver Education Self-Care/Home Management Therapeutic Activities Therapeutic Exercises Next Visit Focus/Plan Next Note Type Treatment Note Next Visit Plan review HEP balance training with head turns, single leg balance, step over tino B LE strengthening postural training (T spine) Plan of Care Dates Plan of Care Start Date 08/14/18 Plan of Care End Date 11/11/18 Please Sign and Return: I have reviewed this Plan of Care and certify that the skilled therapy services above are required to meet the patient?s needs. Physician Signature Date Printed Name and Credentials Clinical Instructor Signature Printed Name and Credentials
--- NOTE | 2018-08-21 11:46 | PT.OTN ---
Current Diagnoses Other abnormalities of gait and mobility (08/21/18) Unspecified abnormalities of gait and mobility (08/21/18) Physical Therapy Treatment Note PT-OP-A Visit Information Start: 08/14/18 12:14 Freq: Status: Active Protocol: Document 08/21/18 10:30 HH (Rec: 08/21/18 11:46 HH [email or web address]) Out-Patient Physical Therapy Visit Information Visit Information Visit Type Treatment Note Visit Start Time 10:30 Visit Stop Time 11:25 Total Visit Minutes 55 Visit Number 2 Number of EDUCATIONAL THERAPY TEACHER Visits 0 PT-OP-B Current Condition Start: 08/14/18 12:14 Freq: Status: Active Protocol: Document 08/14/18 11:15 HH (Rec: 08/14/18 12:50 HH [email or web address]) Current Condition History of Current Condition Onset Date 2017 Current Complaints Impaired balance and gait, generalized muscle weakness History of Current Condition Pt attends PT with his who gives most of the pt's medical history and current conditions. Pt had hernia surgery in last November and his mobility has declined since then. Pt also had another gallbladder surgery at the end of April. Pt has a hx of dementia and it has been progressively getting worse. Pt is able to follow commands during session. Pt states pt currently uses FWW for home and community mobility. Pt received PT and outpatient PT before his gallbladder surgery. He just finised PT last week. Pt has a CG who comes into the home 4x/week for 6 hours. Pt states his balance and strength has been slightly getting better since his last surgery. Pt is now able to dress his lower body under supervision/ min A. He stands in the shower and has grab bars, he does not want a shower chair. Pt needs assistance to shower his back due to significant kyphotic posture. Pt and his denies falls for the past couple months and pt also denies he has had any spinning sensation with head turns/ getting in and out of the bed. Treatment Goals Patient/Caregiver Goals To strengthen B LE improve overall walking and standing balance. improve his kyphotic posture. Prior Functional Status Baseline Function- ADL's Modified Independent Baseline Function- Mobility Modified Independent Current Functional Impairments (Reported) Functional Limitations- ADL's Assist with shower need supervision for home and community mobility, especially turning Functional Limitations- Mobility/Gait Use FWW for mobility at all times. Personal Factors Other Personal Factors That May Effect Dementia Therapy/Recovery HTN macular degeneration PT-OP-C Subjective Start: 08/14/18 12:14 Freq: Status: Active Protocol: Document 08/21/18 10:30 HH (Rec: 08/21/18 11:46 HH [email or web address]) OP-PT Subjective Patient Comments Patient Comments Pt's said Rom has been doing exercises with CG and i think he is getting stronger and stronger. Patient Reported Progress Improving PT-OP-D Balance Start: 08/14/18 12:14 Freq: Status: Active Protocol: Document 08/14/18 11:15 HH (Rec: 08/14/18 12:50 [email or web address]) Carson Balance Assessment Evaluation Sitting to Standing Ability Independent w/Hands Unsupported Stance Supervision- 2 minutes Sitting Unsupported, Feet on Floor Safely- 2 minutes Standing to Sitting Ability Assist, Control w/Hands Transfer Ability Supervision, Verbal Cues Unsupported Stance- Eyes Closed Supervision, 10 seconds Unsupported Stance- Eyes Open Supervision to maintain Reaching Forward Standing Safely, 5 inches Pick- Up Object From Floor Supervision Look Behind Shoulder - Standing Supervision w/Turning Turning 360 Degrees Turns slowly, but safely Unsupported Stance, Alternating Feet on 4 Steps w/Supervision Stair Unsupported Tandem Stance Assist to Step-15 seconds Unilateral Leg Stance Lifts Leg/Unable to Hold Total Score Carson Total Score (out of 56 points) 34 Carson Impairment Rating 20 to 39% Impaired (Score 34- 44) PT-OP-E Functional Tests Start: 08/14/18 12:14 Freq: Status: Active Protocol: Document 08/14/18 11:15 HH (Rec: 08/14/18 12:50 [email or web address]) Functional Tests Five Times Sit to Stand Test Score 35 Comments with push off from B UEs on surface Timed Up and Go (TUG) Score 25 seconds PT-OP-G Mobility & Gait Start: 08/14/18 12:14 Freq: Status: Active Protocol: Document 08/14/18 11:15 HH (Rec: 08/14/18 12:50 [email or web address]) OP Mobility Evaluation Transfers Sit to Stand B UE push off from surface Pt tends to have slight retropulsion during STS OP Gait Assessment Gait Gait Assistance Required: Standby Assistance Able to Maintain Weight Bearing Status Yes During Gait Assistive Devices Assistive Device Front Wheeled Walker Factors Limiting Gait Function Factors Limiting Gait Function Decreased Activity Tolerance Decreased Strength Poor Balance Poor Safety Awareness PT-OP-J Posture/Palpation/Skin Start: 08/14/18 12:14 Freq: Status: Active Protocol: Document 08/14/18 11:15 HH (Rec: 08/14/18 12:50 [email or web address]) Posture Evaluation Position Standing T-Spine Posture Increased Kyphosis L-Spine Posture Flattened Scapula Posture (L) Protracted (R) Protracted PT-OP-M Strength Start: 08/14/18 12:14 Freq: Status: Active Protocol: Document 08/14/18 11:15 HH (Rec: 08/14/18 12:50 HH [email or web address]) Hip Strength Hip Manual Muscle Testing Left Flexion (L2) 4 Good Extension (S1) 4 Good Abduction 4 Good Adduction 4 Good Right Flexion (L2) 3+ Fair+ Extension (S1) 3+ Fair+ Abduction 3+ Fair+ Adduction 3+ Fair+ External Rotation 3+ Fair+ Internal Rotation 3+ Fair+ Knee Strength Knee Manual Muscle Testing Left Flexion (S2) 4 Good Extension (L3) 4 Good Right Flexion (S2) 4 Good Extension (L3) 4 Good PT-OP-Q Treatments Start: 08/14/18 12:14 Freq: Status: Active Protocol: Document 08/21/18 10:30 HH (Rec: 08/21/18 11:46 [email or web address]) Therapeutic Exercises Sitting Exercises seated thoracic extension Sitting Exercise Name seated thoracic extension Equipment Used foam roller Gait Training Gait Activity hiking sticks Device Used 2 hiking sticks Distance/Duration 400 Treatment Focus gait pattern Comments reciprocal Neuro Re-Education Treatment Balance Activities ball catch and throw Equipment blue therapy ball Reps/Duration 5 mins Comments regular stance stagger stance walking over hurdles with 1 stick Equipment 1 walking stick Reps/Duration 5 rounds Comments step through pattern walking over hurdles Equipment 2 walking sticks Reps/Duration 10 rounds Comments step through pattern PT-OP-T Assessment and Plan Start: 08/14/18 12:14 Freq: Status: Active Protocol: Document 08/21/18 10:30 HH (Rec: 08/21/18 11:46 [email or web address]) Physical Therapy Assessment Assessment Summary Assessment Pt showed significant improvements in balance and his amb ability today. Pt was able to use 2 hiking sticks to amb 400 feet today with CGA. Pt tripped his R foot twice but he was to recover immediately. He was also able to negotiate hurdles with hiking sticks with a step through pattern. Pt's FWW was found to be too short for him today and recommend his to bring his 4WW and ski poles for next visit to cont gait training. Physical Therapy Plan Next Visit Focus/Plan Next Note Type Treatment Note Next Visit Plan 4WW and ski poles assessment cont balance training (SLS, hurdles, head turns) postural training B LE strengthening.
--- NOTE | 2018-09-05 17:25 | PT.OTN ---
Current Diagnoses Other abnormalities of gait and mobility (09/05/18) Unspecified abnormalities of gait and mobility (09/05/18) Physical Therapy Treatment Note PT-OP-A Visit Information Start: 08/14/18 12:14 Freq: Status: Active Protocol: Document 09/05/18 16:10 HH (Rec: 09/05/18 17:24 HH [email or web address]) Out-Patient Physical Therapy Visit Information Visit Information Visit Type Treatment Note Visit Start Time 16:10 Visit Stop Time 16:55 Total Visit Minutes 45 Visit Number 3 Number of CUSTOM HARVESTER Visits 0 PT-OP-B Current Condition Start: 08/14/18 12:14 Freq: Status: Active Protocol: Document 08/14/18 11:15 HH (Rec: 08/14/18 12:50 HH [email or web address]) Current Condition History of Current Condition Onset Date 2017 Current Complaints Impaired balance and gait, generalized muscle weakness History of Current Condition Pt attends PT with his who gives most of the pt's medical history and current conditions. Pt had hernia surgery in last November and his mobility has declined since then. Pt also had another gallbladder surgery at the end of April. Pt has a hx of dementia and it has been progressively getting worse. Pt is able to follow commands during session. Pt states pt currently uses FWW for home and community mobility. Pt received PT and outpatient PT before his gallbladder surgery. He just finised PT last week. Pt has a CG who comes into the home 4x/week for 6 hours. Pt states his balance and strength has been slightly getting better since his last surgery. Pt is now able to dress his lower body under supervision/ min A. He stands in the shower and has grab bars, he does not want a shower chair. Pt needs assistance to shower his back due to significant kyphotic posture. Pt and his denies falls for the past couple months and pt also denies he has had any spinning sensation with head turns/ getting in and out of the bed. Treatment Goals Patient/Caregiver Goals To strengthen B LE improve overall walking and standing balance. improve his kyphotic posture. Prior Functional Status Baseline Function- ADL's Modified Independent Baseline Function- Mobility Modified Independent Current Functional Impairments (Reported) Functional Limitations- ADL's Assist with shower need supervision for home and community mobility, especially turning Functional Limitations- Mobility/Gait Use FWW for mobility at all times. Personal Factors Other Personal Factors That May Effect Dementia Therapy/Recovery HTN macular degeneration PT-OP-C Subjective Start: 08/14/18 12:14 Freq: Status: Active Protocol: Document 09/05/18 16:10 HH (Rec: 09/05/18 17:24 [email or web address]) OP-PT Subjective Patient Comments Patient Comments Im good. pt's states Rom has been amb at home with FWW independently sometimes and i noticed his R foot drag is getting better. PT-OP-D Balance Start: 08/14/18 12:14 Freq: Status: Active Protocol: Document 08/14/18 11:15 HH (Rec: 08/14/18 12:50 [email or web address]) Carson Balance Assessment Evaluation Sitting to Standing Ability Independent w/Hands Unsupported Stance Supervision- 2 minutes Sitting Unsupported, Feet on Floor Safely- 2 minutes Standing to Sitting Ability Assist, Control w/Hands Transfer Ability Supervision, Verbal Cues Unsupported Stance- Eyes Closed Supervision, 10 seconds Unsupported Stance- Eyes Open Supervision to maintain Reaching Forward Standing Safely, 5 inches Pick- Up Object From Floor Supervision Look Behind Shoulder - Standing Supervision w/Turning Turning 360 Degrees Turns slowly, but safely Unsupported Stance, Alternating Feet on 4 Steps w/Supervision Stair Unsupported Tandem Stance Assist to Step-15 seconds Unilateral Leg Stance Lifts Leg/Unable to Hold Total Score Carson Total Score (out of 56 points) 34 Carson Impairment Rating 20 to 39% Impaired (Score 34- 44) PT-OP-E Functional Tests Start: 08/14/18 12:14 Freq: Status: Active Protocol: Document 09/05/18 16:10 HH (Rec: 09/05/18 17:24 [email or web address]) Functional Tests 2 Minute Walk Test Distance 193 Device Used hiking sticks Comments cues to heel strikes PT-OP-G Mobility & Gait Start: 08/14/18 12:14 Freq: Status: Active Protocol: Document 08/14/18 11:15 HH (Rec: 08/14/18 12:50 [email or web address]) OP Mobility Evaluation Transfers Sit to Stand B UE push off from surface Pt tends to have slight retropulsion during STS OP Gait Assessment Gait Gait Assistance Required: Standby Assistance Able to Maintain Weight Bearing Status Yes During Gait Assistive Devices Assistive Device Front Wheeled Walker Factors Limiting Gait Function Factors Limiting Gait Function Decreased Activity Tolerance Decreased Strength Poor Balance Poor Safety Awareness PT-OP-J Posture/Palpation/Skin Start: 08/14/18 12:14 Freq: Status: Active Protocol: Document 08/14/18 11:15 HH (Rec: 08/14/18 12:50 [email or web address]) Posture Evaluation Position Standing T-Spine Posture Increased Kyphosis L-Spine Posture Flattened Scapula Posture (L) Protracted (R) Protracted PT-OP-M Strength Start: 08/14/18 12:14 Freq: Status: Active Protocol: Document 08/14/18 11:15 HH (Rec: 08/14/18 12:50 [email or web address]) Hip Strength Hip Manual Muscle Testing Left Flexion (L2) 4 Good Extension (S1) 4 Good Abduction 4 Good Adduction 4 Good Right Flexion (L2) 3+ Fair+ Extension (S1) 3+ Fair+ Abduction 3+ Fair+ Adduction 3+ Fair+ External Rotation 3+ Fair+ Internal Rotation 3+ Fair+ Knee Strength Knee Manual Muscle Testing Left Flexion (S2) 4 Good Extension (L3) 4 Good Right Flexion (S2) 4 Good Extension (L3) 4 Good PT-OP-Q Treatments Start: 08/14/18 12:14 Freq: Status: Active Protocol: Document 09/05/18 16:10 HH (Rec: 09/05/18 17:24 [email or web address]) Therapeutic Activity Therapeutic Activity sit to stand Name sit to stand (chair touch ) Reps/Minutes 10 x 2 Gait Training Gait Activity hiking sticks Device Used 2 hiking sticks Distance/Duration 600 ft Treatment Focus gait pattern Comments reciprocal gait pattern and heel strikes Neuro Re-Education Treatment Balance Activities marching Equipment //bar Reps/Duration 20ft x 5 Comments no UE support single leg step up Surface level Equipment 4 inch box Reps/Duration 10 x 2 Comments with/without support single leg stance Surface level Equipment //bar Reps/Duration 20 ft x 5 Comments without UE support PT-OP-T Assessment and Plan Start: 08/14/18 12:14 Freq: Status: Active Protocol: Document 09/05/18 16:10 HH (Rec: 09/05/18 17:24 HH [email or web address]) Physical Therapy Assessment Goals 2 min walk Impairment increased time for walking [employer] Goal (LTG) 2 min walk test: 220 ft with hiking poles CGA LTG Duration 10 weeks Assessment Summary Assessment Pt's brought in personal hiking sticks for adjustment today. Recommended her and pt' s CG to start gait training with pt with CGA at home. Also recommended to get a new taller FWW due to this current walker is too low for pt and place pt into flexed position. Pt required cues for heel strike and pole strike during gait training today. Physical Therapy Plan Next Visit Focus/Plan Next Note Type Treatment Note Next Visit Plan cont hiking poles gait training SL balance, LE strengthening postural training
--- NOTE | 2018-09-14 17:58 | PT.OTN ---
Current Diagnoses Other abnormalities of gait and mobility (09/14/18) Unspecified abnormalities of gait and mobility (09/14/18) Physical Therapy Treatment Note PT-OP-A Visit Information Start: 08/14/18 12:14 Freq: Status: Active Protocol: Document 09/14/18 15:15 HH (Rec: 09/14/18 17:58 HH [email or web address]) Out-Patient Physical Therapy Visit Information Visit Information Visit Type Treatment Note Visit Note pt brought in 4WW Visit Start Time 15:15 Visit Stop Time 16:00 Total Visit Minutes 45 Visit Number 4 PT-OP-B Current Condition Start: 08/14/18 12:14 Freq: Status: Active Protocol: Document 08/14/18 11:15 HH (Rec: 08/14/18 12:50 HH [email or web address]) Current Condition History of Current Condition Onset Date 2017 Current Complaints Impaired balance and gait, generalized muscle weakness History of Current Condition Pt attends PT with his who gives most of the pt's medical history and current conditions. Pt had hernia surgery in last November and his mobility has declined since then. Pt also had another gallbladder surgery at the end of April. Pt has a hx of dementia and it has been progressively getting worse. Pt is able to follow commands during session. Pt states pt currently uses FWW for home and community mobility. Pt received PT and outpatient PT before his gallbladder surgery. He just finised PT last week. Pt has a CG who comes into the home 4x/week for 6 hours. Pt states his balance and strength has been slightly getting better since his last surgery. Pt is now able to dress his lower body under supervision/ min A. He stands in the shower and has grab bars, he does not want a shower chair. Pt needs assistance to shower his back due to significant kyphotic posture. Pt and his denies falls for the past couple months and pt also denies he has had any spinning sensation with head turns/ getting in and out of the bed. Treatment Goals Patient/Caregiver Goals To strengthen B LE improve overall walking and standing balance. improve his kyphotic posture. Prior Functional Status Baseline Function- ADL's Modified Independent Baseline Function- Mobility Modified Independent Current Functional Impairments (Reported) Functional Limitations- ADL's Assist with shower need supervision for home and community mobility, especially turning Functional Limitations- Mobility/Gait Use FWW for mobility at all times. Personal Factors Other Personal Factors That May Effect Dementia Therapy/Recovery HTN macular degeneration PT-OP-C Subjective Start: 08/14/18 12:14 Freq: Status: Active Protocol: Document 09/14/18 15:15 HH (Rec: 09/14/18 17:58 HH [email or web address]) OP-PT Subjective Patient Comments Patient Comments Pt's Rom has been getting up from chair slowly. PT-OP-D Balance Start: 08/14/18 12:14 Freq: Status: Active Protocol: Document 08/14/18 11:15 HH (Rec: 08/14/18 12:50 HH [email or web address]) Carson Balance Assessment Evaluation Sitting to Standing Ability Independent w/Hands Unsupported Stance Supervision- 2 minutes Sitting Unsupported, Feet on Floor Safely- 2 minutes Standing to Sitting Ability Assist, Control w/Hands Transfer Ability Supervision, Verbal Cues Unsupported Stance- Eyes Closed Supervision, 10 seconds Unsupported Stance- Eyes Open Supervision to maintain Reaching Forward Standing Safely, 5 inches Pick- Up Object From Floor Supervision Look Behind Shoulder - Standing Supervision w/Turning Turning 360 Degrees Turns slowly, but safely Unsupported Stance, Alternating Feet on 4 Steps w/Supervision Stair Unsupported Tandem Stance Assist to Step-15 seconds Unilateral Leg Stance Lifts Leg/Unable to Hold Total Score Carson Total Score (out of 56 points) 34 Carson Impairment Rating 20 to 39% Impaired (Score 34- 44) PT-OP-E Functional Tests Start: 08/14/18 12:14 Freq: Status: Active Protocol: Document 09/05/18 16:10 HH (Rec: 09/05/18 17:24 HH [email or web address]) Functional Tests 2 Minute Walk Test Distance 193 Device Used hiking sticks Comments cues to heel strikes PT-OP-G Mobility & Gait Start: 08/14/18 12:14 Freq: Status: Active Protocol: Document 08/14/18 11:15 HH (Rec: 08/14/18 12:50 HH [email or web address]) OP Mobility Evaluation Transfers Sit to Stand B UE push off from surface Pt tends to have slight retropulsion during STS OP Gait Assessment Gait Gait Assistance Required: Standby Assistance Able to Maintain Weight Bearing Status Yes During Gait Assistive Devices Assistive Device Front Wheeled Walker Factors Limiting Gait Function Factors Limiting Gait Function Decreased Activity Tolerance Decreased Strength Poor Balance Poor Safety Awareness PT-OP-J Posture/Palpation/Skin Start: 08/14/18 12:14 Freq: Status: Active Protocol: Document 08/14/18 11:15 HH (Rec: 08/14/18 12:50 [email or web address]) Posture Evaluation Position Standing T-Spine Posture Increased Kyphosis L-Spine Posture Flattened Scapula Posture (L) Protracted (R) Protracted PT-OP-M Strength Start: 08/14/18 12:14 Freq: Status: Active Protocol: Document 08/14/18 11:15 HH (Rec: 08/14/18 12:50 [email or web address]) Hip Strength Hip Manual Muscle Testing Left Flexion (L2) 4 Good Extension (S1) 4 Good Abduction 4 Good Adduction 4 Good Right Flexion (L2) 3+ Fair+ Extension (S1) 3+ Fair+ Abduction 3+ Fair+ Adduction 3+ Fair+ External Rotation 3+ Fair+ Internal Rotation 3+ Fair+ Knee Strength Knee Manual Muscle Testing Left Flexion (S2) 4 Good Extension (L3) 4 Good Right Flexion (S2) 4 Good Extension (L3) 4 Good PT-OP-Q Treatments Start: 08/14/18 12:14 Freq: Status: Active Protocol: Document 09/14/18 15:15 HH (Rec: 09/14/18 17:58 [email or web address]) Cardio Equipment Recumbent Stepper (Sci-Fit) Duration (Minutes) 8 Resistance 1 Gait Training Gait Activity 4WW Device Used 4WW Level of Assistance CGA Surface level Distance/Duration 400 Treatment Focus activity tolerance Comments cues to keep his 4ww close hiking sticks Device Used 2 hiking sticks Distance/Duration 1000 ft Treatment Focus gait pattern Comments reciprocal gait pattern and heel strikes PT-OP-T Assessment and Plan Start: 08/14/18 12:14 Freq: Status: Active Protocol: Document 09/14/18 15:15 HH (Rec: 09/14/18 17:58 [email or web address]) Physical Therapy Assessment Assessment Summary Assessment pt brought in 4ww today and adjusted handle height for pt. pt cont improve his activity tolerance. he amb total approx 1500 feet today with hiking sticks and 4ww. pt's stated pt is unwilling to walk at home and likes to stay in his chair. Wish PT could cont to encourage him to amb. Physical Therapy Plan Next Visit Focus/Plan Next Note Type Treatment Note Next Visit Plan cont hiking poles gait training cont gait training SL balance, LE strengthening postural training
--- NOTE | 2018-09-19 17:49 | PT.OTN ---
Current Diagnoses Other abnormalities of gait and mobility (09/19/18) Unspecified abnormalities of gait and mobility (09/19/18) Physical Therapy Treatment Note PT-OP-A Visit Information Start: 08/14/18 12:14 Freq: Status: Active Protocol: Document 09/19/18 16:00 HH (Rec: 09/19/18 16:46 HH [email or web address]) Out-Patient Physical Therapy Visit Information Visit Information Visit Type Treatment Note Visit Note pt brought in SPC and hiking poles. [place] today Visit Start Time 16:00 Visit Stop Time 16:45 Total Visit Minutes 45 Visit Number 5 Number of HISTOLOGY TEACHER Visits 0 PT-OP-B Current Condition Start: 08/14/18 12:14 Freq: Status: Active Protocol: Document 08/14/18 11:15 HH (Rec: 08/14/18 12:50 HH [email or web address]) Current Condition History of Current Condition Onset Date 2017 Current Complaints Impaired balance and gait, generalized muscle weakness History of Current Condition Pt attends PT with his who gives most of the pt's medical history and current conditions. Pt had hernia surgery in last November and his mobility has declined since then. Pt also had another gallbladder surgery at the end of April. Pt has a hx of dementia and it has been progressively getting worse. Pt is able to follow commands during session. Pt states pt currently uses FWW for home and community mobility. Pt received PT and outpatient PT before his gallbladder surgery. He just finised PT last week. Pt has a CG who comes into the home 4x/week for 6 hours. Pt states his balance and strength has been slightly getting better since his last surgery. Pt is now able to dress his lower body under supervision/ min A. He stands in the shower and has grab bars, he does not want a shower chair. Pt needs assistance to shower his back due to significant kyphotic posture. Pt and his denies falls for the past couple months and pt also denies he has had any spinning sensation with head turns/ getting in and out of the bed. Treatment Goals Patient/Caregiver Goals To strengthen B LE improve overall walking and standing balance. improve his kyphotic posture. Prior Functional Status Baseline Function- ADL's Modified Independent Baseline Function- Mobility Modified Independent Current Functional Impairments (Reported) Functional Limitations- ADL's Assist with shower need supervision for home and community mobility, especially turning Functional Limitations- Mobility/Gait Use FWW for mobility at all times. Personal Factors Other Personal Factors That May Effect Dementia Therapy/Recovery HTN macular degeneration PT-OP-C Subjective Start: 08/14/18 12:14 Freq: Status: Active Protocol: Document 09/19/18 16:00 HH (Rec: 09/19/18 16:46 HH [email or web address]) OP-PT Subjective Patient Comments Patient Comments Pt's he's doing pretty good. PT-OP-D Balance Start: 08/14/18 12:14 Freq: Status: Active Protocol: Document 08/14/18 11:15 HH (Rec: 08/14/18 12:50 HH [email or web address]) Carson Balance Assessment Evaluation Sitting to Standing Ability Independent w/Hands Unsupported Stance Supervision- 2 minutes Sitting Unsupported, Feet on Floor Safely- 2 minutes Standing to Sitting Ability Assist, Control w/Hands Transfer Ability Supervision, Verbal Cues Unsupported Stance- Eyes Closed Supervision, 10 seconds Unsupported Stance- Eyes Open Supervision to maintain Reaching Forward Standing Safely, 5 inches Pick- Up Object From Floor Supervision Look Behind Shoulder - Standing Supervision w/Turning Turning 360 Degrees Turns slowly, but safely Unsupported Stance, Alternating Feet on 4 Steps w/Supervision Stair Unsupported Tandem Stance Assist to Step-15 seconds Unilateral Leg Stance Lifts Leg/Unable to Hold Total Score Carson Total Score (out of 56 points) 34 Carson Impairment Rating 20 to 39% Impaired (Score 34- 44) PT-OP-E Functional Tests Start: 08/14/18 12:14 Freq: Status: Active Protocol: Document 09/05/18 16:10 HH (Rec: 09/05/18 17:24 HH [email or web address]) Functional Tests 2 Minute Walk Test Distance 193 Device Used hiking sticks Comments cues to heel strikes PT-OP-G Mobility & Gait Start: 08/14/18 12:14 Freq: Status: Active Protocol: Document 08/14/18 11:15 HH (Rec: 08/14/18 12:50 HH [email or web address]) OP Mobility Evaluation Transfers Sit to Stand B UE push off from surface Pt tends to have slight retropulsion during STS OP Gait Assessment Gait Gait Assistance Required: Standby Assistance Able to Maintain Weight Bearing Status Yes During Gait Assistive Devices Assistive Device Front Wheeled Walker Factors Limiting Gait Function Factors Limiting Gait Function Decreased Activity Tolerance Decreased Strength Poor Balance Poor Safety Awareness PT-OP-J Posture/Palpation/Skin Start: 08/14/18 12:14 Freq: Status: Active Protocol: Document 08/14/18 11:15 HH (Rec: 08/14/18 12:50 [email or web address]) Posture Evaluation Position Standing T-Spine Posture Increased Kyphosis L-Spine Posture Flattened Scapula Posture (L) Protracted (R) Protracted PT-OP-M Strength Start: 08/14/18 12:14 Freq: Status: Active Protocol: Document 08/14/18 11:15 HH (Rec: 08/14/18 12:50 [email or web address]) Hip Strength Hip Manual Muscle Testing Left Flexion (L2) 4 Good Extension (S1) 4 Good Abduction 4 Good Adduction 4 Good Right Flexion (L2) 3+ Fair+ Extension (S1) 3+ Fair+ Abduction 3+ Fair+ Adduction 3+ Fair+ External Rotation 3+ Fair+ Internal Rotation 3+ Fair+ Knee Strength Knee Manual Muscle Testing Left Flexion (S2) 4 Good Extension (L3) 4 Good Right Flexion (S2) 4 Good Extension (L3) 4 Good PT-OP-Q Treatments Start: 08/14/18 12:14 Freq: Status: Active Protocol: Document 09/19/18 16:00 HH (Rec: 09/19/18 16:46 HH [email or web address]) Cardio Equipment Recumbent Stepper (Sci-Fit) Duration (Minutes) 5 Resistance 1 Seat Position 10 Gait Training Gait Activity SPC Device Used SPC Level of Assistance CGA Surface level Distance/Duration 200 x 5 Comments cues for feet clearance Neuro Re-Education Treatment Balance Activities tino with SPC Surface level Equipment SPC Reps/Duration 20 feet x 5 Comments CGA marching Equipment //bar Reps/Duration 20ft x 5 Comments no UE support PT-OP-T Assessment and Plan Start: 08/14/18 12:14 Freq: Status: Active Protocol: Document 09/19/18 16:00 HH (Rec: 09/19/18 17:49 HH [email or web address]) Physical Therapy Assessment Goals 2 min walk Impairment increased time for walking Flatwork Ironer Goal (LTG) Pt progress to use SPC for mobility. New goal 2 min walk test: 220 ft with SPC () LTG Duration 10 weeks overall mobility Group Home Goal (LTG) Will update next visit. improve his TUG time from 25 seconds to 17 seconds strength Flatwork Ironer Goal (LTG) Will be able to perform sit to stand without UE push off LTG Duration 8 weeks Progress Towards Goals Progress Towards Goals Slow Progress due to Noncompliance Slow Progress - Other Assessment Summary Assessment Pt progress slowly with PT due to non compliance for HEP and motivation. But pt tends to improve with PT session. He is now able to improve mobility level with LRAD. pt brought in SPC today since pt said it's more comfortable to him. adjusted handle height for pt. pt cont improve his activity tolerance. he amb total approx 1000 feet today with SPC. Also focused on feet clearance with gait training on hurdles . Physical Therapy Plan Next Visit Focus/Plan Next Note Type Treatment Note Next Visit Plan Reassess TUG and 2 min walking test. cont SPC gait training cont gait training SL balance, LE strengthening postural training tino training
--- NOTE | 2018-09-26 16:44 | PT.OTN ---
Current Diagnoses Other abnormalities of gait and mobility (09/26/18) Unspecified abnormalities of gait and mobility (09/26/18) Physical Therapy Treatment Note PT-OP-A Visit Information Start: 08/14/18 12:14 Freq: Status: Active Protocol: Document 09/26/18 16:00 HH (Rec: 09/26/18 16:43 HH [email or web address]) Out-Patient Physical Therapy Visit Information Visit Information Visit Type Treatment Note Visit Note Pt did not bring in SPC but a FWW Visit Start Time 16:00 Visit Stop Time 16:45 Total Visit Minutes 45 Visit Number 6 Number of SQUIRREL WORKER Visits 0 PT-OP-B Current Condition Start: 08/14/18 12:14 Freq: Status: Active Protocol: Document 08/14/18 11:15 HH (Rec: 08/14/18 12:50 HH [email or web address]) Current Condition History of Current Condition Onset Date 2017 Current Complaints Impaired balance and gait, generalized muscle weakness History of Current Condition Pt attends PT with his who gives most of the pt's medical history and current conditions. Pt had hernia surgery in last November and his mobility has declined since then. Pt also had another gallbladder surgery at the end of April. Pt has a hx of dementia and it has been progressively getting worse. Pt is able to follow commands during session. Pt states pt currently uses FWW for home and community mobility. Pt received PT and outpatient PT before his gallbladder surgery. He just finised PT last week. Pt has a CG who comes into the home 4x/week for 6 hours. Pt states his balance and strength has been slightly getting better since his last surgery. Pt is now able to dress his lower body under supervision/ min A. He stands in the shower and has grab bars, he does not want a shower chair. Pt needs assistance to shower his back due to significant kyphotic posture. Pt and his denies falls for the past couple months and pt also denies he has had any spinning sensation with head turns/ getting in and out of the bed. Treatment Goals Patient/Caregiver Goals To strengthen B LE improve overall walking and standing balance. improve his kyphotic posture. Prior Functional Status Baseline Function- ADL's Modified Independent Baseline Function- Mobility Modified Independent Current Functional Impairments (Reported) Functional Limitations- ADL's Assist with shower need supervision for home and community mobility, especially turning Functional Limitations- Mobility/Gait Use FWW for mobility at all times. Personal Factors Other Personal Factors That May Effect Dementia Therapy/Recovery HTN macular degeneration PT-OP-C Subjective Start: 08/14/18 12:14 Freq: Status: Active Protocol: Document 09/26/18 16:00 HH (Rec: 09/26/18 16:44 HH [email or web address]) OP-PT Subjective Patient Comments Patient Comments I feel pretty good today. I dont really walk and move at home. I just like to sit. PT-OP-D Balance Start: 08/14/18 12:14 Freq: Status: Active Protocol: Document 08/14/18 11:15 HH (Rec: 08/14/18 12:50 [email or web address]) Carson Balance Assessment Evaluation Sitting to Standing Ability Independent w/Hands Unsupported Stance Supervision- 2 minutes Sitting Unsupported, Feet on Floor Safely- 2 minutes Standing to Sitting Ability Assist, Control w/Hands Transfer Ability Supervision, Verbal Cues Unsupported Stance- Eyes Closed Supervision, 10 seconds Unsupported Stance- Eyes Open Supervision to maintain Reaching Forward Standing Safely, 5 inches Pick- Up Object From Floor Supervision Look Behind Shoulder - Standing Supervision w/Turning Turning 360 Degrees Turns slowly, but safely Unsupported Stance, Alternating Feet on 4 Steps w/Supervision Stair Unsupported Tandem Stance Assist to Step-15 seconds Unilateral Leg Stance Lifts Leg/Unable to Hold Total Score Carson Total Score (out of 56 points) 34 Carson Impairment Rating 20 to 39% Impaired (Score 34- 44) PT-OP-E Functional Tests Start: 08/14/18 12:14 Freq: Status: Active Protocol: Document 09/05/18 16:10 HH (Rec: 09/05/18 17:24 HH [email or web address]) Functional Tests 2 Minute Walk Test Distance 193 Device Used hiking sticks Comments cues to heel strikes PT-OP-G Mobility & Gait Start: 08/14/18 12:14 Freq: Status: Active Protocol: Document 08/14/18 11:15 HH (Rec: 08/14/18 12:50 HH [email or web address]) OP Mobility Evaluation Transfers Sit to Stand B UE push off from surface Pt tends to have slight retropulsion during STS OP Gait Assessment Gait Gait Assistance Required: Standby Assistance Able to Maintain Weight Bearing Status Yes During Gait Assistive Devices Assistive Device Front Wheeled Walker Factors Limiting Gait Function Factors Limiting Gait Function Decreased Activity Tolerance Decreased Strength Poor Balance Poor Safety Awareness PT-OP-J Posture/Palpation/Skin Start: 08/14/18 12:14 Freq: Status: Active Protocol: Document 08/14/18 11:15 HH (Rec: 08/14/18 12:50 HH [email or web address]) Posture Evaluation Position Standing T-Spine Posture Increased Kyphosis L-Spine Posture Flattened Scapula Posture (L) Protracted (R) Protracted PT-OP-M Strength Start: 08/14/18 12:14 Freq: Status: Active Protocol: Document 08/14/18 11:15 HH (Rec: 08/14/18 12:50 HH [email or web address]) Hip Strength Hip Manual Muscle Testing Left Flexion (L2) 4 Good Extension (S1) 4 Good Abduction 4 Good Adduction 4 Good Right Flexion (L2) 3+ Fair+ Extension (S1) 3+ Fair+ Abduction 3+ Fair+ Adduction 3+ Fair+ External Rotation 3+ Fair+ Internal Rotation 3+ Fair+ Knee Strength Knee Manual Muscle Testing Left Flexion (S2) 4 Good Extension (L3) 4 Good Right Flexion (S2) 4 Good Extension (L3) 4 Good PT-OP-Q Treatments Start: 08/14/18 12:14 Freq: Status: Active Protocol: Document 09/26/18 16:00 HH (Rec: 09/26/18 16:43 HH [email or web address]) Cardio Equipment Recumbent Stepper (Sci-Fit) Duration (Minutes) 5 Resistance 3 Seat Position 10 Gait Training Gait Activity SPC Device Used SPC Level of Assistance CGA Surface level Distance/Duration 200 x 5 Comments cues for feet clearance Neuro Re-Education Treatment Balance Activities tino with SPC Surface level Equipment SPC Reps/Duration 20 feet x 8 Comments CGA marching Equipment //bar Reps/Duration 20ft x 5 Comments no UE support PT-OP-T Assessment and Plan Start: 08/14/18 12:14 Freq: Status: Active Protocol: Document 09/26/18 16:00 HH (Rec: 09/26/18 16:43 HH [email or web address]) Physical Therapy Assessment Assessment Summary Assessment Pt showed slight decreased in gait speed and feet clearance. Needed cues to facilitate feet clearance. Physical Therapy Plan Next Visit Focus/Plan Next Note Type Progress Note Next Visit Plan Progress report Reassess TUG and 2 min walking test. cont SPC gait training cont gait training SL balance, LE strengthening postural training tino training
--- NOTE | 2018-10-03 18:04 | PT.OTN ---
Current Diagnoses Other abnormalities of gait and mobility (10/03/18) Unspecified abnormalities of gait and mobility (10/03/18) Physical Therapy Treatment Note PT-OP-A Visit Information Start: 08/14/18 12:14 Freq: Status: Active Protocol: Document 10/03/18 16:00 (Rec: 10/03/18 18:04 [email or web address]) Out-Patient Physical Therapy Visit Information Visit Information Visit Type Treatment Note Visit Note [place] today. Pt's brought SPC/ hiking sticks today. Visit Start Time 16:00 Visit Stop Time 16:45 Total Visit Minutes 45 Visit Number 7 Number of HEAD CASHIER Visits 0 PT-OP-B Current Condition Start: 08/14/18 12:14 Freq: Status: Active Protocol: Document 08/14/18 11:15 HH (Rec: 08/14/18 12:50 [email or web address]) Current Condition History of Current Condition Onset Date 2017 Current Complaints Impaired balance and gait, generalized muscle weakness History of Current Condition Pt attends PT with his who gives most of the pt's medical history and current conditions. Pt had hernia surgery in last November and his mobility has declined since then. Pt also had another gallbladder surgery at the end of April. Pt has a hx of dementia and it has been progressively getting worse. Pt is able to follow commands during session. Pt states pt currently uses FWW for home and community mobility. Pt received PT and outpatient PT before his gallbladder surgery. He just finised PT last week. Pt has a CG who comes into the home 4x/week for 6 hours. Pt states his balance and strength has been slightly getting better since his last surgery. Pt is now able to dress his lower body under supervision/ min A. He stands in the shower and has grab bars, he does not want a shower chair. Pt needs assistance to shower his back due to significant kyphotic posture. Pt and his denies falls for the past couple months and pt also denies he has had any spinning sensation with head turns/ getting in and out of the bed. Treatment Goals Patient/Caregiver Goals To strengthen B LE improve overall walking and standing balance. improve his kyphotic posture. Prior Functional Status Baseline Function- ADL's Modified Independent Baseline Function- Mobility Modified Independent Current Functional Impairments (Reported) Functional Limitations- ADL's Assist with shower need supervision for home and community mobility, especially turning Functional Limitations- Mobility/Gait Use FWW for mobility at all times. Personal Factors Other Personal Factors That May Effect Dementia Therapy/Recovery HTN macular degeneration PT-OP-C Subjective Start: 08/14/18 12:14 Freq: Status: Active Protocol: Document 10/03/18 16:00 HH (Rec: 10/03/18 18:04 HH [email or web address]) OP-PT Subjective Patient Comments Patient Comments Pt's stated pt has been moving slower recently, as his CG said so as well. PT-OP-D Balance Start: 08/14/18 12:14 Freq: Status: Active Protocol: Document 08/14/18 11:15 HH (Rec: 08/14/18 12:50 HH [email or web address]) Carson Balance Assessment Evaluation Sitting to Standing Ability Independent w/Hands Unsupported Stance Supervision- 2 minutes Sitting Unsupported, Feet on Floor Safely- 2 minutes Standing to Sitting Ability Assist, Control w/Hands Transfer Ability Supervision, Verbal Cues Unsupported Stance- Eyes Closed Supervision, 10 seconds Unsupported Stance- Eyes Open Supervision to maintain Reaching Forward Standing Safely, 5 inches Pick- Up Object From Floor Supervision Look Behind Shoulder - Standing Supervision w/Turning Turning 360 Degrees Turns slowly, but safely Unsupported Stance, Alternating Feet on 4 Steps w/Supervision Stair Unsupported Tandem Stance Assist to Step-15 seconds Unilateral Leg Stance Lifts Leg/Unable to Hold Total Score Carson Total Score (out of 56 points) 34 Carson Impairment Rating 20 to 39% Impaired (Score 34- 44) PT-OP-E Functional Tests Start: 08/14/18 12:14 Freq: Status: Active Protocol: Document 09/05/18 16:10 HH (Rec: 09/05/18 17:24 HH [email or web address]) Functional Tests 2 Minute Walk Test Distance 193 Device Used hiking sticks Comments cues to heel strikes PT-OP-G Mobility & Gait Start: 08/14/18 12:14 Freq: Status: Active Protocol: Document 08/14/18 11:15 HH (Rec: 08/14/18 12:50 HH [email or web address]) OP Mobility Evaluation Transfers Sit to Stand B UE push off from surface Pt tends to have slight retropulsion during STS OP Gait Assessment Gait Gait Assistance Required: Standby Assistance Able to Maintain Weight Bearing Status Yes During Gait Assistive Devices Assistive Device Front Wheeled Walker Factors Limiting Gait Function Factors Limiting Gait Function Decreased Activity Tolerance Decreased Strength Poor Balance Poor Safety Awareness PT-OP-J Posture/Palpation/Skin Start: 08/14/18 12:14 Freq: Status: Active Protocol: Document 08/14/18 11:15 HH (Rec: 08/14/18 12:50 HH [email or web address]) Posture Evaluation Position Standing T-Spine Posture Increased Kyphosis L-Spine Posture Flattened Scapula Posture (L) Protracted (R) Protracted PT-OP-M Strength Start: 08/14/18 12:14 Freq: Status: Active Protocol: Document 08/14/18 11:15 HH (Rec: 08/14/18 12:50 HH [email or web address]) Hip Strength Hip Manual Muscle Testing Left Flexion (L2) 4 Good Extension (S1) 4 Good Abduction 4 Good Adduction 4 Good Right Flexion (L2) 3+ Fair+ Extension (S1) 3+ Fair+ Abduction 3+ Fair+ Adduction 3+ Fair+ External Rotation 3+ Fair+ Internal Rotation 3+ Fair+ Knee Strength Knee Manual Muscle Testing Left Flexion (S2) 4 Good Extension (L3) 4 Good Right Flexion (S2) 4 Good Extension (L3) 4 Good PT-OP-Q Treatments Start: 08/14/18 12:14 Freq: Status: Active Protocol: Document 10/03/18 16:00 HH (Rec: 10/03/18 18:04 [email or web address]) Cardio Equipment Recumbent Stepper (Sci-Fit) Duration (Minutes) 8 Resistance 1 Seat Position 10 Gait Training Gait Activity SPC Device Used SPC Level of Assistance CGA Surface level Distance/Duration 100 x4 Comments cues for feet clearance PT-OP-T Assessment and Plan Start: 08/14/18 12:14 Freq: Status: Active Protocol: Document 10/03/18 16:00 HH (Rec: 10/03/18 18:04 [email or web address]) Physical Therapy Assessment Goals 2 min walk Halfway Goal (LTG) progress: 90 feet within 2 mins. Progress Towards Goals Progress Towards Goals Slow Progress due to Activity Tolerance Slow Progress due to Medical Issues Slow Progress due to Noncompliance Slow Progress - Other Assessment Summary Assessment Pt presents increased weakness today. Pt requested multiple breaks x2 mins each during session and c/o fatigue and SOB. 2 mins walking test = 90 feet today. Spoke to pt's to cont monitor pt's status since both CG and her noticed a mobility decline of pt recently. Physical Therapy Plan Next Visit Focus/Plan Next Note Type Treatment Note Next Visit Plan reassess pt's status cont endurance training cont SPC gait training cont gait training SL balance, LE strengthening postural training tino training
--- NOTE | 2018-10-11 16:11 | PT.OTN ---
Current Diagnoses Other abnormalities of gait and mobility (10/11/18) Unspecified abnormalities of gait and mobility (10/11/18) Physical Therapy Treatment Note PT-OP-A Visit Information Start: 08/14/18 12:14 Freq: Status: Active Protocol: Document 10/11/18 16:04 EA (Rec: 10/11/18 16:11 EA [id number]) Out-Patient Physical Therapy Visit Information Visit Information Visit Type Treatment Note Visit Note [facility] today. Pt's brought SPC/ hiking sticks today. Visit Start Time 15:15 Visit Stop Time 16:00 Total Visit Minutes 45 Visit Number 8 Number of LEGAL TRANSCRIPTIONIST Visits 0 PT-OP-B Current Condition Start: 08/14/18 12:14 Freq: Status: Active Protocol: Document 08/14/18 11:15 HH (Rec: 08/14/18 12:50 HH [email or web address]) Current Condition History of Current Condition Onset Date 2017 Current Complaints Impaired balance and gait, generalized muscle weakness History of Current Condition Pt attends PT with his who gives most of the pt's medical history and current conditions. Pt had hernia surgery in last November and his mobility has declined since then. Pt also had another gallbladder surgery at the end of April. Pt has a hx of dementia and it has been progressively getting worse. Pt is able to follow commands during session. Pt states pt currently uses FWW for home and community mobility. Pt received PT and outpatient PT before his gallbladder surgery. He just finised PT last week. Pt has a CG who comes into the home 4x/week for 6 hours. Pt states his balance and strength has been slightly getting better since his last surgery. Pt is now able to dress his lower body under supervision/ min A. He stands in the shower and has grab bars, he does not want a shower chair. Pt needs assistance to shower his back due to significant kyphotic posture. Pt and his denies falls for the past couple months and pt also denies he has had any spinning sensation with head turns/ getting in and out of the bed. Treatment Goals Patient/Caregiver Goals To strengthen B LE improve overall walking and standing balance. improve his kyphotic posture. Prior Functional Status Baseline Function- ADL's Modified Independent Baseline Function- Mobility Modified Independent Current Functional Impairments (Reported) Functional Limitations- ADL's Assist with shower need supervision for home and community mobility, especially turning Functional Limitations- Mobility/Gait Use FWW for mobility at all times. Personal Factors Other Personal Factors That May Effect Dementia Therapy/Recovery HTN macular degeneration PT-OP-C Subjective Start: 08/14/18 12:14 Freq: Status: Active Protocol: Document 10/11/18 16:04 EA (Rec: 10/11/18 16:11 EA [id number]) OP-PT Subjective Patient Comments Patient Comments I dont like walking, patient stated when asked about if he has been walking outdoors. PT-OP-D Balance Start: 08/14/18 12:14 Freq: Status: Active Protocol: Document 08/14/18 11:15 HH (Rec: 08/14/18 12:50 HH [email or web address]) Carson Balance Assessment Evaluation Sitting to Standing Ability Independent w/Hands Unsupported Stance Supervision- 2 minutes Sitting Unsupported, Feet on Floor Safely- 2 minutes Standing to Sitting Ability Assist, Control w/Hands Transfer Ability Supervision, Verbal Cues Unsupported Stance- Eyes Closed Supervision, 10 seconds Unsupported Stance- Eyes Open Supervision to maintain Reaching Forward Standing Safely, 5 inches Pick- Up Object From Floor Supervision Look Behind Shoulder - Standing Supervision w/Turning Turning 360 Degrees Turns slowly, but safely Unsupported Stance, Alternating Feet on 4 Steps w/Supervision Stair Unsupported Tandem Stance Assist to Step-15 seconds Unilateral Leg Stance Lifts Leg/Unable to Hold Total Score Carson Total Score (out of 56 points) 34 Carson Impairment Rating 20 to 39% Impaired (Score 34- 44) PT-OP-E Functional Tests Start: 08/14/18 12:14 Freq: Status: Active Protocol: Document 09/05/18 16:10 HH (Rec: 09/05/18 17:24 HH [email or web address]) Functional Tests 2 Minute Walk Test Distance 193 Device Used hiking sticks Comments cues to heel strikes PT-OP-G Mobility & Gait Start: 08/14/18 12:14 Freq: Status: Active Protocol: Document 08/14/18 11:15 HH (Rec: 08/14/18 12:50 HH [email or web address]) OP Mobility Evaluation Transfers Sit to Stand B UE push off from surface Pt tends to have slight retropulsion during STS OP Gait Assessment Gait Gait Assistance Required: Standby Assistance Able to Maintain Weight Bearing Status Yes During Gait Assistive Devices Assistive Device Front Wheeled Walker Factors Limiting Gait Function Factors Limiting Gait Function Decreased Activity Tolerance Decreased Strength Poor Balance Poor Safety Awareness PT-OP-J Posture/Palpation/Skin Start: 08/14/18 12:14 Freq: Status: Active Protocol: Document 08/14/18 11:15 HH (Rec: 08/14/18 12:50 HH [email or web address]) Posture Evaluation Position Standing T-Spine Posture Increased Kyphosis L-Spine Posture Flattened Scapula Posture (L) Protracted (R) Protracted PT-OP-M Strength Start: 08/14/18 12:14 Freq: Status: Active Protocol: Document 08/14/18 11:15 HH (Rec: 08/14/18 12:50 HH [email or web address]) Hip Strength Hip Manual Muscle Testing Left Flexion (L2) 4 Good Extension (S1) 4 Good Abduction 4 Good Adduction 4 Good Right Flexion (L2) 3+ Fair+ Extension (S1) 3+ Fair+ Abduction 3+ Fair+ Adduction 3+ Fair+ External Rotation 3+ Fair+ Internal Rotation 3+ Fair+ Knee Strength Knee Manual Muscle Testing Left Flexion (S2) 4 Good Extension (L3) 4 Good Right Flexion (S2) 4 Good Extension (L3) 4 Good PT-OP-Q Treatments Start: 08/14/18 12:14 Freq: Status: Active Protocol: Document 10/11/18 16:04 EA (Rec: 10/11/18 16:11 EA [id number]) Cardio Equipment Recumbent Stepper (Sci-Fit) Duration (Minutes) 8 Resistance 1 Seat Position 10 Gym Equipment Shuttle Balance 1 Details YELLOW Reps/Duration 10 min Comments Head turns, eyes closed/open, UE movements Therapeutic Exercises Standing Exercises 6 Standing Exercise Name Tino stepping Reps/Minutes x 6ft x 4 length Comments SPC with CGA 5 Standing Exercise Name bakward walks Reps/Minutes x 6 ft x 6 length Gait Training Gait Activity SPC Device Used SPC Level of Assistance CGA Surface level Distance/Duration 100 x4 Comments cues for feet clearance PT-OP-T Assessment and Plan Start: 08/14/18 12:14 Freq: Status: Active Protocol: Document 10/11/18 16:04 EA (Rec: 10/11/18 16:11 EA [id number]) Physical Therapy Assessment Assessment Summary Assessment Tolerated treatment well; requires cues to fish bait picker feet and requires rest due to SOB. Physical Therapy Plan Next Visit Focus/Plan Next Note Type Treatment Note Next Visit Plan reassess pt's status cont endurance training cont SPC gait training cont gait training SL balance, LE strengthening postural training tino training
--- NOTE | 2018-10-18 17:39 | PT.OTN ---
Current Diagnoses Other abnormalities of gait and mobility (10/18/18) Unspecified abnormalities of gait and mobility (10/18/18) Physical Therapy Treatment Note PT-OP-A Visit Information Start: 08/14/18 12:14 Freq: Status: Active Protocol: Document 10/18/18 15:15 HH (Rec: 10/18/18 17:39 HH [email or web address]) Out-Patient Physical Therapy Visit Information Visit Information Visit Type Treatment Note Visit Note Pt's brought SPC Visit Start Time 15:15 Visit Stop Time 16:55 Total Visit Minutes 40 Visit Number 9 Number of REFINERY OPERATOR ASSISTANT Visits 0 PT-OP-B Current Condition Start: 08/14/18 12:14 Freq: Status: Active Protocol: Document 08/14/18 11:15 HH (Rec: 08/14/18 12:50 HH [email or web address]) Current Condition History of Current Condition Onset Date 2017 Current Complaints Impaired balance and gait, generalized muscle weakness History of Current Condition Pt attends PT with his who gives most of the pt's medical history and current conditions. Pt had hernia surgery in last November and his mobility has declined since then. Pt also had another gallbladder surgery at the end of April. Pt has a hx of dementia and it has been progressively getting worse. Pt is able to follow commands during session. Pt states pt currently uses FWW for home and community mobility. Pt received PT and outpatient PT before his gallbladder surgery. He just finised PT last week. Pt has a CG who comes into the home 4x/week for 6 hours. Pt states his balance and strength has been slightly getting better since his last surgery. Pt is now able to dress his lower body under supervision/ min A. He stands in the shower and has grab bars, he does not want a shower chair. Pt needs assistance to shower his back due to significant kyphotic posture. Pt and his denies falls for the past couple months and pt also denies he has had any spinning sensation with head turns/ getting in and out of the bed. Treatment Goals Patient/Caregiver Goals To strengthen B LE improve overall walking and standing balance. improve his kyphotic posture. Prior Functional Status Baseline Function- ADL's Modified Independent Baseline Function- Mobility Modified Independent Current Functional Impairments (Reported) Functional Limitations- ADL's Assist with shower need supervision for home and community mobility, especially turning Functional Limitations- Mobility/Gait Use FWW for mobility at all times. Personal Factors Other Personal Factors That May Effect Dementia Therapy/Recovery HTN macular degeneration PT-OP-C Subjective Start: 08/14/18 12:14 Freq: Status: Active Protocol: Document 10/18/18 15:15 HH (Rec: 10/18/18 17:39 HH [email or web address]) OP-PT Subjective Patient Comments Patient Comments pt's states Rom will going to have sleep consult in [facility] to improve his REM sleep since his CPAP didnt help. And Rom has been feeling tired and sleepy as well. PT-OP-D Balance Start: 08/14/18 12:14 Freq: Status: Active Protocol: Document 08/14/18 11:15 HH (Rec: 08/14/18 12:50 HH [email or web address]) Carson Balance Assessment Evaluation Sitting to Standing Ability Independent w/Hands Unsupported Stance Supervision- 2 minutes Sitting Unsupported, Feet on Floor Safely- 2 minutes Standing to Sitting Ability Assist, Control w/Hands Transfer Ability Supervision, Verbal Cues Unsupported Stance- Eyes Closed Supervision, 10 seconds Unsupported Stance- Eyes Open Supervision to maintain Reaching Forward Standing Safely, 5 inches Pick- Up Object From Floor Supervision Look Behind Shoulder - Standing Supervision w/Turning Turning 360 Degrees Turns slowly, but safely Unsupported Stance, Alternating Feet on 4 Steps w/Supervision Stair Unsupported Tandem Stance Assist to Step-15 seconds Unilateral Leg Stance Lifts Leg/Unable to Hold Total Score Carson Total Score (out of 56 points) 34 Carson Impairment Rating 20 to 39% Impaired (Score 34- 44) PT-OP-E Functional Tests Start: 08/14/18 12:14 Freq: Status: Active Protocol: Document 09/05/18 16:10 HH (Rec: 09/05/18 17:24 HH [email or web address]) Functional Tests 2 Minute Walk Test Distance 193 Device Used hiking sticks Comments cues to heel strikes PT-OP-G Mobility & Gait Start: 08/14/18 12:14 Freq: Status: Active Protocol: Document 08/14/18 11:15 HH (Rec: 08/14/18 12:50 HH [email or web address]) OP Mobility Evaluation Transfers Sit to Stand B UE push off from surface Pt tends to have slight retropulsion during STS OP Gait Assessment Gait Gait Assistance Required: Standby Assistance Able to Maintain Weight Bearing Status Yes During Gait Assistive Devices Assistive Device Front Wheeled Walker Factors Limiting Gait Function Factors Limiting Gait Function Decreased Activity Tolerance Decreased Strength Poor Balance Poor Safety Awareness PT-OP-J Posture/Palpation/Skin Start: 08/14/18 12:14 Freq: Status: Active Protocol: Document 08/14/18 11:15 HH (Rec: 08/14/18 12:50 [email or web address]) Posture Evaluation Position Standing T-Spine Posture Increased Kyphosis L-Spine Posture Flattened Scapula Posture (L) Protracted (R) Protracted PT-OP-M Strength Start: 08/14/18 12:14 Freq: Status: Active Protocol: Document 08/14/18 11:15 HH (Rec: 08/14/18 12:50 [email or web address]) Hip Strength Hip Manual Muscle Testing Left Flexion (L2) 4 Good Extension (S1) 4 Good Abduction 4 Good Adduction 4 Good Right Flexion (L2) 3+ Fair+ Extension (S1) 3+ Fair+ Abduction 3+ Fair+ Adduction 3+ Fair+ External Rotation 3+ Fair+ Internal Rotation 3+ Fair+ Knee Strength Knee Manual Muscle Testing Left Flexion (S2) 4 Good Extension (L3) 4 Good Right Flexion (S2) 4 Good Extension (L3) 4 Good PT-OP-Q Treatments Start: 08/14/18 12:14 Freq: Status: Active Protocol: Document 10/18/18 15:15 HH (Rec: 10/18/18 17:39 [email or web address]) Cardio Equipment Recumbent Stepper (Sci-Fit) Duration (Minutes) 8 Resistance 1 Seat Position 10 Therapeutic Exercises Standing Exercises 6 Standing Exercise Name Tino stepping Reps/Minutes x 6ft x 4 length Comments SPC with CGA 5 Standing Exercise Name bakward walks Reps/Minutes x 6 ft x 6 length Gait Training Gait Activity SPC Device Used SPC Level of Assistance CGA Surface level Distance/Duration 100 x4 Comments cues for feet clearance PT-OP-T Assessment and Plan Start: 08/14/18 12:14 Freq: Status: Active Protocol: Document 10/18/18 15:15 HH (Rec: 10/18/18 17:39 [email or web address]) Physical Therapy Assessment Assessment Summary Assessment pt's states rom is going to have sleep consult to improve his sleep, hopefully that gives him more energy for mobility. Pt jadyn tx well today but cont required cues to facilitate picking his feet Physical Therapy Plan Next Visit Focus/Plan Next Note Type Treatment Note Next Visit Plan cont endurance training cont SPC gait training cont gait training SL balance, LE strengthening postural training tino training
--- NOTE | 2018-10-25 18:51 | PT.OTN ---
Current Diagnoses Other abnormalities of gait and mobility (10/25/18) Unspecified abnormalities of gait and mobility (10/25/18) Physical Therapy Treatment Note PT-OP-A Visit Information Start: 08/14/18 12:14 Freq: Status: Active Protocol: Document 10/25/18 16:00 HH (Rec: 10/25/18 18:51 HH [email or web address]) Out-Patient Physical Therapy Visit Information Visit Information Visit Type Treatment Note Visit Note Pt's brought SPC and 4 ww today. Visit Start Time 16:00 Visit Stop Time 16:45 Total Visit Minutes 45 Visit Number 10 Number of OSTOMY RN Visits 0 PT-OP-B Current Condition Start: 08/14/18 12:14 Freq: Status: Active Protocol: Document 08/14/18 11:15 HH (Rec: 08/14/18 12:50 HH [email or web address]) Current Condition History of Current Condition Onset Date 2017 Current Complaints Impaired balance and gait, generalized muscle weakness History of Current Condition Pt attends PT with his who gives most of the pt's medical history and current conditions. Pt had hernia surgery in last November and his mobility has declined since then. Pt also had another gallbladder surgery at the end of April. Pt has a hx of dementia and it has been progressively getting worse. Pt is able to follow commands during session. Pt states pt currently uses FWW for home and community mobility. Pt received PT and outpatient PT before his gallbladder surgery. He just finised PT last week. Pt has a CG who comes into the home 4x/week for 6 hours. Pt states his balance and strength has been slightly getting better since his last surgery. Pt is now able to dress his lower body under supervision/ min A. He stands in the shower and has grab bars, he does not want a shower chair. Pt needs assistance to shower his back due to significant kyphotic posture. Pt and his denies falls for the past couple months and pt also denies he has had any spinning sensation with head turns/ getting in and out of the bed. Treatment Goals Patient/Caregiver Goals To strengthen B LE improve overall walking and standing balance. improve his kyphotic posture. Prior Functional Status Baseline Function- ADL's Modified Independent Baseline Function- Mobility Modified Independent Current Functional Impairments (Reported) Functional Limitations- ADL's Assist with shower need supervision for home and community mobility, especially turning Functional Limitations- Mobility/Gait Use FWW for mobility at all times. Personal Factors Other Personal Factors That May Effect Dementia Therapy/Recovery HTN macular degeneration PT-OP-C Subjective Start: 08/14/18 12:14 Freq: Status: Active Protocol: Document 10/25/18 16:00 HH (Rec: 10/25/18 18:51 HH [email or web address]) OP-PT Subjective Patient Comments Patient Comments Sleep consult will be on 11/12. Pt's hopes it will help pt to improve his energy level and cont therapy to improve his overall mobility. PT-OP-D Balance Start: 08/14/18 12:14 Freq: Status: Active Protocol: Document 08/14/18 11:15 HH (Rec: 08/14/18 12:50 HH [email or web address]) Carson Balance Assessment Evaluation Sitting to Standing Ability Independent w/Hands Unsupported Stance Supervision- 2 minutes Sitting Unsupported, Feet on Floor Safely- 2 minutes Standing to Sitting Ability Assist, Control w/Hands Transfer Ability Supervision, Verbal Cues Unsupported Stance- Eyes Closed Supervision, 10 seconds Unsupported Stance- Eyes Open Supervision to maintain Reaching Forward Standing Safely, 5 inches Pick- Up Object From Floor Supervision Look Behind Shoulder - Standing Supervision w/Turning Turning 360 Degrees Turns slowly, but safely Unsupported Stance, Alternating Feet on 4 Steps w/Supervision Stair Unsupported Tandem Stance Assist to Step-15 seconds Unilateral Leg Stance Lifts Leg/Unable to Hold Total Score Carson Total Score (out of 56 points) 34 Carson Impairment Rating 20 to 39% Impaired (Score 34- 44) PT-OP-E Functional Tests Start: 08/14/18 12:14 Freq: Status: Active Protocol: Document 09/05/18 16:10 HH (Rec: 09/05/18 17:24 HH [email or web address]) Functional Tests 2 Minute Walk Test Distance 193 Device Used hiking sticks Comments cues to heel strikes PT-OP-G Mobility & Gait Start: 08/14/18 12:14 Freq: Status: Active Protocol: Document 08/14/18 11:15 HH (Rec: 08/14/18 12:50 HH [email or web address]) OP Mobility Evaluation Transfers Sit to Stand B UE push off from surface Pt tends to have slight retropulsion during STS OP Gait Assessment Gait Gait Assistance Required: Standby Assistance Able to Maintain Weight Bearing Status Yes During Gait Assistive Devices Assistive Device Front Wheeled Walker Factors Limiting Gait Function Factors Limiting Gait Function Decreased Activity Tolerance Decreased Strength Poor Balance Poor Safety Awareness PT-OP-J Posture/Palpation/Skin Start: 08/14/18 12:14 Freq: Status: Active Protocol: Document 08/14/18 11:15 HH (Rec: 08/14/18 12:50 [email or web address]) Posture Evaluation Position Standing T-Spine Posture Increased Kyphosis L-Spine Posture Flattened Scapula Posture (L) Protracted (R) Protracted PT-OP-M Strength Start: 08/14/18 12:14 Freq: Status: Active Protocol: Document 08/14/18 11:15 HH (Rec: 08/14/18 12:50 [email or web address]) Hip Strength Hip Manual Muscle Testing Left Flexion (L2) 4 Good Extension (S1) 4 Good Abduction 4 Good Adduction 4 Good Right Flexion (L2) 3+ Fair+ Extension (S1) 3+ Fair+ Abduction 3+ Fair+ Adduction 3+ Fair+ External Rotation 3+ Fair+ Internal Rotation 3+ Fair+ Knee Strength Knee Manual Muscle Testing Left Flexion (S2) 4 Good Extension (L3) 4 Good Right Flexion (S2) 4 Good Extension (L3) 4 Good PT-OP-Q Treatments Start: 08/14/18 12:14 Freq: Status: Active Protocol: Document 10/25/18 16:00 HH (Rec: 10/25/18 18:51 [email or web address]) Cardio Equipment Recumbent Stepper (Sci-Fit) Duration (Minutes) 8 Resistance 1 Seat Position 10 Therapeutic Exercises Standing Exercises 6 Standing Exercise Name Tino stepping Reps/Minutes x 10ft x 6 length Comments SPC with CGA Therapeutic Activity Therapeutic Activity sit to stand Name sts from chair with elevated padding Reps/Minutes 8 reps x 2 Comments use grab bar for support Gait Training Gait Activity SPC Device Used SPC Level of Assistance CGA Surface level Distance/Duration 100 x5 Comments cues for feet clearance Neuro Re-Education Treatment Balance Activities tino with SPC Surface level Equipment hurdles Comments step to and step over pattern with CGA PT-OP-T Assessment and Plan Start: 08/14/18 12:14 Freq: Status: Active Protocol: Document 10/25/18 16:00 HH (Rec: 10/25/18 18:51 [email or web address]) Physical Therapy Assessment Assessment Summary Assessment Pt appears more energetic today and able to jadyn tx session well with less SOB or c/o fatigue. Pt was motivated to perform tino balance training and he showed improved feet clearance during gait training today. Physical Therapy Plan Next Visit Focus/Plan Next Note Type Re-Evaluation Next Visit Plan Reevel next session cont endurance training cont SPC gait training cont gait training SL balance, LE strengthening postural training tino training
--- NOTE | 2018-11-06 19:33 | PT.OTRE ---
Current Diagnoses Other abnormalities of gait and mobility (11/06/18) Unspecified abnormalities of gait and mobility (11/06/18) Past Medical History (Last Reviewed 05/30/18 @ 16:32 by Alberto Galeano MD) Hypothyroidism (Chronic 04/05/16) Abdominal distention (Chronic) Abdominal pain (Chronic) Memory deficit (Chronic) Ambulatory dysfunction (Chronic) Atherosclerosis (Acute) Cardiomegaly (Acute) Diverticulosis (Acute) EKG abnormalities (Acute) Emphysema (subcutaneous) (surgical) resulting from a procedure (Acute) Granulomatous disease (Acute) Poor kidney function (Acute) Reactive airway disease (Acute) Shortness of breath (Acute) BPH (benign prostatic hyperplasia) (Chronic) Cataract (Chronic 1999) Dandruff (Chronic) Hearing loss (Chronic) Hypertension (Chronic) Hypothyroid (Chronic) Kidney insufficiency (Chronic) Macular degeneration (Chronic) Polymyalgia rheumatica (Chronic) Psoriasis (Chronic) Pulmonary fibrosis (Chronic) Scoliosis (Chronic) Sleep apnea (Chronic) Abnormal CXR (chest x-ray) (Resolved ~194) Chicken pox (Resolved ~1955) Finger fracture (Resolved ~194) Measles (Resolved ~1955) Mumps (Resolved ~1955) Rubella (Resolved) Tuberculosis (Resolved ~194) Vertigo (Resolved 2009) Surgical History (Last Reviewed 05/30/18 @ 16:32 by Alberto Galeano MD) H/O hernia repair (Acute ~12/19/17) Anesthesia (Resolved) History of tonsillectomy (Resolved ~1940) History of umbilical hernia repair (Resolved 12/19/17) Status post appendectomy (Resolved 2008) Provider Visit Care Team Role Provider Type Cortes Sanders MD Attending Provider Physician Primary Care Provider Specialty: Family Practice Address: [address] [place] [address], [facility] Email: [email or web address] Physical Therapy Re-Evaluation PT-OP-A Visit Information Start: 08/14/18 12:14 Freq: Status: Active Protocol: Document 11/06/18 17:30 HH (Rec: 11/06/18 19:26 [email or web address]) Out-Patient Physical Therapy Visit Information Visit Information Visit Type Re-Evaluation Visit Note Pt's attended session Visit Start Time 17:30 Visit Stop Time 16:15 Total Visit Minutes 45 Visit Number 11 Number of HOLLOW HANDLE BENCH WORKER Visits 0 PT-OP-B Current Condition Start: 08/14/18 12:14 Freq: Status: Active Protocol: Document 08/14/18 11:15 (Rec: 08/14/18 12:50 [email or web address]) Current Condition History of Current Condition Onset Date 2017 Current Complaints Impaired balance and gait, generalized muscle weakness History of Current Condition Pt attends PT with his who gives most of the pt's medical history and current conditions. Pt had hernia surgery in last November and his mobility has declined since then. Pt also had another gallbladder surgery at the end of April. Pt has a hx of dementia and it has been progressively getting worse. Pt is able to follow commands during session. Pt states pt currently uses FWW for home and community mobility. Pt received PT and outpatient PT before his gallbladder surgery. He just finised PT last week. Pt has a CG who comes into the home 4x/week for 6 hours. Pt states his balance and strength has been slightly getting better since his last surgery. Pt is now able to dress his lower body under supervision/ min A. He stands in the shower and has grab bars, he does not want a shower chair. Pt needs assistance to shower his back due to significant kyphotic posture. Pt and his denies falls for the past couple months and pt also denies he has had any spinning sensation with head turns/ getting in and out of the bed. Treatment Goals Patient/Caregiver Goals To strengthen B LE improve overall walking and standing balance. improve his kyphotic posture. Prior Functional Status Baseline Function- ADL's Modified Independent Baseline Function- Mobility Modified Independent Current Functional Impairments (Reported) Functional Limitations- ADL's Assist with shower need supervision for home and community mobility, especially turning Functional Limitations- Mobility/Gait Use FWW for mobility at all times. Personal Factors Other Personal Factors That May Effect Dementia Therapy/Recovery HTN macular degeneration PT-OP-C Subjective Start: 08/14/18 12:14 Freq: Status: Active Protocol: Document 11/06/18 17:30 (Rec: 11/06/18 19:26 [email or web address]) OP-PT Subjective Patient Comments Patient Comments Pt went to [facility] today for check up. C/o very fatigue since he walked a lot PT-OP-D Balance Start: 08/14/18 12:14 Freq: Status: Active Protocol: Document 11/06/18 17:30 HH (Rec: 11/06/18 19:28 HH [email or web address]) Balance Tests Bach Balance Test Bach Balance Test Score 28 Bach Impairment Rating 40 to 59% Impaired (Score 23- 33) PT-OP-E Functional Tests Start: 08/14/18 12:14 Freq: Status: Active Protocol: Document 11/06/18 17:30 HH (Rec: 11/06/18 19:28 HH [email or web address]) Functional Tests 2 Minute Walk Test Distance 219 Device Used SPC Comments pt LOB twice by tripping his feet Timed Up and Go (TUG) Score 42s PT-OP-G Mobility & Gait Start: 08/14/18 12:14 Freq: Status: Active Protocol: Document 08/14/18 11:15 HH (Rec: 08/14/18 12:50 HH [email or web address]) OP Mobility Evaluation Transfers Sit to Stand B UE push off from surface Pt tends to have slight retropulsion during STS OP Gait Assessment Gait Gait Assistance Required: Standby Assistance Able to Maintain Weight Bearing Status Yes During Gait Assistive Devices Assistive Device Front Wheeled Walker Factors Limiting Gait Function Factors Limiting Gait Function Decreased Activity Tolerance Decreased Strength Poor Balance Poor Safety Awareness PT-OP-J Posture/Palpation/Skin Start: 08/14/18 12:14 Freq: Status: Active Protocol: Document 08/14/18 11:15 HH (Rec: 08/14/18 12:50 HH [email or web address]) Posture Evaluation Position Standing T-Spine Posture Increased Kyphosis L-Spine Posture Flattened Scapula Posture (L) Protracted (R) Protracted PT-OP-M Strength Start: 08/14/18 12:14 Freq: Status: Active Protocol: Document 08/14/18 11:15 HH (Rec: 08/14/18 12:50 HH [email or web address]) Hip Strength Hip Manual Muscle Testing Left Flexion (L2) 4 Good Extension (S1) 4 Good Abduction 4 Good Adduction 4 Good Right Flexion (L2) 3+ Fair+ Extension (S1) 3+ Fair+ Abduction 3+ Fair+ Adduction 3+ Fair+ External Rotation 3+ Fair+ Internal Rotation 3+ Fair+ Knee Strength Knee Manual Muscle Testing Left Flexion (S2) 4 Good Extension (L3) 4 Good Right Flexion (S2) 4 Good Extension (L3) 4 Good PT-OP-Q Treatments Start: 08/14/18 12:14 Freq: Status: Active Protocol: Document 11/06/18 17:30 HH (Rec: 11/06/18 19:26 [email or web address]) Gait Training Gait Activity SPC Device Used SPC Level of Assistance CGA Surface level Distance/Duration 100 x3 Comments cues for feet clearance PT-OP-T Assessment and Plan Start: 08/14/18 12:14 Freq: Status: Active Protocol: Document 11/06/18 17:30 HH (Rec: 11/06/18 19:26 [email or web address]) Physical Therapy Assessment Rehab Potential Rehabilitation Potential Fair Impairments Impairments Activity Tolerance Balance Functional Activities Functional Mobility Gait Posture ROM Soft Tissue Mobility Strength Transfers Other Impairments dementia Goals 2 min walk [facility]ci Goal (LTG) 11/06= 218 feet with SPC Pt will be able to amb 250 feet with SPC to improve his gait speed. LTG Duration 8 weeks overall mobility [facility] Goal (LTG) TUG= 42 secs 11/06/18 Pt will improve his score to 30 seconds to reduce his gait efficiency and reduce fall risks balance [facility]ci Goal (LTG) 11/06 = BACH = 28/56 pt will improve his overall BACH score to 38/56 to reduce fall risks Progress Towards Goals Progress Towards Goals Slow Progress due to Activity Tolerance Slow Progress due to Medical Issues Slow Progress due to Noncompliance Slow Progress - Other Assessment Summary Assessment Reeval today. pt has a very busy and tiring early this morning which affect his performanc of functional tests . Pt did amb further for 2 mins test (219 feet with SPC), but overall showed increased time taken for transfers, sit to stand and a decline in balance (BACH 28/56; TUG = 42 secs). These 3 functional tests show pt is well below average with a high fall risks . Although pt has shown decreased overall mobility due to his lack of motivation and progression of dementia, pt will cont benefit from skilled PT to maintain/improve his current mobility for fall prevention. In addition, Pt apparently will get sleep consult for [facility] soon and his hopes that it will improve Pt's sleep quality to improve his energy level. Physical Therapy Plan Next Visit Focus/Plan Next Note Type Treatment Note Next Visit Plan reassess 5 STS, TUG, bach, 2 min walk test cont endurance training cont SPC gait training cont gait training SL balance, LE strengthening postural training tino training
--- NOTE | 2018-11-06 19:35 | PT.OPPOC ---
Current Diagnoses Other abnormalities of gait and mobility (11/06/18) Unspecified abnormalities of gait and mobility (11/06/18) Provider Visit Care Team Role Provider Type Cortes Sanders MD Attending Provider Physician Primary Care Provider Specialty: Family Practice Address: [address] [place] [address], [id number] Email: [email or web address] Plan Of Care PT-OP-T Assessment and Plan Start: 08/14/18 12:14 Freq: Status: Active Protocol: Document 11/06/18 17:30 HH (Rec: 11/06/18 19:26 HH [email or web address]) Physical Therapy Assessment Rehab Potential Rehabilitation Potential Fair Impairments Impairments Activity Tolerance Balance Functional Activities Functional Mobility Gait Posture ROM Soft Tissue Mobility Strength Transfers Other Impairments dementia Goals 2 min walk Correction Goal (LTG) 11/06= 218 feet with SPC Pt will be able to amb 250 feet with SPC to improve his gait speed. LTG Duration 8 weeks overall mobility Vocational Education Teacher Goal (LTG) TUG= 42 secs 11/06/18 Pt will improve his score to 30 seconds to reduce his gait efficiency and reduce fall risks balance Correction Goal (LTG) 11/06 = BACH = 28/56 pt will improve his overall BACH score to 38/56 to reduce fall risks Progress Towards Goals Progress Towards Goals Slow Progress due to Activity Tolerance Slow Progress due to Medical Issues Slow Progress due to Noncompliance Slow Progress - Other Assessment Summary Assessment Reeval today. pt has a very busy and tiring early this morning which affect his performanc of functional tests . Pt did amb further for 2 mins test (219 feet with SPC), but overall showed increased time taken for transfers, sit to stand and a decline in balance (BACH 28/56; TUG = 42 secs). These 3 functional tests show pt is well below average with a high fall risks . Although pt has shown decreased overall mobility due to his lack of motivation and progression of dementia, pt will cont benefit from skilled PT to maintain/improve his current mobility for fall prevention. In addition, Pt apparently will get sleep consult for [employer] soon and his hopes that it will improve Pt's sleep quality to improve his energy level. Physical Therapy Plan Frequency and Duration Frequency of Treatment 1x/Week Duration of Treatment 8 weeks Plan of Care Start Date 11/06/18 Plan of Care End Date 01/06/19 Therapeutic Interventions Therapeutic Interventions Aquatic Therapy Balance Training Gait Training Home Exercise Program Manual Therapy Neuromuscular Re-education Patient/Caregiver Education Therapeutic Activities Therapeutic Exercises Next Visit Focus/Plan Next Note Type Treatment Note Next Visit Plan reassess 5 STS, TUG, bach, 2 min walk test cont endurance training cont SPC gait training cont gait training SL balance, LE strengthening postural training tino training Plan of Care Dates Plan of Care Start Date 11/06/18 Plan of Care End Date 01/06/19 Please Sign and Return: I have reviewed this Plan of Care and certify that the skilled therapy services above are required to meet the patient?s needs. Physician Signature Date Printed Name and Credentials Clinical Instructor Signature Printed Name and Credentials
--- NOTE | 2018-11-13 17:56 | PT.OTN ---
Current Diagnoses Other abnormalities of gait and mobility (11/13/18) Unspecified abnormalities of gait and mobility (11/13/18) Physical Therapy Treatment Note PT-OP-A Visit Information Start: 08/14/18 12:14 Freq: Status: Active Protocol: Document 11/13/18 15:30 HH (Rec: 11/13/18 17:56 HH [email or web address]) Out-Patient Physical Therapy Visit Information Visit Information Visit Type Treatment Note Visit Note Pt and his both 15 mins late.Pt's brought SPC and 4 ww today. Visit Start Time 15:30 Visit Stop Time 16:00 Total Visit Minutes 30 Visit Number 12 Number of INTERNET MARKETING ASSISTANT Visits 0 PT-OP-B Current Condition Start: 08/14/18 12:14 Freq: Status: Active Protocol: Document 08/14/18 11:15 HH (Rec: 08/14/18 12:50 HH [email or web address]) Current Condition History of Current Condition Onset Date 2017 Current Complaints Impaired balance and gait, generalized muscle weakness History of Current Condition Pt attends PT with his who gives most of the pt's medical history and current conditions. Pt had hernia surgery in last November and his mobility has declined since then. Pt also had another gallbladder surgery at the end of April. Pt has a hx of dementia and it has been progressively getting worse. Pt is able to follow commands during session. Pt states pt currently uses FWW for home and community mobility. Pt received PT and outpatient PT before his gallbladder surgery. He just finised PT last week. Pt has a CG who comes into the home 4x/week for 6 hours. Pt states his balance and strength has been slightly getting better since his last surgery. Pt is now able to dress his lower body under supervision/ min A. He stands in the shower and has grab bars, he does not want a shower chair. Pt needs assistance to shower his back due to significant kyphotic posture. Pt and his denies falls for the past couple months and pt also denies he has had any spinning sensation with head turns/ getting in and out of the bed. Treatment Goals Patient/Caregiver Goals To strengthen B LE improve overall walking and standing balance. improve his kyphotic posture. Prior Functional Status Baseline Function- ADL's Modified Independent Baseline Function- Mobility Modified Independent Current Functional Impairments (Reported) Functional Limitations- ADL's Assist with shower need supervision for home and community mobility, especially turning Functional Limitations- Mobility/Gait Use FWW for mobility at all times. Personal Factors Other Personal Factors That May Effect Dementia Therapy/Recovery HTN macular degeneration PT-OP-C Subjective Start: 08/14/18 12:14 Freq: Status: Active Protocol: Document 11/13/18 15:30 HH (Rec: 11/13/18 17:56 HH [email or web address]) OP-PT Subjective Patient Comments Patient Comments Pt c/o he is tired and did not sleep well. PT-OP-D Balance Start: 08/14/18 12:14 Freq: Status: Active Protocol: Document 11/06/18 17:30 HH (Rec: 11/06/18 19:28 HH [email or web address]) Balance Tests Elkins Balance Test Elkins Balance Test Score 28 Elkins Impairment Rating 40 to 59% Impaired (Score 23- 33) PT-OP-E Functional Tests Start: 08/14/18 12:14 Freq: Status: Active Protocol: Document 11/06/18 17:30 HH (Rec: 11/06/18 19:28 HH [email or web address]) Functional Tests 2 Minute Walk Test Distance 219 Device Used SPC Comments pt LOB twice by tripping his feet Timed Up and Go (TUG) Score 42s PT-OP-G Mobility & Gait Start: 08/14/18 12:14 Freq: Status: Active Protocol: Document 08/14/18 11:15 HH (Rec: 08/14/18 12:50 HH [email or web address]) OP Mobility Evaluation Transfers Sit to Stand B UE push off from surface Pt tends to have slight retropulsion during STS OP Gait Assessment Gait Gait Assistance Required: Standby Assistance Able to Maintain Weight Bearing Status Yes During Gait Assistive Devices Assistive Device Front Wheeled Walker Factors Limiting Gait Function Factors Limiting Gait Function Decreased Activity Tolerance Decreased Strength Poor Balance Poor Safety Awareness PT-OP-J Posture/Palpation/Skin Start: 08/14/18 12:14 Freq: Status: Active Protocol: Document 08/14/18 11:15 HH (Rec: 08/14/18 12:50 HH [email or web address]) Posture Evaluation Position Standing T-Spine Posture Increased Kyphosis L-Spine Posture Flattened Scapula Posture (L) Protracted (R) Protracted PT-OP-M Strength Start: 08/14/18 12:14 Freq: Status: Active Protocol: Document 08/14/18 11:15 HH (Rec: 08/14/18 12:50 HH [email or web address]) Hip Strength Hip Manual Muscle Testing Left Flexion (L2) 4 Good Extension (S1) 4 Good Abduction 4 Good Adduction 4 Good Right Flexion (L2) 3+ Fair+ Extension (S1) 3+ Fair+ Abduction 3+ Fair+ Adduction 3+ Fair+ External Rotation 3+ Fair+ Internal Rotation 3+ Fair+ Knee Strength Knee Manual Muscle Testing Left Flexion (S2) 4 Good Extension (L3) 4 Good Right Flexion (S2) 4 Good Extension (L3) 4 Good PT-OP-Q Treatments Start: 08/14/18 12:14 Freq: Status: Active Protocol: Document 11/13/18 15:30 HH (Rec: 11/13/18 17:56 [email or web address]) Cardio Equipment Recumbent Stepper (Sci-Fit) Duration (Minutes) 10 Resistance 1 Seat Position 10 Therapeutic Exercises Standing Exercises sit to stand Side bilateral Equipment Used //bar Reps/Minutes 8 x 4 Comments cues to faciltiate fast sit to stand 6 Standing Exercise Name Tino stepping Reps/Minutes x 10ft x 6 length Comments SPC with CGA Gait Training Gait Activity SPC Device Used SPC Level of Assistance CGA Surface level Distance/Duration 100 x2 Comments cues for feet clearance PT-OP-T Assessment and Plan Start: 08/14/18 12:14 Freq: Status: Active Protocol: Document 11/13/18 15:30 HH (Rec: 11/13/18 17:56 [email or web address]) Physical Therapy Assessment Assessment Summary Assessment Pt cont to feel tired due to poor sleep. Encourage pt to perform STS ex in a faster manner and he was able to stand up within 2s compared to 8-10s. Educated pt his capability and his perceived mobility speed. Physical Therapy Plan Next Visit Focus/Plan Next Note Type Treatment Note Next Visit Plan reassess 5 STS, TUG, elkins, 2 min walk test cont endurance training cont SPC gait training cont gait training SL balance, LE strengthening postural training tino training
--- NOTE | 2018-11-29 17:08 | PT.OTN ---
Current Diagnoses Other abnormalities of gait and mobility (11/29/18) Unspecified abnormalities of gait and mobility (11/29/18) Physical Therapy Treatment Note PT-OP-A Visit Information Start: 08/14/18 12:14 Freq: Status: Active Protocol: Document 11/29/18 13:00 (Rec: 11/29/18 17:07 [email or web address]) Out-Patient Physical Therapy Visit Information Visit Information Visit Type Treatment Note Visit Note Pt presents to clinic with CG Janae landin. Reassessment for functional test due to CPAP therapy has started since ek. Visit Start Time 13:00 Visit Stop Time 13:45 Total Visit Minutes 45 Visit Number 13 Number of COMPRESSED GASES TESTER Visits 0 PT-OP-B Current Condition Start: 08/14/18 12:14 Freq: Status: Active Protocol: Document 08/14/18 11:15 HH (Rec: 08/14/18 12:50 [email or web address]) Current Condition History of Current Condition Onset Date 2017 Current Complaints Impaired balance and gait, generalized muscle weakness History of Current Condition Pt attends PT with his who gives most of the pt's medical history and current conditions. Pt had hernia surgery in last November and his mobility has declined since then. Pt also had another gallbladder surgery at the end of April. Pt has a hx of dementia and it has been progressively getting worse. Pt is able to follow commands during session. Pt states pt currently uses FWW for home and community mobility. Pt received PT and outpatient PT before his gallbladder surgery. He just finised PT last week. Pt has a CG who comes into the home 4x/week for 6 hours. Pt states his balance and strength has been slightly getting better since his last surgery. Pt is now able to dress his lower body under supervision/ min A. He stands in the shower and has grab bars, he does not want a shower chair. Pt needs assistance to shower his back due to significant kyphotic posture. Pt and his denies falls for the past couple months and pt also denies he has had any spinning sensation with head turns/ getting in and out of the bed. Treatment Goals Patient/Caregiver Goals To strengthen B LE improve overall walking and standing balance. improve his kyphotic posture. Prior Functional Status Baseline Function- ADL's Modified Independent Baseline Function- Mobility Modified Independent Current Functional Impairments (Reported) Functional Limitations- ADL's Assist with shower need supervision for home and community mobility, especially turning Functional Limitations- Mobility/Gait Use FWW for mobility at all times. Personal Factors Other Personal Factors That May Effect Dementia Therapy/Recovery HTN macular degeneration PT-OP-C Subjective Start: 08/14/18 12:14 Freq: Status: Active Protocol: Document 11/29/18 13:00 HH (Rec: 11/29/18 17:07 HH [email or web address]) OP-PT Subjective Patient Comments Patient Comments CG Janae stated Pt started receiving CPAP therapy in the day time since last week. He has improved a lot regarding alertness and energy level. pt has been able to walk more w/o complaining fatigue. Patient Reported Progress Improving PT-OP-D Balance Start: 08/14/18 12:14 Freq: Status: Active Protocol: Document 11/06/18 17:30 HH (Rec: 11/06/18 19:28 HH [email or web address]) Balance Tests Bach Balance Test Bach Balance Test Score 28 Bach Impairment Rating 40 to 59% Impaired (Score 23- 33) PT-OP-E Functional Tests Start: 08/14/18 12:14 Freq: Status: Active Protocol: Document 11/29/18 13:00 HH (Rec: 11/29/18 17:07 HH [email or web address]) Functional Tests 2 Minute Walk Test Distance 262 Device Used FWW Five Times Sit to Stand Test Score 42s Timed Up and Go (TUG) Score 27s PT-OP-G Mobility & Gait Start: 08/14/18 12:14 Freq: Status: Active Protocol: Document 08/14/18 11:15 HH (Rec: 08/14/18 12:50 HH [email or web address]) OP Mobility Evaluation Transfers Sit to Stand B UE push off from surface Pt tends to have slight retropulsion during STS OP Gait Assessment Gait Gait Assistance Required: Standby Assistance Able to Maintain Weight Bearing Status Yes During Gait Assistive Devices Assistive Device Front Wheeled Walker Factors Limiting Gait Function Factors Limiting Gait Function Decreased Activity Tolerance Decreased Strength Poor Balance Poor Safety Awareness PT-OP-J Posture/Palpation/Skin Start: 08/14/18 12:14 Freq: Status: Active Protocol: Document 08/14/18 11:15 HH (Rec: 08/14/18 12:50 HH [email or web address]) Posture Evaluation Position Standing T-Spine Posture Increased Kyphosis L-Spine Posture Flattened Scapula Posture (L) Protracted (R) Protracted PT-OP-M Strength Start: 08/14/18 12:14 Freq: Status: Active Protocol: Document 08/14/18 11:15 HH (Rec: 08/14/18 12:50 [email or web address]) Hip Strength Hip Manual Muscle Testing Left Flexion (L2) 4 Good Extension (S1) 4 Good Abduction 4 Good Adduction 4 Good Right Flexion (L2) 3+ Fair+ Extension (S1) 3+ Fair+ Abduction 3+ Fair+ Adduction 3+ Fair+ External Rotation 3+ Fair+ Internal Rotation 3+ Fair+ Knee Strength Knee Manual Muscle Testing Left Flexion (S2) 4 Good Extension (L3) 4 Good Right Flexion (S2) 4 Good Extension (L3) 4 Good PT-OP-Q Treatments Start: 08/14/18 12:14 Freq: Status: Active Protocol: Document 11/29/18 13:00 HH (Rec: 11/29/18 17:07 [email or web address]) Cardio Equipment Recumbent Stepper (Sci-Fit) Duration (Minutes) 10 Resistance 5 Seat Position 10 Recumbent Bicycle Duration (Minutes) 8 Resistance 5 Therapeutic Exercises Standing Exercises sit to stand Side bilateral Equipment Used chair armrest Reps/Minutes 8 x 4 Comments cues to faciltiate fast sit to stand 6 Standing Exercise Name Ilir stepping Reps/Minutes x 10ft x 6 length Comments SPC with CGA Gait Training Gait Activity FWW Device Used fwW Level of Assistance SBA Surface GL and outside of clinic Distance/Duration 950 ft Comments pt did not request for rest PT-OP-T Assessment and Plan Start: 08/14/18 12:14 Freq: Status: Active Protocol: Document 11/29/18 13:00 HH (Rec: 11/29/18 17:07 [email or web address]) Physical Therapy Assessment Goals 2 min walk Care Home Goal (LTG) 11/29= 262 feet with FWW Pt will be able to amb 250 feet with SPC to improve his gait speed. LTG Duration 8 weeks overall mobility Home Health Aide Goal (LTG) TUG= 27 secs 11/29/18 Pt will improve his score to 25 seconds to improve his gait efficiency and reduce fall risks LTG Duration 8 weeks balance Home Health Aide Goal (LTG) 11/06 = BACH = 28/56 pt will improve his overall BACH score to 38/56 to reduce fall risks strength Home Health Aide Goal (LTG) To improve his LE strength to perform 5 times STS under 32 seconds. LTG Duration 8weeks Progress Towards Goals Progress Towards Goals Progressing Toward Goals Assessment Summary Assessment pt significant improvements in rehab progress today. Pt started CPAP therapy since last week and his alertness and energy level have increased significantly. Pt did not request for breaks today and able to perform 2 MWT = 260 ft, TUG= 27s, 5xSTS= 42 s. Provided handout of walking program to CG Janae to encourage mobility training. Physical Therapy Plan Next Visit Focus/Plan Next Note Type Treatment Note Next Visit Plan address pt's current condition with his . encourage daily walking program cont walking program b LE strengthening balance training
--- NOTE | 2018-12-07 16:13 | PT.OTN ---
Current Diagnoses Other abnormalities of gait and mobility (12/07/18) Unspecified abnormalities of gait and mobility (12/07/18) Physical Therapy Treatment Note PT-OP-A Visit Information Start: 08/14/18 12:14 Freq: Status: Active Protocol: Document 12/07/18 13:00 (Rec: 12/07/18 16:13 [email or web address]) Out-Patient Physical Therapy Visit Information Visit Information Visit Type Treatment Note Visit Note Pt presents to clinic with CG Janae landin. Visit Start Time 13:00 Visit Stop Time 13:45 Total Visit Minutes 45 Visit Number 14 Number of FORESTRY TECHNICIAN Visits 0 PT-OP-B Current Condition Start: 08/14/18 12:14 Freq: Status: Active Protocol: Document 08/14/18 11:15 HH (Rec: 08/14/18 12:50 [email or web address]) Current Condition History of Current Condition Onset Date 2017 Current Complaints Impaired balance and gait, generalized muscle weakness History of Current Condition Pt attends PT with his who gives most of the pt's medical history and current conditions. Pt had hernia surgery in last November and his mobility has declined since then. Pt also had another gallbladder surgery at the end of April. Pt has a hx of dementia and it has been progressively getting worse. Pt is able to follow commands during session. Pt states pt currently uses FWW for home and community mobility. Pt received PT and outpatient PT before his gallbladder surgery. He just finised PT last week. Pt has a CG who comes into the home 4x/week for 6 hours. Pt states his balance and strength has been slightly getting better since his last surgery. Pt is now able to dress his lower body under supervision/ min A. He stands in the shower and has grab bars, he does not want a shower chair. Pt needs assistance to shower his back due to significant kyphotic posture. Pt and his denies falls for the past couple months and pt also denies he has had any spinning sensation with head turns/ getting in and out of the bed. Treatment Goals Patient/Caregiver Goals To strengthen B LE improve overall walking and standing balance. improve his kyphotic posture. Prior Functional Status Baseline Function- ADL's Modified Independent Baseline Function- Mobility Modified Independent Current Functional Impairments (Reported) Functional Limitations- ADL's Assist with shower need supervision for home and community mobility, especially turning Functional Limitations- Mobility/Gait Use FWW for mobility at all times. Personal Factors Other Personal Factors That May Effect Dementia Therapy/Recovery HTN macular degeneration PT-OP-C Subjective Start: 08/14/18 12:14 Freq: Status: Active Protocol: Document 12/07/18 13:00 HH (Rec: 12/07/18 16:13 HH [email or web address]) OP-PT Subjective Patient Comments Patient Comments Pt stated I am not tired today and feel pretty good. CG also reports Pt has been showing improved alertness and walking more recently. Patient Reported Progress Improving PT-OP-D Balance Start: 08/14/18 12:14 Freq: Status: Active Protocol: Document 11/06/18 17:30 HH (Rec: 11/06/18 19:28 HH [email or web address]) Balance Tests Bach Balance Test Bach Balance Test Score 28 Bach Impairment Rating 40 to 59% Impaired (Score 23- 33) PT-OP-E Functional Tests Start: 08/14/18 12:14 Freq: Status: Active Protocol: Document 11/29/18 13:00 HH (Rec: 11/29/18 17:07 HH [email or web address]) Functional Tests 2 Minute Walk Test Distance 262 Device Used FWW Five Times Sit to Stand Test Score 42s Timed Up and Go (TUG) Score 27s PT-OP-G Mobility & Gait Start: 08/14/18 12:14 Freq: Status: Active Protocol: Document 08/14/18 11:15 HH (Rec: 08/14/18 12:50 HH [email or web address]) OP Mobility Evaluation Transfers Sit to Stand B UE push off from surface Pt tends to have slight retropulsion during STS OP Gait Assessment Gait Gait Assistance Required: Standby Assistance Able to Maintain Weight Bearing Status Yes During Gait Assistive Devices Assistive Device Front Wheeled Walker Factors Limiting Gait Function Factors Limiting Gait Function Decreased Activity Tolerance Decreased Strength Poor Balance Poor Safety Awareness PT-OP-J Posture/Palpation/Skin Start: 08/14/18 12:14 Freq: Status: Active Protocol: Document 08/14/18 11:15 HH (Rec: 08/14/18 12:50 HH [email or web address]) Posture Evaluation Position Standing T-Spine Posture Increased Kyphosis L-Spine Posture Flattened Scapula Posture (L) Protracted (R) Protracted PT-OP-M Strength Start: 08/14/18 12:14 Freq: Status: Active Protocol: Document 08/14/18 11:15 HH (Rec: 08/14/18 12:50 [email or web address]) Hip Strength Hip Manual Muscle Testing Left Flexion (L2) 4 Good Extension (S1) 4 Good Abduction 4 Good Adduction 4 Good Right Flexion (L2) 3+ Fair+ Extension (S1) 3+ Fair+ Abduction 3+ Fair+ Adduction 3+ Fair+ External Rotation 3+ Fair+ Internal Rotation 3+ Fair+ Knee Strength Knee Manual Muscle Testing Left Flexion (S2) 4 Good Extension (L3) 4 Good Right Flexion (S2) 4 Good Extension (L3) 4 Good PT-OP-Q Treatments Start: 08/14/18 12:14 Freq: Status: Active Protocol: Document 12/07/18 13:00 HH (Rec: 12/07/18 16:13 [email or web address]) Cardio Equipment Recumbent Stepper (Sci-Fit) Duration (Minutes) 5 Resistance 5 Seat Position 10 Recumbent Bicycle Duration (Minutes) 8 Resistance 5 Therapeutic Exercises Standing Exercises sit to stand Side bilateral Equipment Used chair armrest Reps/Minutes 8 x 4 Comments cues to faciltiate fast sit to stand Gait Training Gait Activity hiking sticks Level of Assistance cga Surface ground level Distance/Duration 900 Comments cues on feet clearance and heel strikes. Neuro Re-Education Treatment Balance Activities tino with SPC Surface level Equipment hurdles wityhin //bar Comments step to and step over pattern with CGA no UE support PT-OP-T Assessment and Plan Start: 08/14/18 12:14 Freq: Status: Active Protocol: Document 12/07/18 13:00 (Rec: 12/07/18 16:13 [email or web address]) Physical Therapy Assessment Goals 2 min walk Career Technical Counselor Goal (LTG) 11/29= 262 feet with FWW Pt will be able to amb 250 feet with SPC to improve his gait speed. LTG Duration 8 weeks overall mobility Half-Way Goal (LTG) TUG= 27 secs 11/29/18 Pt will improve his score to 25 seconds to improve his gait efficiency and reduce fall risks LTG Duration 8 weeks balance Career Technical Counselor Goal (LTG) 11/06 = BACH = 28/56 pt will improve his overall BACH score to 38/56 to reduce fall risks strength Half-Way Goal (LTG) To improve his LE strength to perform 5 times STS under 32 seconds. LTG Duration 8weeks Assessment Summary Assessment Improved activity tolerance. Pt only requested rest twice during session. Gait training with hiking poles today and pt presents improved feet clearance and gait speed with cues heel strikes Physical Therapy Plan Next Visit Focus/Plan Next Note Type Treatment Note Next Visit Plan address pt's current condition with his . encourage daily walking program cont walking program b LE strengthening balance training
--- NOTE | 2018-12-14 16:36 | PT.OTN ---
Current Diagnoses Other abnormalities of gait and mobility (12/14/18) Unspecified abnormalities of gait and mobility (12/14/18) Physical Therapy Treatment Note PT-OP-A Visit Information Start: 08/14/18 12:14 Freq: Status: Active Protocol: Document 12/14/18 15:15 (Rec: 12/14/18 16:35 HH [email or web address]) Out-Patient Physical Therapy Visit Information Visit Information Visit Type Discharge Summary Visit Note Pt and his both 15 mins late.Pt's brought SPC and 4 ww today. Visit Start Time 15:15 Visit Stop Time 16:00 Total Visit Minutes 45 Visit Number 15 Number of IT PROFESSIONAL Visits 0 PT-OP-B Current Condition Start: 08/14/18 12:14 Freq: Status: Active Protocol: Document 08/14/18 11:15 HH (Rec: 08/14/18 12:50 HH [email or web address]) Current Condition History of Current Condition Onset Date 2017 Current Complaints Impaired balance and gait, generalized muscle weakness History of Current Condition Pt attends PT with his who gives most of the pt's medical history and current conditions. Pt had hernia surgery in last November and his mobility has declined since then. Pt also had another gallbladder surgery at the end of April. Pt has a hx of dementia and it has been progressively getting worse. Pt is able to follow commands during session. Pt states pt currently uses FWW for home and community mobility. Pt received PT and outpatient PT before his gallbladder surgery. He just finised PT last week. Pt has a CG who comes into the home 4x/week for 6 hours. Pt states his balance and strength has been slightly getting better since his last surgery. Pt is now able to dress his lower body under supervision/ min A. He stands in the shower and has grab bars, he does not want a shower chair. Pt needs assistance to shower his back due to significant kyphotic posture. Pt and his denies falls for the past couple months and pt also denies he has had any spinning sensation with head turns/ getting in and out of the bed. Treatment Goals Patient/Caregiver Goals To strengthen B LE improve overall walking and standing balance. improve his kyphotic posture. Prior Functional Status Baseline Function- ADL's Modified Independent Baseline Function- Mobility Modified Independent Current Functional Impairments (Reported) Functional Limitations- ADL's Assist with shower need supervision for home and community mobility, especially turning Functional Limitations- Mobility/Gait Use FWW for mobility at all times. Personal Factors Other Personal Factors That May Effect Dementia Therapy/Recovery HTN macular degeneration PT-OP-C Subjective Start: 08/14/18 12:14 Freq: Status: Active Protocol: Document 12/14/18 15:15 HH (Rec: 12/14/18 16:35 HH [email or web address]) OP-PT Subjective Patient Comments Patient Comments I feel tired today since i traveled to [facility] yesterday for sleep study. PT-OP-D Balance Start: 08/14/18 12:14 Freq: Status: Active Protocol: Document 11/06/18 17:30 HH (Rec: 11/06/18 19:28 HH [email or web address]) Balance Tests Carson Balance Test Carson Balance Test Score 28 Carson Impairment Rating 40 to 59% Impaired (Score 23- 33) PT-OP-E Functional Tests Start: 08/14/18 12:14 Freq: Status: Active Protocol: Document 11/29/18 13:00 HH (Rec: 11/29/18 17:07 HH [email or web address]) Functional Tests 2 Minute Walk Test Distance 262 Device Used FWW Five Times Sit to Stand Test Score 42s Timed Up and Go (TUG) Score 27s PT-OP-G Mobility & Gait Start: 08/14/18 12:14 Freq: Status: Active Protocol: Document 08/14/18 11:15 HH (Rec: 08/14/18 12:50 HH [email or web address]) OP Mobility Evaluation Transfers Sit to Stand B UE push off from surface Pt tends to have slight retropulsion during STS OP Gait Assessment Gait Gait Assistance Required: Standby Assistance Able to Maintain Weight Bearing Status Yes During Gait Assistive Devices Assistive Device Front Wheeled Walker Factors Limiting Gait Function Factors Limiting Gait Function Decreased Activity Tolerance Decreased Strength Poor Balance Poor Safety Awareness PT-OP-J Posture/Palpation/Skin Start: 08/14/18 12:14 Freq: Status: Active Protocol: Document 08/14/18 11:15 HH (Rec: 08/14/18 12:50 HH [email or web address]) Posture Evaluation Position Standing T-Spine Posture Increased Kyphosis L-Spine Posture Flattened Scapula Posture (L) Protracted (R) Protracted PT-OP-M Strength Start: 08/14/18 12:14 Freq: Status: Active Protocol: Document 08/14/18 11:15 HH (Rec: 08/14/18 12:50 [email or web address]) Hip Strength Hip Manual Muscle Testing Left Flexion (L2) 4 Good Extension (S1) 4 Good Abduction 4 Good Adduction 4 Good Right Flexion (L2) 3+ Fair+ Extension (S1) 3+ Fair+ Abduction 3+ Fair+ Adduction 3+ Fair+ External Rotation 3+ Fair+ Internal Rotation 3+ Fair+ Knee Strength Knee Manual Muscle Testing Left Flexion (S2) 4 Good Extension (L3) 4 Good Right Flexion (S2) 4 Good Extension (L3) 4 Good PT-OP-Q Treatments Start: 08/14/18 12:14 Freq: Status: Active Protocol: Document 12/14/18 15:15 HH (Rec: 12/14/18 16:35 [email or web address]) Cardio Equipment Recumbent Stepper (Sci-Fit) Duration (Minutes) 10 Resistance 5 Seat Position 10 Therapeutic Exercises Standing Exercises sit to stand Side bilateral Equipment Used chair armrest Reps/Minutes 8 x 4 Comments cues to faciltiate fast sit to stand Gait Training Gait Activity SPC Device Used SPC Level of Assistance CGA Surface level Distance/Duration 100 x2 Comments cues for feet clearance 4WW Device Used 4WW Level of Assistance cga Distance/Duration 1000ft Comments cues on feet clearance Safe transfers with 4WW Description car transfer Comments Pt stand step pivot and sat in car and pivot his legs Self-Care/Home Management Treatment Education Patient Education Home Exercise Program Other Education add shoulder press PT-OP-T Assessment and Plan Start: 08/14/18 12:14 Freq: Status: Active Protocol: Document 12/14/18 15:15 HH (Rec: 12/14/18 16:35 [email or web address]) Physical Therapy Assessment Goals 2 min walk Intermediate Goal (LTG) 11/29= 262 feet with FWW overall mobility Intermediate Goal (LTG) TUG= 27 secs 11/29/18 balance Intermediate Goal (LTG) did not assess Progress Towards Goals Progress Towards Goals Slow Progress due to Activity Tolerance Slow Progress due to Medical Issues Assessment Summary Assessment Pt reached insurance coverage. Pt has shown improved activity tolerance but cont require extensive cues for overall speed of functional activities. Provided HEP today to pt's . Physical Therapy Plan Discharge Physical Therapy Discharge Reasons Plateau in Progress Discharge Comments Pt reached insurance coverage.
--- NOTE | 2018-12-18 16:57 | PT.OPDS ---
Current Diagnoses Other abnormalities of gait and mobility (12/14/18) Unspecified abnormalities of gait and mobility (12/14/18) Provider Visit Care Team Role Provider Type Cortes Sanders MD Attending Provider Physician Primary Care Provider Specialty: [facility] Practice Address: [address] [place] [address], [id number] Email: [email or web address] Visit Number Visit Number 15 Discharge Summary PT-OP-B Current Condition Start: 08/14/18 12:14 Freq: Status: Active Protocol: Document 08/14/18 11:15 (Rec: 08/14/18 12:50 [email or web address]) Current Condition History of Current Condition Onset Date 2017 Current Complaints Impaired balance and gait, generalized muscle weakness History of Current Condition Pt attends PT with his who gives most of the pt's medical history and current conditions. Pt had hernia surgery in last November and his mobility has declined since then. Pt also had another gallbladder surgery at the end of April. Pt has a hx of dementia and it has been progressively getting worse. Pt is able to follow commands during session. Pt states pt currently uses FWW for home and community mobility. Pt received PT and outpatient PT before his gallbladder surgery. He just finised HH PT last week. Pt has a CG who comes into the home 4x/week for 6 hours. Pt states his balance and strength has been slightly getting better since his last surgery. Pt is now able to dress his lower body under supervision/ min A. He stands in the shower and has grab bars, he does not want a shower chair. Pt needs assistance to shower his back due to significant kyphotic posture. Pt and his denies falls for the past couple months and pt also denies he has had any spinning sensation with head turns/ getting in and out of the bed. Treatment Goals Patient/Caregiver Goals To strengthen B LE improve overall walking and standing balance. improve his kyphotic posture. Prior Functional Status Baseline Function- ADL's Modified Independent Baseline Function- Mobility Modified Independent Current Functional Impairments (Reported) Functional Limitations- ADL's Assist with shower need supervision for home and community mobility, especially turning Functional Limitations- Mobility/Gait Use FWW for mobility at all times. Personal Factors Other Personal Factors That May Effect Dementia Therapy/Recovery HTN macular degeneration PT-OP-C Subjective Start: 08/14/18 12:14 Freq: Status: Active Protocol: Document 12/14/18 15:15 HH (Rec: 12/14/18 16:35 HH [email or web address]) OP-PT Subjective Patient Comments Patient Comments I feel tired today since i traveled to [facility] yesterday for sleep study. PT-OP-D Balance Start: 08/14/18 12:14 Freq: Status: Active Protocol: Document 11/06/18 17:30 HH (Rec: 11/06/18 19:28 HH [email or web address]) Balance Tests Carson Balance Test Carson Balance Test Score 28 Carson Impairment Rating 40 to 59% Impaired (Score 23- 33) PT-OP-E Functional Tests Start: 08/14/18 12:14 Freq: Status: Active Protocol: Document 11/29/18 13:00 HH (Rec: 11/29/18 17:07 HH [email or web address]) Functional Tests 2 Minute Walk Test Distance 262 Device Used FWW Five Times Sit to Stand Test Score 42s Timed Up and Go (TUG) Score 27s PT-OP-G Mobility & Gait Start: 08/14/18 12:14 Freq: Status: Active Protocol: Document 08/14/18 11:15 HH (Rec: 08/14/18 12:50 HH [email or web address]) OP Mobility Evaluation Transfers Sit to Stand B UE push off from surface Pt tends to have slight retropulsion during STS OP Gait Assessment Gait Gait Assistance Required: Standby Assistance Able to Maintain Weight Bearing Status Yes During Gait Assistive Devices Assistive Device Front Wheeled Walker Factors Limiting Gait Function Factors Limiting Gait Function Decreased Activity Tolerance Decreased Strength Poor Balance Poor Safety Awareness PT-OP-J Posture/Palpation/Skin Start: 08/14/18 12:14 Freq: Status: Active Protocol: Document 08/14/18 11:15 HH (Rec: 08/14/18 12:50 HH [email or web address]) Posture Evaluation Position Standing T-Spine Posture Increased Kyphosis L-Spine Posture Flattened Scapula Posture (L) Protracted (R) Protracted PT-OP-M Strength Start: 08/14/18 12:14 Freq: Status: Active Protocol: Document 08/14/18 11:15 HH (Rec: 08/14/18 12:50 HH [email or web address]) Hip Strength Hip Manual Muscle Testing Left Flexion (L2) 4 Good Extension (S1) 4 Good Abduction 4 Good Adduction 4 Good Right Flexion (L2) 3+ Fair+ Extension (S1) 3+ Fair+ Abduction 3+ Fair+ Adduction 3+ Fair+ External Rotation 3+ Fair+ Internal Rotation 3+ Fair+ Knee Strength Knee Manual Muscle Testing Left Flexion (S2) 4 Good Extension (L3) 4 Good Right Flexion (S2) 4 Good Extension (L3) 4 Good PT-OP-T Assessment and Plan Start: 08/14/18 12:14 Freq: Status: Active Protocol: Document 12/14/18 15:15 (Rec: 12/14/18 16:35 [email or web address]) Physical Therapy Assessment Goals 2 min walk Bail Bond Agent Goal (LTG) 11/29= 262 feet with FWW overall mobility Bail Bond Agent Goal (LTG) TUG= 27 secs 11/29/18 balance Fpc Goal (LTG) did not assess Progress Towards Goals Progress Towards Goals Slow Progress due to Activity Tolerance Slow Progress due to Medical Issues Assessment Summary Assessment Pt reached insurance coverage. Pt has shown improved activity tolerance but cont require extensive cues for overall speed of functional activities. Provided HEP today to pt's . Physical Therapy Plan Discharge Physical Therapy Discharge Reasons Plateau in Progress Discharge Comments Pt reached insurance coverage.
== END 2018-12-20 14:06 | disposition home or self-care (01) ==
LOC: PHYS 15:15
PROVIDERS: PCP Family Medicine; Visit Provider Family Medicine
DX: R26.9 Unspecified abnormalities of gait and mobility (principal); R26.89 Other abnormalities of gait and mobility
CPT/HCPCS: 97110; 97112; 97116; 97162; 97164; 97530; 97535

== ENCOUNTER → 2019-02-28 15:39 | Outpatient (CLI) | payer OTHER, SELFPAY ==
[2018-06-05 19:46] VITALS: BMI 28.7
[2019-02-28 16:49] LABS: Thyroid Stimulating Hormone 5.79 uIU/mL (0.47-4.68)
== END ==
PROVIDERS: PCP Family Medicine; Visit Provider Family Medicine
DX: E03.9 Hypothyroidism, unspecified (principal)
CPT/HCPCS: 36415; 84443

== ENCOUNTER 2019-03-15 15:15 | Outpatient (RCR) | payer OTHER, SELFPAY ==
[2018-06-05 19:46] VITALS: BMI 28.7
--- NOTE | 2019-01-18 17:00 | PT.OPPOC ---
Current Diagnoses Unspecified abnormalities of gait and mobility (01/18/19) Weakness (01/18/19) Provider Visit Care Team Role Provider Type Cortes Sanders MD Attending Provider Physician Primary Care Provider Specialty: Family Practice Address: [address] [place] [address], [id number] Email: [email or web address] Plan Of Care PT-OP-T Assessment and Plan Start: 01/13/19 13:29 Freq: Status: Active Protocol: Document 01/18/19 13:43 LRN (Rec: 01/18/19 19:51 LRN [id number]) Physical Therapy Assessment Rehab Potential Rehabilitation Potential Good Evaluation Complexity Number of Personal Factors/Comorbidities 3 or More Number of Body Systems Impaired 3 Clinical Presentation at Evaluation Stable Impairments Impairments Activity Tolerance Balance Functional Activities Functional Mobility Gait Posture ROM Soft Tissue Mobility Strength Transfers Other Impairments dementia Goals strength Impairment Impairment B LE strength Short Term Goal (STG) To improve his LE strength to perform 10 sit to stands twice a day at home. STG Duration 02/15/19 LTG Duration To improve his LE strength to perform 10 sit to stands twice a day at home. Three Impairment LE strength Short Term Goal (STG) The patient will be independent and consistent with a LE strengthening program. STG Duration 02/15/19 Taxicab Starter Goal (LTG) Pt will be independent with a self care HEP that he can continue with his caregiver or independently. LTG Duration 04/12/19 Two Impairment balance (SLS 0 sec's left, 5 sec's right) Taxicab Starter Goal (LTG) The patient will show reduced risk of falling by improving his single leg stance ability LTG Duration 04/12/19 One Impairment gait Taxicab Starter Goal (LTG) The patient will improve his TUG from 23 seconds to 18 seconds with a FWW. LTG Duration 04/12/19 Assessment Summary Assessment Pt presents with decreased LE strength, decreased balance and per TUG score is at a higher risk of falling due to these deficits. The pt does not know why he is being referred to physical therapy and additionally doesn't feel he needs therapy; therefore progress may be hindered by his attitude. The pt could benefit from skilled physical therapy in order to improve strength, balance and safety with gait. Placing the pt on a HEP will be beneficial to encourage the pt towards independence of care. Physical Therapy Plan Frequency and Duration Frequency of Treatment 2x/Week Plan of Care Start Date 01/18/19 Plan of Care End Date 04/12/19 Therapeutic Interventions Therapeutic Interventions Balance Training Gait Training Home Exercise Program Neuromuscular Re-education Patient/Caregiver Education Self-Care/Home Management Therapeutic Exercises Next Visit Focus/Plan Next Note Type Treatment Note Next Visit Plan Give ABC Questionnaire, LE strengthening (hamstrings, ankle PF, hips) , core strengthening, balance training (SLS), HEP. Check if pt doing sit to stands > 2 reps, 2x/day. Plan of Care Dates Plan of Care Start Date 01/18/19 Plan of Care End Date 04/12/19 Please Sign and Return: I have reviewed this Plan of Care and certify that the skilled therapy services above are required to meet the patient?s needs. Physician Signature Date Printed Name and Credentials Clinical Instructor Signature Printed Name and Credentials
--- NOTE | 2019-01-18 17:00 | PT.OIE ---
Current Diagnoses Unspecified abnormalities of gait and mobility (01/18/19) Weakness (01/18/19) Past Medical History (Last Reviewed 05/30/18 @ 16:32 by Alberto Galeano MD) Hypothyroidism (Chronic 04/05/16) Abdominal distention (Chronic) Abdominal pain (Chronic) Memory deficit (Chronic) Ambulatory dysfunction (Chronic) Atherosclerosis (Acute) Cardiomegaly (Acute) Diverticulosis (Acute) EKG abnormalities (Acute) Emphysema (subcutaneous) (surgical) resulting from a procedure (Acute) Granulomatous disease (Acute) Poor kidney function (Acute) Reactive airway disease (Acute) Shortness of breath (Acute) BPH (benign prostatic hyperplasia) (Chronic) Cataract (Chronic 1999) Dandruff (Chronic) Hearing loss (Chronic) Hypertension (Chronic) Hypothyroid (Chronic) Kidney insufficiency (Chronic) Macular degeneration (Chronic) Polymyalgia rheumatica (Chronic) Psoriasis (Chronic) Pulmonary fibrosis (Chronic) Scoliosis (Chronic) Sleep apnea (Chronic) Abnormal CXR (chest x-ray) (Resolved ~194) Chicken pox (Resolved ~1955) Finger fracture (Resolved ~194) Measles (Resolved ~1955) Mumps (Resolved ~1955) Rubella (Resolved) Tuberculosis (Resolved ~194) Vertigo (Resolved 2009) Past Surgical History (Last Reviewed 05/30/18 @ 16:32 by Alberto Galeano MD) H/O hernia repair (Acute ~12/19/17) Anesthesia (Resolved) History of tonsillectomy (Resolved ~1940) History of umbilical hernia repair (Resolved 12/19/17) Status post appendectomy (Resolved 2008) Provider Visit Care Team Role Provider Type Cortes Sanders MD Attending Provider Physician Primary Care Provider Specialty: [facility] Address: [address] [place] [address] Email: [email or web address] Physical Therapy Initial Evaluation PT-OP-A Visit Information Start: 01/13/19 13:29 Freq: Status: Active Protocol: Document 01/18/19 13:43 LRN (Rec: 01/18/19 14:31 LRN [id number]) Out-Patient Physical Therapy Visit Information Visit Information Visit Type Initial Evaluation Visit Start Time 13:43 Visit Stop Time 14:31 Total Visit Minutes 48 Visit Number 1 Number of MIDDLE SCHOOL ASSISTANT PRINCIPAL Visits 0 Evaluation Information Evaluation Date 01/18/19 Precautions Precautions Dementia Depression Hearing Problems Umbilical Hernia repair 11/2017 Gall Bladder surgery 04/2018 Cardiomegaly Vertigo Pulmonary Fibrosis PT-OP-B Current Condition Start: 01/13/19 13:29 Freq: Status: Active Protocol: Document 01/18/19 13:43 LRN (Rec: 01/18/19 19:51 LRN [id number]) Current Condition History of Current Condition Onset Date 12/17/18 Current Complaints Pt reports no complaints Treatment Goals Patient/Caregiver Goals Pt has no goals but is agreeable to goals of improving single leg stance balance, improving stability with gait per TUG score, and being placed on a HEP. Personal Factors Other Personal Factors That May Effect Pt does not know why he is Therapy/Recovery being referred to therapy and feels he doesn't need therapy. PT-OP-D Balance Start: 01/13/19 13:29 Freq: Status: Active Protocol: Document 01/18/19 13:43 LRN (Rec: 01/18/19 19:51 LRN [id number]) Balance Tests Single Limb Standing Single Limb- Right 5 Single Limb- Left 0 PT-OP-E Functional Tests Start: 01/13/19 13:29 Freq: Status: Active Protocol: Document 01/18/19 13:43 LRN (Rec: 01/18/19 19:51 LRN [id number]) Functional Tests Timed Up and Go (TUG) Score 23 Comments with 4WW, from webbed chair TUG Impairment Rating 100% Impaired (Score 20) PT-OP-G Mobility & Gait Start: 01/13/19 13:29 Freq: Status: Active Protocol: Document 01/18/19 13:43 LRN (Rec: 01/18/19 19:51 LRN [id number]) OP Mobility Evaluation Transfers Sit to Stand B UE push off from surface, but can stand without use of hands with difficulty. Pt tends to have slight retropulsion during STS. OP Gait Assessment Gait Able to Maintain Weight Bearing Status Yes During Gait Assistive Devices Assistive Device 4 Wheeled Walker Gait Deviations General Gait Pattern Decreased Stride Length Decreased Feet Clearance Flexed Trunk Wide Based Gait Comments Gait Comments Pt resistant to therapy PT-OP-J Posture/Palpation/Skin Start: 01/13/19 13:29 Freq: Status: Active Protocol: Document 01/18/19 13:43 LRN (Rec: 01/18/19 19:51 LRN [id number]) Posture Evaluation Position Standing Evaluation View Lateral Head/C-Spine Posture Forward Head T-Spine Posture Increased Kyphosis L-Spine Posture Flattened Pelvis Posture Posterior Tilted Hip Posture (L) Flexed (R) Flexed Knee Posture (L) Excess Flexion (R) Excess Flexion PT-OP-K Range of Motion Start: 01/13/19 13:29 Freq: Status: Active Protocol: Document 01/18/19 13:43 LRN (Rec: 01/21/19 09:36 LRN [id number]) Hip Goniometric Range of Motion Hip Right Passive Testing Position Supine Straight Leg Raise 50 Internal Rotation 0 External Rotation 45 Left Passive Testing Position Supine Straight Leg Raise 50 Internal Rotation 0 External Rotation 45 PT-OP-M Strength Start: 01/13/19 13:29 Freq: Status: Active Protocol: Document 01/18/19 13:43 LRN (Rec: 01/18/19 19:51 LRN [id number]) Knee Strength Knee Manual Muscle Testing Right Comments Generally 5/5 Left Comments Generally 5/5 Ankle/Foot Strength Ankle and Foot Manual Muscle Testing Right Plantarflexion (S1) 2 Poor Comments Generally 5/5, except as shown above Left Plantarflexion (S1) 2 Poor Comments Generally 5/5, except as shown above PT-OP-Q Treatments Start: 01/13/19 13:29 Freq: Status: Active Protocol: Document 01/18/19 13:43 LRN (Rec: 01/18/19 19:51 LRN [id number]) Therapeutic Exercises Sidelying Exercises Hip AB Sidelying Exercise Name Hip AB Side bilateral Reps/Minutes 3-5 reps Comments Pt not able to isolate hip AB' s tends to incorporate hip flexors. Standing Exercises sit to stand Side bilateral Comments Throughout therapy Self-Care/Home Management Treatment Education Patient Education Home Exercise Program Activities Self-Care/Home Management Activities Pt I/S ( present) to do sit to stands x 2 twice a day to start and to increase 1 rep every 1-2 days as he feels he can do. PT-OP-T Assessment and Plan Start: 01/13/19 13:29 Freq: Status: Active Protocol: Document 01/18/19 13:43 LRN (Rec: 07/26/19 19:51 LRN [id number]) Physical Therapy Assessment Rehab Potential Rehabilitation Potential Good Evaluation Complexity Number of Personal Factors/Comorbidities 3 or More Number of Body Systems Impaired 3 Clinical Presentation at Evaluation Stable Impairments Impairments Activity Tolerance Balance Functional Activities Functional Mobility Gait Posture ROM Soft Tissue Mobility Strength Transfers Other Impairments dementia Goals strength Impairment Impairment B LE strength Short Term Goal (STG) To improve his LE strength to perform 10 sit to stands twice a day at home. STG Duration 02/15/19 LTG Duration To improve his LE strength to perform 10 sit to stands twice a day at home. Three Impairment LE strength Short Term Goal (STG) The patient will be independent and consistent with a LE strengthening program. STG Duration 02/15/19 Jewel Bearing Driller Goal (LTG) Pt will be independent with a self care HEP that he can continue with his caregiver or independently. LTG Duration 04/12/19 Two Impairment balance (SLS 0 sec's left, 5 sec's right) Long-Term Goal (LTG) The patient will show reduced risk of falling by improving his single leg stance ability LTG Duration 04/12/19 One Impairment gait Long-Term Goal (LTG) The patient will improve his TUG from 23 seconds to 18 seconds with a FWW. LTG Duration 04/12/19 Assessment Summary Assessment Pt presents with decreased LE strength, decreased balance and per TUG score is at a higher risk of falling due to these deficits. The pt does not know why he is being referred to physical therapy and additionally doesn't feel he needs therapy; therefore progress may be hindered by his attitude. The pt could benefit from skilled physical therapy in order to improve strength, balance and safety with gait. Placing the pt on a HEP will be beneficial to encourage the pt towards independence of care. Physical Therapy Plan Frequency and Duration Frequency of Treatment 2x/Week Plan of Care Start Date 01/18/19 Plan of Care End Date 04/12/19 Therapeutic Interventions Therapeutic Interventions Balance Training Gait Training Home Exercise Program Neuromuscular Re-education Patient/Caregiver Education Self-Care/Home Management Therapeutic Exercises Next Visit Focus/Plan Next Note Type Treatment Note Next Visit Plan Give ABC Questionnaire, LE strengthening (hamstrings, ankle PF, hips) , core strengthening, balance training (SLS), HEP. Check if pt doing sit to stands > 2 reps, 2x/day.
--- NOTE | 2019-01-22 16:07 | PT.OTN ---
Current Diagnoses Unspecified abnormalities of gait and mobility (01/22/19) Weakness (01/22/19) Physical Therapy Treatment Note PT-OP-A Visit Information Start: 01/13/19 13:29 Freq: Status: Active Protocol: Document 01/22/19 15:02 LRN (Rec: 01/22/19 15:47 LRN [id number]) Out-Patient Physical Therapy Visit Information Visit Information Visit Type Treatment Note Visit Start Time 15:02 Visit Stop Time 15:44 Total Visit Minutes 42 Visit Number 2 Number of COUNTER PROFESSIONAL Visits 0 Evaluation Information Evaluation Date 01/18/19 Precautions Precautions Dementia Depression Hearing Problems Umbilical Hernia repair 11/2017 Gall Bladder surgery 04/2018 Cardiomegaly Vertigo Pulmonary Fibrosis PT-OP-B Current Condition Start: 01/13/19 13:29 Freq: Status: Active Protocol: Document 01/18/19 13:43 LRN (Rec: 01/18/19 19:51 LRN [id number]) Current Condition History of Current Condition Onset Date 12/17/18 Current Complaints Pt reports no complaints Treatment Goals Patient/Caregiver Goals Pt has no goals but is agreeable to goals of improving single leg stance balance, improving stability with gait per TUG score, and being placed on a HEP. Personal Factors Other Personal Factors That May Effect Pt does not know why he is Therapy/Recovery being referred to therapy and feels he doesn't need therapy. PT-OP-C Subjective Start: 01/13/19 13:29 Freq: Status: Active Protocol: Document 01/22/19 15:02 LRN (Rec: 01/22/19 15:47 LRN [id number]) OP-PT Subjective Patient Comments Patient Comments Requests use of bathroom at start of therapy. Can't remember what he is supposed to be doing at home. Pt states he is tired today. Patient Questionnaires ABC- Activity Specific Balance Confidence Scale ABC Score 9.375 ABC Functional Impairment 80 to <100% Impaired (Score 1- 20) PT-OP-D Balance Start: 01/13/19 13:29 Freq: Status: Active Protocol: Document 01/18/19 13:43 LRN (Rec: 01/18/19 19:51 LRN [id number]) Balance Tests Single Limb Standing Single Limb- Right 5 Single Limb- Left 0 PT-OP-E Functional Tests Start: 01/13/19 13:29 Freq: Status: Active Protocol: Document 01/18/19 13:43 LRN (Rec: 01/18/19 19:51 LRN [id number]) Functional Tests Timed Up and Go (TUG) Score 23 Comments with 4WW, from webbed chair TUG Impairment Rating 100% Impaired (Score 20) PT-OP-G Mobility & Gait Start: 01/13/19 13:29 Freq: Status: Active Protocol: Document 01/18/19 13:43 LRN (Rec: 01/18/19 19:51 LRN [id number]) OP Mobility Evaluation Transfers Sit to Stand B UE push off from surface, but can stand without use of hands with difficulty. Pt tends to have slight retropulsion during STS. OP Gait Assessment Gait Able to Maintain Weight Bearing Status Yes During Gait Assistive Devices Assistive Device 4 Wheeled Walker Gait Deviations General Gait Pattern Decreased Stride Length Decreased Feet Clearance Flexed Trunk Wide Based Gait Comments Gait Comments Pt resistant to therapy PT-OP-J Posture/Palpation/Skin Start: 01/13/19 13:29 Freq: Status: Active Protocol: Document 01/18/19 13:43 LRN (Rec: 01/18/19 19:51 LRN [id number]) Posture Evaluation Position Standing Evaluation View Lateral Head/C-Spine Posture Forward Head T-Spine Posture Increased Kyphosis L-Spine Posture Flattened Pelvis Posture Posterior Tilted Hip Posture (L) Flexed (R) Flexed Knee Posture (L) Excess Flexion (R) Excess Flexion PT-OP-K Range of Motion Start: 01/13/19 13:29 Freq: Status: Active Protocol: Document 01/18/19 13:43 LRN (Rec: 01/21/19 09:36 LRN [id number]) Hip Goniometric Range of Motion Hip Right Passive Testing Position Supine Straight Leg Raise 50 Internal Rotation 0 External Rotation 45 Left Passive Testing Position Supine Straight Leg Raise 50 Internal Rotation 0 External Rotation 45 PT-OP-M Strength Start: 01/13/19 13:29 Freq: Status: Active Protocol: Document 01/18/19 13:43 LRN (Rec: 01/18/19 19:51 LRN [id number]) Knee Strength Knee Manual Muscle Testing Right Comments Generally 5/5 Left Comments Generally 5/5 Ankle/Foot Strength Ankle and Foot Manual Muscle Testing Right Plantarflexion (S1) 2 Poor Comments Generally 5/5, except as shown above Left Plantarflexion (S1) 2 Poor Comments Generally 5/5, except as shown above PT-OP-Q Treatments Start: 01/13/19 13:29 Freq: Status: Active Protocol: Document 01/22/19 15:02 LRN (Rec: 01/22/19 15:47 LRN [id number]) Therapeutic Exercises Sitting Exercises Ankle IV Sitting Exercise Name Ankle IV Side bilateral Resistance Lev 2 T-Band Reps/Minutes 15x2 Ankle EV Sitting Exercise Name Ankle EV Side bilateral Resistance Lev 2 T-Band Reps/Minutes 20x2 Ankle PF Sitting Exercise Name Ankle PF Side bilateral Resistance Lev 2 T-Band Reps/Minutes 30x Knee ext/Leg press Sitting Exercise Name Knee ext/Leg press Side bilateral Resistance Lev 2 T-Band Reps/Minutes 15x2 Standing Exercises Gluteal strengthening Standing Exercise Name Lunges, hip ext, hip ext with toe ups Equipment Used // bars Reps/Minutes 8' Sit backs Standing Exercise Name Sit backs Equipment Used // bars Reps/Minutes 3' sit to stand Side bilateral Reps/Minutes 2x 2 sets Comments Assist needed. Self-Care/Home Management Treatment Education Caregiver Education Requested spouse have pt use BR prior to therapy. PT-OP-T Assessment and Plan Start: 01/13/19 13:29 Freq: Status: Active Protocol: Document 01/22/19 15:02 LRN (Rec: 01/22/19 15:47 LRN [id number]) Physical Therapy Assessment Assessment Summary Assessment Per spouse (completing ABC score scale for pt) ABC Questionaire score indicates 9 .4% self confidence with functional activities(80<100% impaired). Pt weak today and unable to perform sit to stand independently. Tolerated LE strengthening well, weak gluteals. Pt needs to use BR prior to therapy. Physical Therapy Plan Frequency and Duration Frequency of Treatment 2x/Week Plan of Care Start Date 01/18/19 Plan of Care End Date 04/12/19 Next Visit Focus/Plan Next Note Type Treatment Note Next Visit Plan If pt spouse remembers to bring pt's current HEP; review . LE strengthening ( hamstrings, hips), progress ankle PF strengthening. Start core strengthening, balance training (SLS), HEP. Check if pt doing sit to stands > 2 reps, 2x/day. Might try aerobic ex of walking without walker and with walker.
--- NOTE | 2019-01-25 16:14 | PT.OTN ---
Current Diagnoses Unspecified abnormalities of gait and mobility (01/25/19) Weakness (01/25/19) Physical Therapy Treatment Note PT-OP-A Visit Information Start: 01/13/19 13:29 Freq: Status: Active Protocol: Document 01/25/19 15:05 LRN (Rec: 01/25/19 15:57 LRN [id number]) Out-Patient Physical Therapy Visit Information Visit Information Visit Type Treatment Note Visit Start Time 15:05 Visit Stop Time 15:47 Total Visit Minutes 42 Visit Number 3 Number of MONITOR CAR OPERATOR Visits 0 Evaluation Information Evaluation Date 01/18/19 Precautions Precautions Dementia Depression Hearing Problems Umbilical Hernia repair 11/2017 Gall Bladder surgery 04/2018 Cardiomegaly Vertigo Pulmonary Fibrosis PT-OP-B Current Condition Start: 01/13/19 13:29 Freq: Status: Active Protocol: Document 01/18/19 13:43 LRN (Rec: 01/18/19 19:51 LRN [id number]) Current Condition History of Current Condition Onset Date 12/17/18 Current Complaints Pt reports no complaints Treatment Goals Patient/Caregiver Goals Pt has no goals but is agreeable to goals of improving single leg stance balance, improving stability with gait per TUG score, and being placed on a HEP. Personal Factors Other Personal Factors That May Effect Pt does not know why he is Therapy/Recovery being referred to therapy and feels he doesn't need therapy. PT-OP-C Subjective Start: 01/13/19 13:29 Freq: Status: Active Protocol: Document 01/25/19 15:05 LRN (Rec: 01/25/19 15:57 LRN [id number]) OP-PT Subjective Patient Comments Patient Comments States he was not tired during therapy. States he can do 10 sit to stands (he was not able to demonstrate 2x). PT-OP-D Balance Start: 01/13/19 13:29 Freq: Status: Active Protocol: Document 01/18/19 13:43 LRN (Rec: 01/18/19 19:51 LRN [id number]) Balance Tests Single Limb Standing Single Limb- Right 5 Single Limb- Left 0 PT-OP-E Functional Tests Start: 01/13/19 13:29 Freq: Status: Active Protocol: Document 01/18/19 13:43 LRN (Rec: 01/18/19 19:51 LRN [id number]) Functional Tests Timed Up and Go (TUG) Score 23 Comments with 4WW, from webbed chair TUG Impairment Rating 100% Impaired (Score 20) PT-OP-G Mobility & Gait Start: 01/13/19 13:29 Freq: Status: Active Protocol: Document 01/18/19 13:43 LRN (Rec: 01/18/19 19:51 LRN [id number]) OP Mobility Evaluation Transfers Sit to Stand B UE push off from surface, but can stand without use of hands with difficulty. Pt tends to have slight retropulsion during STS. OP Gait Assessment Gait Able to Maintain Weight Bearing Status Yes During Gait Assistive Devices Assistive Device 4 Wheeled Walker Gait Deviations General Gait Pattern Decreased Stride Length Decreased Feet Clearance Flexed Trunk Wide Based Gait Comments Gait Comments Pt resistant to therapy PT-OP-J Posture/Palpation/Skin Start: 01/13/19 13:29 Freq: Status: Active Protocol: Document 01/18/19 13:43 LRN (Rec: 01/18/19 19:51 LRN [id number]) Posture Evaluation Position Standing Evaluation View Lateral Head/C-Spine Posture Forward Head T-Spine Posture Increased Kyphosis L-Spine Posture Flattened Pelvis Posture Posterior Tilted Hip Posture (L) Flexed (R) Flexed Knee Posture (L) Excess Flexion (R) Excess Flexion PT-OP-K Range of Motion Start: 01/13/19 13:29 Freq: Status: Active Protocol: Document 01/18/19 13:43 LRN (Rec: 01/21/19 09:36 LRN [id number]) Hip Goniometric Range of Motion Hip Right Passive Testing Position Supine Straight Leg Raise 50 Internal Rotation 0 External Rotation 45 Left Passive Testing Position Supine Straight Leg Raise 50 Internal Rotation 0 External Rotation 45 PT-OP-M Strength Start: 01/13/19 13:29 Freq: Status: Active Protocol: Document 01/18/19 13:43 LRN (Rec: 01/18/19 19:51 LRN [id number]) Knee Strength Knee Manual Muscle Testing Right Comments Generally 5/5 Left Comments Generally 5/5 Ankle/Foot Strength Ankle and Foot Manual Muscle Testing Right Plantarflexion (S1) 2 Poor Comments Generally 5/5, except as shown above Left Plantarflexion (S1) 2 Poor Comments Generally 5/5, except as shown above PT-OP-Q Treatments Start: 01/13/19 13:29 Freq: Status: Active Protocol: Document 01/25/19 15:05 LRN (Rec: 01/25/19 15:57 LRN [id number]) Therapeutic Exercises Standing Exercises Hip AB Standing Exercise Name Hip AB Side bilateral Equipment Used // bars Reps/Minutes 20x, 10x Comments Pt in hip flex and ER form Iliopsoas stretch Standing Exercise Name Runner stretch positioning Side bilateral Comments Assist needed to keep back leg straight. Gluteal strengthening Standing Exercise Name Hip ext Equipment Used // bars Reps/Minutes 20x, 10x sit to stand Standing Exercise Name Sit to stand without use of hands Side bilateral Equipment Used Gait belt to assist standing Reps/Minutes 2x Comments Assist needed to stand. Cuing needed not to plop. Gait Training Gait Activity 4WW Description Walking around clinic for ex tolerance and proper gait. Device Used 4WW Level of Assistance CGA Distance/Duration 10' Comments 4 standing stops with pt talking. Pt dragging forefoot after 5', required vcues for feet clearance. Last few minutes pt leaned onto walker causing increased speed of gait and v.cuing on correct posture. Neuro Re-Education Treatment Balance Activities single leg stance Details Hip ext with pt attempting hovering of hands on bars Equipment //bar Reps/Duration 20 x Comments Mod+ A of UE support Self-Care/Home Management Treatment Education Patient Education Home Exercise Program Activities Self-Care/Home Management Activities Reviewed pt's HEP. I/S caregiver to do with pt 2x sit to stands and runners stretch . Pt able to walk 10' on level. Caregiver present during therapy. PT-OP-T Assessment and Plan Start: 01/13/19 13:29 Freq: Status: Active Protocol: Document 01/25/19 15:05 LRN (Rec: 01/25/19 15:57 LRN [id number]) Physical Therapy Assessment Assessment Summary Assessment Poor form with standing hip ex 's. Pt is able to stand with upright posture when given verbal and physical cues. His walking posture declines as he fatigues with him leaning forward onto the walker handles. Further gait/ postural training needed to improve endurance and posture. Physical Therapy Plan Frequency and Duration Frequency of Treatment 2x/Week Plan of Care Start Date 01/18/19 Plan of Care End Date 04/12/19 Next Visit Focus/Plan Next Note Type Treatment Note Next Visit Plan LE strengthening (hamstrings, hips), progress ankle PF strengthening. Start core strengthening, balance training (SLS), HEP. Check if pt doing sit to stands > 2 reps, 2x/day. Continue aerobic ex of walking without walker and with walker.
--- NOTE | 2019-01-28 16:03 | PT.OTN ---
Current Diagnoses Unspecified abnormalities of gait and mobility (01/28/19) Weakness (01/28/19) Physical Therapy Treatment Note PT-OP-A Visit Information Start: 01/13/19 13:29 Freq: Status: Active Protocol: Document 01/28/19 15:01 LRN (Rec: 01/28/19 15:46 LRN [id number]) Out-Patient Physical Therapy Visit Information Visit Information Visit Type Treatment Note Visit Start Time 15:01 Visit Stop Time 15:42 Total Visit Minutes 41 Visit Number 4 Number of LATIN AMER[employer] STUDIES DIRECTOR Visits 0 Evaluation Information Evaluation Date 01/18/19 Precautions Precautions Dementia Depression Hearing Problems Umbilical Hernia repair 11/2017 Gall Bladder surgery 04/2018 Cardiomegaly Vertigo Pulmonary Fibrosis PT-OP-B Current Condition Start: 01/13/19 13:29 Freq: Status: Active Protocol: Document 01/18/19 13:43 LRN (Rec: 01/18/19 19:51 LRN [id number]) Current Condition History of Current Condition Onset Date 12/17/18 Current Complaints Pt reports no complaints Treatment Goals Patient/Caregiver Goals Pt has no goals but is agreeable to goals of improving single leg stance balance, improving stability with gait per TUG score, and being placed on a HEP. Personal Factors Other Personal Factors That May Effect Pt does not know why he is Therapy/Recovery being referred to therapy and feels he doesn't need therapy. PT-OP-C Subjective Start: 01/13/19 13:29 Freq: Status: Active Protocol: Document 01/28/19 15:01 LRN (Rec: 01/28/19 15:46 LRN [id number]) OP-PT Subjective Patient Comments Patient Comments Thinks he did the sit to stand ex's but can't remember. PT-OP-D Balance Start: 01/13/19 13:29 Freq: Status: Active Protocol: Document 01/18/19 13:43 LRN (Rec: 01/18/19 19:51 LRN [id number]) Balance Tests Single Limb Standing Single Limb- Right 5 Single Limb- Left 0 PT-OP-E Functional Tests Start: 01/13/19 13:29 Freq: Status: Active Protocol: Document 01/18/19 13:43 LRN (Rec: 01/18/19 19:51 LRN [id number]) Functional Tests Timed Up and Go (TUG) Score 23 Comments with 4WW, from webbed chair TUG Impairment Rating 100% Impaired (Score 20) PT-OP-G Mobility & Gait Start: 01/13/19 13:29 Freq: Status: Active Protocol: Document 01/18/19 13:43 LRN (Rec: 01/18/19 19:51 LRN [id number]) OP Mobility Evaluation Transfers Sit to Stand B UE push off from surface, but can stand without use of hands with difficulty. Pt tends to have slight retropulsion during STS. OP Gait Assessment Gait Able to Maintain Weight Bearing Status Yes During Gait Assistive Devices Assistive Device 4 Wheeled Walker Gait Deviations General Gait Pattern Decreased Stride Length Decreased Feet Clearance Flexed Trunk Wide Based Gait Comments Gait Comments Pt resistant to therapy PT-OP-J Posture/Palpation/Skin Start: 01/13/19 13:29 Freq: Status: Active Protocol: Document 01/18/19 13:43 LRN (Rec: 01/18/19 19:51 LRN [id number]) Posture Evaluation Position Standing Evaluation View Lateral Head/C-Spine Posture Forward Head T-Spine Posture Increased Kyphosis L-Spine Posture Flattened Pelvis Posture Posterior Tilted Hip Posture (L) Flexed (R) Flexed Knee Posture (L) Excess Flexion (R) Excess Flexion PT-OP-K Range of Motion Start: 01/13/19 13:29 Freq: Status: Active Protocol: Document 01/18/19 13:43 LRN (Rec: 01/21/19 09:36 LRN [id number]) Hip Goniometric Range of Motion Hip Right Passive Testing Position Supine Straight Leg Raise 50 Internal Rotation 0 External Rotation 45 Left Passive Testing Position Supine Straight Leg Raise 50 Internal Rotation 0 External Rotation 45 PT-OP-M Strength Start: 01/13/19 13:29 Freq: Status: Active Protocol: Document 01/18/19 13:43 LRN (Rec: 01/18/19 19:51 LRN [id number]) Knee Strength Knee Manual Muscle Testing Right Comments Generally 5/5 Left Comments Generally 5/5 Ankle/Foot Strength Ankle and Foot Manual Muscle Testing Right Plantarflexion (S1) 2 Poor Comments Generally 5/5, except as shown above Left Plantarflexion (S1) 2 Poor Comments Generally 5/5, except as shown above PT-OP-Q Treatments Start: 01/13/19 13:29 Freq: Status: Active Protocol: Document 01/28/19 15:01 LRN (Rec: 01/28/19 15:46 LRN [id number]) Therapeutic Exercises Standing Exercises Ankle DF/PF Standing Exercise Name Ankle DF Side bilateral Reps/Minutes 30x Comments Limited pt's posterior sway with toe lifts sit to stand Standing Exercise Name Sit to stand without use of hands Side bilateral Equipment Used Gait belt to assist standing Reps/Minutes 2x 2 sets Comments Assist needed to stand. Cuing needed not to plop. Pt extremely slow. Gait Training Gait Activity 4WW Description Walking around clinic for ex tolerance and proper gait. Device Used 4WW Level of Assistance CGA Distance/Duration 10' Comments 54 standing stops with pt talking. Pt dragging forefeet at beginning, required vcues for feet clearance. Last minute had the pt walk with walker in front but not using. Neuro Re-Education Treatment Balance Activities Side stepping Details Side stepping, hands hovering over // bar, hip AB Surface Level Equipment // bars as needed Reps/Duration 4 passes Comments Use of hands for stability as needed, vcuing for feet facing forward. Heel raises Details Heel raises, hands hovering over //Bars. Surface Level Equipment // Bars Reps/Duration 10 x Comments each heel lift took 10-15 sec' s walking over hurdles Surface Level Equipment // bars Reps/Duration 4 rounds Comments Use of hands for stability. Step through pattern. PT-OP-T Assessment and Plan Start: 01/13/19 13:29 Freq: Status: Active Protocol: Document 01/28/19 15:01 LRN (Rec: 01/28/19 15:46 LRN [id number]) Physical Therapy Assessment Assessment Summary Assessment Pt slow moving with ex's. Stopped with gait due to fatigue or talking?? Pt tends to shuffle his feet when tired. Improved walking with walker after // bar work with hurdles. Further gait/ postural training needed to improve endurance and posture. Physical Therapy Plan Frequency and Duration Frequency of Treatment 2x/Week Plan of Care Start Date 01/18/19 Plan of Care End Date 04/12/19 Next Visit Focus/Plan Next Note Type Treatment Note Next Visit Plan Issue flow sheet for pt to sit to stands, walking and home ex's. LE strengthening ( hamstrings, hips), progress ankle PF strengthening. Start core strengthening, balance training (SLS), HEP. Check if pt doing sit to stands > 2 reps, 2x/day. Continue aerobic ex of walking without walker and with walker.
--- NOTE | 2019-02-12 14:37 | PT.OTN ---
Current Diagnoses Unspecified abnormalities of gait and mobility (02/12/19) Weakness (02/12/19) Physical Therapy Treatment Note PT-OP-A Visit Information Start: 01/13/19 13:29 Freq: Status: Active Protocol: Document 02/12/19 13:35 LRN (Rec: 02/12/19 14:16 LRN [id number]) Out-Patient Physical Therapy Visit Information Visit Information Visit Type Treatment Note Visit Start Time 13:35 Visit Stop Time 14:15 Total Visit Minutes 40 Visit Number 6 Number of SECURITY ARCHITECT Visits 0 Evaluation Information Evaluation Date 01/18/19 Precautions Precautions Dementia Depression Hearing Problems Umbilical Hernia repair 11/2017 Gall Bladder surgery 04/2018 Cardiomegaly Vertigo Pulmonary Fibrosis PT-OP-B Current Condition Start: 01/13/19 13:29 Freq: Status: Active Protocol: Document 01/18/19 13:43 LRN (Rec: 01/18/19 19:51 LRN [id number]) Current Condition History of Current Condition Onset Date 12/17/18 Current Complaints Pt reports no complaints Treatment Goals Patient/Caregiver Goals Pt has no goals but is agreeable to goals of improving single leg stance balance, improving stability with gait per TUG score, and being placed on a HEP. Personal Factors Other Personal Factors That May Effect Pt does not know why he is Therapy/Recovery being referred to therapy and feels he doesn't need therapy. PT-OP-C Subjective Start: 01/13/19 13:29 Freq: Status: Active Protocol: Document 02/12/19 13:35 LRN (Rec: 02/12/19 14:16 LRN [id number]) OP-PT Subjective Patient Comments Patient Comments Last week caregiver says the had a colonoscopy; therefore pt did not do his ex 's for a week. She states the pt is weak and gets out of breath. PT-OP-D Balance Start: 01/13/19 13:29 Freq: Status: Active Protocol: Document 01/18/19 13:43 LRN (Rec: 01/18/19 19:51 LRN [id number]) Balance Tests Single Limb Standing Single Limb- Right 5 Single Limb- Left 0 PT-OP-E Functional Tests Start: 01/13/19 13:29 Freq: Status: Active Protocol: Document 01/18/19 13:43 LRN (Rec: 01/18/19 19:51 LRN [id number]) Functional Tests Timed Up and Go (TUG) Score 23 Comments with 4WW, from webbed chair TUG Impairment Rating 100% Impaired (Score 20) PT-OP-G Mobility & Gait Start: 01/13/19 13:29 Freq: Status: Active Protocol: Document 01/18/19 13:43 LRN (Rec: 01/18/19 19:51 LRN [id number]) OP Mobility Evaluation Transfers Sit to Stand B UE push off from surface, but can stand without use of hands with difficulty. Pt tends to have slight retropulsion during STS. OP Gait Assessment Gait Able to Maintain Weight Bearing Status Yes During Gait Assistive Devices Assistive Device 4 Wheeled Walker Gait Deviations General Gait Pattern Decreased Stride Length Decreased Feet Clearance Flexed Trunk Wide Based Gait Comments Gait Comments Pt resistant to therapy PT-OP-J Posture/Palpation/Skin Start: 01/13/19 13:29 Freq: Status: Active Protocol: Document 01/18/19 13:43 LRN (Rec: 01/18/19 19:51 LRN [id number]) Posture Evaluation Position Standing Evaluation View Lateral Head/C-Spine Posture Forward Head T-Spine Posture Increased Kyphosis L-Spine Posture Flattened Pelvis Posture Posterior Tilted Hip Posture (L) Flexed (R) Flexed Knee Posture (L) Excess Flexion (R) Excess Flexion PT-OP-K Range of Motion Start: 01/13/19 13:29 Freq: Status: Active Protocol: Document 01/18/19 13:43 LRN (Rec: 01/21/19 09:36 LRN [id number]) Hip Goniometric Range of Motion Hip Right Passive Testing Position Supine Straight Leg Raise 50 Internal Rotation 0 External Rotation 45 Left Passive Testing Position Supine Straight Leg Raise 50 Internal Rotation 0 External Rotation 45 PT-OP-M Strength Start: 01/13/19 13:29 Freq: Status: Active Protocol: Document 01/18/19 13:43 LRN (Rec: 01/18/19 19:51 LRN [id number]) Knee Strength Knee Manual Muscle Testing Right Comments Generally 5/5 Left Comments Generally 5/5 Ankle/Foot Strength Ankle and Foot Manual Muscle Testing Right Plantarflexion (S1) 2 Poor Comments Generally 5/5, except as shown above Left Plantarflexion (S1) 2 Poor Comments Generally 5/5, except as shown above PT-OP-Q Treatments Start: 01/13/19 13:29 Freq: Status: Active Protocol: Document 02/12/19 13:35 LRN (Rec: 02/12/19 14:16 LRN [id number]) Therapeutic Exercises Sitting Exercises Seated trunk rot strengthening Sitting Exercise Name Trunk rot Side bilateral Resistance Lev 2 T-Band Comments Phys cuing for rotation Ankle DF Sitting Exercise Name Foot on MO, wgts around forefoot. Side bilateral Equipment Used MO, 2# Reps/Minutes 30 x each foot and both feet Ankle IV Sitting Exercise Name Ankle IV Side bilateral Resistance Lev 2 T-Band Reps/Minutes 10x2 Ankle EV Sitting Exercise Name Ankle EV Side bilateral Resistance Lev 2 T-Band Reps/Minutes 10x3 Ankle PF Sitting Exercise Name Ankle PF Side bilateral Resistance Lev 2 T-Band Reps/Minutes 30x Standing Exercises Trunk ext for posture training Standing Exercise Name Postural training and awareness Comments Phys cuing at chest posterior shoulders. sit to stand Standing Exercise Name Sit to stand with/without use of hands Side bilateral Equipment Used Gait belt to assist standing Comments Assist needed to stand. Cuing needed not to plop. Pt extremely slow. Gait Training Gait Activity FWW Description WALKING Device Used FWW Level of Assistance CGA Surface Level Distance/Duration 6' Comments Stopped due to pt SOB and HR 20+ bpm over resting (60 bpm) PT-OP-T Assessment and Plan Start: 01/13/19 13:29 Freq: Status: Active Protocol: Document 02/12/19 13:35 LRN (Rec: 02/12/19 14:31 LRN [id number]) Physical Therapy Assessment Goals strength Impairment Impairment B LE strength Short Term Goal (STG) To improve his LE strength to perform 10 sit to stands twice a day at home. STG Duration 02/15/19 LTG Duration To improve his LE strength to perform 10 sit to stands twice a day at home. Three Impairment LE strength Short Term Goal (STG) The patient will be independent and consistent with a LE strengthening program. STG Duration 02/15/19 Television Repairman Goal (LTG) Pt will be independent with a self care HEP that he can continue with his caregiver or independently. LTG Duration 04/12/19 Two Impairment balance (SLS 0 sec's left, 5 sec's right) Intermediate Goal (LTG) The patient will show reduced risk of falling by improving his single leg stance ability LTG Duration 04/12/19 One Impairment gait Television Repairman Goal (LTG) The patient will improve his TUG from 23 seconds to 18 seconds with a FWW. LTG Duration 04/12/19 Progress Towards Goals Progress Comments Due to spouse surgery last week pt did not do ex's; therefore general decline in function noted. Goal #1: Decline in ambulatory ability. Goal #2: Pt not able to work on SLS. Goal #3: Pt away from home last week; therefore unable to ex with caregiver. Goal #4: Decline. Pt not able to independently perform a sit to stand, but was able to move lower stand to sit x 1 . Assessment Summary Assessment With pt's spousal surgery he has become weakened and deconditioned. He was unable to complete his 10 minute walk due to increased HR > 20 bpm over resting. Pt was not able to perform sit to stand without assist. Physical Therapy Plan Frequency and Duration Frequency of Treatment 2x/Week Plan of Care Start Date 01/18/19 Plan of Care End Date 04/12/19 Next Visit Focus/Plan Next Note Type Treatment Note Next Visit Plan Continue aerobic ex to return pt to prior level of functional ambulation. Progress LE strengthening ( hamstrings, hips), progress ankle PF strengthening for raising onto toes. Start core strengthening, progress balance training to SLS, & issue HEP when appropriate. Continue aerobic ex of walking without walker and with walker if caregiver hasn't walked with him.
--- NOTE | 2019-02-15 15:59 | PT.OTN ---
Current Diagnoses Unspecified abnormalities of gait and mobility (02/15/19) Weakness (02/15/19) Physical Therapy Treatment Note PT-OP-A Visit Information Start: 01/13/19 13:29 Freq: Status: Active Protocol: Document 02/15/19 14:30 AMB (Rec: 02/15/19 15:56 AMB [email or web address]) Out-Patient Physical Therapy Visit Information Visit Information Visit Type Treatment Note Visit Start Time 14:30 Visit Stop Time 15:14 Total Visit Minutes 44 Visit Number 7 Number of INSURANCE SALESMAN Visits 0 PT-OP-B Current Condition Start: 01/13/19 13:29 Freq: Status: Active Protocol: Document 01/18/19 13:43 LRN (Rec: 01/18/19 19:51 LRN [id number]) Current Condition History of Current Condition Onset Date 12/17/18 Current Complaints Pt reports no complaints Treatment Goals Patient/Caregiver Goals Pt has no goals but is agreeable to goals of improving single leg stance balance, improving stability with gait per TUG score, and being placed on a HEP. Personal Factors Other Personal Factors That May Effect Pt does not know why he is Therapy/Recovery being referred to therapy and feels he doesn't need therapy. PT-OP-C Subjective Start: 01/13/19 13:29 Freq: Status: Active Protocol: Document 02/15/19 14:30 AMB (Rec: 02/15/19 15:59 AMB [email or web address]) OP-PT Subjective Patient Comments Patient Comments Pt's states he did exercise with his caregiver today. PT-OP-D Balance Start: 01/13/19 13:29 Freq: Status: Active Protocol: Document 01/18/19 13:43 LRN (Rec: 01/18/19 19:51 LRN [id number]) Balance Tests Single Limb Standing Single Limb- Right 5 Single Limb- Left 0 PT-OP-E Functional Tests Start: 01/13/19 13:29 Freq: Status: Active Protocol: Document 01/18/19 13:43 LRN (Rec: 01/18/19 19:51 LRN [id number]) Functional Tests Timed Up and Go (TUG) Score 23 Comments with 4WW, from webbed chair TUG Impairment Rating 100% Impaired (Score 20) PT-OP-G Mobility & Gait Start: 01/13/19 13:29 Freq: Status: Active Protocol: Document 01/18/19 13:43 LRN (Rec: 01/18/19 19:51 LRN [id number]) OP Mobility Evaluation Transfers Sit to Stand B UE push off from surface, but can stand without use of hands with difficulty. Pt tends to have slight retropulsion during STS. OP Gait Assessment Gait Able to Maintain Weight Bearing Status Yes During Gait Assistive Devices Assistive Device 4 Wheeled Walker Gait Deviations General Gait Pattern Decreased Stride Length Decreased Feet Clearance Flexed Trunk Wide Based Gait Comments Gait Comments Pt resistant to therapy PT-OP-J Posture/Palpation/Skin Start: 01/13/19 13:29 Freq: Status: Active Protocol: Document 01/18/19 13:43 LRN (Rec: 01/18/19 19:51 LRN [id number]) Posture Evaluation Position Standing Evaluation View Lateral Head/C-Spine Posture Forward Head T-Spine Posture Increased Kyphosis L-Spine Posture Flattened Pelvis Posture Posterior Tilted Hip Posture (L) Flexed (R) Flexed Knee Posture (L) Excess Flexion (R) Excess Flexion PT-OP-K Range of Motion Start: 01/13/19 13:29 Freq: Status: Active Protocol: Document 01/18/19 13:43 LRN (Rec: 01/21/19 09:36 LRN [id number]) Hip Goniometric Range of Motion Hip Right Passive Testing Position Supine Straight Leg Raise 50 Internal Rotation 0 External Rotation 45 Left Passive Testing Position Supine Straight Leg Raise 50 Internal Rotation 0 External Rotation 45 PT-OP-M Strength Start: 01/13/19 13:29 Freq: Status: Active Protocol: Document 01/18/19 13:43 LRN (Rec: 01/18/19 19:51 LRN [id number]) Knee Strength Knee Manual Muscle Testing Right Comments Generally 5/5 Left Comments Generally 5/5 Ankle/Foot Strength Ankle and Foot Manual Muscle Testing Right Plantarflexion (S1) 2 Poor Comments Generally 5/5, except as shown above Left Plantarflexion (S1) 2 Poor Comments Generally 5/5, except as shown above PT-OP-Q Treatments Start: 01/13/19 13:29 Freq: Status: Active Protocol: Document 02/15/19 14:30 AMB (Rec: 02/15/19 15:56 AMB [email or web address]) Gym Equipment Shuttle Balance 1 Details YELLOW, Black straps tight Reps/Duration 8 min Comments Hands off supports with CGA forward WBOS and stride stance with eyes forward and head turns. Therapeutic Exercises Sitting Exercises Ankle IV Sitting Exercise Name Ankle IV Side bilateral Resistance Lev 2 T-Band Reps/Minutes 10x2 Ankle EV Sitting Exercise Name Ankle EV Side bilateral Resistance Lev 2 T-Band Reps/Minutes 10x3 Ankle PF Sitting Exercise Name Ankle PF Side bilateral Resistance Lev 2 T-Band Reps/Minutes 30x Standing Exercises sit to stand Standing Exercise Name Sit to stand with/without use of hands Side bilateral Equipment Used Gait belt to assist standing Comments Pt slow when not allowed to use hands Gait Training Gait Activity FWW Description WALKING Device Used 4WW Level of Assistance CGA Surface Level Distance/Duration 200 feet Neuro Re-Education Treatment Balance Activities 4 Details stride stance Reps/Duration 30x4 Comments firm surface vc for posture PT-OP-T Assessment and Plan Start: 01/13/19 13:29 Freq: Status: Active Protocol: Document 02/15/19 14:30 AMB (Rec: 02/15/19 15:56 AMB [email or web address]) Physical Therapy Assessment Assessment Summary Assessment Pt reported fatigue with standing balance today, but did well with seated exercises . Physical Therapy Plan Next Visit Focus/Plan Next Note Type Treatment Note Next Visit Plan Continue aerobic ex to return pt to prior level of functional ambulation. Progress LE strengthening ( hamstrings, hips), progress ankle PF strengthening for raising onto toes. Start core strengthening, progress balance training to SLS, & issue HEP when appropriate. Continue aerobic ex of walking without walker and with walker if caregiver hasn't walked with him.
--- NOTE | 2019-02-20 18:31 | PT.OTN ---
Current Diagnoses Unspecified abnormalities of gait and mobility (02/20/19) Weakness (02/20/19) Physical Therapy Treatment Note PT-OP-A Visit Information Start: 01/13/19 13:29 Freq: Status: Active Protocol: Document 02/20/19 13:49 HH (Rec: 02/20/19 18:30 HH [email or web address]) Out-Patient Physical Therapy Visit Information Visit Information Visit Type Treatment Note Visit Start Time 13:49 Visit Stop Time 14:35 Total Visit Minutes 46 Visit Number 8 Number of MEASUREMENT COORDINATOR Visits 0 PT-OP-B Current Condition Start: 01/13/19 13:29 Freq: Status: Active Protocol: Document 01/18/19 13:43 LRN (Rec: 01/18/19 19:51 LRN [id number]) Current Condition History of Current Condition Onset Date 12/17/18 Current Complaints Pt reports no complaints Treatment Goals Patient/Caregiver Goals Pt has no goals but is agreeable to goals of improving single leg stance balance, improving stability with gait per TUG score, and being placed on a HEP. Personal Factors Other Personal Factors That May Effect Pt does not know why he is Therapy/Recovery being referred to therapy and feels he doesn't need therapy. PT-OP-C Subjective Start: 01/13/19 13:29 Freq: Status: Active Protocol: Document 02/20/19 13:49 HH (Rec: 02/20/19 18:30 HH [email or web address]) OP-PT Subjective Patient Comments Patient Comments CG states they havent done exercise much since Rom traveled to [place] many times recently. PT-OP-D Balance Start: 01/13/19 13:29 Freq: Status: Active Protocol: Document 01/18/19 13:43 LRN (Rec: 01/18/19 19:51 LRN [id number]) Balance Tests Single Limb Standing Single Limb- Right 5 Single Limb- Left 0 PT-OP-E Functional Tests Start: 01/13/19 13:29 Freq: Status: Active Protocol: Document 01/18/19 13:43 LRN (Rec: 01/18/19 19:51 LRN [id number]) Functional Tests Timed Up and Go (TUG) Score 23 Comments with 4WW, from webbed chair TUG Impairment Rating 100% Impaired (Score 20) PT-OP-G Mobility & Gait Start: 01/13/19 13:29 Freq: Status: Active Protocol: Document 01/18/19 13:43 LRN (Rec: 01/18/19 19:51 LRN [id number]) OP Mobility Evaluation Transfers Sit to Stand B UE push off from surface, but can stand without use of hands with difficulty. Pt tends to have slight retropulsion during STS. OP Gait Assessment Gait Able to Maintain Weight Bearing Status Yes During Gait Assistive Devices Assistive Device 4 Wheeled Walker Gait Deviations General Gait Pattern Decreased Stride Length, Decreased Feet Clearance, Flexed Trunk,Wide Based Gait Comments Gait Comments Pt resistant to therapy PT-OP-J Posture/Palpation/Skin Start: 01/13/19 13:29 Freq: Status: Active Protocol: Document 01/18/19 13:43 LRN (Rec: 01/18/19 19:51 LRN [id number]) Posture Evaluation Position Standing Evaluation View Lateral Head/C-Spine Posture Forward Head T-Spine Posture Increased Kyphosis L-Spine Posture Flattened Pelvis Posture Posterior Tilted Hip Posture (L) Flexed,(R) Flexed Knee Posture (L) Excess Flexion,(R) Excess Flexion PT-OP-K Range of Motion Start: 01/13/19 13:29 Freq: Status: Active Protocol: Document 01/18/19 13:43 LRN (Rec: 01/21/19 09:36 LRN [id number]) Hip Goniometric Range of Motion Hip Right Passive Testing Position Supine Straight Leg Raise 50 Internal Rotation 0 External Rotation 45 Left Passive Testing Position Supine Straight Leg Raise 50 Internal Rotation 0 External Rotation 45 PT-OP-M Strength Start: 01/13/19 13:29 Freq: Status: Active Protocol: Document 01/18/19 13:43 LRN (Rec: 01/18/19 19:51 LRN [id number]) Knee Strength Knee Manual Muscle Testing Right Comments Generally 5/5 Left Comments Generally 5/5 Ankle/Foot Strength Ankle and Foot Manual Muscle Testing Right Plantarflexion (S1) 2 Poor Comments Generally 5/5, except as shown above Left Plantarflexion (S1) 2 Poor Comments Generally 5/5, except as shown above PT-OP-Q Treatments Start: 01/13/19 13:29 Freq: Status: Active Protocol: Document 02/20/19 13:49 HH (Rec: 02/20/19 18:30 HH [email or web address]) Cardio Equipment Recumbent Stepper (Sci-Fit) Duration (Minutes) 5 Resistance 5 Therapeutic Exercises Standing Exercises Trunk ext for posture training Standing Exercise Name Postural training and awareness Comments Phys cuing at chest posterior shoulders. sit to stand Standing Exercise Name Sit to stand with/without use of hands Side bilateral Equipment Used Gait belt to assist standing Reps/Minutes 5 x 3 Comments Pt slow when not allowed to use hands Neuro Re-Education Treatment Balance Activities amb with pvc bars Details within //bar, and open hallway Surface ground level Equipment PVC bars Reps/Duration 15 mins Comments use PVC pipe to facilitate reciprocal armswing, marching at the same time. walking over hurdles Details within //bar Surface ground level Equipment hurdles Reps/Duration 3 rounds x 2 Comments CGA, cues on feet clearance PT-OP-T Assessment and Plan Start: 01/13/19 13:29 Freq: Status: Active Protocol: Document 02/20/19 13:49 HH (Rec: 02/20/19 18:30 [email or web address]) Physical Therapy Assessment Goals strength Impairment Impairment B LE strength Short Term Goal (STG) To improve his LE strength to perform 10 sit to stands twice a day at home. STG Duration 02/15/19 LTG Duration To improve his LE strength to perform 10 sit to stands twice a day at home. Three Impairment LE strength Short Term Goal (STG) The patient will be independent and consistent with a LE strengthening program. STG Duration 02/15/19 Collar Turner Goal (LTG) Pt will be independent with a self care HEP that he can continue with his caregiver or independently. LTG Duration 04/12/19 Two Impairment balance (SLS 0 sec's left, 5 sec's right) Fpc Goal (LTG) The patient will show reduced risk of falling by improving his single leg stance ability LTG Duration 04/12/19 One Impairment gait Fpc Goal (LTG) The patient will improve his TUG from 23 seconds to 18 seconds with a FWW. LTG Duration 04/12/19 Assessment Summary Assessment Pt appears fatigue today who presents SOB after balance training for 2/3 rounds within //bar. Pt does improve his feet clearance and balance with the use of pvc bar to facilitate reciprocal armswings. Physical Therapy Plan Next Visit Focus/Plan Next Visit Plan Continue aerobic ex to return pt to prior level of functional ambulation. Progress LE strengthening ( hamstrings, hips), progress ankle PF strengthening for raising onto toes. Start core strengthening, progress balance training to SLS, & issue HEP when appropriate. Continue aerobic ex of walking without walker and with walker if caregiver hasn't walked with him.
--- NOTE | 2019-02-22 17:00 | PT.OTN ---
Current Diagnoses Unspecified abnormalities of gait and mobility (02/22/19) Weakness (02/22/19) Physical Therapy Treatment Note PT-OP-A Visit Information Start: 01/13/19 13:29 Freq: Status: Active Protocol: Document 02/22/19 13:45 AMB (Rec: 02/23/19 10:04 AMB [email or web address]) Out-Patient Physical Therapy Visit Information Visit Information Visit Type Treatment Note Visit Start Time 13:45 Visit Stop Time 14:25 Total Visit Minutes 40 Visit Number 9 Number of HEALTH COMMUNICATIONS SPECIALIST Visits 0 PT-OP-B Current Condition Start: 01/13/19 13:29 Freq: Status: Active Protocol: Document 01/18/19 13:43 LRN (Rec: 01/18/19 19:51 LRN [id number]) Current Condition History of Current Condition Onset Date 12/17/18 Current Complaints Pt reports no complaints Treatment Goals Patient/Caregiver Goals Pt has no goals but is agreeable to goals of improving single leg stance balance, improving stability with gait per TUG score, and being placed on a HEP. Personal Factors Other Personal Factors That May Effect Pt does not know why he is Therapy/Recovery being referred to therapy and feels he doesn't need therapy. PT-OP-C Subjective Start: 01/13/19 13:29 Freq: Status: Active Protocol: Document 02/22/19 13:45 AMB (Rec: 02/23/19 10:04 AMB [email or web address]) OP-PT Subjective Patient Comments Patient Comments CG attends but states they haven't walked yet today. they did to exercises earlier in the day. PT-OP-D Balance Start: 01/13/19 13:29 Freq: Status: Active Protocol: Document 01/18/19 13:43 LRN (Rec: 01/18/19 19:51 LRN [id number]) Balance Tests Single Limb Standing Single Limb- Right 5 Single Limb- Left 0 PT-OP-E Functional Tests Start: 01/13/19 13:29 Freq: Status: Active Protocol: Document 01/18/19 13:43 LRN (Rec: 01/18/19 19:51 LRN [id number]) Functional Tests Timed Up and Go (TUG) Score 23 Comments with 4WW, from webbed chair TUG Impairment Rating 100% Impaired (Score 20) PT-OP-G Mobility & Gait Start: 01/13/19 13:29 Freq: Status: Active Protocol: Document 01/18/19 13:43 LRN (Rec: 01/18/19 19:51 LRN [id number]) OP Mobility Evaluation Transfers Sit to Stand B UE push off from surface, but can stand without use of hands with difficulty. Pt tends to have slight retropulsion during STS. OP Gait Assessment Gait Able to Maintain Weight Bearing Status Yes During Gait Assistive Devices Assistive Device 4 Wheeled Walker Gait Deviations General Gait Pattern Decreased Stride Length, Decreased Feet Clearance, Flexed Trunk,Wide Based Gait Comments Gait Comments Pt resistant to therapy PT-OP-J Posture/Palpation/Skin Start: 01/13/19 13:29 Freq: Status: Active Protocol: Document 01/18/19 13:43 LRN (Rec: 01/18/19 19:51 LRN [id number]) Posture Evaluation Position Standing Evaluation View Lateral Head/C-Spine Posture Forward Head T-Spine Posture Increased Kyphosis L-Spine Posture Flattened Pelvis Posture Posterior Tilted Hip Posture (L) Flexed,(R) Flexed Knee Posture (L) Excess Flexion,(R) Excess Flexion PT-OP-K Range of Motion Start: 01/13/19 13:29 Freq: Status: Active Protocol: Document 01/18/19 13:43 LRN (Rec: 01/21/19 09:36 LRN [id number]) Hip Goniometric Range of Motion Hip Right Passive Testing Position Supine Straight Leg Raise 50 Internal Rotation 0 External Rotation 45 Left Passive Testing Position Supine Straight Leg Raise 50 Internal Rotation 0 External Rotation 45 PT-OP-M Strength Start: 01/13/19 13:29 Freq: Status: Active Protocol: Document 01/18/19 13:43 LRN (Rec: 01/18/19 19:51 LRN [id number]) Knee Strength Knee Manual Muscle Testing Right Comments Generally 5/5 Left Comments Generally 5/5 Ankle/Foot Strength Ankle and Foot Manual Muscle Testing Right Plantarflexion (S1) 2 Poor Comments Generally 5/5, except as shown above Left Plantarflexion (S1) 2 Poor Comments Generally 5/5, except as shown above PT-OP-Q Treatments Start: 01/13/19 13:29 Freq: Status: Active Protocol: Document 02/22/19 13:45 AMB (Rec: 02/23/19 10:04 AMB [email or web address]) Cardio Equipment Recumbent Stepper (Sci-Fit) Duration (Minutes) 5 Resistance 5 Therapeutic Exercises Standing Exercises Trunk ext for posture training Standing Exercise Name Postural training and awareness Comments Phys cuing at chest posterior shoulders. sit to stand Standing Exercise Name Sit to stand with/without use of hands Side bilateral Equipment Used Gait belt to assist standing Reps/Minutes 5 x 3 Comments Pt slow when not allowed to use hands 6 Standing Exercise Name forward mini lunges Reps/Minutes 2 laps Comments at rail, CGA Neuro Re-Education Treatment Balance Activities Side stepping Details in // bars Comments hovering hands over bars, needed to touch down intermittently marching Details at railing Comments vc for posutre walking over hurdles Details within //bar Surface ground level Equipment hurdles Reps/Duration 3 rounds x 2 Comments CGA, cues on feet clearance 4 Details stride stance Reps/Duration 30x4 Comments firm surface vc for posture PT-OP-T Assessment and Plan Start: 01/13/19 13:29 Freq: Status: Active Protocol: Document 02/22/19 13:45 AMB (Rec: 02/23/19 10:04 AMB [email or web address]) Physical Therapy Assessment Assessment Summary Assessment Pt was more energized today, needing few seated rest breaks . Needed max vc for attention to posture. Physical Therapy Plan Next Visit Focus/Plan Next Note Type Progress Note Next Visit Plan Continue aerobic ex to return pt to prior level of functional ambulation. Progress LE strengthening ( hamstrings, hips), progress ankle PF strengthening for raising onto toes. Start core strengthening, progress balance training to SLS, & issue HEP when appropriate. Continue aerobic ex of walking without walker and with walker if caregiver hasn't walked with him.
--- NOTE | 2019-02-28 18:00 | PT.OTN ---
Current Diagnoses Unspecified abnormalities of gait and mobility (02/28/19) Weakness (02/28/19) Physical Therapy Treatment Note PT-OP-A Visit Information Start: 01/13/19 13:29 Freq: Status: Active Protocol: Document 02/28/19 16:06 HH (Rec: 02/28/19 18:00 [email or web address]) Out-Patient Physical Therapy Visit Information Visit Information Visit Type Treatment Note Visit Start Time 16:06 Visit Stop Time 16:45 Total Visit Minutes 45 Visit Number 10 Number of VARNISHER PLASTICOATER Visits 0 PT-OP-B Current Condition Start: 01/13/19 13:29 Freq: Status: Active Protocol: Document 01/18/19 13:43 LRN (Rec: 01/18/19 19:51 LRN [id number]) Current Condition History of Current Condition Onset Date 12/17/18 Current Complaints Pt reports no complaints Treatment Goals Patient/Caregiver Goals Pt has no goals but is agreeable to goals of improving single leg stance balance, improving stability with gait per TUG score, and being placed on a HEP. Personal Factors Other Personal Factors That May Effect Pt does not know why he is Therapy/Recovery being referred to therapy and feels he doesn't need therapy. PT-OP-C Subjective Start: 01/13/19 13:29 Freq: Status: Active Protocol: Document 02/28/19 16:06 (Rec: 02/28/19 18:00 [email or web address]) OP-PT Subjective Patient Comments Patient Comments Pt had a shingle shot few days and c/o slight L arm pain . PT-OP-D Balance Start: 01/13/19 13:29 Freq: Status: Active Protocol: Document 01/18/19 13:43 LRN (Rec: 01/18/19 19:51 LRN [id number]) Balance Tests Single Limb Standing Single Limb- Right 5 Single Limb- Left 0 PT-OP-E Functional Tests Start: 01/13/19 13:29 Freq: Status: Active Protocol: Document 01/18/19 13:43 LRN (Rec: 01/18/19 19:51 LRN [id number]) Functional Tests Timed Up and Go (TUG) Score 23 Comments with 4WW, from webbed chair TUG Impairment Rating 100% Impaired (Score 20) PT-OP-G Mobility & Gait Start: 01/13/19 13:29 Freq: Status: Active Protocol: Document 01/18/19 13:43 LRN (Rec: 01/18/19 19:51 LRN [id number]) OP Mobility Evaluation Transfers Sit to Stand B UE push off from surface, but can stand without use of hands with difficulty. Pt tends to have slight retropulsion during STS. OP Gait Assessment Gait Able to Maintain Weight Bearing Status Yes During Gait Assistive Devices Assistive Device 4 Wheeled Walker Gait Deviations General Gait Pattern Decreased Stride Length, Decreased Feet Clearance, Flexed Trunk,Wide Based Gait Comments Gait Comments Pt resistant to therapy PT-OP-J Posture/Palpation/Skin Start: 01/13/19 13:29 Freq: Status: Active Protocol: Document 01/18/19 13:43 LRN (Rec: 01/18/19 19:51 LRN [id number]) Posture Evaluation Position Standing Evaluation View Lateral Head/C-Spine Posture Forward Head T-Spine Posture Increased Kyphosis L-Spine Posture Flattened Pelvis Posture Posterior Tilted Hip Posture (L) Flexed,(R) Flexed Knee Posture (L) Excess Flexion,(R) Excess Flexion PT-OP-K Range of Motion Start: 01/13/19 13:29 Freq: Status: Active Protocol: Document 01/18/19 13:43 LRN (Rec: 01/21/19 09:36 LRN [id number]) Hip Goniometric Range of Motion Hip Right Passive Testing Position Supine Straight Leg Raise 50 Internal Rotation 0 External Rotation 45 Left Passive Testing Position Supine Straight Leg Raise 50 Internal Rotation 0 External Rotation 45 PT-OP-M Strength Start: 01/13/19 13:29 Freq: Status: Active Protocol: Document 01/18/19 13:43 LRN (Rec: 01/18/19 19:51 LRN [id number]) Knee Strength Knee Manual Muscle Testing Right Comments Generally 5/5 Left Comments Generally 5/5 Ankle/Foot Strength Ankle and Foot Manual Muscle Testing Right Plantarflexion (S1) 2 Poor Comments Generally 5/5, except as shown above Left Plantarflexion (S1) 2 Poor Comments Generally 5/5, except as shown above PT-OP-Q Treatments Start: 01/13/19 13:29 Freq: Status: Active Protocol: Document 02/28/19 16:06 HH (Rec: 02/28/19 18:00 HH [email or web address]) Cardio Equipment Recumbent Stepper (Sci-Fit) Duration (Minutes) 5 Resistance 5 Therapeutic Exercises Standing Exercises Trunk ext for posture training Standing Exercise Name Postural training and awareness Comments Phys cuing at chest posterior shoulders. Therapeutic Activity Therapeutic Activity sit to stand Reps/Minutes 5 xSTS x 8 sets Comments use of //bar to pull timed trial Gait Training Gait Activity 4WW Device Used 4WW Level of Assistance sba Surface ground level Distance/Duration 300 ft Comments cues on feet clearance PT-OP-T Assessment and Plan Start: 01/13/19 13:29 Freq: Status: Active Protocol: Document 02/28/19 16:06 (Rec: 02/28/19 18:00 [email or web address]) Physical Therapy Assessment Goals strength Impairment Impairment B LE strength Short Term Goal (STG) 02/28/19: Pt has been doing 10 STS once a day if CG is available. 5 x STS = 18-24s with cues and //bar LTG Duration To improve his LE strength to perform 10 sit to stands twice a day at home. Three Fci Goal (LTG) 02/28/19: Pt has been doing HEP if CG is available LTG Duration 04/12/19 Two Fci Goal (LTG) did not assess 02/28/19 LTG Duration 04/12/19 One Impairment gait Jigger Operator Goal (LTG) did not assess 02/28. The patient will improve his TUG from 23 seconds to 18 seconds with a FWW. LTG Duration 04/12/19 Progress Towards Goals Progress Towards Goals Slow Progress due to Activity Tolerance,Slow Progress due to Noncompliance,Slow Progress - Other Assessment Summary Assessment Pt was more energized today but cont required extensive cues to improve his speed on sit to stand activities. pt's 5x STS went from 39s to 18s with //bar. But he does show SOB. Discussed with pt's about d/c plan within the next 2 weeks since pt;s CG is able to cont his maintenance program. Physical Therapy Plan Next Visit Focus/Plan Next Note Type Treatment Note Next Visit Plan Continue aerobic ex to return pt to prior level of functional ambulation. Progress LE strengthening ( hamstrings, hips), progress ankle PF strengthening for raising onto toes. Start core strengthening, progress balance training to SLS, & issue HEP when appropriate. Continue aerobic ex of walking without walker and with walker if caregiver hasn't walked with him.
--- NOTE | 2019-03-04 16:50 | PT.OTN ---
Current Diagnoses Unspecified abnormalities of gait and mobility (03/04/19) Weakness (03/04/19) Physical Therapy Treatment Note PT-OP-A Visit Information Start: 01/13/19 13:29 Freq: Status: Active Protocol: Document 03/04/19 14:30 AMB (Rec: 03/04/19 16:50 AMB [email or web address]) Out-Patient Physical Therapy Visit Information Visit Information Visit Type Treatment Note Visit Start Time 14:30 Visit Stop Time 15:12 Total Visit Minutes 42 Visit Number 11 Number of DRY FOLDER CLOTH Visits 0 PT-OP-B Current Condition Start: 01/13/19 13:29 Freq: Status: Active Protocol: Document 01/18/19 13:43 LRN (Rec: 01/18/19 19:51 LRN [id number]) Current Condition History of Current Condition Onset Date 12/17/18 Current Complaints Pt reports no complaints Treatment Goals Patient/Caregiver Goals Pt has no goals but is agreeable to goals of improving single leg stance balance, improving stability with gait per TUG score, and being placed on a HEP. Personal Factors Other Personal Factors That May Effect Pt does not know why he is Therapy/Recovery being referred to therapy and feels he doesn't need therapy. PT-OP-C Subjective Start: 01/13/19 13:29 Freq: Status: Active Protocol: Document 03/04/19 14:30 AMB (Rec: 03/04/19 16:50 AMB [email or web address]) OP-PT Subjective Patient Comments Patient Comments Pt attends with who states that pt already went on a long walk with his caregiver earlier in the day, so he may be a little tired. PT-OP-D Balance Start: 01/13/19 13:29 Freq: Status: Active Protocol: Document 01/18/19 13:43 LRN (Rec: 01/18/19 19:51 LRN [id number]) Balance Tests Single Limb Standing Single Limb- Right 5 Single Limb- Left 0 PT-OP-E Functional Tests Start: 01/13/19 13:29 Freq: Status: Active Protocol: Document 01/18/19 13:43 LRN (Rec: 01/18/19 19:51 LRN [id number]) Functional Tests Timed Up and Go (TUG) Score 23 Comments with 4WW, from webbed chair TUG Impairment Rating 100% Impaired (Score 20) PT-OP-G Mobility & Gait Start: 01/13/19 13:29 Freq: Status: Active Protocol: Document 01/18/19 13:43 LRN (Rec: 01/18/19 19:51 LRN [id number]) OP Mobility Evaluation Transfers Sit to Stand B UE push off from surface, but can stand without use of hands with difficulty. Pt tends to have slight retropulsion during STS. OP Gait Assessment Gait Able to Maintain Weight Bearing Status Yes During Gait Assistive Devices Assistive Device 4 Wheeled Walker Gait Deviations General Gait Pattern Decreased Stride Length, Decreased Feet Clearance, Flexed Trunk,Wide Based Gait Comments Gait Comments Pt resistant to therapy PT-OP-J Posture/Palpation/Skin Start: 01/13/19 13:29 Freq: Status: Active Protocol: Document 01/18/19 13:43 LRN (Rec: 01/18/19 19:51 LRN [id number]) Posture Evaluation Position Standing Evaluation View Lateral Head/C-Spine Posture Forward Head T-Spine Posture Increased Kyphosis L-Spine Posture Flattened Pelvis Posture Posterior Tilted Hip Posture (L) Flexed,(R) Flexed Knee Posture (L) Excess Flexion,(R) Excess Flexion PT-OP-K Range of Motion Start: 01/13/19 13:29 Freq: Status: Active Protocol: Document 01/18/19 13:43 LRN (Rec: 01/21/19 09:36 LRN [id number]) Hip Goniometric Range of Motion Hip Right Passive Testing Position Supine Straight Leg Raise 50 Internal Rotation 0 External Rotation 45 Left Passive Testing Position Supine Straight Leg Raise 50 Internal Rotation 0 External Rotation 45 PT-OP-M Strength Start: 01/13/19 13:29 Freq: Status: Active Protocol: Document 01/18/19 13:43 LRN (Rec: 01/18/19 19:51 LRN [id number]) Knee Strength Knee Manual Muscle Testing Right Comments Generally 5/5 Left Comments Generally 5/5 Ankle/Foot Strength Ankle and Foot Manual Muscle Testing Right Plantarflexion (S1) 2 Poor Comments Generally 5/5, except as shown above Left Plantarflexion (S1) 2 Poor Comments Generally 5/5, except as shown above PT-OP-Q Treatments Start: 01/13/19 13:29 Freq: Status: Active Protocol: Document 03/04/19 14:30 AMB (Rec: 03/04/19 16:50 AMB [email or web address]) Therapeutic Exercises Standing Exercises Trunk ext for posture training Standing Exercise Name Postural training and awareness Comments Phys cuing at chest posterior shoulders. sit to stand Standing Exercise Name Sit to stand with/without use of hands Side bilateral Equipment Used Gait belt to assist standing Reps/Minutes 5 x 3 Comments Pt slow when not allowed to use hands 2 Standing Exercise Name hip abd Resistance 10# Reps/Minutes 2x20 Comments vc slow 1 Standing Exercise Name hamstring curls Resistance 4# Reps/Minutes 2x20 Comments vc for slow Neuro Re-Education Treatment Balance Activities Side stepping Details in // bars Comments hovering hands over bars, needed to touch down intermittently marching Details at railing Comments vc for posutre 4 Details stride stance Reps/Duration 30x4 Comments firm surface vc for posture 3 Details stair tap ups Comments for speed with UE support PT-OP-T Assessment and Plan Start: 01/13/19 13:29 Freq: Status: Active Protocol: Document 03/04/19 14:30 AMB (Rec: 03/04/19 16:50 AMB [email or web address]) Physical Therapy Assessment Assessment Summary Assessment Pt's is ok with pt taking a break with PT for a little bit, as he has been working with caregiver well. He was a bit tired today and tends to ucllen his exercises. Physical Therapy Plan Next Visit Focus/Plan Next Note Type Treatment Note Next Visit Plan Continue aerobic ex to return pt to prior level of functional ambulation. Progress LE strengthening ( hamstrings, hips), progress ankle PF strengthening for raising onto toes. Start core strengthening, progress balance training to SLS, & issue HEP when appropriate. Continue aerobic ex of walking without walker and with walker if caregiver hasn't walked with him.
--- NOTE | 2019-03-07 16:29 | PT.OTN ---
Current Diagnoses Unspecified abnormalities of gait and mobility (03/07/19) Weakness (03/07/19) Physical Therapy Treatment Note PT-OP-A Visit Information Start: 01/13/19 13:29 Freq: Status: Active Protocol: Document 03/07/19 13:47 HH (Rec: 03/07/19 16:28 HH [email or web address]) Out-Patient Physical Therapy Visit Information Visit Information Visit Type Treatment Note Visit Note Pt's CG attended last 15 mins of tx session Visit Start Time 13:47 Visit Stop Time 14:30 Total Visit Minutes 43 Visit Number 12 Number of RAMP SERVICE AGENT Visits 0 PT-OP-B Current Condition Start: 01/13/19 13:29 Freq: Status: Active Protocol: Document 01/18/19 13:43 LRN (Rec: 01/18/19 19:51 LRN [id number]) Current Condition History of Current Condition Onset Date 12/17/18 Current Complaints Pt reports no complaints Treatment Goals Patient/Caregiver Goals Pt has no goals but is agreeable to goals of improving single leg stance balance, improving stability with gait per TUG score, and being placed on a HEP. Personal Factors Other Personal Factors That May Effect Pt does not know why he is Therapy/Recovery being referred to therapy and feels he doesn't need therapy. PT-OP-C Subjective Start: 01/13/19 13:29 Freq: Status: Active Protocol: Document 03/07/19 13:47 HH (Rec: 03/07/19 16:28 HH [email or web address]) OP-PT Subjective Patient Comments Patient Comments Pt's CG stated Rom has been traveling between [place] and [facility] for the past 2 days. He seems a bit more tired. But we did walk this morning. PT-OP-D Balance Start: 01/13/19 13:29 Freq: Status: Active Protocol: Document 01/18/19 13:43 LRN (Rec: 01/18/19 19:51 LRN [id number]) Balance Tests Single Limb Standing Single Limb- Right 5 Single Limb- Left 0 PT-OP-E Functional Tests Start: 01/13/19 13:29 Freq: Status: Active Protocol: Document 01/18/19 13:43 LRN (Rec: 01/18/19 19:51 LRN [id number]) Functional Tests Timed Up and Go (TUG) Score 23 Comments with 4WW, from webbed chair TUG Impairment Rating 100% Impaired (Score 20) PT-OP-G Mobility & Gait Start: 01/13/19 13:29 Freq: Status: Active Protocol: Document 01/18/19 13:43 LRN (Rec: 01/18/19 19:51 LRN [id number]) OP Mobility Evaluation Transfers Sit to Stand B UE push off from surface, but can stand without use of hands with difficulty. Pt tends to have slight retropulsion during STS. OP Gait Assessment Gait Able to Maintain Weight Bearing Status Yes During Gait Assistive Devices Assistive Device 4 Wheeled Walker Gait Deviations General Gait Pattern Decreased Stride Length, Decreased Feet Clearance, Flexed Trunk,Wide Based Gait Comments Gait Comments Pt resistant to therapy PT-OP-J Posture/Palpation/Skin Start: 01/13/19 13:29 Freq: Status: Active Protocol: Document 01/18/19 13:43 LRN (Rec: 01/18/19 19:51 LRN [id number]) Posture Evaluation Position Standing Evaluation View Lateral Head/C-Spine Posture Forward Head T-Spine Posture Increased Kyphosis L-Spine Posture Flattened Pelvis Posture Posterior Tilted Hip Posture (L) Flexed,(R) Flexed Knee Posture (L) Excess Flexion,(R) Excess Flexion PT-OP-K Range of Motion Start: 01/13/19 13:29 Freq: Status: Active Protocol: Document 01/18/19 13:43 LRN (Rec: 01/21/19 09:36 LRN [id number]) Hip Goniometric Range of Motion Hip Right Passive Testing Position Supine Straight Leg Raise 50 Internal Rotation 0 External Rotation 45 Left Passive Testing Position Supine Straight Leg Raise 50 Internal Rotation 0 External Rotation 45 PT-OP-M Strength Start: 01/13/19 13:29 Freq: Status: Active Protocol: Document 01/18/19 13:43 LRN (Rec: 01/18/19 19:51 LRN [id number]) Knee Strength Knee Manual Muscle Testing Right Comments Generally 5/5 Left Comments Generally 5/5 Ankle/Foot Strength Ankle and Foot Manual Muscle Testing Right Plantarflexion (S1) 2 Poor Comments Generally 5/5, except as shown above Left Plantarflexion (S1) 2 Poor Comments Generally 5/5, except as shown above PT-OP-Q Treatments Start: 01/13/19 13:29 Freq: Status: Active Protocol: Document 03/07/19 13:47 (Rec: 03/07/19 16:28 [email or web address]) Cardio Equipment Recumbent Stepper (Sci-Fit) Duration (Minutes) 8 Resistance 2 Therapeutic Exercises Standing Exercises Trunk ext for posture training Standing Exercise Name Postural training and awareness Comments Phys cuing at chest posterior shoulders. sit to stand Standing Exercise Name Sit to stand with/without use of hands Side bilateral Equipment Used Gait belt to assist standing Reps/Minutes 5 x 3 Comments Pt slow when not allowed to use hands Therapeutic Activity Therapeutic Activity sit to stand Reps/Minutes 5 xSTS x 5 sets Comments use of //bar to pull timed trial max cues to increase speed 32s, 28s, 24s, 22s, 22s Neuro Re-Education Treatment Balance Activities step up Details step up on 4inches Equipment with handrails Comments alt step up. 3 Details stair tap ups Comments for speed with UE support PT-OP-T Assessment and Plan Start: 01/13/19 13:29 Freq: Status: Active Protocol: Document 03/07/19 13:47 (Rec: 03/07/19 16:28 [email or web address]) Physical Therapy Assessment Goals strength Impairment Impairment B LE strength Short Term Goal (STG) 02/28/19: Pt has been doing 10 STS once a day if CG is available. 5 x STS = 18-24s with cues and //bar LTG Duration To improve his LE strength to perform 10 sit to stands twice a day at home. Three Chcf Goal (LTG) 02/28/19: Pt has been doing HEP if CG is available LTG Duration 04/12/19 Two Chcf Goal (LTG) did not assess 02/28/19 LTG Duration 04/12/19 One Impairment gait Chcf Goal (LTG) did not assess 02/28. The patient will improve his TUG from 23 seconds to 18 seconds with a FWW. LTG Duration 04/12/19 Assessment Summary Assessment Pt's overall movements cont to be slow and he does not aware of it possibly due to his advanced dementia. pt also does not recall his previous tx sessions. Recommended pt's CG to cont to provide cues to improve pt's speed and step length for pt's daily exercises. At this point, the goal of PT would be mostly conditioning and maintenance. Physical Therapy Plan Next Visit Focus/Plan Next Note Type Treatment Note Next Visit Plan Continue aerobic ex to return pt to prior level of functional ambulation. Progress LE strengthening ( hamstrings, hips), progress ankle PF strengthening for raising onto toes. Start core strengthening, progress balance training to SLS, & issue HEP when appropriate. Continue aerobic ex of walking without walker and with walker if caregiver hasn't walked with him.
--- NOTE | 2019-03-13 15:41 | PT.OTN ---
Current Diagnoses Unspecified abnormalities of gait and mobility (03/13/19) Weakness (03/13/19) Physical Therapy Treatment Note PT-OP-A Visit Information Start: 01/13/19 13:29 Freq: Status: Active Protocol: Document 03/13/19 13:50 HH (Rec: 03/13/19 15:41 HH [email or web address]) Out-Patient Physical Therapy Visit Information Visit Information Visit Type Treatment Note Visit Note Pt's CG attended last 15 mins of tx session Visit Start Time 13:50 Visit Stop Time 14:35 Total Visit Minutes 45 Visit Number 13 Number of CREDIT RISK ANALYTICS MANAGER Visits 0 PT-OP-B Current Condition Start: 01/13/19 13:29 Freq: Status: Active Protocol: Document 01/18/19 13:43 LRN (Rec: 01/18/19 19:51 LRN [id number]) Current Condition History of Current Condition Onset Date 12/17/18 Current Complaints Pt reports no complaints Treatment Goals Patient/Caregiver Goals Pt has no goals but is agreeable to goals of improving single leg stance balance, improving stability with gait per TUG score, and being placed on a HEP. Personal Factors Other Personal Factors That May Effect Pt does not know why he is Therapy/Recovery being referred to therapy and feels he doesn't need therapy. PT-OP-C Subjective Start: 01/13/19 13:29 Freq: Status: Active Protocol: Document 03/13/19 13:50 HH (Rec: 03/13/19 15:41 HH [email or web address]) OP-PT Subjective Patient Comments Patient Comments Pt's CG stated Rom has been traveling quite a bit for the past 2 days due to sleep study and he did not get much of sleep PT-OP-D Balance Start: 01/13/19 13:29 Freq: Status: Active Protocol: Document 01/18/19 13:43 LRN (Rec: 01/18/19 19:51 LRN [id number]) Balance Tests Single Limb Standing Single Limb- Right 5 Single Limb- Left 0 PT-OP-E Functional Tests Start: 01/13/19 13:29 Freq: Status: Active Protocol: Document 01/18/19 13:43 LRN (Rec: 01/18/19 19:51 LRN [id number]) Functional Tests Timed Up and Go (TUG) Score 23 Comments with 4WW, from webbed chair TUG Impairment Rating 100% Impaired (Score 20) PT-OP-G Mobility & Gait Start: 01/13/19 13:29 Freq: Status: Active Protocol: Document 01/18/19 13:43 LRN (Rec: 01/18/19 19:51 LRN [id number]) OP Mobility Evaluation Transfers Sit to Stand B UE push off from surface, but can stand without use of hands with difficulty. Pt tends to have slight retropulsion during STS. OP Gait Assessment Gait Able to Maintain Weight Bearing Status Yes During Gait Assistive Devices Assistive Device 4 Wheeled Walker Gait Deviations General Gait Pattern Decreased Stride Length, Decreased Feet Clearance, Flexed Trunk,Wide Based Gait Comments Gait Comments Pt resistant to therapy PT-OP-J Posture/Palpation/Skin Start: 01/13/19 13:29 Freq: Status: Active Protocol: Document 01/18/19 13:43 LRN (Rec: 01/18/19 19:51 LRN [id number]) Posture Evaluation Position Standing Evaluation View Lateral Head/C-Spine Posture Forward Head T-Spine Posture Increased Kyphosis L-Spine Posture Flattened Pelvis Posture Posterior Tilted Hip Posture (L) Flexed,(R) Flexed Knee Posture (L) Excess Flexion,(R) Excess Flexion PT-OP-K Range of Motion Start: 01/13/19 13:29 Freq: Status: Active Protocol: Document 01/18/19 13:43 LRN (Rec: 01/21/19 09:36 LRN [id number]) Hip Goniometric Range of Motion Hip Right Passive Testing Position Supine Straight Leg Raise 50 Internal Rotation 0 External Rotation 45 Left Passive Testing Position Supine Straight Leg Raise 50 Internal Rotation 0 External Rotation 45 PT-OP-M Strength Start: 01/13/19 13:29 Freq: Status: Active Protocol: Document 01/18/19 13:43 LRN (Rec: 01/18/19 19:51 LRN [id number]) Knee Strength Knee Manual Muscle Testing Right Comments Generally 5/5 Left Comments Generally 5/5 Ankle/Foot Strength Ankle and Foot Manual Muscle Testing Right Plantarflexion (S1) 2 Poor Comments Generally 5/5, except as shown above Left Plantarflexion (S1) 2 Poor Comments Generally 5/5, except as shown above PT-OP-Q Treatments Start: 01/13/19 13:29 Freq: Status: Active Protocol: Document 03/13/19 13:50 (Rec: 03/13/19 15:41 [email or web address]) Cardio Equipment Recumbent Stepper (Sci-Fit) Duration (Minutes) 10 Resistance 2 Therapeutic Exercises Standing Exercises sit to stand Standing Exercise Name Sit to stand with/without use of hands Side bilateral Reps/Minutes 5 x 3 Comments Pt slow when not allowed to use hands Therapeutic Activity Therapeutic Activity sit to stand Reps/Minutes 5 xSTS x 5 sets Comments use of //bar to pull timed trial max cues to increase speed 29,20,18,18,15 seconds Neuro Re-Education Treatment Balance Activities step up Details step up on 4inches Equipment with handrails/ without rails for 4 times Comments alt step up. 3 Details stair tap ups Comments for speed with UE support PT-OP-T Assessment and Plan Start: 01/13/19 13:29 Freq: Status: Active Protocol: Document 03/13/19 13:50 (Rec: 03/13/19 15:41 [email or web address]) Physical Therapy Assessment Goals strength Impairment Impairment B LE strength Short Term Goal (STG) 02/28/19: Pt has been doing 10 STS once a day if CG is available. 5 x STS = 18-24s with cues and //bar LTG Duration To improve his LE strength to perform 10 sit to stands twice a day at home. Three Fci Goal (LTG) 02/28/19: Pt has been doing HEP if CG is available LTG Duration 04/12/19 Two Fci Goal (LTG) did not assess 02/28/19 LTG Duration 04/12/19 One Impairment gait Fci Goal (LTG) did not assess 02/28. The patient will improve his TUG from 23 seconds to 18 seconds with a FWW. LTG Duration 04/12/19 Assessment Summary Assessment Pt tends to be more motivated and able to improve his mobility and speed by the use of time trials/ numbers. However, pt's progress has been plateau possibly due to his dementia who is unable to retain information consistently; Pt often stated he does not remember details of his previous tx sessions. Discussed with CG of pt's progress and prognosis. The need of skilled therapy is limited and recommended her the benefit of participating fitness class from [facility] and continuous HEP for overall mobility and strength maintenance. Physical Therapy Plan Next Visit Focus/Plan Next Note Type Discharge Summary Next Visit Plan Possible D/C review of HEP, gym equipments review . strengthening program as jadyn.
--- NOTE | 2019-03-15 16:26 | PT.OTN ---
Current Diagnoses Unspecified abnormalities of gait and mobility (03/15/19) Weakness (03/15/19) Physical Therapy Treatment Note PT-OP-A Visit Information Start: 01/13/19 13:29 Freq: Status: Active Protocol: Document 03/15/19 15:30 HH (Rec: 03/15/19 16:26 HH [email or web address]) Out-Patient Physical Therapy Visit Information Visit Information Visit Type Treatment Note Visit Note Pt's girlfriend attended last 10 mins of tx session Visit Start Time 15:30 Visit Stop Time 16:11 Total Visit Minutes 46 Visit Number 14 Number of GAME FARM HELPER Visits 0 PT-OP-B Current Condition Start: 01/13/19 13:29 Freq: Status: Active Protocol: Document 01/18/19 13:43 LRN (Rec: 01/18/19 19:51 LRN [id number]) Current Condition History of Current Condition Onset Date 12/17/18 Current Complaints Pt reports no complaints Treatment Goals Patient/Caregiver Goals Pt has no goals but is agreeable to goals of improving single leg stance balance, improving stability with gait per TUG score, and being placed on a HEP. Personal Factors Other Personal Factors That May Effect Pt does not know why he is Therapy/Recovery being referred to therapy and feels he doesn't need therapy. PT-OP-C Subjective Start: 01/13/19 13:29 Freq: Status: Active Protocol: Document 03/15/19 15:30 HH (Rec: 03/15/19 16:26 HH [email or web address]) OP-PT Subjective Patient Comments Patient Comments I am about the same. Patient Reported Progress Same PT-OP-D Balance Start: 01/13/19 13:29 Freq: Status: Active Protocol: Document 01/18/19 13:43 LRN (Rec: 01/18/19 19:51 LRN [id number]) Balance Tests Single Limb Standing Single Limb- Right 5 Single Limb- Left 0 PT-OP-E Functional Tests Start: 01/13/19 13:29 Freq: Status: Active Protocol: Document 01/18/19 13:43 LRN (Rec: 01/18/19 19:51 LRN [id number]) Functional Tests Timed Up and Go (TUG) Score 23 Comments with 4WW, from webbed chair TUG Impairment Rating 100% Impaired (Score 20) PT-OP-G Mobility & Gait Start: 01/13/19 13:29 Freq: Status: Active Protocol: Document 01/18/19 13:43 LRN (Rec: 01/18/19 19:51 LRN [id number]) OP Mobility Evaluation Transfers Sit to Stand B UE push off from surface, but can stand without use of hands with difficulty. Pt tends to have slight retropulsion during STS. OP Gait Assessment Gait Able to Maintain Weight Bearing Status Yes During Gait Assistive Devices Assistive Device 4 Wheeled Walker Gait Deviations General Gait Pattern Decreased Stride Length, Decreased Feet Clearance, Flexed Trunk,Wide Based Gait Comments Gait Comments Pt resistant to therapy PT-OP-J Posture/Palpation/Skin Start: 01/13/19 13:29 Freq: Status: Active Protocol: Document 01/18/19 13:43 LRN (Rec: 01/18/19 19:51 LRN [id number]) Posture Evaluation Position Standing Evaluation View Lateral Head/C-Spine Posture Forward Head T-Spine Posture Increased Kyphosis L-Spine Posture Flattened Pelvis Posture Posterior Tilted Hip Posture (L) Flexed,(R) Flexed Knee Posture (L) Excess Flexion,(R) Excess Flexion PT-OP-K Range of Motion Start: 01/13/19 13:29 Freq: Status: Active Protocol: Document 01/18/19 13:43 LRN (Rec: 01/21/19 09:36 LRN [id number]) Hip Goniometric Range of Motion Hip Right Passive Testing Position Supine Straight Leg Raise 50 Internal Rotation 0 External Rotation 45 Left Passive Testing Position Supine Straight Leg Raise 50 Internal Rotation 0 External Rotation 45 PT-OP-M Strength Start: 01/13/19 13:29 Freq: Status: Active Protocol: Document 01/18/19 13:43 LRN (Rec: 01/18/19 19:51 LRN [id number]) Knee Strength Knee Manual Muscle Testing Right Comments Generally 5/5 Left Comments Generally 5/5 Ankle/Foot Strength Ankle and Foot Manual Muscle Testing Right Plantarflexion (S1) 2 Poor Comments Generally 5/5, except as shown above Left Plantarflexion (S1) 2 Poor Comments Generally 5/5, except as shown above PT-OP-Q Treatments Start: 01/13/19 13:29 Freq: Status: Active Protocol: Document 03/15/19 15:30 HH (Rec: 03/15/19 16:26 [email or web address]) Cardio Equipment Recumbent Stepper (Sci-Fit) Duration (Minutes) 10 Resistance 2 Therapeutic Exercises Standing Exercises step ups Side bilateral Resistance with B rails Reps/Minutes 10 x 4 sit to stand Standing Exercise Name Sit to stand without use of hands Side bilateral Reps/Minutes 3 x2 Comments Pt slow when not allowed to use hands Therapeutic Activity Therapeutic Activity sit to stand Reps/Minutes 5 xSTS x 6 sets Comments use of //bar to pull timed trial max cues to increase speed 29,20,18,18,15 seconds Gait Training Gait Activity 4WW Device Used 4WW Level of Assistance CGA Surface ground level Distance/Duration 400 ft Comments at parking lot PT-OP-T Assessment and Plan Start: 01/13/19 13:29 Freq: Status: Active Protocol: Document 03/15/19 15:30 (Rec: 03/15/19 16:26 [email or web address]) Physical Therapy Assessment Goals strength Impairment Impairment B LE strength Short Term Goal (STG) 03/15 Goal met ; Pt is able to achieve 13-18s for 5 times STS with cues and grab bars. Pt's CG is able to encourage him to do HEP when shes available Three Correction Goal (LTG) 03/15/19 goal met: Pt has been doing HEP if CG is available Two Computer Aided Design Designer Goal (LTG) Pt unable to perform single leg stance on either leg. 03/15/19 One Correction Goal (LTG) Pt cont to require 20-30s for TUG 03/15/19 Assessment Summary Assessment Pt has been plateau recently and pt only needs maintenance program in general, who does not need skilled therapy at this point. Discussed with his girlfriend today about d/c planning and cont HEP when CG is available. She will monitor pt's overall mobility and strength without PT for the next two months. Recommended her and pt to participate gym program at [facility] if possible as well. Physical Therapy Plan Discharge Physical Therapy Discharge Reasons Plateau in Progress
== END 2019-03-18 10:04 | disposition home or self-care (01) ==
LOC: PHYS 15:15
PROVIDERS: PCP Family Medicine; Visit Provider Family Medicine
DX: R53.1 Weakness (principal); R26.9 Unspecified abnormalities of gait and mobility
CPT/HCPCS: 97110; 97112; 97116; 97161; 97530

== ENCOUNTER → 2019-05-29 15:41 | Outpatient (CLI) | payer OTHER, SELFPAY ==
[2018-06-05 19:46] VITALS: BMI 28.7
[2019-05-29 20:02] LABS: BUN Creatinine Ratio 11.6 (6-22); Blood Urea Nitrogen 22 mg/dL (9-20); Calcium 9.4 mg/dL (8.4-10.2); Carbon Dioxide 27 mmol/L (22-32); Chloride 102 mmol/L (98-107); Glucose 105 mg/dL (80-110); HEMOLYSIS < 15 (0-50); Potassium 4.4 mmol/L (3.4-5.1); Sodium 140 mmol/L (137-145)
[2019-05-29 20:32] LABS: Thyroid Stimulating Hormone 3.78 uIU/mL (0.47-4.68)
== END ==
PROVIDERS: PCP Family Medicine; Visit Provider Family Medicine
DX: E03.9 Hypothyroidism, unspecified (principal)
CPT/HCPCS: 36415; 80048; 84443

== ENCOUNTER → 2019-11-09 10:51 | Outpatient (CLI) | payer OTHER, SELFPAY ==
[2018-06-05 19:46] VITALS: BMI 28.7
[2019-11-09 11:41] LABS: Add Manual Diff / Slide Review NO; Basophils Absolute Auto 100 /uL (0-100); Basophils Percent Auto 1.2 % (0-2); Eosinophils Absolute Auto 500 /uL (0-450); Eosinophils Percent Auto 7.9 % (2-4); Hematocrit 40.7 % (41-53); Hemoglobin 13.5 g/dL (13.5-17.5); Lymphocytes Absolute Auto 1400 /uL (1100-4500); Lymphocytes Percent Auto 22.8 % (25-40); Mean Corpuscular Hemoglobin 30.8 PG (26-34); Mean Corpuscular Volume 93.2 fL (80-100); Monocytes Absolute Auto 600 /uL (0-900); Monocytes Percent Auto 9.2 % (3-14); Neutrophils Absolute Auto 3500 /uL (1500-7000); Neutrophils Percent Auto 58.9 % (50-75); Platelet Count 206 X10^3/uL (150-400); Red Blood Cell Count 4.37 X10^6/uL (4.5-5.9); Red Cell Distribution Width 14.5 % (11.6-14.8)
[2019-11-09 11:51] LABS: Alanine Aminotransferase 12 IU/L (<50); Albumin 4.5 g/dL (3.5-5.0); Albumin Globulin Ratio 1.2 (1.0-2.8); Alkaline Phosphatase 86 U/L (38-126); Aspartate Aminotransferase 25 IU/L (17-59); BUN Creatinine Ratio 15.6 (6-22); Bilirubin Total 0.6 mg/dL (0.2-1.3); Blood Urea Nitrogen 26 mg/dL (9-20); Carbon Dioxide 28 mmol/L (22-32); Chloride 104 mmol/L (98-107); Cholesterol 171 mg/dL (140-199); Estimated Glomerular Filt Rate 39.5 mL/min (>60); Globulin 3.8 g/dL (1.7-4.1); Glucose 112 mg/dL (80-110); HDL Cholesterol 37 mg/dL (40-60); HEMOLYSIS < 15 (0-50); LDL Cholesterol Calculated 113 mg/dL (<100); Potassium 3.9 mmol/L (3.4-5.1); Sodium 140 mmol/L (137-145); Total Protein 8.3 g/dL (6.3-8.2); Triglycerides 107 mg/dL (35-150)
[2019-11-09 12:20] LABS: Prostate Specific Antigen Scrn 3.42 ng/mL (0.1-4.0)
[2019-11-09 12:21] LABS: Thyroid Stimulating Hormone 1.89 uIU/mL (0.47-4.68)
== END ==
PROVIDERS: PCP Family Medicine; Referring Provider Family Medicine; Visit Provider Family Medicine
DX: I10 Essential (primary) hypertension (principal)
CPT/HCPCS: 36415; 80053; 80061; 84443; 85025; G0103

== ENCOUNTER → 2020-01-22 14:13 | Outpatient (CLI) | payer OTHER, SELFPAY ==
[2018-06-05 19:46] VITALS: BMI 28.7
--- NOTE | 2020-01-22 14:15 | DI.RAD.S_ITS ---
PROCEDURE: XR CHEST 2V INDICATIONS: Cough, phlegm TECHNIQUE: 2 views of the chest were acquired. COMPARISON: [facility], CR, XR CHEST 1V, 05/25/2018, 16:30. [facility], CR, XR CHEST 1V, 02/02/2018, 16:57. FINDINGS: Surgical changes and devices: None. Lungs and pleura: Lungs are mildly abnormal with a mild interstitial prominence but no definite pneumonia. No pleural effusions or pneumothorax. Mediastinum: Mediastinal contours are abnormal with prominent tortuosity of the aorta and heart size mildly enlarged. Heart size is normal. Bones and chest wall: No suspicious bony abnormalities. Soft tissues appear unremarkable. IMPRESSION: Chronic CHF pattern with prominent tortuosity of the aorta and mild cardiomegaly with interstitial prominence over the lung parenchyma, but no focal pneumonia is found. Dictated by: Lucio Pinon M.D. on 01/22/2020 at 15:41 Approved by: Lucio Pinon M.D. on 01/22/2020 at 15:42
== END ==
PROVIDERS: PCP Family Medicine; Referring Provider Family Medicine; Visit Provider Family Medicine
DX: R05 Cough (principal); R09.89 Other specified symptoms and signs involving the circulatory and respiratory systems; I50.9 Heart failure, unspecified; I51.7 Cardiomegaly; I77.1 Stricture of artery
CPT/HCPCS: 71046; 87070; 87205

== ENCOUNTER → 2020-01-24 14:39 | Outpatient (CLI) | payer OTHER, SELFPAY ==
[2018-06-05 19:46] VITALS: BMI 28.7
[2020-01-26 04:11] LABS: COVID19 Sendout Not Detected (Not Detected)
== END ==
PROVIDERS: PCP Family Medicine; Visit Provider Physician Assistant
DX: Z11.59 Encounter for screening for other viral diseases (principal)
CPT/HCPCS: 87635

== ENCOUNTER → 2020-05-20 14:53 | Outpatient (CLI) | payer OTHER, SELFPAY ==
[2018-06-05 19:46] VITALS: BMI 28.7
[2020-05-20 15:42] LABS: Add Manual Diff / Slide Review NO; Basophils Absolute Auto 100 /uL (0-100); Basophils Percent Auto 1.3 % (0-2); Eosinophils Absolute Auto 500 /uL (0-450); Eosinophils Percent Auto 7.7 % (2-4); Hematocrit 39.5 % (41-53); Hemoglobin 13.1 g/dL (13.5-17.5); Lymphocytes Absolute Auto 1600 /uL (1100-4500); Lymphocytes Percent Auto 24.9 % (25-40); Mean Corpuscular HGB Conc 33.2 % (30-36); Mean Corpuscular Hemoglobin 31.3 PG (26-34); Mean Corpuscular Volume 94.3 fL (80-100); Monocytes Absolute Auto 700 /uL (0-900); Monocytes Percent Auto 10.4 % (3-14); Neutrophils Absolute Auto 3600 /uL (1500-7000); Neutrophils Percent Auto 55.7 % (50-75); Platelet Count 172 X10^3/uL (150-400); Red Blood Cell Count 4.19 X10^6/uL (4.5-5.9); Red Cell Distribution Width 14.3 % (11.6-14.8); White Blood Cell Count 6.4 X10^3/uL (4.5-11.0)
[2020-05-20 16:39] LABS: Alanine Aminotransferase 14 IU/L (<50); Albumin 4.4 g/dL (3.5-5.0); Albumin Globulin Ratio 1.2 (1.0-2.8); Alkaline Phosphatase 88 U/L (38-126); Aspartate Aminotransferase 28 IU/L (17-59); BUN Creatinine Ratio 14.5 (6-22); Bilirubin Total 0.5 mg/dL (0.2-1.3); Blood Urea Nitrogen 24 mg/dL (9-20); Calcium 8.9 mg/dL (8.4-10.2); Carbon Dioxide 29 mmol/L (22-32); Chloride 103 mmol/L (98-107); Estimated Glomerular Filt Rate 39.9 mL/min (>60); Globulin 3.8 g/dL (1.7-4.1); Glucose 101 mg/dL (80-110); HEMOLYSIS < 15 (0-50); Potassium 4.2 mmol/L (3.4-5.1); Sodium 139 mmol/L (137-145); Total Protein 8.2 g/dL (6.3-8.2)
[2020-05-20 17:10] LABS: Thyroid Stimulating Hormone 4.22 uIU/mL (0.47-4.68)
== END ==
PROVIDERS: PCP Family Medicine; Referring Provider Family Medicine; Visit Provider Family Medicine
DX: E03.9 Hypothyroidism, unspecified (principal); I10 Essential (primary) hypertension; N17.9 Acute kidney failure, unspecified; N18.9 Chronic kidney disease, unspecified; R09.82 Postnasal drip; R41.3 Other amnesia
CPT/HCPCS: 36415; 80053; 84443; 85025

== ENCOUNTER → 2020-08-20 11:31 | Outpatient (CLI) | payer OTHER, SELFPAY ==
[2018-06-05 19:46] VITALS: BMI 28.7
[2020-08-20 12:48] LABS: Alanine Aminotransferase 12 IU/L (<50); Albumin 4.4 g/dL (3.5-5.0); Albumin Globulin Ratio 1.2 (1.0-2.8); Alkaline Phosphatase 91 U/L (38-126); Aspartate Aminotransferase 26 IU/L (17-59); BUN Creatinine Ratio 17.2 (6-22); Bilirubin Total 0.3 mg/dL (0.2-1.3); Blood Urea Nitrogen 28 mg/dL (9-20); Calcium 9.1 mg/dL (8.4-10.2); Carbon Dioxide 27 mmol/L (22-32); Chloride 103 mmol/L (98-107); Estimated Glomerular Filt Rate 40.5 mL/min (>60); Globulin 3.7 g/dL (1.7-4.1); Glucose 107 mg/dL (80-110); HEMOLYSIS < 15 (0-50); Potassium 3.8 mmol/L (3.4-5.1); Sodium 139 mmol/L (137-145); Total Protein 8.1 g/dL (6.3-8.2)
[2020-08-20 13:06] LABS: Free T4, Direct Thyroxine 1.33 ng/dL (0.78-2.19)
[2020-08-20 13:20] LABS: Thyroid Stimulating Hormone 4.55 uIU/mL (0.47-4.68)
== END ==
PROVIDERS: PCP Internal Medicine; Referring Provider Internal Medicine; Visit Provider Internal Medicine
DX: E03.9 Hypothyroidism, unspecified (principal); N13.8 Other obstructive and reflux uropathy; I12.9 Hypertensive chronic kidney disease with stage 1 through stage 4 chronic kidney disease, or unspecified chronic kidney disease; N40.1 Benign prostatic hyperplasia with lower urinary tract symptoms; N18.31 Chronic kidney disease, stage 3a
CPT/HCPCS: 36415; 80053; 84439; 84443

== ENCOUNTER → 2020-12-14 13:40 | Outpatient (CLI) | payer OTHER, SELFPAY ==
[2018-06-05 19:46] VITALS: BMI 28.7
[2020-12-14 14:04] LABS: Appearance Urine UA CLEAR; Bilirubin Urine UA NEGATIVE (NEGATIVE); Color Urine UA YELLOW; Glucose Urine UA NEGATIVE (Negative); Ketones Urine UA NEGATIVE (NEGATIVE); Leukocyte Esterase Urine UA 1+ (NEGATIVE); Nitrite Urine UA POSITIVE (Negative); Occult Blood Urine UA TRACE-LYSED (Negative); Protein Urine UA NEGATIVE (Negative); Specific Gravity Urine UA 1.015 (1.000-1.035); Urobilinogen Urine UA 0.2 E.U./dL (0.2); pH Urine UA 7.5 (4.5-8.0)
[2020-12-14 14:24] LABS: Bacteria Urine Many (>30); Culture Indicated Urine Specimen Cultured; RBC Urine 0-1/HPF (0-5/HPF); WBC Urine 1-5/HPF (0-5/HPF)
== END ==
PROVIDERS: PCP Internal Medicine; Referring Provider Registered Nurse; Visit Provider Registered Nurse
DX: R35.0 Frequency of micturition (principal)
CPT/HCPCS: 81003; 81015; 87077; 87086; 87186

== ENCOUNTER → 2021-01-21 12:25 | Outpatient (CLI) | payer OTHER, SELFPAY ==
[2021-01-06 09:44] VITALS: BMI 28.7
[2021-01-21 12:42] LABS: Bilirubin Urine UA NEGATIVE (NEGATIVE); Color Urine UA YELLOW; Glucose Urine UA NEGATIVE (Negative); Ketones Urine UA NEGATIVE (NEGATIVE); Leukocyte Esterase Urine UA TRACE (NEGATIVE); Nitrite Urine UA NEGATIVE (Negative); Occult Blood Urine UA TRACE-LYSED (Negative); Protein Urine UA 2+ (Negative); Specific Gravity Urine UA 1.025 (1.000-1.035); Urobilinogen Urine UA 0.2 E.U./dL (0.2)
[2021-01-21 12:45] LABS: Appearance Urine UA Slightly Cloudy
[2021-01-21 12:52] LABS: RBC Urine 0-1/HPF (0-5/HPF); WBC Urine 5-10/HPF (0-5/HPF)
[2021-01-21 12:53] LABS: Amorphous Sediment Urine 1+; Bacteria Urine Few (2-10); Culture Indicated Urine Specimen Cultured; Mucus Urine 1+ (Negative); Squamous Epithelial Cell Urine 5-10 /HPF (0-5/HPF)
== END ==
PROVIDERS: PCP Internal Medicine; Visit Provider Urology
DX: N39.498 Other specified urinary incontinence (principal); R15.9 Full incontinence of feces; R32 Unspecified urinary incontinence
CPT/HCPCS: 81001; 87077; 87086; 87186

== ENCOUNTER 2021-01-27 15:24 | Emergency (ER) | payer OTHER, SELFPAY ==
[2021-01-06 09:44] VITALS: BMI 28.7
[2021-01-27 15:29] VITALS: BP 153/87; PULSE 79; RESP 24; TEMP 36.7; O2SAT 95
--- NOTE | 2021-01-27 15:43 | DI.RAD.S_ITS ---
PROCEDURE: XR CHEST 1V INDICATIONS: suspected sepsis TECHNIQUE: One view of the chest was acquired. COMPARISON: [facility], CR, XR CHEST 1V, 02/02/2018, 16:57. [facility], CR, XR CHEST 1V, 05/25/2018, 16:30. [facility], CR, XR CHEST 2V, 01/22/2020, 14:05. FINDINGS: Surgical changes and devices: None. Lungs and pleura: Lungs are clear. No pleural effusions or pneumothorax. Mediastinum: The cardiac contours are mildly to moderately enlarged. The aorta demonstrates calcification and tortuosity. Bones and chest wall: No suspicious bony lesions. Age-appropriate bony degenerative changes are seen. Overlying soft tissues appear unremarkable. IMPRESSION: No focal infiltrates. Hizn-bg-fouztxcn cardiomegaly. Dictated by: Manny Del Cid M.D. on 01/27/2021 at 15:09 Approved by: Manny Del Cid M.D. on 01/27/2021 at 15:10
[2021-01-27 16:15] VITALS: BP 172/93; PULSE 70; O2SAT 97
[2021-01-27 16:21] LABS: Add Manual Diff / Slide Review NO; Basophils Absolute Auto 100 /uL (0-100); Basophils Percent Auto 1.5 % (0-2); Eosinophils Absolute Auto 400 /uL (0-450); Eosinophils Percent Auto 6.8 % (2-4); Hematocrit 40.9 % (41-53); Hemoglobin 13.5 g/dL (13.5-17.5); Lymphocytes Absolute Auto 1500 /uL (1100-4500); Lymphocytes Percent Auto 25.8 % (25-40); Mean Corpuscular Hemoglobin 30.6 PG (26-34); Mean Corpuscular Volume 92.7 fL (80-100); Monocytes Absolute Auto 800 /uL (0-900); Monocytes Percent Auto 12.8 % (3-14); Neutrophils Absolute Auto 3200 /uL (1500-7000); Neutrophils Percent Auto 53.1 % (50-75); Platelet Count 176 X10^3/uL (150-400); Red Blood Cell Count 4.42 X10^6/uL (4.5-5.9); Red Cell Distribution Width 14.3 % (11.6-14.8); White Blood Cell Count 5.9 X10^3/uL (4.5-11.0)
[2021-01-27] MEDS: SODIUM CHLORIDE 0.9% 1,000 ML 1000 ML IV (16:23)
[2021-01-27 16:39] LABS: Creatine Kinase 84 U/L (55-170)
[2021-01-27 16:41] LABS: Alanine Aminotransferase 18 IU/L (<50); Albumin 4.3 g/dL (3.5-5.0); Albumin Globulin Ratio 1.2 (1.0-2.8); Alkaline Phosphatase 95 U/L (38-126); Aspartate Aminotransferase 32 IU/L (17-59); BUN Creatinine Ratio 15.2 (6-22); Bilirubin Total 0.4 mg/dL (0.2-1.3); Blood Urea Nitrogen 25 mg/dL (9-20); Calcium 8.9 mg/dL (8.4-10.2); Carbon Dioxide 25 mmol/L (22-32); Chloride 105 mmol/L (98-107); Estimated Glomerular Filt Rate 39.9 mL/min (>60); Globulin 3.6 g/dL (1.7-4.1); Glucose 115 mg/dL (80-110); HEMOLYSIS < 15 (0-50); Lactate (Lactic Acid) 1.2 mmol/L (0.7-2.1); Lipase 87 U/L (23-300); Potassium 3.6 mmol/L (3.4-5.1); Sodium 139 mmol/L (137-145); Total Protein 7.9 g/dL (6.3-8.2)
[2021-01-27 16:48] LABS: NT-proBNP (BNP-Adult 18+) 842 pg/mL (<450)
[2021-01-27 16:56] LABS: Procalcitonin 0.07 ng/mL (<0.5)
--- NOTE | 2021-01-27 17:11 | ED_ITS ---
HPI - Weakness <Isaias Woo PA-C - Last Filed: 01/28/21 18:52> General Chief complaint: Weakness Stated complaint: SHORT OF BREATH, SENT BY MD Time Seen by Provider: 01/27/21 15:58 Source: patient Mode of arrival: Ambulatory History of Present Illness HPI Narrative: Rom presents today with chief complaint increased shortness of breath over last week per his caregivers. History is taken from his at this time. She reports that he she has been told by his caregivers that he is having increased shortness of breath with his daily activities including transfers. He was recently diagnosed with urinary tract infection 3 days ago and was started on antibiotics. His has not seen any significant impro vement in his symptoms at this time. There have not been any specific events. He has significant past medical history of Alzheimer's and is not able to provide a history. Related Data Home Medications Medication Instructions Recorded Confirmed clobetasol 0.05 % scalp solution 1 applic TOPICAL DAILY PRN 07/10/20 01/20/21 guaifenesin 600 mg tablet, 600 mg PO BID 07/10/20 01/20/21 extended release 12 hr (Mucinex) vitamins A,C,E-qycx-rjypux 14,320 1 cap PO BID 07/10/20 01/20/21 unit-226 mg-200 unit capsule (PreserVision AREDS) cholecalciferol (vitamin D3) 125 125 mcg PO DAILY 01/20/21 01/20/21 mcg (5,000 unit) capsule Previous Rx's Medication Instructions Recorded alprazolam 0.25 mg tablet (Xanax) 0.25 mg PO QID PRN #60 tab 07/10/20 amlodipine 5 mg tablet 5 mg PO DAILY #90 tab 07/10/20 donepezil 10 mg tablet 10 mg PO DAILY #90 tab 07/10/20 loperamide 2 mg capsule See Rx Instructions .ROUTE 07/10/20 .COMPLEX #90 cap fluticasone propionate 50 1 spray INTRANASAL DAILY #48 ml 07/13/20 mcg/actuation nasal spray,suspension (Flonase Allergy Relief) tamsulosin 0.4 mg capsule (Flomax) 0.8 mg PO DAILY #180 cap 11/12/20 clotrimazole 1 % topical ointment 1 applic TOPICAL BID 28 Days #56.7 06/18/21 g mometasone 0.1 % topical solution 1 applic TOPICAL DAILY #60 ml 12/24/20 levothyroxine 125 mcg tablet 125 mcg PO DAILY #90 tab 01/14/21 ciprofloxacin HCl 500 mg tablet 500 mg PO BID #28 tab 01/25/21 (Cipro) ondansetron 4 mg disintegrating 4 mg PO Q6H PRN #7 tab 01/29/21 tablet Allergies Allergy/AdvReac Type Severity Reaction Status Date / Time Sulfa (Sulfonamide Allergy Intermediate Hives Verified 12/08/20 16:25 Antibiotics) venom-honey bee Allergy Intermediate Swelling Verified 12/08/20 16:25 Review of Systems <Isaias Woo PA-C - Last Filed: 01/28/21 18:52> Review of Systems Narrative: As per HPI Patient History <Isaias Woo PA-C - Last Filed: 01/28/21 18:52> Medical History (Updated 01/27/21 @ 19:04 by Ilene Angel RN) Abnormal CXR (chest x-ray) (~194) Alzheimer's dementia Benign prostatic hyperplasia with urinary obstruction (04/05/16) Bowel and bladder incontinence BPH (benign prostatic hyperplasia) Candidal intertrigo Cardiomegaly Cataract (1999) Chronic renal failure, stage 3a Diverticulosis EKG abnormalities Emphysema (subcutaneous) (surgical) resulting from a procedure Essential hypertension (04/05/16) Finger fracture (~1945) Granulomatous disease Hearing loss History of tuberculosis (04/05/16) Hypothyroidism (04/05/16) Kidney insufficiency Macular degeneration Mumps (~1955) MOJGAN (obstructive sleep apnea) Polymyalgia rheumatica Poor kidney function Psoriasis Pulmonary fibrosis Reactive airway disease Rubella Scoliosis Shortness of breath Sleep apnea Tuberculosis (~194) Unsteady gait Urinary incontinence Vertigo (2009) Surgical History Anesthesia H/O hernia repair (~12/19/17) History of tonsillectomy (~194) History of umbilical hernia repair (12/19/17) Hx of cholecystectomy Status post appendectomy (2008) Family History Father Heart disease Brother No problems noted. Grandfather No problems noted. Mother Tuberculosis Son FSHD (facioscapulohumeral muscular dystrophy) Social History marital status: household members: spouse Smoking Status: Never smoker alcohol intake: never caffeine: Yes Smoking Status: Never smoker alcohol intake frequency: 0-2 drinks per day Substance Use Type: does not use Exam <Isaias Woo PA-C - Last Filed: 01/28/21 18:52> Narrative Exam Narrative: Exam Narrative: Const General: cooperative, healthy appearing, comfortable, no acute distress, well developed and well groomed Nutritional Appearance: average body habitus HENMT Head: normal to inspection and atraumatic Ears: hearing grossly normal bilaterally Nose: external nose normal and nares normal Face and sinus: normal facial exam Neck Neck: normal visual inspection and supple Resp Effort & Inspection: normal respiratory effort, no respiratory distress, mild wheezing bilateral bases Cardiac Regular rate and rhythm. 2/6 systolic murmur right upper sternal border. No rubs or gallops. GI Nondistended, nontender to palpation, normal bowel sounds. Neuro General: alert, oriented x3, mental status at baseline Cognition: normal cognition Speech: speech normal Psych Appearance: grossly normal and well kempt Mental Status: mental status at baseline Speech and Movement: speech and movement normal Mood: congruent mood Affect: normal affect Initial Vital Signs Initial Vital Signs: Vital Signs Temperature 98.1 F 01/27/21 15:29 Pulse Rate 79 01/27/21 15:29 Respiratory Rate 24 01/27/21 15:29 Blood Pressure 153/87 H 01/27/21 15:29 Pulse Oximetry 95 01/27/21 15:29 <Stacy Taylor DO - Last Filed: 01/31/21 04:25> Initial Vital Signs Initial Vital Signs: Vital Signs Temperature 98.1 F 01/27/21 15:29 Pulse Rate 79 01/27/21 15:29 Respiratory Rate 24 01/27/21 15:29 Blood Pressure 153/87 H 01/27/21 15:29 Pulse Oximetry 95 01/27/21 15:29 Course <Isaias Woo PA-C - Last Filed: 01/28/21 18:52> Orders Ordered: Discontinued Medications Sodium Chloride (Normal Saline 0.9%) 1,000 mls @ 1,000 mls/hr IV BOLUS ONE Stop: 01/27/21 16:42 Last Infusion: 01/27/21 17:30 Dose: 0 mls/hr Documented by: Admin: 01/27/21 16:23 Dose: 1,000 mls/hr Documented by: ELEAZAR Vital Signs Vital signs: Vital Signs - 8 hr 01/27/21 15:29 01/27/21 16:15 Temperature 98.1 F Pulse Rate 79 70 Respiratory Rate 24 Blood Pressure 153/87 H 172/93 H Pulse Oximetry 95 97 <Stacy Taylor DO - Last Filed: 01/31/21 04:25> Orders Ordered: Discontinued Medications Sodium Chloride (Normal Saline 0.9%) 1,000 mls @ 1,000 mls/hr IV BOLUS ONE Stop: 01/27/21 16:42 Last Infusion: 01/27/21 17:30 Dose: 0 mls/hr Documented by: Admin: 01/27/21 16:23 Dose: 1,000 mls/hr Documented by: ELEAZAR Vital Signs Vital signs: Vital Signs - 8 hr 01/27/21 15:29 01/27/21 16:15 Temperature 98.1 F Pulse Rate 79 70 Respiratory Rate 24 Blood Pressure 153/87 H 172/93 H Pulse Oximetry 95 97 MDM - Weakness <Isaias Woo PA-C - Last Filed: 01/28/21 18:52> Lab Data Result diagrams: 01/27/21 16:05 01/27/21 16:05 Labs: Lab Results 01/27/21 01/27/21 01/27/21 Range/Units 16:05 16:05 16:05 WBC 5.9 (4.5-11.0) X10^3/uL RBC 4.42 L (4.5-5.9) X10^6/uL Hgb 13.5 (13.5-17.5) g/dL Hct 40.9 L (41-53) % MCV 92.7 (80-100) fL MCH 30.6 (26-34) PG MCHC 33.0 (30-36) % RDW 14.3 (11.6-14.8) % Plt Count 176 (150-400) X10^3/uL Neut % (Auto) 53.1 (50-75) % Lymph % (Auto) 25.8 (25-40) % [place] % (Auto) 12.8 (3-14) % Eos % (Auto) 6.8 H (2-4) % Baso % (Auto) 1.5 (0-2) % Neut # (Auto) 3200 (8841-2324) /uL Lymph # (Auto) 1500 (7536-4849) /uL [place] # (Auto) 800 (0-900) /uL Eos # (Auto) 400 (0-450) /uL Baso # (Auto) 100 (0-100) /uL Sodium 139 (137-145) mmol/L Potassium 3.6 (3.4-5.1) mmol/L Chloride 105 (98-107) mmol/L Carbon Dioxide 25 (22-32) mmol/L BUN 25 H (9-20) mg/dL Creatinine 1.65 H (0.66-1.25) mg/dL Estimated GFR 39.9 L (>60) mL/min BUN/Creatinine Ratio 15.2 (6-22) Glucose 115 H (80-110) mg/dL Lactate 1.2 (0.7-2.1) mmol/L Calcium 8.9 (8.4-10.2) mg/dL Total Bilirubin 0.4 (0.2-1.3) mg/dL AST 32 (17-59) IU/L ALT 18 (<50) IU/L Alkaline Phosphatase 95 (38-126) U/L Total Creatine Kinase (55-170) U/L CK-MB (CK-2) CK-MB (CK-2) Rel Index Troponin I (0.01-0.034) ng/mL NT-Pro-B Natriuret Pep (<450) pg/mL Total Protein 7.9 (6.3-8.2) g/dL Albumin 4.3 (3.5-5.0) g/dL Globulin 3.6 (1.7-4.1) g/dL Albumin/Globulin Ratio 1.2 (1.0-2.8) Lipase 87 (23-300) U/L Procalcitonin 0.07 (<0.5) ng/mL 01/27/21 Range/Units 16:05 WBC (4.5-11.0) X10^3/uL RBC (4.5-5.9) X10^6/uL Hgb (13.5-17.5) g/dL Hct (41-53) % MCV (80-100) fL MCH (26-34) PG MCHC (30-36) % RDW (11.6-14.8) % Plt Count (150-400) X10^3/uL Neut % (Auto) (50-75) % Lymph % (Auto) (25-40) % [place] % (Auto) (3-14) % Eos % (Auto) (2-4) % Baso % (Auto) (0-2) % Neut # (Auto) (4371-1689) /uL Lymph # (Auto) (5670-3321) /uL [place] # (Auto) (0-900) /uL Eos # (Auto) (0-450) /uL Baso # (Auto) (0-100) /uL Sodium (137-145) mmol/L Potassium (3.4-5.1) mmol/L Chloride (98-107) mmol/L Carbon Dioxide (22-32) mmol/L BUN (9-20) mg/dL Creatinine (0.66-1.25) mg/dL Estimated GFR (>60) mL/min BUN/Creatinine Ratio (6-22) Glucose (80-110) mg/dL Lactate (0.7-2.1) mmol/L Calcium (8.4-10.2) mg/dL Total Bilirubin (0.2-1.3) mg/dL AST (17-59) IU/L ALT (<50) IU/L Alkaline Phosphatase (38-126) U/L Total Creatine Kinase 84 (55-170) U/L CK-MB (CK-2) TNP CK-MB (CK-2) Rel Index TNP Troponin I < 0.012 (0.01-0.034) ng/mL NT-Pro-B Natriuret Pep 842 H (<450) pg/mL Total Protein (6.3-8.2) g/dL Albumin (3.5-5.0) g/dL Globulin (1.7-4.1) g/dL Albumin/Globulin Ratio (1.0-2.8) Lipase (23-300) U/L Procalcitonin (<0.5) ng/mL Urine Dip Bedside Urine Glucose Negative Bedside Urine Bilirubin - Negative Bedside Urine Ketone - Negative Urine Specific Odem 1.015 Bedside Urine Occult Blood - Negative Bedside Urine pH 6.0 Bedside Urine Protein - Negative Bedside Urine Urobilinogen - Negative Bedside Urine Nitrite - Negative Bedside Urine Leukocytes - Negative Esterase MDM Narrative Medical decision making narrative: Patient's evaluation has been reassuring. Patient eloped prior to all test results coming back. There is no significant evidence of infection and all of his labs have been within the expected range aside from a elevation in his pro BNP. He could have an exacerbation of CHF that is causing his increased weakness. Patient left before we were able to discuss this fully. <Stacy Taylor, DO - Last Filed: 01/31/21 04:25> Lab Data Labs: Lab Results 01/27/21 01/27/21 01/27/21 Range/Units 16:05 16:05 16:05 WBC 5.9 (4.5-11.0) X10^3/uL RBC 4.42 L (4.5-5.9) X10^6/uL Hgb 13.5 (13.5-17.5) g/dL Hct 40.9 L (41-53) % MCV 92.7 (80-100) fL MCH 30.6 (26-34) PG MCHC 33.0 (30-36) % RDW 14.3 (11.6-14.8) % Plt Count 176 (150-400) X10^3/uL Neut % (Auto) 53.1 (50-75) % Lymph % (Auto) 25.8 (25-40) % [place] % (Auto) 12.8 (3-14) % Eos % (Auto) 6.8 H (2-4) % Baso % (Auto) 1.5 (0-2) % Neut # (Auto) 3200 (0173-9925) /uL Lymph # (Auto) 1500 (0487-3448) /uL [place] # (Auto) 800 (0-900) /uL Eos # (Auto) 400 (0-450) /uL Baso # (Auto) 100 (0-100) /uL Sodium 139 (137-145) mmol/L Potassium 3.6 (3.4-5.1) mmol/L Chloride 105 (98-107) mmol/L Carbon Dioxide 25 (22-32) mmol/L BUN 25 H (9-20) mg/dL Creatinine 1.65 H (0.66-1.25) mg/dL Estimated GFR 39.9 L (>60) mL/min BUN/Creatinine Ratio 15.2 (6-22) Glucose 115 H (80-110) mg/dL Lactate 1.2 (0.7-2.1) mmol/L Calcium 8.9 (8.4-10.2) mg/dL Total Bilirubin 0.4 (0.2-1.3) mg/dL AST 32 (17-59) IU/L ALT 18 (<50) IU/L Alkaline Phosphatase 95 (38-126) U/L Total Creatine Kinase (55-170) U/L CK-MB (CK-2) CK-MB (CK-2) Rel Index Troponin I (0.01-0.034) ng/mL NT-Pro-B Natriuret Pep (<450) pg/mL Total Protein 7.9 (6.3-8.2) g/dL Albumin 4.3 (3.5-5.0) g/dL Globulin 3.6 (1.7-4.1) g/dL Albumin/Globulin Ratio 1.2 (1.0-2.8) Lipase 87 (23-300) U/L Procalcitonin 0.07 (<0.5) ng/mL 01/27/21 Range/Units 16:05 WBC (4.5-11.0) X10^3/uL RBC (4.5-5.9) X10^6/uL Hgb (13.5-17.5) g/dL Hct (41-53) % MCV (80-100) fL MCH (26-34) PG MCHC (30-36) % RDW (11.6-14.8) % Plt Count (150-400) X10^3/uL Neut % (Auto) (50-75) % Lymph % (Auto) (25-40) % [place] % (Auto) (3-14) % Eos % (Auto) (2-4) % Baso % (Auto) (0-2) % Neut # (Auto) (4767-6425) /uL Lymph # (Auto) (4159-5133) /uL [place] # (Auto) (0-900) /uL Eos # (Auto) (0-450) /uL Baso # (Auto) (0-100) /uL Sodium (137-145) mmol/L Potassium (3.4-5.1) mmol/L Chloride (98-107) mmol/L Carbon Dioxide (22-32) mmol/L BUN (9-20) mg/dL Creatinine (0.66-1.25) mg/dL Estimated GFR (>60) mL/min BUN/Creatinine Ratio (6-22) Glucose (80-110) mg/dL Lactate (0.7-2.1) mmol/L Calcium (8.4-10.2) mg/dL Total Bilirubin (0.2-1.3) mg/dL AST (17-59) IU/L ALT (<50) IU/L Alkaline Phosphatase (38-126) U/L Total Creatine Kinase 84 (55-170) U/L CK-MB (CK-2) TNP CK-MB (CK-2) Rel Index TNP Troponin I < 0.012 (0.01-0.034) ng/mL NT-Pro-B Natriuret Pep 842 H (<450) pg/mL Total Protein (6.3-8.2) g/dL Albumin (3.5-5.0) g/dL Globulin (1.7-4.1) g/dL Albumin/Globulin Ratio (1.0-2.8) Lipase (23-300) U/L Procalcitonin (<0.5) ng/mL Urine Dip Bedside Urine Glucose Negative Bedside Urine Bilirubin - Negative Bedside Urine Ketone - Negative Urine Specific Odem 1.015 Bedside Urine Occult Blood - Negative Bedside Urine pH 6.0 Bedside Urine Protein - Negative Bedside Urine Urobilinogen - Negative Bedside Urine Nitrite - Negative Bedside Urine Leukocytes - Negative Esterase Imaging Data Chest x-ray: Radiologist Impression: [address] [id number] ReportSigned Patient: Rom Paulino CMR#: [id number]: 1935cct:[id number]/Sex: 85 / MDate of Service: 01/27/21Loc: EDAccession Number: [id number] Procedure: XR chest 1V Ordering Provider: Stacy Taylor D.O. PROCEDURE: XR CHEST 1V INDICATIONS: suspected sepsis TECHNIQUE: One view of the chest was acquired. COMPARISON: [facility], CR, XR CHEST 1V, 02/02/2018, 16:57. [facility], CR, XR CHEST 1V, 05/25/2018, 16:30. [facility], CR, XR CHEST 2V, 01/22/2020, 14:05. FINDINGS: Surgical changes and devices: None. Lungs and pleura: Lungs are clear. No pleural effusions or pneumothorax. Mediastinum: The cardiac contours are mildly to moderately enlarged. The aorta demonstrates calcification and tortuosity. Bones and chest wall: No suspicious bony lesions. Age-appropriate bony degenerative changes are seen. Overlying soft tissues appear unremarkable. IMPRESSION: No focal infiltrates. Muba-ys-kwiijgnq cardiomegaly. Dictated by: Manny Del Cid M.D. on 01/27/2021 at 15:09 Approved by: Manny Del Cid M.D. on 01/27/2021 at 15:10 ECG Data Attestation: I personally reviewed and interpreted this ECG as follows: Prior ECG tracings: available for review Interpretation: Sinus rhythm first-degree AV block, left axis deviation, right bundle branch. Rate of 62 MD interval 212, QRS of 144 and QTC of 489. Patient has prior EKG from 05/25/2018 with similar MD interval at 236. Discharge Plan Departure Patient Disposition: Home Clinical Impression: Weakness, Left against medical advice Activity Restrictions/Additional Instructions: Patient eloped prior to full evaluation. However, workup to this point has been reassuring. Likely his weakness is due to the urinary tract infection that he had. Should continue taking antibiotics until tear for finished and follow up with his PCP. Prescriptions: No Action fluticasone propionate [Flonase Allergy Relief] 50 mcg/actuation spray ,suspension 1 spray intranasal DAILY Qty: 48 RF: 11 levothyroxine 125 mcg tablet 125 mcg PO DAILY Qty: 90 RF: 2 ciprofloxacin HCl [Cipro] 500 mg tablet 500 mg PO BID Qty: 28 RF: 0 ondansetron 4 mg tablet,disintegrating 4 mg PO Q6H PRN (Reason: nausea and vomiting) Qty: 7 RF: 0 clobetasol 0.05 % solution 1 applic topical DAILY PRNRF: 0 PreserVision AREDS [id number] oibo-vm-vqnk capsule 1 cap PO BID RF: 0 guaifenesin [Mucinex] 600 mg tablet extended release 12hr 600 mg PO BID RF: 0 alprazolam [Xanax] 0.25 mg tablet 0.25 mg PO QID PRN (Reason: anxiety) Qty: 60 RF: 5 loperamide 2 mg capsule See Rx Instructions .ROUTE .COMPLEX Qty: 90 RF: 3 donepezil 10 mg tablet 10 mg PO DAILY Qty: 90 RF: 3 amlodipine 5 mg tablet 5 mg PO DAILY Qty: 90 RF: 3 Hold Instructions: Home Medication placed on hold at Doctor's office clotrimazole 1 % ointment 1 applic topical BID 28 Days Qty: 56.7 RF: 2 tamsulosin [Flomax] 0.4 mg capsule 0.8 mg PO DAILY Qty: 180 RF: 3 mometasone 0.1 % solution 1 applic topical DAILY Qty: 60 RF: 3 cholecalciferol (vitamin D3) 125 mcg (5,000 unit) capsule 125 mcg PO DAILY RF: 0 Referrals: Vinnie Herman MD [Primary Care Provider] - <Stacy Taylor DO - Last Filed: 01/31/21 04:25> Cosign ED Attending Cosallature Attestation: I was immediately available in the department for consultation. Documentation has been reviewed. Patient eloped prior to receiving their findings. Labs, EKG and imaging. BNP elevated.
[2021-01-27 17:30] LABS: Troponin I < 0.012 ng/mL (0.01-0.034)
--- NOTE | 2021-01-27 17:49 | PC.NURSE ---
Both pt and frequently without masks. Encouraged to wear mask appropriately and educated regarding importance. Frequent reminders needed.
== END 2021-01-27 17:35 | disposition home or self-care (01) ==
PROVIDERS: Emergency Medicine; Emergency Provider Physician Assistant; PCP Internal Medicine; Referring Provider Internal Medicine
DX: R53.1 Weakness (principal); R06.02 Shortness of breath
CPT/HCPCS: 36415; 71045; 80053; 81003; 82550; 83605; 83690; 83880; 84145; 84484; 85025; 87040; 93005; 96360; 99284

== ENCOUNTER → 2021-02-02 15:30 | Outpatient (CLI) | payer OTHER, SELFPAY ==
[2021-01-06 09:44] VITALS: BMI 28.7
--- NOTE | 2021-02-02 15:31 | DI.MRI.S_ITS ---
PROCEDURE: MR LUMBAR SPINE WO/W CON INDICATIONS: Worsening bowel and bladder incont.low ext weakness TECHNIQUE: Noncontrast sagittal T1 spin echo and T2 fast spin echo, sagittal STIR, axial T1 and T2 fast spin echo through the lumbar spine. In cases with scoliosis, additional coronal T2 fast spin echo may be performed. After the administration of contrast, sagittal and axial T1 spin echo with fat saturation through the lumbar spine. COMPARISON: None. FINDINGS: Image quality: This examination is limited by involuntary motion artifact. Alignment and curvature: There is minimal retrolisthesis seen at the L2-L3, L4-L5, and L5-S1 levels. Marrow: Marrow is of normal overall signal. No acute vertebral body compression fractures. No suspicious marrow enhancement. Spinal cord: Conus medullaris terminates at the T12-L1 level. Visualized spinal cord demonstrates normal signal, without suspicious enhancement. Paraspinous soft tissues: No paravertebral masses or abnormal enhancement. T12-L1: The disc height is well-preserved. Loss of disc signal is seen at this level. Mild to moderate disc bulge is seen. There is moderate left-sided and hzot-el-[id number] right-sided neural foraminal narrowing seen. No significant central canal narrowing is seen. L1-L2: The disc height is well-preserved. Loss of disc signal is seen at this level. Moderate disc bulge is seen, which is slightly eccentric to the right. Mild facet joint hypertrophy is seen. At least moderate bilateral neural foraminal narrowing can be seen. Mild to moderate central narrowing is seen. L2-L3: Moderate to severe loss of disc height and disc signal can be seen. Reactive marrow endplate changes are seen posteriorly, which are hyperintense on T1-weighted and T2-weighted imaging and most consistent with fatty metaplasia (Modic type II changes). There is at least moderate disc bulge seen. There is a central disc protrusion seen. Moderate bilateral neural foraminal narrowing is seen. Moderate central canal narrowing is seen. L3-L4: Mild loss of disc height is seen. Loss of disc signal is seen. At least moderate disc bulge is seen. There is a mild central disc protrusion. There is a focal annular fissure seen posteriorly. Moderate facet joint hypertrophy is seen. There is at least moderate left-sided and moderate right-sided neural foraminal narrowing seen. Moderate central canal narrowing is seen. L4-L5: Moderate to severe loss of disc height and disc signal can be seen. There is a central/right disc protrusion. At least moderate facet hypertrophy is seen. There is at least moderate bilateral neural foraminal narrowing seen at this level, right worse than left. There is a degree of compression seen upon the exiting nerve roots. Moderate central canal narrowing is seen. L5-S1: Moderate loss of disc height is seen. Loss of disc signal is seen. Moderate generalized disc bulge is seen. Moderate facet joint hypertrophy is seen. Moderate to severe bilateral neural foraminal narrowing can be seen, left worse than right. There is a degree of compression seen upon the exiting nerve roots. Moderate central canal narrowing is seen. IMPRESSION: Multiple levels of lumbar spine degenerative change are seen, which are overall worst inferiorly. Several sites of significant neural foraminal narrowing can be seen, with associated exiting nerve root compression. Dictated by: Manny Del Cid M.D. on 02/02/2021 at 16:32 Approved by: Manny Del Cid M.D. on 02/02/2021 at 16:37
== END ==
PROVIDERS: PCP Internal Medicine; Referring Provider Urology; Visit Provider Urology
DX: R15.9 Full incontinence of feces (principal); R32 Unspecified urinary incontinence; R29.898 Other symptoms and signs involving the musculoskeletal system; R26.81 Unsteadiness on feet; M47.816 Spondylosis without myelopathy or radiculopathy, lumbar region; M47.817 Spondylosis without myelopathy or radiculopathy, lumbosacral region; M48.061 Spinal stenosis, lumbar region without neurogenic claudication; M48.07 Spinal stenosis, lumbosacral region
CPT/HCPCS: 72158

== ENCOUNTER → 2021-02-10 15:27 | Outpatient (ROUT) | payer OTHER, SELFPAY ==
[2021-01-06 09:44] VITALS: BMI 28.7
[2021-02-10 15:56] LABS: Bilirubin Urine UA NEGATIVE (NEGATIVE); Color Urine UA YELLOW; Glucose Urine UA NEGATIVE (Negative); Ketones Urine UA NEGATIVE (NEGATIVE); Leukocyte Esterase Urine UA 1+ (NEGATIVE); Nitrite Urine UA NEGATIVE (Negative); Occult Blood Urine UA 1+ (Negative); Protein Urine UA 2+ (Negative); Specific Gravity Urine UA 1.025 (1.000-1.035); Urobilinogen Urine UA 0.2 E.U./dL (0.2)
[2021-02-10 16:07] LABS: Appearance Urine UA Slightly Cloudy
[2021-02-10 16:08] LABS: Amorphous Sediment Urine 1+; Bacteria Urine Few (2-10); RBC Urine 0-1/HPF (0-5/HPF); Squamous Epithelial Cell Urine 1-5 /HPF (0-5/HPF); WBC Urine 10-30/HPF (0-5/HPF)
[2021-02-10 16:09] LABS: Culture Indicated Urine Specimen Cultured; Mucus Urine 1+ (Negative); Trichomonas Urine 1-5/HPF (None Seen)
== END ==
PROVIDERS: Specialist; PCP Internal Medicine; Visit Provider Family Medicine
DX: N39.498 Other specified urinary incontinence (principal); R15.9 Full incontinence of feces; R30.0 Dysuria; R32 Unspecified urinary incontinence
CPT/HCPCS: 81001; 87077; 87086; 87186

== ENCOUNTER 2021-02-12 14:18 | Emergency (ER) | payer OTHER, SELFPAY ==
[2021-01-06 09:44] VITALS: BMI 28.7
[2021-02-12] VITALS (7 sets, daily range): BP systolic 130–163; BP diastolic 74–112; PULSE 68–78; RESP 11–29; TEMP 37; O2SAT 96; BMI 31.3
[2021-02-12] MEDS: ONDANSETRON 4 MG/2 ML INJ IV (14:59)
[2021-02-12 15:16] LABS: Creatine Kinase 80 U/L (55-170); Lactate (Lactic Acid) 1.4 mmol/L (0.7-2.1)
[2021-02-12 15:24] LABS: Add Manual Diff / Slide Review NO; Basophils Absolute Auto 100 /uL (0-100); Basophils Percent Auto 1.3 % (0-2); Eosinophils Absolute Auto 600 /uL (0-450); Eosinophils Percent Auto 8.6 % (2-4); Hematocrit 39.7 % (41-53); Hemoglobin 13.1 g/dL (13.5-17.5); Lymphocytes Absolute Auto 1800 /uL (1100-4500); Mean Corpuscular Hemoglobin 30.4 PG (26-34); Mean Corpuscular Volume 92.2 fL (80-100); Monocytes Absolute Auto 800 /uL (0-900); Monocytes Percent Auto 12.4 % (3-14); Neutrophils Absolute Auto 3300 /uL (1500-7000); Neutrophils Percent Auto 50.7 % (50-75); Platelet Count 180 X10^3/uL (150-400); Red Cell Distribution Width 14.6 % (11.6-14.8); White Blood Cell Count 6.5 X10^3/uL (4.5-11.0)
[2021-02-12 15:27] LABS: NT-proBNP (BNP-Adult 18+) 714 pg/mL (<450)
[2021-02-12 15:33] LABS: Alanine Aminotransferase 11 IU/L (<50); Albumin 4.2 g/dL (3.5-5.0); Albumin Globulin Ratio 1.3 (1.0-2.8); Alkaline Phosphatase 83 U/L (38-126); Aspartate Aminotransferase 26 IU/L (17-59); Bilirubin Total 0.5 mg/dL (0.2-1.3); Blood Urea Nitrogen 21 mg/dL (9-20); Calcium 9.1 mg/dL (8.4-10.2); Carbon Dioxide 23 mmol/L (22-32); Chloride 106 mmol/L (98-107); Estimated Glomerular Filt Rate 37.3 mL/min (>60); Globulin 3.2 g/dL (1.7-4.1); Glucose 94 mg/dL (80-110); Lipase 129 U/L (23-300); Potassium 4.3 mmol/L (3.4-5.1); Sodium 139 mmol/L (137-145); Total Protein 7.4 g/dL (6.3-8.2)
[2021-02-12 15:34] LABS: Procalcitonin 0.08 ng/mL (<0.5)
[2021-02-12 15:38] LABS: HEMOLYSIS 52 (0-50)
--- NOTE | 2021-02-12 16:01 | ED_ITS ---
HPI - Nausea/Vomiting/Diarrhea General Chief complaint: Nausea/Vomiting/Diarrhea Stated complaint: UTI, Throwing Up Time Seen by Provider: 02/12/21 15:27 Source: patient and family () Mode of arrival: Ambulatory Limitations: other (dementia, provides majority of history) History of Present Illness HPI Narrative: This is an 85-year-old male comes to the emergency department with complaint of prior UTI. Patient was initially on Augmentin followed by ciprofloxacin which he completed at in the last. Patient has continued to seem like he has still been a little bit more sleepy. He has not had any headache. He does not had any chest pain or shortness of breath. He has not had any abdominal or flank pain. He did have 1 episode of vomiting today which his states she did not witness but he told her about. He is quite demented and continually ask me the same questions when I return to the room. Patient is at his normal baseline mental status. He has been afebrile. He has not had any obvious changes to urination or bowel movements that he or his share with myself. Patient did have a urine analysis obtained on the . They were told to come to the ER if he continues to have any symptoms and because he has been sleepy and having 1 episode of vomiting they brought him to the emergency department. His caregiver does note that he is resistant to taking oral antibiotics and did not take either prescription in its entirety. He is not anticoagulated. He is supposed to follow-up with Dr. Contreras with urology for cystoscopy but has been asked to complete antibiotics 1st. Related Data Home Medications Medication Instructions Recorded Confirmed clobetasol 0.05 % scalp solution 1 applic TOPICAL DAILY PRN 07/10/20 01/20/21 guaifenesin 600 mg tablet, 600 mg PO BID 07/10/20 01/20/21 extended release 12 hr (Mucinex) vitamins A,C,R-dttd-hvmrud 14,320 1 cap PO BID 07/10/20 01/20/21 unit-226 mg-200 unit capsule (PreserVision AREDS) cholecalciferol (vitamin D3) 125 125 mcg PO DAILY 01/20/21 01/20/21 mcg (5,000 unit) capsule Previous Rx's Medication Instructions Recorded alprazolam 0.25 mg tablet (Xanax) 0.25 mg PO QID PRN #60 tab 07/10/20 amlodipine 5 mg tablet 5 mg PO DAILY #90 tab 07/10/20 donepezil 10 mg tablet 10 mg PO DAILY #90 tab 07/10/20 loperamide 2 mg capsule See Rx Instructions .ROUTE 07/10/20 .COMPLEX #90 cap fluticasone propionate 50 1 spray INTRANASAL DAILY #48 ml 07/13/20 mcg/actuation nasal spray,suspension (Flonase Allergy Relief) tamsulosin 0.4 mg capsule (Flomax) 0.8 mg PO DAILY #180 cap 11/12/20 clotrimazole 1 % topical ointment 1 applic TOPICAL BID 28 Days #56.7 12/11/20 g mometasone 0.1 % topical solution 1 applic TOPICAL DAILY #60 ml 12/24/20 levothyroxine 125 mcg tablet 125 mcg PO DAILY #90 tab 01/14/21 ciprofloxacin HCl 500 mg tablet 500 mg PO BID #28 tab 01/25/21 (Cipro) ondansetron 4 mg disintegrating 4 mg PO Q6H PRN #7 tab 02/08/21 tablet nitrofurantoin macrocrystal 100 mg 100 mg PO BID 7 Days #14 cap 02/12/21 capsule nitrofurantoin 100 mg PO BID #20 cap 02/12/21 monohydrate/macrocrystals 100 mg capsule (Macrobid) Allergies Allergy/AdvReac Type Severity Reaction Status Date / Time Sulfa (Sulfonamide Allergy Intermediate Hives Verified 02/12/21 14:38 Antibiotics) venom-honey bee Allergy Intermediate Swelling Verified 02/12/21 14:38 Review of Systems Review of Systems ROS Unobtainable: All systems reviewed & are unremarkable except as noted in HPI and below Patient History Medical History (Updated 02/12/21 @ 16:29 by Stacy Taylor DO) Abnormal CXR (chest x-ray) (~1940) Alzheimer's dementia Benign prostatic hyperplasia with urinary obstruction (04/05/16) Bowel and bladder incontinence BPH (benign prostatic hyperplasia) Candidal intertrigo Cardiomegaly Cataract (1999) Chronic renal failure, stage 3a Diverticulosis EKG abnormalities Emphysema (subcutaneous) (surgical) resulting from a procedure Essential hypertension (04/05/16) Finger fracture (~1946) Granulomatous disease Hearing loss History of tuberculosis (04/05/16) Hypothyroidism (04/05/16) Kidney insufficiency Macular degeneration Mumps (~195) MOJGAN (obstructive sleep apnea) Polymyalgia rheumatica Poor kidney function Psoriasis Pulmonary fibrosis Reactive airway disease Rubella Scoliosis Shortness of breath Sleep apnea Tuberculosis (~194) Unsteady gait Urinary incontinence Urinary tract infection Vertigo (2009) Surgical History Anesthesia H/O hernia repair (~12/19/17) History of tonsillectomy (~194) History of umbilical hernia repair (12/19/17) Hx of cholecystectomy Status post appendectomy (2008) Family History Father Heart disease Brother No problems noted. Grandfather No problems noted. Mother Tuberculosis Son FSHD (facioscapulohumeral muscular dystrophy) Social History marital status: household members: spouse Smoking Status: Never smoker alcohol intake: never caffeine: Yes Smoking Status: Never smoker alcohol intake frequency: 0-2 drinks per day Substance Use Type: does not use Exam Narrative Exam Narrative: GENERAL: Alert and oriented to self. Patient has clear speech. Patient at baseline mentation per . Patient does have repetitive questioning when I returned to the room after being on for period of time. He is cooperative on exam. HEENT: Head normocephalic, atraumatic, EOMI, pupils reactive, face symmetric, moist mucous membranes NECK: Supple, full range of motion CARDIOVASCULAR: Regular rate and rhythm without murmurs, rubs or gallops. RESPIRATORY: Breath sounds equal bilaterally, no wheezes rales or rhonchi. ABDOMEN: Soft, nontender. Normoactive bowel sounds all 4 quadrants. No guarding or rebound, rigidity, no mass : No CVA tenderness EXTREMITIES: Normal range of motion, no clubbing or edema. Neurovascularly intact. NEUROLOGICAL: Cranial nerves II through XII grossly intact. Moving all extremities. Patient is able to ambulate with walker with no assistance. SKIN: Warm, dry, no petechiae, no rashes or lesions. Initial Vital Signs Initial Vital Signs: Vital Signs Pulse Rate 78 02/12/21 14:33 Pulse Oximetry 96 02/12/21 14:33 Course Orders Ordered: Discontinued Medications Nitrofurantoin Macrocrystals (Nitrofurantoin Er 100 Mg Capsule) 100 mg PO NOW ONE Stop: 02/12/21 16:25 Last Admin: 02/12/21 16:46 Dose: 100 mg Documented by: RAYSA Ondansetron HCl (Ondansetron 4 Mg/2 Ml Inj) 4 mg IV NOW ONE Stop: 02/12/21 14:42 Last Admin: 02/12/21 14:59 Dose: 4 mg Documented by: ALANA Vital Signs Vital signs: Vital Signs - 8 hr 02/12/21 14:33 02/12/21 14:34 02/12/21 14:38 Temperature 98.6 F Pulse Rate 78 74 75 Respiratory Rate 11 L 18 Blood Pressure 163/112 H 163/112 H Pulse Oximetry 96 96 96 02/12/21 14:53 02/12/21 15:00 02/12/21 15:01 Temperature Pulse Rate 68 68 71 Respiratory Rate 29 H 25 H 24 Blood Pressure 159/80 H 139/82 Pulse Oximetry 96 96 96 02/12/21 15:30 Temperature Pulse Rate 69 Respiratory Rate Blood Pressure 130/74 Pulse Oximetry 96 MDM - Nausea/Vomiting/Diarrhea Lab Data Result diagrams: 02/12/21 14:55 02/12/21 14:55 Labs: Lab Results 02/12/21 02/12/21 02/12/21 Range/Units 14:55 14:55 14:55 WBC 6.5 (4.5-11.0) X10^3/uL RBC 4.30 L (4.5-5.9) X10^6/uL Hgb 13.1 L (13.5-17.5) g/dL Hct 39.7 L (41-53) % MCV 92.2 (80-100) fL MCH 30.4 (26-34) PG MCHC 33.0 (30-36) % RDW 14.6 (11.6-14.8) % Plt Count 180 (150-400) X10^3/uL Neut % (Auto) 50.7 (50-75) % Lymph % (Auto) 27.0 (25-40) % Gooding % (Auto) 12.4 (3-14) % Eos % (Auto) 8.6 H (2-4) % Baso % (Auto) 1.3 (0-2) % Neut # (Auto) 3300 (5466-1652) /uL Lymph # (Auto) 1800 (7769-3914) /uL Gooding # (Auto) 800 (0-900) /uL Eos # (Auto) 600 H (0-450) /uL Baso # (Auto) 100 (0-100) /uL Sodium 139 (137-145) mmol/L Potassium 4.3 (3.4-5.1) mmol/L Chloride 106 (98-107) mmol/L Carbon Dioxide 23 (22-32) mmol/L BUN 21 H (9-20) mg/dL Creatinine 1.75 H (0.66-1.25) mg/dL Estimated GFR 37.3 L (>60) mL/min BUN/Creatinine Ratio 12.0 (6-22) Glucose 94 (80-110) mg/dL Lactate (0.7-2.1) mmol/L Calcium 9.1 (8.4-10.2) mg/dL Total Bilirubin 0.5 (0.2-1.3) mg/dL AST 26 (17-59) IU/L ALT 11 (<50) IU/L Alkaline Phosphatase 83 (38-126) U/L Total Creatine Kinase 80 (55-170) U/L CK-MB (CK-2) TNP CK-MB (CK-2) Rel Index TNP Troponin I 0.013 (0.01-0.034) ng/mL NT-Pro-B Natriuret Pep 714 H (<450) pg/mL Total Protein 7.4 (6.3-8.2) g/dL Albumin 4.2 (3.5-5.0) g/dL Globulin 3.2 (1.7-4.1) g/dL Albumin/Globulin Ratio 1.3 (1.0-2.8) Lipase 129 (23-300) U/L Procalcitonin 0.08 (<0.5) ng/mL 02/12/21 Range/Units 14:55 WBC (4.5-11.0) X10^3/uL RBC (4.5-5.9) X10^6/uL Hgb (13.5-17.5) g/dL Hct (41-53) % MCV (80-100) fL MCH (26-34) PG MCHC (30-36) % RDW (11.6-14.8) % Plt Count (150-400) X10^3/uL Neut % (Auto) (50-75) % Lymph % (Auto) (25-40) % Gooding % (Auto) (3-14) % Eos % (Auto) (2-4) % Baso % (Auto) (0-2) % Neut # (Auto) (5585-7731) /uL Lymph # (Auto) (4214-7206) /uL Gooding # (Auto) (0-900) /uL Eos # (Auto) (0-450) /uL Baso # (Auto) (0-100) /uL Sodium (137-145) mmol/L Potassium (3.4-5.1) mmol/L Chloride (98-107) mmol/L Carbon Dioxide (22-32) mmol/L BUN (9-20) mg/dL Creatinine (0.66-1.25) mg/dL Estimated GFR (>60) mL/min BUN/Creatinine Ratio (6-22) Glucose (80-110) mg/dL Lactate 1.4 (0.7-2.1) mmol/L Calcium (8.4-10.2) mg/dL Total Bilirubin (0.2-1.3) mg/dL AST (17-59) IU/L ALT (<50) IU/L Alkaline Phosphatase (38-126) U/L Total Creatine Kinase (55-170) U/L CK-MB (CK-2) CK-MB (CK-2) Rel Index Troponin I (0.01-0.034) ng/mL NT-Pro-B Natriuret Pep (<450) pg/mL Total Protein (6.3-8.2) g/dL Albumin (3.5-5.0) g/dL Globulin (1.7-4.1) g/dL Albumin/Globulin Ratio (1.0-2.8) Lipase (23-300) U/L Procalcitonin (<0.5) ng/mL Imaging Data Chest x-ray: Radiologist's Impression: * [address] [id number] ReportSigned Patient: Rom Paulino CMR#: [id number]: 6Acct:[id number]/Sex: 85 / MDate of Service: 01/27/21Loc: EDAccession Number: [id number] Procedure: XR chest 1V Ordering Provider: Stacy Taylor D.O. PROCEDURE: XR CHEST 1V INDICATIONS: suspected sepsis TECHNIQUE: One view of the chest was acquired. COMPARISON: [facility], CR, XR CHEST 1V, 02/02/2018, 16:57. [facility], CR, XR CHEST 1V, 05/25/2018, 16:30. [facility], CR, XR CHEST 2V, 01/22/2020, 14: 05. FINDINGS: Surgical changes and devices: None. Lungs and pleura: Lungs are clear. No pleural effusions or pneumothorax. Mediastinum: The cardiac contours are mildly to moderately enlarged. The aorta demonstrates calcification and tortuosity. Bones and chest wall: No suspicious bony lesions. Age-appropriate bony degenerative changes are seen. Overlying soft tissues appear unremarkable. IMPRESSION: No focal infiltrates. [id number] cardiomegaly. Dictated by: Manny Del Cid M.D. on 01/27/2021 at 15:09 Approved by: Manny Del Cid M.D. on 01/27/2021 at 15:10 ECG Data Attestation: I personally reviewed and interpreted this ECG as follows: Prior ECG tracings: available for review Interpretation: Sinus rhythm rate a 60 8p are 208 QRS of 138 QTC 450. Known right bundle branch. Left axis deviation. Patient has prior from 01/27/2021, no acute changes. [facility] Narrative Medical decision making narrative: This is an 85-year-old male [facility]. Patient's urine culture from 02/10/2021 shows resistance to Cipro. It is positive for Staph epidermidis, greater than 100,000 CFU it does have sensitivity to nitrofurantoin with multiple resistance to other antibiotics. Patient was started on Macrobid. He was able to give a urine sample but was very small in amount so was sent for culture but did not obtain a UA. Patient does have chronic renal dysfunction with a creatinine of 1.75 today his last was on the 4th and was 1.65 GFR his changed from 39-37 with no other changes appreciated. Patient has follow-up in place with Urology. Prescription was sent and patient was given initial dose of antibiotic orally in the department which he tolerated without issue. Discharge Plan Departure Patient Disposition: Home Clinical Impression: Acute UTI Instructions: DI for Urinary Tract Infection (UTI) Activity Restrictions/Additional Instructions: Your urine culture from 02/10 is positive for bacteria and shows resistance to your recent antibiotic. You have been started on Macrobid or nitrofurantoin twice daily according to your urine culture. You have received the 1st dose here in the emergency department. Prescription sent to [facility] in [place]. Please return for fevers, altered radiations in mental status or worsening confusion, new chest pain, shortness of breath, lightheadedness or passing out, persistent vomiting, new abdominal, back or flank pain, difficulty with urination or other new or concerning symptoms. Prescriptions: New nitrofurantoin macrocrystal 100 mg capsule 100 mg PO BID 7 Days Qty: 14 RF: 0 No Action fluticasone propionate [Flonase Allergy Relief] 50 mcg/actuation spray,suspension 1 spray intranasal DAILY Qty: 48 RF: 11 levothyroxine 125 mcg tablet 125 mcg PO DAILY Qty: 90 RF: 2 ciprofloxacin HCl [Cipro] 500 mg tablet 500 mg PO BID Qty: 28 RF: 0 ondansetron 4 mg tablet,disintegrating 4 mg PO Q6H PRN (Reason: nausea and vomiting) Qty: 7 RF: 0 nitrofurantoin monohyd/m-cryst [Macrobid] 100 mg capsule 100 mg PO BID Qty: 20 RF: 0 clobetasol 0.05 % solution 1 applic topical DAILY PRNRF: 0 PreserVision AREDS 14,320-226-200 [id number] capsule 1 cap PO BID RF: 0 guaifenesin [Mucinex] 600 mg tablet extended release 12hr 600 mg PO BID RF: 0 alprazolam [Xanax] 0.25 mg tablet 0.25 mg PO QID PRN (Reason: anxiety) Qty: 60 RF: 5 loperamide 2 mg capsule See Rx Instructions .ROUTE .COMPLEX Qty: 90 RF: 3 donepezil 10 mg tablet 10 mg PO DAILY Qty: 90 RF: 3 amlodipine 5 mg tablet 5 mg PO DAILY Qty: 90 RF: 3 Hold Instructions: Home Medication placed on hold at Doctor's office clotrimazole 1 % ointment 1 applic topical BID 28 Days Qty: 56.7 RF: 2 tamsulosin [Flomax] 0.4 mg capsule 0.8 mg PO DAILY Qty: 180 RF: 3 mometasone 0.1 % solution 1 applic topical DAILY Qty: 60 RF: 3 cholecalciferol (vitamin D3) 125 mcg (5,000 unit) capsule 125 mcg PO DAILY RF: 0 Referrals: Vinnie Herman MD [Primary Care Provider] -
[2021-02-12] MEDS: NITROFURANTOIN ER 100 MG CAPSULE PO (16:46)
[2021-02-12 16:49] LABS: Troponin I 0.013 ng/mL (0.01-0.034)
--- NOTE | 2021-02-12 16:54 | PC.NURSE ---
pt and his spouse asked me to removed the iv access.
== END 2021-02-12 17:00 | disposition home or self-care (01) ==
PROVIDERS: Emergency Provider Emergency Medicine; PCP Internal Medicine
DX: N39.0 Urinary tract infection, site not specified (principal); R78.81 Bacteremia; B95.8 Unspecified staphylococcus as the cause of diseases classified elsewhere; R10.9 Unspecified abdominal pain
CPT/HCPCS: 36415; 80053; 82550; 83605; 83690; 83880; 84145; 84484; 85025; 87086; 93005; 93010; 96374; 99284; J2405

== ENCOUNTER → 2021-02-17 12:51 | Outpatient (CLI) | payer OTHER, SELFPAY ==
[2021-01-06 09:44] VITALS: BMI 28.7
[2021-02-17 13:24] LABS: Bacteria Urine None Seen; RBC Urine None Seen (0-5/HPF)
[2021-02-17 14:03] LABS: Appearance Urine UA CLEAR; Bilirubin Urine UA NEGATIVE (NEGATIVE); Color Urine UA YELLOW; Glucose Urine UA NEGATIVE (Negative); Ketones Urine UA NEGATIVE (NEGATIVE); Leukocyte Esterase Urine UA TRACE (NEGATIVE); Nitrite Urine UA NEGATIVE (Negative); Occult Blood Urine UA NEGATIVE (Negative); Protein Urine UA 1+ (Negative); Urobilinogen Urine UA 0.2 E.U./dL (0.2); pH Urine UA 5.5 (4.5-8.0)
[2021-02-17 14:24] LABS: Culture Indicated Urine Specimen Cultured; Renal Epithelial Cells Urine 1-5/HPF (0-1/HPF); WBC Urine 5-10/HPF (0-5/HPF)
== END ==
PROVIDERS: PCP Internal Medicine; Referring Provider Urology; Visit Provider Urology
DX: N39.0 Urinary tract infection, site not specified (principal); N39.498 Other specified urinary incontinence; R15.9 Full incontinence of feces; R32 Unspecified urinary incontinence
CPT/HCPCS: 81001; 87086

== ENCOUNTER 2021-02-19 12:48 | Emergency (ER) | payer OTHER, SELFPAY ==
[2021-01-06 09:44] VITALS: BMI 28.7
[2021-02-19 13:05] VITALS: BP 124/69; PULSE 83; RESP 16; TEMP 36.6; O2SAT 96; BMI 27.8
[2021-02-19 13:07] LABS: Bacteria Urine None Seen
[2021-02-19 13:08] LABS: Appearance Urine UA CLEAR; Bilirubin Urine UA NEGATIVE (NEGATIVE); Color Urine UA YELLOW; Glucose Urine UA NEGATIVE (Negative); Ketones Urine UA NEGATIVE (NEGATIVE); Leukocyte Esterase Urine UA NEGATIVE (NEGATIVE); Nitrite Urine UA NEGATIVE (Negative); Occult Blood Urine UA TRACE-INTACT (Negative); Protein Urine UA 2+ (Negative); Specific Gravity Urine UA 1.025 (1.000-1.035); Urobilinogen Urine UA 0.2 E.U./dL (0.2); pH Urine UA 5.5 (4.5-8.0)
[2021-02-19 13:26] LABS: Amorphous Sediment Urine 2+; Culture Indicated Urine Cult Not Indicated; RBC Urine 1-5/HPF (0-5/HPF); Renal Epithelial Cells Urine 1-5/HPF (0-1/HPF); Squamous Epithelial Cell Urine 5-10 /HPF (0-5/HPF); WBC Urine 5-10/HPF (0-5/HPF)
--- NOTE | 2021-02-19 14:11 | ED.MALEGU ---
HPI - Male Genitourinary <Isaias Woo PA-C - Last Filed: 02/19/21 14:47> General Chief complaint: Urogenital-Male Stated complaint: UTI since December/vomiting Time Seen by Provider: 02/19/21 13:26 Source: patient and family Mode of arrival: Ambulatory Limitations: no limitations History of Present Illness HPI Narrative: Rom presents today with his for chief complaint of possible continued UTI. He has been battling a urinary tract infection since early December. He recently saw his urologist earlier this week who started him on a 30 day course of nitrofurantoin. reports that he had a single episode of vomiting earlier today so they brought him here. The episode of vomiting occurred shortly after taking 1 of his a.m. medications. He is otherwise behaving at his baseline. They deny any fever, abdominal pain, foul-smelling urine, new back pain or any other acute concerns or complaints. Related Data Home Medications Medication Instructions Recorded Confirmed clobetasol 0.05 % scalp solution 1 applic TOPICAL DAILY PRN 07/10/20 01/20/21 guaifenesin 600 mg tablet, 600 mg PO BID 07/10/20 01/20/21 extended release 12 hr (Mucinex) vitamins A,C,S-okyf-ttilrr 14,320 1 cap PO BID 07/10/20 01/20/21 unit-226 mg-200 unit capsule (PreserVision AREDS) cholecalciferol (vitamin D3) 125 125 mcg PO DAILY 01/20/21 01/20/21 mcg (5,000 unit) capsule Previous Rx's Medication Instructions Recorded amlodipine 5 mg tablet 5 mg PO DAILY #90 tab 07/10/20 donepezil 10 mg tablet 10 mg PO DAILY #90 tab 07/10/20 loperamide 2 mg capsule See Rx Instructions .ROUTE 07/10/20 .COMPLEX #90 cap fluticasone propionate 50 1 spray INTRANASAL DAILY #48 ml 07/13/20 mcg/actuation nasal spray,suspension (Flonase Allergy Relief) tamsulosin 0.4 mg capsule (Flomax) 0.8 mg PO DAILY #180 cap 11/12/20 clotrimazole 1 % topical ointment 1 applic TOPICAL BID 28 Days #56.7 12/11/20 g mometasone 0.1 % topical solution 1 applic TOPICAL DAILY #60 ml 12/24/20 levothyroxine 125 mcg tablet 125 mcg PO DAILY #90 tab 01/14/21 ondansetron 4 mg disintegrating 4 mg PO Q6H PRN #7 tab 02/08/21 tablet nitrofurantoin 100 mg PO .QD #30 cap 02/18/21 monohydrate/macrocrystals 100 mg capsule (Macrobid) alprazolam 0.25 mg tablet (Xanax) 0.25 mg PO QID PRN #60 tab 02/22/21 Allergies Allergy/AdvReac Type Severity Reaction Status Date / Time Sulfa (Sulfonamide Allergy Intermediate Hives Verified 02/12/21 14:38 Antibiotics) venom-honey bee Allergy Intermediate Swelling Verified 02/12/21 14:38 Review of Systems <Isaias Woo PA-C - Last Filed: 02/19/21 14:47> Review of Systems Narrative: As per HPI Patient History <Isaias Woo PA-C - Last Filed: 02/19/21 14:47> Medical History (Updated 02/19/21 @ 14:46 by Isaias Woo PA-C) Abnormal CXR (chest x-ray) (~194) Alzheimer's dementia Benign prostatic hyperplasia with urinary obstruction (04/05/16) Bowel and bladder incontinence BPH (benign prostatic hyperplasia) Candidal intertrigo Cardiomegaly Cataract (1999) Chronic renal failure, stage 3a Diverticulosis EKG abnormalities Emphysema (subcutaneous) (surgical) resulting from a procedure Essential hypertension (04/05/16) Finger fracture (~1945) Granulomatous disease Hearing loss History of tuberculosis (04/05/16) Hypothyroidism (04/05/16) Kidney insufficiency Macular degeneration Mumps (~1955) MOJGAN (obstructive sleep apnea) Polymyalgia rheumatica Poor kidney function Psoriasis Pulmonary fibrosis Reactive airway disease Rubella Scoliosis Shortness of breath Sleep apnea Tuberculosis (~1939) Unsteady gait Urinary incontinence Urinary tract infection Vertigo (2009) Surgical History Anesthesia H/O hernia repair (~12/19/17) History of tonsillectomy (~194) History of umbilical hernia repair (12/19/17) Hx of cholecystectomy Status post appendectomy (2008) Family History Father Heart disease Brother No problems noted. Grandfather No problems noted. Mother Tuberculosis Son FSHD (facioscapulohumeral muscular dystrophy) Social History marital status: household members: spouse Smoking Status: Never smoker alcohol intake: never caffeine: Yes Smoking Status: Never smoker alcohol intake frequency: 0-2 drinks per day Substance Use Type: does not use Exam <ESTEBAN Mcdermott Last Filed: 02/19/21 14:47> Narrative Exam Narrative: Exam Narrative: Const General: cooperative, healthy appearing, comfortable, no acute distress, well developed and well groomed Nutritional Appearance: average body habitus Orientation: alert and oriented times person and place, this is baseline HENMT Head: normal to inspection and atraumatic Ears: hearing grossly normal bilaterally Nose: external nose normal and nares normal Face and sinus: normal facial exam Neck Neck: normal visual inspection and supple Resp Effort & Inspection: normal respiratory effort, able to speak in complete sentences, no audible wheezes, not labored, no nasal flaring and no respiratory distress GI Nondistended, no masses noted, normal bowel sounds, nontender to palpation, no guarding No CVA tenderness Psych Appearance: grossly normal and well kempt Mental Status: mental status grossly normal Speech and Movement: speech and movement normal Mood: congruent mood Affect: normal affect Initial Vital Signs Initial Vital Signs: Vital Signs Temperature 97.9 F 02/19/21 13:05 Pulse Rate 83 02/19/21 13:05 Respiratory Rate 16 02/19/21 13:05 Blood Pressure 124/69 02/19/21 13:05 Pulse Oximetry 96 02/19/21 13:05 <Stacy Taylor DO - Last Filed: 02/24/21 07:36> Initial Vital Signs Initial Vital Signs: Vital Signs Temperature 97.9 F 02/19/21 13:05 Pulse Rate 83 02/19/21 13:05 Respiratory Rate 16 02/19/21 13:05 Blood Pressure 124/69 02/19/21 13:05 Pulse Oximetry 96 02/19/21 13:05 Course <ESTEBAN Mcdermott Last Filed: 02/19/21 14:47> Orders Ordered: ED Orders 02/19/21 13:05 GI Panel (Film Array) Stat Urinalysis and Microscopic Stat Vital Signs Vital signs: Vital Signs - 8 hr 02/19/21 13:05 Temperature 97.9 F Pulse Rate 83 Respiratory Rate 16 Blood Pressure 124/69 Pulse Oximetry 96 <Stacy C AlexandreliliDO - Last Filed: 02/24/21 07:36> Orders Ordered: ED Orders 02/19/21 13:05 GI Panel (Film Array) Stat Urinalysis and Microscopic Stat Vital Signs Vital signs: Vital Signs - 8 hr 02/19/21 13:05 Temperature 97.9 F Pulse Rate 83 Respiratory Rate 16 Blood Pressure 124/69 Pulse Oximetry 96 MDM - Male Genitourinary <Isaias Woo PA-C - Last Filed: 02/19/21 14:47> Lab Data Labs: Lab Results 02/19/21 02/19/21 Range/Units 13:05 13:05 Urine Color Yellow Urine Appearance Clear Urine pH 5.5 (4.5-8.0) Ur Specific [place] 1.025 (1.000-1.035) Urine Protein 2+ H (Negative) Urine Glucose (UA) Negative (Negative) g/dL Urine Ketones Negative (NEGATIVE) Urine Occult Blood Trace-intact (Negative) Urine Nitrate Negative (Negative) Urine Bilirubin Negative (NEGATIVE) Urine Urobilinogen 0.2 (0.2) E.U./dL Ur Leukocyte Esterase Negative (NEGATIVE) Urine RBC 1-5/hpf (0-5/HPF) Urine WBC 5-10/hpf H (0-5/HPF) Ur Squamous Epith Cells 5-10 /hpf H (0-5/HPF) Ur Renal Epithelial Cell 1-5/hpf H (0-1/HPF) Amorphous Sediment 2+ Urine Bacteria None seen (None) Ur Culture Indicated? Cult not indicated Stl C. cayetanensis PCR Not detected (Not Detect) Stool Rotavirus (PCR) Not detected (Not Detect) Stool Adenovirus (PCR) Not detected (Not Detect) Stool Astrovirus (PCR) Not detected (Not Detect) Stool Cryptosporidium PCR Not detected (Not Detect) Stl E.coli Shiga Tox PCR Not detected (Not Detect) St Sh/Enteroin Ecoli PCR Not detected (Not Detect) Stool E coli O157 PCR Not detected (Not Detect) Stl Enterotoxigenic E PCR Not detected (Not Detect) Stool EPEC (PCR) Not detected (Not Detect) Stl E. histolytica PCR Not detected (Not Detect) Stool Giardia Lamblia PCR Not detected (Not Detect) Stool Sapovirus (PCR) Not detected (Not Detect) Stl P. shigelloides PCR Not detected (Not Detect) St Y.enterocolitica PCR Not detected (Not Detect) Stool Vibrio (PCR) Not detected (Not Detect) Stl Vibrio cholerae PCR Not detected (Not Detect) Stl Enteroaggr Ecoli PCR Not detected (Not Detect) Stl Norovirus GI/GII PCR Not detected (Not Detect) Campylobacter (PCR) Not detected (Not Detect) C. difficile Tox (PCR) Not detected (Not Detect) Salmonella (PCR) Not detected (Not Detect) MDM Narrative Medical decision making narrative: Patient is well-appearing at this time and appears to be at his baseline. His urinalysis is grossly normal at this time with no significant signs of infection. He does not have any physical examination findings that would suggest sepsis. No CVA tenderness or abdominal tenderness. We will discharge home at this time and have him follow-up with his urologist. Strict ER return precautions were discussed with his and with the patient. They both verbalizes understanding and agrees to plan and has no further concerns at this time. Thank you A [id number] system was used with the dictation of this note. Please disregard any spelling or grammatical errors. <Stacy Taylor, DO - Last Filed: 02/24/21 07:36> Lab Data Labs: Lab Results 02/19/21 02/19/21 Range/Units 13:05 13:05 Urine Color Yellow Urine Appearance Clear Urine pH 5.5 (4.5-8.0) Ur Specific [place] 1.025 (1.000-1.035) Urine Protein 2+ H (Negative) Urine Glucose (UA) Negative (Negative) g/dL Urine Ketones Negative (NEGATIVE) Urine Occult Blood Trace-intact (Negative) Urine Nitrate Negative (Negative) Urine Bilirubin Negative (NEGATIVE) Urine Urobilinogen 0.2 (0.2) E.U./dL Ur Leukocyte Esterase Negative (NEGATIVE) Urine RBC 1-5/hpf (0-5/HPF) Urine WBC 5-10/hpf H (0-5/HPF) Ur Squamous Epith Cells 5-10 /hpf H (0-5/HPF) Ur Renal Epithelial Cell 1-5/hpf H (0-1/HPF) Amorphous Sediment 2+ Urine Bacteria None seen (None) Ur Culture Indicated? Cult not indicated Stl C. cayetanensis PCR Not detected (Not Detect) Stool Rotavirus (PCR) Not detected (Not Detect) Stool Adenovirus (PCR) Not detected (Not Detect) Stool Astrovirus (PCR) Not detected (Not Detect) Stool Cryptosporidium PCR Not detected (Not Detect) Stl E.coli Shiga Tox PCR Not detected (Not Detect) St Sh/Enteroin Ecoli PCR Not detected (Not Detect) Stool E coli O157 PCR Not detected (Not Detect) Stl Enterotoxigenic E PCR Not detected (Not Detect) Stool EPEC (PCR) Not detected (Not Detect) Stl E. histolytica PCR Not detected (Not Detect) Stool Giardia Lamblia PCR Not detected (Not Detect) Stool Sapovirus (PCR) Not detected (Not Detect) Stl P. shigelloides PCR Not detected (Not Detect) St Y.enterocolitica PCR Not detected (Not Detect) Stool Vibrio (PCR) Not detected (Not Detect) Stl Vibrio cholerae PCR Not detected (Not Detect) Stl Enteroaggr Ecoli PCR Not detected (Not Detect) Stl Norovirus GI/GII PCR Not detected (Not Detect) Campylobacter (PCR) Not detected (Not Detect) C. difficile Tox (PCR) Not detected (Not Detect) Salmonella (PCR) Not detected (Not Detect) Discharge Plan Departure Patient Disposition: Home Clinical Impression: Vomiting Qualifiers: Vomiting type: unspecified Vomiting Intractability: non-intractable Nausea presence: unspecified Qualified Code(s): R11.10 - Vomiting, unspecified Instructions: DI for Vomiting -- Adult Activity Restrictions/Additional Instructions: It was nice to see you this afternoon. His urine is reassuring at this time. Please continue taking the antibiotics that the urologist has recommended and follow-up with his urologist at his next scheduled appointment. ER return precautions include fever, persistent nausea with vomiting, or any other new or worsening complaints. Thank you Isaias Woo PA-C Prescriptions: No Action fluticasone propionate [Flonase Allergy Relief] 50 mcg/actuation spray,suspension 1 spray intranasal DAILY Qty: 48 RF: 11 levothyroxine 125 mcg tablet 125 mcg PO DAILY Qty: 90 RF: 2 ondansetron 4 mg tablet,disintegrating 4 mg PO Q6H PRN (Reason: nausea and vomiting) Qty: 7 RF: 0 nitrofurantoin monohyd/m-cryst [Macrobid] 100 mg capsule 100 mg PO .QD Qty: 30 RF: 0 alprazolam [Xanax] 0.25 mg tablet 0.25 mg PO QID PRN (Reason: anxiety) Qty: 60 RF: 5 clobetasol 0.05 % solution 1 applic topical DAILY PRNRF: 0 PreserVision AREDS [id number] capsule 1 cap PO BID RF: 0 guaifenesin [Mucinex] 600 mg tablet extended release 12hr 600 mg PO BID RF: 0 loperamide 2 mg capsule See Rx Instructions .ROUTE .COMPLEX Qty: 90 RF: 3 donepezil 10 mg tablet 10 mg PO DAILY Qty: 90 RF: 3 amlodipine 5 mg tablet 5 mg PO DAILY Qty: 90 RF: 3 Hold Instructions: Home Medication placed on hold at Doctor's office clotrimazole 1 % ointment 1 applic topical BID 28 Days Qty: 56.7 RF: 2 tamsulosin [Flomax] 0.4 mg capsule 0.8 mg PO DAILY Qty: 180 RF: 3 mometasone 0.1 % solution 1 applic topical DAILY Qty: 60 RF: 3 cholecalciferol (vitamin D3) 125 mcg (5,000 unit) capsule 125 mcg PO DAILY RF: 0 Referrals: Vinnie Herman MD [Primary Care Provider] - <Stacy Taylor DO - Last Filed: 02/24/21 07:36> Cosign ED Attending Cosignature Attestation: I was immediately available in the department for consultation. Documentation has been reviewed.
[2021-02-19 14:53] VITALS: BP 142/75; PULSE 60; RESP 14; O2SAT 97
[2021-02-19 14:53] LABS: Adenovirus F 40/41 Not Detected (Not Detect); Astrovirus Not Detected (Not Detect); Campylobacter Not Detected (Not Detect); Clostridium difficile toxin AB Not Detected (Not Detect); Cryptosporidium Not Detected (Not Detect); Cyclospora cayetanensis Not Detected (Not Detect); Entamoeba histolytica Not Detected (Not Detect); Enteroaggregative E.coli Not Detected (Not Detect); Enteropathogenic E.coli Not Detected (Not Detect); Enterotoxigenic E.coli It/st Not Detected (Not Detect); Giardia lamblia Not Detected (Not Detect); Norovirus GI/GII Not Detected (Not Detect); Plesiomonsa shigelloides Not Detected (Not Detect); Rotavirus A Not Detected (Not Detect); Salmonella Not Detected (Not Detect); Sapovirus Not Detected (Not Detect); Shiga-like toxin-prod E.coli Not Detected (Not Detect); Shigella/Enteroinvasive E.coli Not Detected (Not Detect); Vibrio Not Detected (Not Detect); Vibrio cholerae Not Detected (Not Detect); Yersinia enterocolitica Not Detected (Not Detect)
== END 2021-02-19 14:54 | disposition home or self-care (01) ==
PROVIDERS: Emergency Medicine; Emergency Provider Physician Assistant; PCP Internal Medicine
DX: R11.10 Vomiting, unspecified (principal)
CPT/HCPCS: 81001; 87507; 99281; 99282

== ENCOUNTER → 2021-03-09 14:50 | Outpatient (CLI) | payer OTHER, SELFPAY ==
[2021-01-06 09:44] VITALS: BMI 28.7
[2021-03-09 15:38] LABS: Appearance Urine UA CLEAR; Bilirubin Urine UA NEGATIVE (NEGATIVE); Color Urine UA YELLOW; Glucose Urine UA NEGATIVE (Negative); Ketones Urine UA NEGATIVE (NEGATIVE); Leukocyte Esterase Urine UA NEGATIVE (NEGATIVE); Nitrite Urine UA NEGATIVE (Negative); Occult Blood Urine UA NEGATIVE (Negative); Protein Urine UA 1+ (Negative); Urobilinogen Urine UA 0.2 E.U./dL (0.2); pH Urine UA 5.5 (4.5-8.0)
[2021-03-09 15:51] LABS: Amorphous Sediment Urine 1+; Bacteria Urine Moderate (10-30); Culture Indicated Urine Cult Not Indicated; Mucus Urine 1+ (Negative); RBC Urine None Seen (0-5/HPF); Squamous Epithelial Cell Urine 5-10 /HPF (0-5/HPF); WBC Urine 5-10/HPF (0-5/HPF)
== END ==
PROVIDERS: PCP Internal Medicine; Referring Provider Urology; Visit Provider Urology
DX: R30.0 Dysuria (principal)
CPT/HCPCS: 81001

== ENCOUNTER → 2021-03-16 11:20 | Outpatient (CLI) | payer OTHER, SELFPAY ==
[2021-01-06 09:44] VITALS: BMI 28.7
[2021-03-16 12:14] LABS: Appearance Urine UA CLEAR; Bilirubin Urine UA NEGATIVE (NEGATIVE); Color Urine UA YELLOW; Glucose Urine UA NEGATIVE (Negative); Ketones Urine UA NEGATIVE (NEGATIVE); Leukocyte Esterase Urine UA NEGATIVE (NEGATIVE); Nitrite Urine UA NEGATIVE (Negative); Occult Blood Urine UA TRACE-LYSED (Negative); Protein Urine UA TRACE (Negative); Urobilinogen Urine UA 0.2 E.U./dL (0.2); pH Urine UA 5.5 (4.5-8.0)
[2021-03-16 12:24] LABS: Amorphous Sediment Urine 2+; Bacteria Urine None Seen; Culture Indicated Urine Cult Not Indicated; RBC Urine 0-1/HPF (0-5/HPF); WBC Urine None Seen (0-5/HPF)
== END ==
PROVIDERS: PCP Internal Medicine; Referring Provider Urology; Visit Provider Urology
DX: N39.0 Urinary tract infection, site not specified (principal)
CPT/HCPCS: 81001

== ENCOUNTER 2021-04-01 13:19 | Emergency (ER) | payer OTHER, SELFPAY ==
[2021-01-06 09:44] VITALS: BMI 28.7
[2021-04-01 13:44] VITALS: BP 146/78; PULSE 67; RESP 15; TEMP 36.3; O2SAT 95; BMI 30.7
--- NOTE | 2021-04-01 13:50 | DI.RAD.S_ITS ---
PROCEDURE: XR CHEST 2V INDICATIONS: Cough and congestion TECHNIQUE: 2 views of the chest were acquired. COMPARISON: [facility], CR, XR CHEST 1V, 01/27/2021, 15:59. FINDINGS: Surgical changes and devices: None. Lungs and pleura: No consolidation, pleural effusions or pneumothorax. Mediastinum: Redemonstrated prominence of the cardiomediastinal silhouette, partially by technique. Bones and chest wall: No suspicious bony abnormalities. Soft tissues appear unremarkable. IMPRESSION: No acute cardiopulmonary abnormality. Dictated by: Felipe Soliz M.D. on 04/01/2021 at 14:22 Approved by: Felipe Soliz M.D. on 04/01/2021 at 14:24
[2021-04-01 15:14] LABS: COVID19 -Nasal RAPID Negative (Negative)
--- NOTE | 2021-04-01 17:30 | PC.NURSE ---
Requested to speak to triage nurse in lobby, getting tired of waiting. Reassurred patient he would be back to a room soon. Agreeable to wait
--- NOTE | 2021-04-01 18:13 | ED_ITS ---
HPI - URI/Sore Throat General Chief Complaint: Upper Respiratory Symptoms Stated Complaint: Coughing, congestion, labored breathing Time Seen by Provider: 04/01/21 18:09 Source: patient Mode of arrival: Wheelchair History of Present Illness HPI Narrative: 85-year-old male nonsmoker with history of hypertension presents for evaluation of cough over the past few days which seems to be worse when lying flat. He does not report any significant respiratory distress and certainly does not need supplemental oxygen, however they present to the emergency department as they were unable to get in with the primary care provider. He presents with the caregiver who states his symptoms are largely at his baseline and he is certainly in no extremis. He has no medication change, missed doses or dietary change He denies any chest pain sputum production nor fever or chills. He has no nausea, vomiting or diarrhea. He seems to have a harder time when he lays flat but admits to having increased nasal and posterior pharyngeal secretions. He denies any significant exertional dyspnea. He has no notable change in lower extremity swelling Related Data Home Medications Medication Instructions Recorded Confirmed clobetasol 0.05 % scalp solution 1 applic TOPICAL DAILY PRN 07/10/20 03/19/21 guaifenesin 600 mg tablet, 600 mg PO BID 07/10/20 03/19/21 extended release 12 hr (Mucinex) vitamins A,C,R-epll-kfxofo 14,320 1 cap PO BID 07/10/20 03/19/21 unit-226 mg-200 unit capsule (PreserVision AREDS) cholecalciferol (vitamin D3) 125 125 mcg PO DAILY 01/20/21 03/19/21 mcg (5,000 unit) capsule Previous Rx's Medication Instructions Recorded amlodipine 5 mg tablet 5 mg PO DAILY #90 tab 07/10/20 donepezil 10 mg tablet 10 mg PO DAILY #90 tab 07/10/20 loperamide 2 mg capsule See Rx Instructions .ROUTE 07/10/20 .COMPLEX #90 cap fluticasone propionate 50 1 spray INTRANASAL DAILY #48 ml 07/13/20 mcg/actuation nasal spray,suspension (Flonase Allergy Relief) tamsulosin 0.4 mg capsule (Flomax) 0.8 mg PO DAILY #180 cap 11/12/20 clotrimazole 1 % topical ointment 1 applic TOPICAL BID 28 Days #56.7 12/11/20 g mometasone 0.1 % topical solution 1 applic TOPICAL DAILY #60 ml 12/24/20 levothyroxine 125 mcg tablet 125 mcg PO DAILY #90 tab 01/14/21 ondansetron 4 mg disintegrating 4 mg PO Q6H PRN #7 tab 02/08/21 tablet nitrofurantoin 100 mg PO .QD #30 cap 02/18/21 monohydrate/macrocrystals 100 mg capsule (Macrobid) alprazolam 0.25 mg tablet (Xanax) 0.25 mg PO TID PRN #1 tab 03/11/21 azelastine 205.5 mcg (0.15 %) 2 spray INTRANASAL BID #30 ml 03/11/21 nasal spray mirabegron 50 mg tablet,extended 50 mg PO DAILY #90 tab 03/19/21 release 24 hr (Myrbetriq) Allergies Allergy/AdvReac Type Severity Reaction Status Date / Time Sulfa (Sulfonamide Allergy Intermediate Hives Verified 04/01/21 13:44 Antibiotics) venom-honey bee Allergy Intermediate Swelling Verified 04/01/21 13:44 Review of Systems Review of Systems Narrative: GENERAL: Denies chills, fatigue, malaise, fever, sweats. HEENT: Denies sinus pain, ear pain, sore throat, difficulty swallowing, dizziness. RESPIRATORY: See HPI CARDIOVASCULAR: Denies chest pain, palpitations, orthopnea, edema, GASTROINTESTINAL: Denies nausea, vomiting, abdominal pain, diarrhea, constipatio n, melena. : Denies dysuria, frequency, incontinence, hematuria, urinary retention. MUSCULOSKELETAL: denies weakness, joint pain, or bony pain SKIN: Denies rash, skin lesions, or other NEUROLOGIC: Denies weakness, headache, numbness, change in speech, confusion, seizures, incoordination. PSYCHIATRIC: No concerning psychosocial issues. 12 point review of systems is negative except for those stated above Patient History Medical History (Updated 04/01/21 @ 21:11 by Ellis Mcguire DO) Abnormal CXR (chest x-ray) (~1940) Alzheimer's dementia Benign prostatic hyperplasia with urinary obstruction (04/05/16) Bowel and bladder incontinence BPH (benign prostatic hyperplasia) Candidal intertrigo Cardiomegaly Cataract (1999) Chronic renal failure, stage 3a Diverticulosis EKG abnormalities Emphysema (subcutaneous) (surgical) resulting from a procedure Essential hypertension (04/05/16) Finger fracture (~194) Granulomatous disease Hearing loss History of tuberculosis (04/05/16) Hypothyroidism (04/05/16) Kidney insufficiency Lower extremity weakness Macular degeneration Mumps (~1955) MOJGAN (obstructive sleep apnea) Polymyalgia rheumatica Poor kidney function Psoriasis Pulmonary fibrosis Reactive airway disease Rubella Scoliosis Shortness of breath Sleep apnea Tuberculosis (~1939) Unsteady gait Urinary incontinence Vertigo (2009) Surgical History Anesthesia H/O hernia repair (~12/19/17) History of tonsillectomy (~1940) History of umbilical hernia repair (12/19/17) Hx of cholecystectomy Status post appendectomy (2008) Family History Father Heart disease Brother No problems noted. Grandfather No problems noted. Mother Tuberculosis Son FSHD (facioscapulohumeral muscular dystrophy) Social History marital status: household members: spouse Smoking Status: Never smoker alcohol intake: never caffeine: Yes Smoking Status: Never smoker alcohol intake frequency: 0-2 drinks per day Substance Use Type: does not use Exam Initial Vital Signs Initial Vital Signs: Vital Signs Temperature 97.4 F L 04/01/21 13:44 Pulse Rate 67 04/01/21 13:44 Respiratory Rate 15 04/01/21 13:44 Blood Pressure 146/78 H 04/01/21 13:44 Pulse Oximetry 95 04/01/21 13:44 Course Orders Ordered: ED Orders 04/01/21 20:08 Complete Blood Count AUTO DIFF Stat Comprehensive Metabolic Panel Stat NT-proBNP (BNP-Adult 18+) Stat Procalcitonin Stat Troponin & CK Cardiac Panel Stat Discontinued Medications Alprazolam (Alprazolam 0.25 Mg Tablet) 0.5 mg PO NOW ONE Stop: 04/01/21 20:24 Last Admin: 04/01/21 20:32 Dose: 0.5 mg Documented by: VY Vital Signs Vital signs: Vital Signs - 8 hr 04/01/21 13:44 04/01/21 18:14 04/01/21 18:30 Temperature 97.4 F L Pulse Rate 67 55 L 56 L Respiratory Rate 15 17 Blood Pressure 146/78 H 160/77 H Pulse Oximetry 95 97 98 04/01/21 19:00 04/01/21 19:47 04/01/21 20:40 Temperature Pulse Rate 54 L 60 60 Respiratory Rate 20 18 Blood Pressure 178/87 H 171/81 H Pulse Oximetry 96 95 93 MDM - URI/Sore Throat Lab Data Result diagrams: 04/01/21 20:08 04/01/21 20:08 Labs: Lab Results 04/01/21 04/01/21 04/01/21 Range/Units 13:50 20:08 20:08 WBC 7.6 (4.5-11.0) X10^3/uL RBC 4.29 L (4.5-5.9) X10^6/uL Hgb 13.0 L (13.5-17.5) g/dL Hct 39.9 L (41-53) % MCV 93.0 (80-100) fL MCH 30.3 (26-34) PG MCHC 32.6 (30-36) % RDW 14.8 (11.6-14.8) % Plt Count 177 (150-400) X10^3/uL Neut % (Auto) 56.3 (50-75) % Lymph % (Auto) 25.5 (25-40) % [place] % (Auto) 9.5 (3-14) % Eos % (Auto) 7.6 H (2-4) % Baso % (Auto) 1.1 (0-2) % Neut # (Auto) 4300 (1317-1626) /uL Lymph # (Auto) 1900 (6748-2350) /uL [place] # (Auto) 700 (0-900) /uL Eos # (Auto) 600 H (0-450) /uL Baso # (Auto) 100 (0-100) /uL Sodium 141 (137-145) mmol/L Potassium 4.0 (3.4-5.1) mmol/L Chloride 103 (98-107) mmol/L Carbon Dioxide 29 (22-32) mmol/L BUN 30 H (9-20) mg/dL Creatinine 1.67 H (0.66-1.25) mg/dL Estimated GFR 39.4 L (>60) mL/min BUN/Creatinine Ratio 18.0 (6-22) Glucose 106 (80-110) mg/dL Calcium 8.9 (8.4-10.2) mg/dL Total Bilirubin 0.3 (0.2-1.3) mg/dL AST 24 (17-59) IU/L ALT 15 (<50) IU/L Alkaline Phosphatase 98 (38-126) U/L Total Creatine Kinase 59 (55-170) U/L CK-MB (CK-2) TNP CK-MB (CK-2) Rel Index TNP Troponin I 0.015 (0.01-0.034) ng/mL NT-Pro-B Natriuret Pep 708 H (<450) pg/mL Total Protein 8.2 (6.3-8.2) g/dL Albumin 4.6 (3.5-5.0) g/dL Globulin 3.6 (1.7-4.1) g/dL Albumin/Globulin Ratio 1.3 (1.0-2.8) Procalcitonin 0.07 (<0.5) ng/mL SARS-CoV-2 (PCR) Negative (Negative) MDM Narrative Medical decision making narrative: 85-year-old male with cough when laying flat has a very reassuring physical exam. No need for supplemental oxygen. No work of breathing on exam such as use of intercostals or accessory muscles. Chest x- ray is very reassuring. Most likely a component of postnasal drip and perhaps some element of reflux. COVID is negative, though BNP is elevated chest x-ray is unremarkable, there is no significant findings on exam to suggest exacerbation of CHF. Return precautions given and questions answered to his apparent satisfaction Discharge Plan Departure Patient Disposition: Home Clinical Impression: Cough, Acute dyspnea Instructions: Cough, DI for Shortness of Breath Activity Restrictions/Additional Instructions: *You have been diagnosed with [acute dyspnea with cough. Your physical exam, labs and x-ray are very reassuring. Your COVID test is also negative. *What to do: *Please continue to take your regular medications as directed. [ ] New medication prescriptions sent to your pharmacy: [ ] [ ] New medication written as a paper prescription [x ] No new medications given *Please follow up with your primary care provider in 2-3 days, call for an appointment. Let them know you were seen in the Emergency Department and that we ask that you be seen in follow up. We will electronically transmit a record of today's note if your PCP is in our system *If you do not have a primary care provider please contact the [facility] Resource line at [phone]. They will ask some questions about your medical history and help get you set up with a doctor in the community. *Return to Emergency Department if you should have any new, worsening or concerning symptoms, such as [fever greater than 101 F, shaking chills, worsening pain, persistent vomiting or other bothersome symptoms] Prescriptions: No Action fluticasone propionate [Flonase Allergy Relief] 50 mcg/actuation spray,suspension 1 spray intranasal DAILY Qty: 48 RF: 11 levothyroxine 125 mcg tablet 125 mcg PO DAILY Qty: 90 RF: 2 ondansetron 4 mg tablet,disintegrating 4 mg PO Q6H PRN (Reason: nausea and vomiting) Qty: 7 RF: 0 nitrofurantoin monohyd/m-cryst [Macrobid] 100 mg capsule 100 mg PO .QD Qty: 30 RF: 0 clobetasol 0.05 % solution 1 applic topical DAILY PRNRF: 0 PreserVision AREDS 14,320-226-200 ognu-so-fysk capsule 1 cap PO BID RF: 0 guaifenesin [Mucinex] 600 mg tablet extended release 12hr 600 mg PO BID RF: 0 loperamide 2 mg capsule See Rx Instructions .ROUTE .COMPLEX Qty: 90 RF: 3 donepezil 10 mg tablet 10 mg PO DAILY Qty: 90 RF: 3 amlodipine 5 mg tablet 5 mg PO DAILY Qty: 90 RF: 3 Hold Instructions: Home Medication placed on hold at Doctor's office azelastine 205.5 mcg (0.15 %) spray,non-aerosol 2 spray intranasal BID Qty: 30 RF: 3 alprazolam [Xanax] 0.25 mg tablet 0.25 mg PO TID PRN (Reason: anxiety) Qty: 1 RF: 0 clotrimazole 1 % ointment 1 applic topical BID 28 Days Qty: 56.7 RF: 2 tamsulosin [Flomax] 0.4 mg capsule 0.8 mg PO DAILY Qty: 180 RF: 3 mometasone 0.1 % solution 1 applic topical DAILY Qty: 60 RF: 3 cholecalciferol (vitamin D3) 125 mcg (5,000 unit) capsule 125 mcg PO DAILY RF: 0 Myrbetriq 50 mg tablet extended release 24 hr 50 mg PO DAILY Qty: 90 RF: 3 Referrals: Vinnie Herman MD [Primary Care Provider] -
[2021-04-01 18:14] VITALS: BP 160/77; PULSE 55; RESP 17; O2SAT 97
[2021-04-01 18:30] VITALS: PULSE 56; O2SAT 98
[2021-04-01 19:00] VITALS: PULSE 54; O2SAT 96
[2021-04-01 19:47] VITALS: BP 178/87; PULSE 60; RESP 20; O2SAT 95
[2021-04-01 20:14] LABS: Add Manual Diff / Slide Review NO; Basophils Absolute Auto 100 /uL (0-100); Basophils Percent Auto 1.1 % (0-2); Eosinophils Absolute Auto 600 /uL (0-450); Eosinophils Percent Auto 7.6 % (2-4); Hematocrit 39.9 % (41-53); Lymphocytes Absolute Auto 1900 /uL (1100-4500); Lymphocytes Percent Auto 25.5 % (25-40); Mean Corpuscular HGB Conc 32.6 % (30-36); Mean Corpuscular Hemoglobin 30.3 PG (26-34); Monocytes Absolute Auto 700 /uL (0-900); Monocytes Percent Auto 9.5 % (3-14); Neutrophils Absolute Auto 4300 /uL (1500-7000); Neutrophils Percent Auto 56.3 % (50-75); Platelet Count 177 X10^3/uL (150-400); Red Blood Cell Count 4.29 X10^6/uL (4.5-5.9); Red Cell Distribution Width 14.8 % (11.6-14.8); White Blood Cell Count 7.6 X10^3/uL (4.5-11.0)
[2021-04-01 20:30] LABS: Alanine Aminotransferase 15 IU/L (<50); Albumin 4.6 g/dL (3.5-5.0); Albumin Globulin Ratio 1.3 (1.0-2.8); Alkaline Phosphatase 98 U/L (38-126); Aspartate Aminotransferase 24 IU/L (17-59); Bilirubin Total 0.3 mg/dL (0.2-1.3); Blood Urea Nitrogen 30 mg/dL (9-20); Calcium 8.9 mg/dL (8.4-10.2); Carbon Dioxide 29 mmol/L (22-32); Chloride 103 mmol/L (98-107); Creatine Kinase 59 U/L (55-170); Estimated Glomerular Filt Rate 39.4 mL/min (>60); Globulin 3.6 g/dL (1.7-4.1); Glucose 106 mg/dL (80-110); HEMOLYSIS < 15 (0-50); Sodium 141 mmol/L (137-145); Total Protein 8.2 g/dL (6.3-8.2)
[2021-04-01] MEDS: ALPRAZolam 0.25 MG TABLET 0.5 MG PO (20:32)
[2021-04-01 20:40] VITALS: BP 171/81; PULSE 60; RESP 18; O2SAT 93
[2021-04-01 20:43] LABS: NT-proBNP (BNP-Adult 18+) 708 pg/mL (<450); Troponin I 0.015 ng/mL (0.01-0.034)
[2021-04-01 20:46] LABS: Procalcitonin 0.07 ng/mL (<0.5)
== END 2021-04-01 21:40 | disposition home or self-care (01) ==
PROVIDERS: Emergency Medicine; Emergency Provider Emergency Medicine; PCP Internal Medicine
DX: R06.00 Dyspnea, unspecified (principal); R05.9 Cough, unspecified; Z20.822 Contact with and (suspected) exposure to COVID-19
CPT/HCPCS: 36415; 71046; 80053; 82550; 83880; 84145; 84484; 85025; 87635; 99283; 99284; C9803

== ENCOUNTER → 2021-04-22 10:07 | Outpatient (CLI) | payer OTHER, SELFPAY ==
[2021-01-06 09:44] VITALS: BMI 28.7
[2021-04-22 11:11] LABS: Appearance Urine UA CLEAR; Bilirubin Urine UA NEGATIVE (NEGATIVE); Color Urine UA YELLOW; Glucose Urine UA NEGATIVE (Negative); Ketones Urine UA NEGATIVE (NEGATIVE); Leukocyte Esterase Urine UA TRACE (NEGATIVE); Nitrite Urine UA NEGATIVE (Negative); Occult Blood Urine UA 1+ (Negative); Protein Urine UA 3+ (Negative); Specific Gravity Urine UA 1.025 (1.000-1.035); Urobilinogen Urine UA 0.2 E.U./dL (0.2); pH Urine UA 5.5 (4.5-8.0)
[2021-04-22 11:29] LABS: RBC Urine 1-5/HPF (0-5/HPF); WBC Urine 5-10/HPF (0-5/HPF)
[2021-04-22 11:30] LABS: Amorphous Sediment Urine 2+; Bacteria Urine Moderate (10-30); Culture Indicated Urine Specimen Cultured; Hyaline Casts Urine 5-10/LPF
== END ==
PROVIDERS: PCP Internal Medicine; Visit Provider Urology
DX: R30.0 Dysuria (principal)
CPT/HCPCS: 81001; 87086

== ENCOUNTER → 2021-04-27 13:36 | Outpatient (CLI) | payer OTHER, SELFPAY ==
[2021-01-06 09:44] VITALS: BMI 28.7
== END ==
PROVIDERS: PCP Internal Medicine; Visit Provider Urology
DX: R30.0 Dysuria (principal)
CPT/HCPCS: 51701; 87086

== ENCOUNTER 2021-06-02 12:15 | Emergency (ER) | payer OTHER, SELFPAY ==
[2021-01-06 09:44] VITALS: BMI 28.7
[2021-06-02 12:36] VITALS: BP 130/77; PULSE 69; RESP 16; TEMP 37.1; O2SAT 95; BMI 30.2
--- NOTE | 2021-06-02 12:57 | DI.US.S_ITS ---
PROCEDURE: US PERIPH VENOUS LOW EXTREM LT INDICATIONS: INNER THIGH PAIN TECHNIQUE: Real-time imaging, as well as color and pulse Doppler interrogation, were performed of the lower extremity deep veins from the inguinal ligament to the popliteal fossa. COMPARISON: None. FINDINGS: The common femoral, femoral and popliteal veins are normally compressible, and free of intraluminal thrombus. Color and pulse Doppler demonstrate normal phasic intraluminal flow. There is normal augmentation response to distal compression maneuver. IMPRESSION: Negative for deep venous thrombosis. Dictated by: Manny Del Cid M.D. on 06/02/2021 at 12:54 Approved by: Manny Del Cid M.D. on 06/02/2021 at 12:54
[2021-06-02 16:00] VITALS: BP 136/93
[2021-06-02 16:19] VITALS: PULSE 58; O2SAT 95
[2021-06-02 16:30] VITALS: PULSE 56; O2SAT 95
[2021-06-02 16:31] VITALS: BP 134/77; PULSE 58; O2SAT 95
--- NOTE | 2021-06-02 16:54 | ED_ITS ---
HPI - Extremity Problem General Chief complaint: Extremity Problem,Nontraumatic Stated complaint: Inner left leg pain, Poss blood clot Time Seen by Provider: 06/02/21 16:54 Source: patient and family Mode of arrival: Wheelchair Limitations: no limitations History of Present Illness HPI Narrative: This is an 86-year-old male accompanied by caregiver. Patient lives at home. Patient has had pain in his right inner thigh for several days. About mid thigh. Tender to touch with palpation. Patient states it is not painful to stand or weightbear he states not increased with movement. He denies any redness, warmth or swelling. He has not had similar symptoms in the past. He denies any trauma or falls. Patient denies any pain radiating down her leg. No numbness, tingling or new weakness appreciated by the patient. Patient has not had any other symptoms. Sometimes he will take Tylenol but not regularly for his discomfort. He will sometimes wake up crying out in pain particularly at night. Related Data Home Medications Medication Instructions Recorded Confirmed clobetasol 0.05 % scalp solution 1 applic TOPICAL DAILY PRN 07/10/20 05/17/21 guaifenesin 600 mg tablet, 600 mg PO BID 07/10/20 05/17/21 extended release 12 hr (Mucinex) vitamins A,C,L-zqcm-bwlmow 14,320 1 cap PO BID 07/10/20 05/17/21 unit-226 mg-200 unit capsule (PreserVision AREDS) cholecalciferol (vitamin D3) 125 125 mcg PO DAILY 01/20/21 05/17/21 mcg (5,000 unit) capsule Previous Rx's Medication Instructions Recorded amlodipine 5 mg tablet 5 mg PO DAILY #90 tab 07/10/20 donepezil 10 mg tablet 10 mg PO DAILY #90 tab 07/10/20 loperamide 2 mg capsule See Rx Instructions .ROUTE 07/10/20 .COMPLEX #90 cap fluticasone propionate 50 1 spray INTRANASAL DAILY #48 ml 07/13/20 mcg/actuation nasal spray,suspension (Flonase Allergy Relief) tamsulosin 0.4 mg capsule (Flomax) 0.8 mg PO DAILY #180 cap 11/12/20 clotrimazole 1 % topical ointment 1 applic TOPICAL BID 28 Days #56.7 12/11/20 g mometasone 0.1 % topical solution 1 applic TOPICAL DAILY #60 ml 12/24/20 levothyroxine 125 mcg tablet 125 mcg PO DAILY #90 tab 01/14/21 ondansetron 4 mg disintegrating 4 mg PO Q6H PRN #7 tab 02/08/21 tablet alprazolam 0.25 mg tablet (Xanax) 0.25 mg PO TID PRN #1 tab 03/11/21 azelastine 205.5 mcg (0.15 %) 2 spray INTRANASAL BID #30 ml 03/11/21 nasal spray benzonatate 100 mg capsule 100 mg PO Q6H PRN #30 cap 04/02/21 nitrofurantoin 100 mg PO BID #6 cap 04/22/21 monohydrate/macrocrystals 100 mg capsule (Macrobid) vibegron 75 mg tablet 75 mg PO DAILY #90 tab 04/27/21 Allergies Allergy/AdvReac Type Severity Reaction Status Date / Time Sulfa (Sulfonamide Allergy Intermediate Hives Verified 05/17/21 13:50 Antibiotics) venom-honey bee Allergy Intermediate Swelling Verified 05/17/21 13:50 Review of Systems Review of Systems ROS Unobtainable: All systems reviewed & are unremarkable except as noted in HPI and below Patient History Medical History Abnormal CXR (chest x-ray) (~1940) Alzheimer's dementia Benign prostatic hyperplasia with urinary obstruction (04/05/16) Bowel and bladder incontinence BPH (benign prostatic hyperplasia) Candidal intertrigo Cardiomegaly Cataract (1999) Chronic renal failure, stage 3a Diverticulosis EKG abnormalities Emphysema (subcutaneous) (surgical) resulting from a procedure Essential hypertension (04/05/16) Finger fracture (~194) Granulomatous disease Hearing loss History of tuberculosis (04/05/16) Hypothyroidism (04/05/16) Kidney insufficiency Lower extremity weakness Macular degeneration Mumps (~1955) MOJGAN (obstructive sleep apnea) Polymyalgia rheumatica Poor kidney function Psoriasis Pulmonary fibrosis Reactive airway disease Rubella Scoliosis Shortness of breath Sleep apnea Tuberculosis (~194) Unsteady gait Urinary incontinence Vertigo (2009) Surgical History Anesthesia H/O hernia repair (~12/19/17) History of tonsillectomy (~1941) History of umbilical hernia repair (12/19/17) Hx of cholecystectomy Status post appendectomy (2008) Family History Father Heart disease Brother No problems noted. Grandfather No problems noted. Mother Tuberculosis Son FSHD (facioscapulohumeral muscular dystrophy) Social History marital status: household members: spouse Smoking Status: Never smoker alcohol intake: never caffeine: Yes Smoking Status: Never smoker alcohol intake frequency: 0-2 drinks per day Substance Use Type: does not use Exam Narrative Exam Narrative: GENERAL: Alert and oriented, elderly male in mild distress. HEENT: Head normocephalic, atraumatic, EOMI, pupils reactive, face symmetric, moist mucous membranes NECK: Supple, full range of motion CARDIOVASCULAR: Regular rate and rhythm without murmurs, rubs or gallops. RESPIRATORY: Breath sounds equal bilaterally, no wheezes rales or rhonchi. ABDOMEN: Soft, nontender. Normoactive bowel sounds all 4 quadrants. No guarding or rebound, rigidity, no mass : No CVA tenderness EXTREMITIES: Normal range of motion, no clubbing or edema. Neurovascularly intact. Legs are equal in size. No warmth, erythema or swelling appreciated. Patient does not have any bony tenderness. He is able to flex and extend, internally externally rotate without any assistance. He has normal sensation throughout. No lumps, or skin changes the leg or inner thigh/groin. Patient is tender on left inner mid-thigh. NEUROLOGICAL: Cranial nerves II through XII grossly intact. Moving all extremities SKIN: Warm, dry, no petechiae, no rashes or lesions. Initial Vital Signs Initial Vital Signs: Vital Signs Temperature 98.8 F 06/02/21 12:36 Pulse Rate 69 06/02/21 12:36 Respiratory Rate 16 06/02/21 12:36 Blood Pressure 130/77 06/02/21 12:36 Pulse Oximetry 95 06/02/21 12:36 Course Orders Ordered: ED Orders 06/02/21 12:57 US periph venous low extrem lt Stat Vital Signs Vital signs: Vital Signs - 8 hr 06/02/21 12:36 06/02/21 16:00 06/02/21 16:19 Temperature 98.8 F Pulse Rate 69 58 L Respiratory Rate 16 Blood Pressure 130/77 136/93 H Pulse Oximetry 95 95 06/02/21 16:30 06/02/21 16:31 06/02/21 17:00 Temperature Pulse Rate 56 L 58 L 57 L Respiratory Rate Blood Pressure 134/77 139/74 Pulse Oximetry 95 95 95 MDM - Extremity (Nontraumatic) Imaging Data US - DVT: Radiologist's Impression: Rom Paulino??86??M??1935 ? Allergy/Adv: Sulfa (Sulfonamide Antibiotics), venom-honey bee (More??) Close Vascular Ultrasound (Signed) Manny Del Cid - 06/02/21 Chest X-Ray (Signed) Felipe Soliz - 04/01/21 Lumbar Spine MRI (Signed) Manny Del Cid - 02/02/21 Chest X-Ray (Signed) Manny Del Cid - 01/27/21 Chest X-Ray (Signed) Lucio Pinon - 01/22/20 Abdomen Ultrasound (Signed) Manny Del Cid - 05/25/18 Chest X-Ray (Signed) Lang Hernandez - 05/25/18 DI Result 05/16/18 Abdomen Ultrasound (Signed) Silvano Spencer - 05/11/18 Abdomen/Pelvis CT (Signed) Lucio Pinon - 05/11/18 Chest X-Ray (Signed) Rm Obrien - 02/02/18 Chest/Abdomen X-ray (Signed) Benji Guzman - 12/21/17 Cat Scan Report 12/20/17 Chest CTA (Signed) Benji Guzman - 12/19/17 Chest/Abdomen/Pelvis CT (Signed) Benji Guzman - 12/18/17 Radiology - Historical 03/28/17 Radiology - Historical 07/09/16 Launch?[address] [address] Ultrasound Report Signed Patient: Rom Paulino MR#: [id number] : 1935 Acct:[id number] Age/Sex: 86 / M Date of Service: 06/02/21 Loc: ED Accession Number: [id number] ?? Procedure: US periph venous low extrem lt Ordering Provider: Stacy Taylor D.O. PROCEDURE:? US PERIPH VENOUS LOW EXTREM LT ? INDICATIONS:? INNER THIGH PAIN ? TECHNIQUE:? Real-time imaging, as well as color and pulse Doppler interrogation, were pe rformed of the lower extremity deep veins from the inguinal ligament to the popliteal fossa.? ? COMPARISON:? None. ? FINDINGS:? The common femoral, femoral and popliteal veins are normally compressible, and free of intraluminal thrombus.? Color and pulse Doppler demonstrate normal phasic intraluminal flow.? There is normal augmentation response to distal compression maneuver. ? ? IMPRESSION:? ? Negative for deep venous thrombosis. ? ? Dictated by: Manny Del Cid M.D. on 06/02/2021 at 12:54 ? ? Approved by: Manny Del Cid M.D. on 06/02/2021 at 12:54?? MDM Narrative Medical decision making narrative: This is an 86-year-old male comes in with complaint of left inner thigh pain. Patient patient has had this he does not have any pain with weight-bearing or movement. His exam does not show any bony tenderness. There was concern for DVT ultrasound is negative. Patient defers anything for pain he has an even re ally been taking anything at home. There is no skin changes or signs of infection appreciated. Watchful waiting. Follow up with primary care. Family and patient did ask about possibly home health care in PT which I think be appropriate. His they are asked to follow up with primary care to set this up. We did discuss if he starts to have any issues with weight-bearing or increasing pain or movement he should have x-ray imaging. After discussion with patient and family that is deferred today. Discharge Plan Departure Patient Disposition: Home Clinical Impression: Left thigh pain Instructions: DI for Leg Pain Activity Restrictions/Additional Instructions: Follow-up with your physician for recheck. Discussed with your physician if it would be appropriate for PT or home health care for treatment. They can help refer you as needed. If you find you are not able to walk on your leg or ambulating makes it more painful you should have imaging of the bone. Your ultrasound for DVT is negative. You can take Tylenol every 8 hours as needed for pain. Please return for fevers, increasing or new pain in your leg, redness, warmth, swelling, new skin changes, pain with ambulation, movement if you are unable to weightbear or other new or concerning symptoms. Prescriptions: No Action fluticasone propionate [Flonase Allergy Relief] 50 mcg/actuation spray,suspension 1 spray intranasal DAILY Qty: 48 11RF Rx Instructions: administer into each nostril levothyroxine 125 mcg tablet 125 mcg PO DAILY Qty: 90 2RF Rx Instructions: Take one tablet by mouth once a day. ondansetron 4 mg tablet,disintegrating 4 mg PO Q6H PRN (Reason: nausea and vomiting) Qty: 7 0RF benzonatate 100 mg capsule 100 mg PO Q6H PRN (Reason: cough) Qty: 30 2RF nitrofurantoin monohyd/m-cryst [Macrobid] 100 mg capsule 100 mg PO BID Qty: 6 0RF Rx Instructions: must administer with a meal/food clobetasol 0.05 % solution 1 applic topical DAILY PRN0RF PreserVision AREDS 14,320-226-200 zefc-xj-dwds capsule 1 cap PO BID 0RF guaifenesin [Mucinex] 600 mg tablet extended release 12hr 600 mg PO BID 0RF loperamide 2 mg capsule See Rx Instructions .ROUTE .COMPLEX Qty: 90 3RF Dose Instruction: TAKE 1 CAPSULE BY MOUTH EVERY 2 TO 4 HOURS AFTER EACH LOOSE STOOL UNTIL SYMPTOMS CONTROLLED. DO NOT EXCEED 8 CAPSULE IN 24 HOURS Rx Instructions: TAKE 1 CAPSULE BY MOUTH EVERY 2 TO 4 HOURS AFTER EACH LOOSE STOOL UNTIL SYMPTOMS CONTROLLED. DO NOT EXCEED 8 CAPSULE IN 24 HOURS donepezil 10 mg tablet 10 mg PO DAILY Qty: 90 3RF amlodipine 5 mg tablet 5 mg PO DAILY Qty: 90 3RF Hold Instructions: Home Medication placed on hold at Doctor's office azelastine 205.5 mcg (0.15 %) spray,non-aerosol 2 spray intranasal BID Qty: 30 3RF Rx Instructions: administer into each nostril alprazolam [Xanax] 0.25 mg tablet 0.25 mg PO TID PRN (Reason: anxiety) Qty: 1 0RF clotrimazole 1 % ointment 1 applic topical BID 28 Days Qty: 56.7 2RF tamsulosin [Flomax] 0.4 mg capsule 0.8 mg PO DAILY Qty: 180 3RF mometasone 0.1 % solution 1 applic topical DAILY Qty: 60 3RF vibegron 75 mg tablet 75 mg PO DAILY Qty: 90 3RF cholecalciferol (vitamin D3) 125 mcg (5,000 unit) capsule 125 mcg PO DAILY 0RF Referrals: Vinnie Herman MD [Primary Care Provider] -
[2021-06-02 17:00] VITALS: BP 139/74; PULSE 57; O2SAT 95
== END 2021-06-02 17:37 | disposition home or self-care (01) ==
PROVIDERS: Emergency Provider Emergency Medicine; PCP Internal Medicine
DX: M79.652 Pain in left thigh (principal)
CPT/HCPCS: 93971; 99283

== ENCOUNTER 2021-06-15 10:22 | Day surgery (SDC) | payer OTHER, SELFPAY ==
[2021-06-09 16:05] VITALS: BMI 28.7
--- NOTE | 2021-06-15 | PATH_ITS ---
[facility] Accession Number: [id number] . 01 Material submitted: . PART A: gastrointestinal site - ANTRUM PART B: gastrointestinal site - GASTRIC POLYP X2 PART C: gastrointestinal site - ANTRUM BODY BIOPSY . 02 Diagnosis: A. Antrum: Gastric antral mucosa with mild chronic active gastritis. Negative for Helicobacter organisms by immunohistochemistry. Negative for intestinal metaplasia. Negative for dysplasia or malignancy. . B. Gastric Polyp x2: Portions of fundic gland polyp x2. Negative for Helicobacter organisms on H/E stain. Negative for dysplasia and malignancy. . C. Antrum Body, Biopsy: Portions of gastric antral and body-type mucosa with mild chronic active gastritis. Negative for Helicobacter organisms by immunohistochemistry. Negative for intestinal metaplasia. Negative for dysplasia or malignancy. [facility] 06/23/2021 1532 Local . 02 Electronically signed: . Dory Ibarra MD, Pathologist NPI- [id number] . 01 Gross description: . Part A: ANTRUM: Received in formalin are 2 fragment(s) of jerry, soft tissue measuring 0.1 x 0.1 x 0.1 cm to 0.2 x 0.2 x 0.2 cm submitted entirely in 1 cassette(s) Part B: GASTRIC POLYP X2: Received in formalin are 2 fragment(s) of jerry, soft tissue measuring 0.2 x 0.1 x 0.1 cm to 0.3 x 0.2 x 0.2 cm submitted entirely in 1 cassette(s) Part C: ANTRUM BODY BIOPSY: Received in formalin are 2 fragment(s) of jerry, soft tissue measuring 0.1 x 0.1 x 0.1 cm to 0.2 x 0.2 x 0.2 cm submitted entirely in 1 cassette(s) /[facility] 06/16/2021 1905 Local . 02 Microscopic: . A. An immunohistochemical stain was performed to evaluate for Helicobacter organisms and is negative. The control stain showed appropriate reactivity. . C. An immunohistochemical stain was performed to evaluate for Helicobacter organisms and is negative. The control stain showed appropriate reactivity. . . * This test was developed and its performance characteristics determined by [facility]. It has not been cleared or approved by the U.S. Food and Drug Administration. The FDA has determined that such clearance or approval is not necessary. This test is used for clinical purposes. It should not be regarded as investigational or for research. . 02 Pathologist provided ICD-10: K29.70, K31.7 . 02 CPT . 521605, 004517, 672992, [id number] Performed at: 01 [facility] [address] [id number] MD Jay Gold MD Phone: [phone] Performed at: 02 [facility] [address] [place], [place] [id number] MD Katelyn Mae MD Phone: [phone]
[2021-06-15 11:03] LABS: COVID19 -Nasal RAPID Negative (Negative)
[2021-06-15 11:05] VITALS: BP 162/82; PULSE 54; RESP 18; TEMP 36.9; O2SAT 95
[2021-06-15] MEDS: SODIUM CHLORIDE 0.9% 1,000 ML 84 ML IV (11:20)
[2021-06-15 11:24] VITALS: BMI 66.7
--- NOTE | 2021-06-15 11:55 | PM.HP.1 ---
History of Present Illness History of Present Illness Date Patient Seen: 06/15/21 Time Patient Seen: 11:55 Chief complaint: EGD Narrative: I reviewed Destiney Reyna's note. No significant changes. Patient History Medical History Abnormal CXR (chest x-ray) (~194) Alzheimer's dementia Benign prostatic hyperplasia with urinary obstruction (04/05/16) Bowel and bladder incontinence BPH (benign prostatic hyperplasia) Candidal intertrigo Cardiomegaly Cataract (1999) Chronic renal failure, stage 3a Diverticulosis EKG abnormalities Emphysema (subcutaneous) (surgical) resulting from a procedure Essential hypertension (04/05/16) Finger fracture (~1945) Granulomatous disease Hearing loss History of tuberculosis (04/05/16) Hypothyroidism (04/05/16) Kidney insufficiency Lower extremity weakness Macular degeneration Mumps (~1955) MOJGAN (obstructive sleep apnea) Polymyalgia rheumatica Poor kidney function Psoriasis Pulmonary fibrosis Reactive airway disease Rubella Scoliosis Shortness of breath Sleep apnea Tuberculosis (~1939) Unsteady gait Urinary incontinence Vertigo (2009) Surgical History Anesthesia H/O hernia repair (~12/19/17) History of tonsillectomy (~1940) History of umbilical hernia repair (12/19/17) Hx of cholecystectomy Status post appendectomy (2008) Family & Social History Family History Father Heart disease Brother No problems noted. Grandfather No problems noted. Mother Tuberculosis Son FSHD (facioscapulohumeral muscular dystrophy) Social History: household members spouse Tobacco & Substance use: Smoking Status Never smoker alcohol intake never alcohol intake frequency 0-2 drinks per day Substance Use Type does not use Meds Home Medications and Allergies Home Medications Medication Instructions Recorded Confirmed Type amlodipine 5 mg tablet 5 mg PO DAILY #90 tab 07/10/20 05/17/21 Rx clobetasol 0.05 % scalp solution 1 applic TOPICAL DAILY PRN 07/10/20 05/17/21 History donepezil 10 mg tablet 10 mg PO DAILY #90 tab 07/10/20 05/17/21 Rx guaifenesin 600 mg tablet, 600 mg PO BID 07/10/20 05/17/21 History extended release 12 hr (Mucinex) loperamide 2 mg capsule See Rx Instructions .ROUTE 07/10/20 05/17/21 Rx .COMPLEX #90 cap vitamins A,C,Q-pyjs-mpcbdl 14,320 1 cap PO BID 07/10/20 05/17/21 History unit-226 mg-200 unit capsule (PreserVision AREDS) fluticasone propionate 50 1 spray INTRANASAL DAILY #48 ml 07/13/20 05/17/21 Rx mcg/actuation nasal spray,suspension (Flonase Allergy Relief) tamsulosin 0.4 mg capsule (Flomax) 0.8 mg PO DAILY #180 cap 11/12/20 05/17/21 Rx clotrimazole 1 % topical ointment 1 applic TOPICAL BID 28 Days #56.7 12/11/20 05/17/21 Rx g mometasone 0.1 % topical solution 1 applic TOPICAL DAILY #60 ml 12/24/20 05/17/21 Rx levothyroxine 125 mcg tablet 125 mcg PO DAILY #90 tab 01/14/21 05/17/21 Rx ondansetron 4 mg disintegrating 4 mg PO Q6H PRN #7 tab 02/08/21 05/17/21 Rx tablet azelastine 205.5 mcg (0.15 %) 2 spray INTRANASAL BID #30 ml 03/11/21 05/17/21 Rx nasal spray benzonatate 100 mg capsule 100 mg PO Q6H PRN #30 cap 04/02/21 05/17/21 Rx nitrofurantoin 100 mg PO BID #6 cap 04/22/21 05/17/21 Rx monohydrate/macrocrystals 100 mg capsule (Macrobid) Allergies Allergy/AdvReac Type Severity Reaction Status Date / Time Sulfa (Sulfonamide Allergy Intermediate Hives Verified 06/15/21 11:01 Antibiotics) venom-honey bee Allergy Intermediate Swelling Verified 06/15/21 11:01 Review of Systems Review of Systems ROS: Yes All systems reviewed with the patient and are negative except as otherwise documented Exam Vital Signs (past 8 hours): - 06/15/21 11:05 Temperature 98.4 F Pulse Rate 54 L Respiratory Rate 18 Blood Pressure 162/82 H Pulse Oximetry 95 Oxygen Delivery Method Room Air Const General: cooperative and comfortable Orientation: alert HENMT Head: normocephalic Ears: external ears normal Nose: external nose normal Face and sinus: normal facial exam Mouth: oral mucosae normal Eyes General: appearance normal, both eyes and all related structures Neck Neck: normal visual inspection Chest Chest: normal inspection of the chest Resp Effort & Inspection: normal respiratory effort Cardio Rate: regular rate GI Inspection: normal to inspection Skin General: no rashes or lesions noted and No jaundice Neuro General: patient alert and moves all extremities Cognition: normal cognition Speech: speech normal Extrem General: edema Psych Appearance: grossly normal Objective Labs Labs: Laboratory Results - last 24 hr 06/15/21 10:48 SARS-CoV-2 (PCR) Negative Assessment & Plan Assessment & Plan narrative: 86-year-old male with poor appetite and recent vomiting. EGD is pursued today. Time Spent With Patient Critical Care time: I spent a total of [] minutes of critical care time on this patient's care today; this time is exclusive of procedural time.
--- NOTE | 2021-06-15 11:58 | PM.PREOP ---
Pre-operative Note COVID-19 COVID-19 status: Negative Result date/Date tested (Pos, Neg/Pending): 06/15/21 Interval Note History & Physical reviewed/Exam performed by Physician: Yes Changes to H&P: No ASA Class (for procedural sedation): III
--- NOTE | 2021-06-15 12:38 | P.OP.EGD_ITS ---
Operative Date/Time/Diagnoses Date of procedure: 06/15/21 Time of procedure: 12:38 Pre-op diagnosis: Decreased appetite vomiting Post-op diagnosis: same Procedure & Clinicians Study performed: EGD with biopsies Same procedure as scheduled: Yes Indications: Decreased appetite vomiting Surgeon: Brian Valle Procedure Notes SCOAP/Timeout: Done Procedure in detail: After the risks and benefits were explained, written and verbal informed consent was obtained. The patient was brought into the procedure room and placed into the left lateral decubitus position. Please see nurse animal care worker notes for sedation details. scope was introduced into the mouth through the bite block and advanced under direct visualization to the 2nd portion of the duodenum. The scope was slowly withdrawn carefully examining the mucosa for any defects or lesions. Retroflexed views were accomplished in the stomach. The stomach was decompressed, the scope was then removed from the patient who tolerated the procedure well. Sedation minutes: 10 Complications: none Impression: 1. Duodenum: No significant mucosal anomalies identified from the bulb through the 2nd portion. It was short duodenal bulb. 2. Stomach: No gastric outlet obstruction no ulcers no mass lesions. Diffuse gastropathy was appreciated throughout. Random antral and gastric biopsies were taken for histopathologic analysis and exclusion of H pylori infection. These were submitted separately. There are a couple of diminutive benign-appearing polyps in the gastric body that were additionally addressed with cold forceps for histopathologic analysis. Retroflexed views of the LES were unremarkable. 3. Esophagus: The squamocolumnar junction generally correlated with the top of the gastric folds. There was a slightly meandering Z-line but no evidence of any stricture no nodularity no mass lesions. No acute erosive changes the remainder of the esophagus was unremarkable. Endoscopic diagnosis 1. Gastropathy 2. Diminutive gastric polyps Post-procedure Plan for aftercare: 1. Await histopathology 2. Follow up with Destiney Reyna Disposition: PACU
[2021-06-15 12:43] VITALS: BP 141/74; PULSE 51; RESP 20; O2SAT 92
[2021-06-15 12:48] VITALS: BP 137/76; PULSE 51; RESP 20; O2SAT 92
[2021-06-15 12:53] VITALS: BP 133/77; PULSE 66; RESP 12; O2SAT 96
[2021-06-15 12:58] VITALS: BP 146/74; PULSE 55; RESP 16; O2SAT 95
== END 2021-06-15 13:10 | disposition home or self-care (01) ==
PROVIDERS: PCP Internal Medicine; Referring Provider Internal Medicine Gastroenterology; Visit Provider Internal Medicine Gastroenterology
PROC: 0DJ08ZZ Inspection of Upper Intestinal Tract, Via Natural or Artificial Opening Endoscopic (ICD-10-PCS; CPT 43235; principal; 2021-06-15 12:30)
DX: R11.10 Vomiting, unspecified (principal); K31.9 Disease of stomach and duodenum, unspecified; R15.9 Full incontinence of feces; G30.9 Alzheimer's disease, unspecified; F02.80 Dementia in other diseases classified elsewhere, unspecified severity, without behavioral disturbance, psychotic disturbance, mood disturbance, and anxiety; G47.33 Obstructive sleep apnea (adult) (pediatric); Z20.822 Contact with and (suspected) exposure to COVID-19; K31.7 Polyp of stomach and duodenum; K29.50 Unspecified chronic gastritis without bleeding
CPT/HCPCS: 43239; 87635; J2704

== ENCOUNTER → 2021-07-05 14:40 | Outpatient (CLI) | payer OTHER, SELFPAY ==
[2021-06-09 16:05] VITALS: BMI 28.7
--- NOTE | 2021-07-05 | DI.RAD.S_ITS ---
PROCEDURE: XR ABDOMEN MIN 2V INDICATIONS: FECAL INCONTINENCE TECHNIQUE: 2 views of the abdomen were acquired. COMPARISON: None. FINDINGS: Surgical changes and devices: Cholecystectomy clips. Bowel: No pneumoperitoneum. The bowel gas pattern is normal. Soft tissues: No masses; visualized solid organ contours appear normal in size. No suspicious abdominal calcifications. Bones: No suspicious bony abnormalities. IMPRESSION: No acute disease process. Dictated by: Kelli Smith MD, PhD on 07/05/2021 at 17:13 Approved by: Kelli Smith MD, PhD on 07/05/2021 at 17:17
== END ==
PROVIDERS: PCP Internal Medicine; Referring Provider Internal Medicine Gastroenterology; Visit Provider Internal Medicine Gastroenterology
DX: R15.9 Full incontinence of feces (principal)
CPT/HCPCS: 74019

== ENCOUNTER → 2021-08-08 14:02 | Outpatient (CLI) | payer OTHER, SELFPAY ==
[2021-06-09 16:05] VITALS: BMI 28.7
[2021-08-08 14:38] LABS: COVID19 -Nasal RAPID POSITIVE (Negative)
== END ==
PROVIDERS: PCP Internal Medicine; Visit Provider Nurse Practitioner Family
DX: U07.1 COVID-19 (principal)
CPT/HCPCS: 87635

== ENCOUNTER → 2021-08-08 15:01 | Outpatient (CLI) | payer OTHER, SELFPAY ==
[2021-06-09 16:05] VITALS: BMI 28.7
--- NOTE | 2021-08-08 15:06 | DI.RAD.S_ITS ---
PROCEDURE: XR CHEST 2V INDICATIONS: cough TECHNIQUE: 2 views of the chest were acquired. COMPARISON: [facility], CR, XR CHEST 2V, 04/01/2021, 13:50. FINDINGS: Surgical changes and devices: None. Lungs and pleura: Lungs are clear. No pleural effusions or pneumothorax. Low lung volumes accentuate pulmonary interstitium and heart size. Mediastinum: Mediastinal contours are normal. Heart size is normal. Bones and chest wall: No suspicious bony abnormalities. Soft tissues appear unremarkable. IMPRESSION: No acute cardiopulmonary findings Low lung volumes accentuate pulmonary interstitium and heart size. Approved by: Davie Gabriel M.D. on 08/08/2021 at 14:30
== END ==
PROVIDERS: PCP Internal Medicine; Referring Provider Nurse Practitioner Family; Visit Provider Nurse Practitioner Family
DX: R05.9 Cough, unspecified (principal); U07.1 COVID-19
CPT/HCPCS: 71046; 87635

== ENCOUNTER 2021-08-10 10:14 | Emergency (ER) | payer OTHER, SELFPAY ==
[2021-06-09 16:05] VITALS: BMI 28.7
[2021-08-10 10:37] VITALS: PULSE 59; O2SAT 96
[2021-08-10 10:41] VITALS: BP 182/87; PULSE 62; RESP 15; O2SAT 96
[2021-08-10 10:44] VITALS: BP 182/87; PULSE 63; RESP 18; TEMP 36.5; O2SAT 96
--- NOTE | 2021-08-10 11:19 | ED_ITS ---
HPI - SOB/Dyspnea General Chief Complaint: Shortness of Breath/Dyspnea Stated Complaint: SOB, diarrhea, COVID + Time Seen by Provider: 08/10/21 10:21 Source: EMS Mode of arrival: EMS Limitations: altered mental status and physical limitation History of Present Illness HPI Narrative: 86-year-old male nonsmoker with history of dementia and known COVID sent to the emergency department for evaluation of labored breathing and diarrhea. Patient is resting comfortably and pleasant. There are no signs of respiratory distress. Patient is confused but denies much in the way of symptoms. Any history is gathered from medics through the nursing staff. Related Data Home Medications Medication Instructions Recorded Confirmed clobetasol 0.05 % scalp solution 1 applic TOPICAL DAILY PRN 07/10/20 08/08/21 guaifenesin 600 mg tablet, 600 mg PO BID 07/10/20 08/08/21 extended release 12 hr (Mucinex) vitamins A,C,B-hwwe-dmxsyd 14,320 1 cap PO BID 07/10/20 08/08/21 unit-226 mg-200 unit capsule (PreserVision AREDS) trazodone 50 mg tablet 100 mg PO BEDTIME 08/10/21 08/10/21 Previous Rx's Medication Instructions Recorded donepezil 10 mg tablet 10 mg PO DAILY #90 tab 07/10/20 loperamide 2 mg capsule See Rx Instructions .ROUTE 07/10/20 .COMPLEX #90 cap fluticasone propionate 50 1 spray INTRANASAL DAILY #48 ml 07/13/20 mcg/actuation nasal spray,suspension (Flonase Allergy Relief) clotrimazole 1 % topical ointment 1 applic TOPICAL BID 28 Days #56.7 12/11/20 g mometasone 0.1 % topical solution 1 applic TOPICAL DAILY #60 ml 12/24/20 levothyroxine 125 mcg tablet 125 mcg PO DAILY #90 tab 01/14/21 ondansetron 4 mg disintegrating 4 mg PO Q6H PRN #7 tab 02/08/21 tablet azelastine 205.5 mcg (0.15 %) 2 spray INTRANASAL BID #30 ml 03/11/21 nasal spray benzonatate 100 mg capsule 100 mg PO Q6H PRN #30 cap 04/02/21 mirabegron 50 mg tablet,extended 50 mg PO DAILY #90 tab 07/12/21 release 24 hr (Myrbetriq) solifenacin 10 mg tablet 10 mg PO DAILY #30 tab 07/22/21 amlodipine 5 mg tablet 5 mg PO DAILY #90 tab 08/02/21 Allergies Allergy/AdvReac Type Severity Reaction Status Date / Time Sulfa (Sulfonamide Allergy Intermediate Hives Verified 08/10/21 14:17 Antibiotics) venom-honey bee Allergy Intermediate Swelling Verified 08/10/21 14:17 Review of Systems Review of Systems ROS Unobtainable: Unobtainable due to mental status/LOC Patient History Medical History Abnormal CXR (chest x-ray) (~194) Alzheimer's dementia Benign prostatic hyperplasia with urinary obstruction (04/05/16) Bowel and bladder incontinence BPH (benign prostatic hyperplasia) Candidal intertrigo Cardiomegaly Cataract (1999) Chronic renal failure, stage 3a Diverticulosis EKG abnormalities Emphysema (subcutaneous) (surgical) resulting from a procedure Essential hypertension (04/05/16) Finger fracture (~194) Granulomatous disease Hearing loss History of tuberculosis (04/05/16) Hypothyroidism (04/05/16) Kidney insufficiency Lower extremity weakness Macular degeneration Mumps (~1955) MOJGAN (obstructive sleep apnea) Polymyalgia rheumatica Poor kidney function Psoriasis Pulmonary fibrosis Reactive airway disease Rubella Scoliosis Shortness of breath Sleep apnea Tuberculosis (~194) Unsteady gait Urinary incontinence Vertigo (2009) Surgical History Anesthesia H/O hernia repair (~12/19/17) History of tonsillectomy (~194) History of umbilical hernia repair (12/19/17) Hx of cholecystectomy Status post appendectomy (2008) Family History Father Heart disease Brother No problems noted. Grandfather No problems noted. Mother Tuberculosis Son FSHD (facioscapulohumeral muscular dystrophy) Social History marital status: household members: spouse Smoking Status: Never smoker alcohol intake: never caffeine: Yes Smoking Status: Never smoker alcohol intake frequency: 0-2 drinks per day Substance Use Type: does not use Exam Narrative Exam Narrative: GENERAL: [86 year old patient appears stated age. Well-developed patient, in mild distress. GCS 14 (confused). Pleasantly confused, no respiratory distress, breathing is nonlabored HEAD: Atraumatic. Normocephalic. EYES: Pupils equal round and reactive. Extraocular motions intact. No scleral icterus. No injection or drainage. ENT: Moist mucous membranes Nose without bleeding, purulent drainage. Throat wi thout erythema, tonsillar hypertrophy or exudate. Airway patent. NECK: Trachea midline. Non tender CARDIOVASCULAR: Regular rate and rhythm without murmurs, gallops, or rubs. RESPIRATORY: Decreased breath sounds, no hypoxemia, no wheals, rales or rhonchi. No need for supplemental oxygen. Patient is fully conversive. No use of accessory muscles GASTROINTESTINAL: Abdomen soft, non-tender, nondistended. EXTREMITIES: No edema or joint tenderness. BACK: Nontender without deformity or crepitance. No flank tenderness. NEURO: Cranial nerves 2-12 grossly intact SKIN: No rash or erythema of visible areas Initial Vital Signs Initial Vital Signs: Vital Signs Pulse Rate 59 L 08/10/21 10:37 Pulse Oximetry 96 08/10/21 10:37 Course Orders Ordered: ED Orders 08/10/21 11:36 XR chest 1V Stat 08/10/21 12:00 C-Reactive Protein Quant Stat Complete Blood Count AUTO DIFF Stat Comprehensive Metabolic Panel Stat D Dimer Stat Ferritin Stat Lactate Dehydrogenase Stat NT-proBNP (BNP-Adult 18+) Stat Procalcitonin Stat Troponin & CK Cardiac Panel Stat 08/10/21 12:31 EKG-12 Lead Stat Discontinued Medications Haloperidol (Haloperidol 1 Mg Tablet) 1 mg PO NOW ONE Stop: 08/10/21 11:22 Last Admin: 08/10/21 11:32 Dose: 1 mg Documented by: BRIAN Vital Signs Vital signs: Vital Signs - 8 hr 08/10/21 10:37 08/10/21 10:41 08/10/21 10:44 Temperature 97.7 F Pulse Rate 59 L 62 63 Respiratory Rate 15 18 Blood Pressure 182/87 H 182/87 H Pulse Oximetry 96 96 96 08/10/21 14:07 08/10/21 14:08 Temperature Pulse Rate 72 72 Respiratory Rate 18 Blood Pressure 169/84 H Pulse Oximetry 94 95 MDM - SOB/Dyspnea Lab Data Attestation: I reviewed the patient's lab results. Result diagrams: 08/10/21 12:00 08/10/21 12:00 Labs: Lab Results 08/10/21 08/10/21 08/10/21 Range/Units 12:00 12:00 12:00 WBC 4.3 L (4.5-11.0) X10^3/uL RBC 4.36 L (4.5-5.9) X10^6/uL Hgb 13.1 L (13.5-17.5) g/dL Hct 39.3 L (41-53) % MCV 90.2 (80-100) fL MCH 30.1 (26-34) PG MCHC 33.4 (30-36) % RDW 15.4 H (11.6-14.8) % Plt Count 187 (150-400) X10^3/uL Neut % (Auto) 48.1 L (50-75) % Lymph % (Auto) 27.1 (25-40) % [place] % (Auto) 14.5 H (3-14) % Eos % (Auto) 9.1 H (2-4) % Baso % (Auto) 1.2 (0-2) % Neut # (Auto) 2100 (9476-2349) /uL Lymph # (Auto) 1200 (9347-0683) /uL [place] # (Auto) 600 (0-900) /uL Eos # (Auto) 400 (0-450) /uL Baso # (Auto) 100 (0-100) /uL D-Dimer 392 H (<230) ng/mL Sodium (137-145) mmol/L Potassium (3.4-5.1) mmol/L Chloride (98-107) mmol/L Carbon Dioxide (22-32) mmol/L BUN (9-20) mg/dL Creatinine (0.66-1.25) mg/dL Estimated GFR (>60) mL/min BUN/Creatinine Ratio (6-22) Glucose (80-110) mg/dL Calcium (8.4-10.2) mg/dL Ferritin (18-464) ng/mL Total Bilirubin (0.2-1.3) mg/dL AST (17-59) IU/L ALT (<50) IU/L Alkaline Phosphatase (38-126) U/L Lactate Dehydrogenase (313-618) U/L Total Creatine Kinase (55-170) U/L CK-MB (CK-2) CK-MB (CK-2) Rel Index Troponin I (0.01-0.034) ng/mL C-Reactive Protein (<1.0) mg/dL NT-Pro-B Natriuret Pep (<450) pg/mL Total Protein (6.3-8.2) g/dL Albumin (3.5-5.0) g/dL Globulin (1.7-4.1) g/dL Albumin/Globulin Ratio (1.0-2.8) Procalcitonin 0.09 (<0.5) ng/mL 08/10/21 Range/Units 12:00 WBC (4.5-11.0) X10^3/uL RBC (4.5-5.9) X10^6/uL Hgb (13.5-17.5) g/dL Hct (41-53) % MCV (80-100) fL MCH (26-34) PG MCHC (30-36) % RDW (11.6-14.8) % Plt Count (150-400) X10^3/uL Neut % (Auto) (50-75) % Lymph % (Auto) (25-40) % [place] % (Auto) (3-14) % Eos % (Auto) (2-4) % Baso % (Auto) (0-2) % Neut # (Auto) (2071-3566) /uL Lymph # (Auto) (1904-6612) /uL [place] # (Auto) (0-900) /uL Eos # (Auto) (0-450) /uL Baso # (Auto) (0-100) /uL D-Dimer (<230) ng/mL Sodium 139 (137-145) mmol/L Potassium 4.2 (3.4-5.1) mmol/L Chloride 103 (98-107) mmol/L Carbon Dioxide 27 (22-32) mmol/L BUN 20 (9-20) mg/dL Creatinine 1.59 H (0.66-1.25) mg/dL Estimated GFR 41.6 L (>60) mL/min BUN/Creatinine Ratio 12.6 (6-22) Glucose 106 (80-110) mg/dL Calcium 8.8 (8.4-10.2) mg/dL Ferritin 138 (18-464) ng/mL Total Bilirubin 0.3 (0.2-1.3) mg/dL AST 31 (17-59) IU/L ALT 13 (<50) IU/L Alkaline Phosphatase 84 (38-126) U/L Lactate Dehydrogenase 477 (313-618) U/L Total Creatine Kinase 98 (55-170) U/L CK-MB (CK-2) TNP CK-MB (CK-2) Rel Index TNP Troponin I < 0.012 (0.01-0.034) ng/mL C-Reactive Protein 1.9 H (<1.0) mg/dL NT-Pro-B Natriuret Pep 1190 H (<450) pg/mL Total Protein 8.7 H (6.3-8.2) g/dL Albumin 4.7 (3.5-5.0) g/dL Globulin 4.0 (1.7-4.1) g/dL Albumin/Globulin Ratio 1.2 (1.0-2.8) Procalcitonin (<0.5) ng/mL Imaging Data Chest x-ray: Radiologist's Impression: Close Chest X-Ray (Signed) Kelli Smith - 08/10/21 Chest X-Ray (Signed) Davie Gabriel - 08/08/21 Abdomen X-Ray (Signed) Kelli Smith - 07/05/21 Vascular Ultrasound (Signed) Manny Del Cid - 06/02/21 Chest X-Ray (Signed) Felipe Soliz - 04/01/21 Lumbar Spine MRI (Signed) Mustapha Del Cidsse - 02/02/21 Chest X-Ray (Signed) Nehemias,Manny - 01/27/21 Chest X-Ray (Signed) Lucio Pinon - 01/22/20 Abdomen Ultrasound (Signed) Rhonda Del Cide - 05/25/18 Chest X-Ray (Signed) Lang Hernandez - 05/25/18 DI Result 05/16/18 Abdomen Ultrasound (Signed) Silvano Spencer - 05/11/18 Abdomen/Pelvis CT (Signed) Lucio Pinon - 05/11/18 Chest X-Ray (Signed) Rm Obrien - 02/02/18 Chest/Abdomen X-ray (Signed) Benji Guzman - 12/21/17 Cat Scan Report 12/20/17 Chest CTA (Signed) Benji Guzman - 12/19/17 Chest/Abdomen/Pelvis CT (Signed) Benji Guzman - 12/18/17 Radiology - Historical 03/28/17 Radiology - Historical 07/09/16 Launch?Image [address] [address] XRay Report Signed Patient: Rom Paulino MR#: [id number] : 1935 Acct:[id number] Age/Sex: 86 / M Date of Service: 08/10/21 Loc: ED Accession Number: [id number] ?? Procedure: XR chest 1V Ordering Provider: Ellis Mcguire D.O. PROCEDURE:? XR CHEST 1V ? INDICATIONS:? flu-like symptoms ? TECHNIQUE:? One view of the chest was acquired.? ? COMPARISON:? [facility], , XR CHEST 2V, 08/08/2021, 15:01. ? FINDINGS:? ? Diagnostic sensitivity study limited secondary to inability of patient patient to be positioned for image acquisition.? Images acquired with patient in the severe kyphotic position ? Surgical changes and devices:? None.? ? Lungs and pleura:? Lungs are clear.? No pleural effusions or pneumothorax.? ? Mediastinum:? Mediastinal contours appear normal.? Heart size is normal.? ? Bones and chest wall:? No suspicious bony lesions.? Overlying soft tissues appear unremarkable.? ? IMPRESSION:? No definite acute cardiopulmonary disease process within limitations related to patient positioning. ? ? Dictated by: Kelli Smith MD, PhD on 08/10/2021 at 12:54 ? ? Approved by: Kelli Smith MD, PhD on 08/10/2021 at 12:59 ? MDM Narrative Medical decision making narrative: Patient has reassuring history and physical exam. It labs are largely within normal, vitals are reassuring. Chest x-ray has no significant findings. Patien t has no sign of respiratory distress. Return precautions given and questions answered to the apparent satisfaction of patient and nursing staff Discharge Plan Departure Patient Disposition: Home Clinical Impression: COVID Instructions: DI for COVID-19 (Suspected or Confirmed ) Activity Restrictions/Additional Instructions: *You have been diagnosed with [ COVID-19] *What to do: * per recommendations from the CDC and the [facility] Department of Health * stay home except to get medical care. Restrict activities outside your home, except for getting medical care. Do not go to work, school, or public areas. Avoid using public transportation, ride sharing, or taxis. * separate yourself from other people in your home. * call ahead before visiting your doctor * Wear a facemask * Cover your coughs and sneezes * Clean your hands often * Avoid sharing household items * Clean all high-touch services every day * Monitor your symptoms and seek prompt medical attention if your illness is worsening, particularly with difficulty in breathing. You may discontinue your isolation when: 1. You have been fever-free for at least 24 hours without the use of fever reducing medication, AND 2. Your symptoms are getting better, AND 3. At least 5 days have passed since symptoms first appeared 4. If you have fever, continue to stay home until fever resolves Individuals with laboratory confirmed COVID-19 who have not had any symptoms may discontinue home isolation when at least 5 days have passed since the date of their first COVID-19 diagnostic test and have had no subsequent illness You should notifiy any friends and family that have been in close contact *If up to date on COVID Vaccines, then they do not need to quarantine unless symptoms develop. Get tested on day 5 (or sooner if symptoms develop). Take precautions and watch for symptoms until day 10 *If NOT up to date on COVID Vaccines, then CDC recommends quarantine for at least 5 full days. Wear a well fitted mask at home if you must be around others. If they develop symptoms they should get tested. If they remain asymptomatic they should get tested on day 5. They should take precautions and monitor for symptoms until day 10. Prescriptions: No Action fluticasone propionate [Flonase Allergy Relief] 50 mcg/actuation spray,suspension 1 spray intranasal DAILY Qty: 48 11RF Rx Instructions: administer into each nostril levothyroxine 125 mcg tablet 125 mcg PO DAILY Qty: 90 2RF Rx Instructions: Take one tablet by mouth once a day. ondansetron 4 mg tablet,disintegrating 4 mg PO Q6H PRN (Reason: nausea and vomiting) Qty: 7 0RF benzonatate 100 mg capsule 100 mg PO Q6H PRN (Reason: cough) Qty: 30 2RF Myrbetriq 50 mg tablet extended release 24 hr 50 mg PO DAILY Qty: 90 3RF Hold Instructions: Trial of pharmacy preferred medication solifenacin 10 mg tablet 10 mg PO DAILY Qty: 30 3RF amlodipine 5 mg tablet 5 mg PO DAILY Qty: 90 3RF Hold Instructions: Home Medication placed on hold at Doctor's office clobetasol 0.05 % solution 1 applic topical DAILY PRN (Reason: Rash) 0RF PreserVision AREDS [id number] yrrd-nh-kaif capsule 1 cap PO BID 0RF guaifenesin [Mucinex] 600 mg tablet extended release 12hr 600 mg PO BID 0RF loperamide 2 mg capsule See Rx Instructions .ROUTE .COMPLEX Qty: 90 3RF Dose Instruction: TAKE 1 CAPSULE BY MOUTH EVERY 2 TO 4 HOURS AFTER EACH LOOSE STOOL UNTIL SYMPTOMS CONTROLLED. DO NOT EXCEED 8 CAPSULE IN 24 HOURS Rx Instructions: TAKE 1 CAPSULE BY MOUTH EVERY 2 TO 4 HOURS AFTER EACH LOOSE STOOL UNTIL SYMPTOMS CONTROLLED. DO NOT EXCEED 8 CAPSULE IN 24 HOURS donepezil 10 mg tablet 10 mg PO DAILY Qty: 90 3RF azelastine 205.5 mcg (0.15 %) spray,non-aerosol 2 spray intranasal BID Qty: 30 3RF Rx Instructions: administer into each nostril clotrimazole 1 % ointment 1 applic topical BID 28 Days Qty: 56.7 2RF mometasone 0.1 % solution 1 applic topical DAILY Qty: 60 3RF trazodone 50 mg tablet 100 mg PO BEDTIME 0RF Label Comments: TAKE 2 TABLETS BY MOUTH AT BEDTIME Referrals: Vinnie Herman MD [Primary Care Provider] -
[2021-08-10] MEDS: haloperidoL 1 MG TABLET PO (11:32)
--- NOTE | 2021-08-10 11:36 | DI.RAD.S_ITS ---
PROCEDURE: XR CHEST 1V INDICATIONS: flu-like symptoms TECHNIQUE: One view of the chest was acquired. COMPARISON: [facility], , XR CHEST 2V, 08/08/2021, 15:01. FINDINGS: Diagnostic sensitivity study limited secondary to inability of patient patient to be positioned for image acquisition. Images acquired with patient in the severe kyphotic position Surgical changes and devices: None. Lungs and pleura: Lungs are clear. No pleural effusions or pneumothorax. Mediastinum: Mediastinal contours appear normal. Heart size is normal. Bones and chest wall: No suspicious bony lesions. Overlying soft tissues appear unremarkable. IMPRESSION: No definite acute cardiopulmonary disease process within limitations related to patient positioning. Dictated by: Kelli Smith MD, PhD on 08/10/2021 at 12:54 Approved by: Kelli Smith MD, PhD on 08/10/2021 at 12:59
[2021-08-10 12:11] LABS: Add Manual Diff / Slide Review NO; Basophils Absolute Auto 100 /uL (0-100); Basophils Percent Auto 1.2 % (0-2); Eosinophils Absolute Auto 400 /uL (0-450); Eosinophils Percent Auto 9.1 % (2-4); Hematocrit 39.3 % (41-53); Hemoglobin 13.1 g/dL (13.5-17.5); Lymphocytes Absolute Auto 1200 /uL (1100-4500); Lymphocytes Percent Auto 27.1 % (25-40); Mean Corpuscular HGB Conc 33.4 % (30-36); Mean Corpuscular Hemoglobin 30.1 PG (26-34); Mean Corpuscular Volume 90.2 fL (80-100); Monocytes Absolute Auto 600 /uL (0-900); Monocytes Percent Auto 14.5 % (3-14); Neutrophils Absolute Auto 2100 /uL (1500-7000); Neutrophils Percent Auto 48.1 % (50-75); Platelet Count 187 X10^3/uL (150-400); Red Blood Cell Count 4.36 X10^6/uL (4.5-5.9); Red Cell Distribution Width 15.4 % (11.6-14.8); White Blood Cell Count 4.3 X10^3/uL (4.5-11.0)
[2021-08-10 12:25] LABS: Alanine Aminotransferase 13 IU/L (<50); Albumin 4.7 g/dL (3.5-5.0); Albumin Globulin Ratio 1.2 (1.0-2.8); Alkaline Phosphatase 84 U/L (38-126); Aspartate Aminotransferase 31 IU/L (17-59); BUN Creatinine Ratio 12.6 (6-22); Bilirubin Total 0.3 mg/dL (0.2-1.3); Blood Urea Nitrogen 20 mg/dL (9-20); C-Reactive Protein Quant 1.9 mg/dL (<1.0); Calcium 8.8 mg/dL (8.4-10.2); Carbon Dioxide 27 mmol/L (22-32); Chloride 103 mmol/L (98-107); Creatine Kinase 98 U/L (55-170); Estimated Glomerular Filt Rate 41.6 mL/min (>60); Glucose 106 mg/dL (80-110); HEMOLYSIS < 15 (0-50); Lactate Dehydrogenase 477 U/L (313-618); Potassium 4.2 mmol/L (3.4-5.1); Sodium 139 mmol/L (137-145); Total Protein 8.7 g/dL (6.3-8.2)
[2021-08-10 12:30] LABS: D Dimer 392 ng/mL (<230)
--- NOTE | 2021-08-10 12:31 | PC.NURSE ---
patient's primary caregiver (janae) called wanting an update on patient. She states that she has had her subordinate taking care of pt d/t the fact she has covid and is stuck at home. temporary caregiver called her last night stating patient has diarrhea and is coughing. Janae states she informed the aide that diarrhea is his normal and had her check his oxygen level via pulse oximeter which was normal. She states she does not know why 911 was called but suspects the aide just wanted to go home and couldn't handle the pt. She also states she has spoken to the family and they do not want to be exposed to covid so are hoping the hopsital can care for him for a few day. Explained to Janae that unless we have a medical reason to keep the pt here, we cannot have him stay. But until all his labs come back, we do not know. Will call and update her as soon as possible.
[2021-08-10 12:35] LABS: NT-proBNP (BNP-Adult 18+) 1190 pg/mL (<450); Troponin I < 0.012 ng/mL (0.01-0.034)
[2021-08-10 12:40] LABS: Procalcitonin 0.09 ng/mL (<0.5)
[2021-08-10 12:58] LABS: Ferritin 138 ng/mL (18-464)
[2021-08-10 14:07] VITALS: PULSE 72; O2SAT 94
[2021-08-10 14:08] VITALS: BP 169/84; PULSE 72; RESP 18; O2SAT 95
--- NOTE | 2021-08-10 16:16 | PC.NURSE ---
STATEMENT PROCESSOR assisted pt to car via w/c. When assisting to transfer to car found that pt had moved bowels and she offered to clean /change him. Caregiver was very upset however pt had not shown any s/s of incontinence of bowels. She declined offer.
== END 2021-08-10 15:40 | disposition home or self-care (01) ==
PROVIDERS: Emergency Provider Emergency Medicine; PCP Internal Medicine
DX: U07.1 COVID-19 (principal)
CPT/HCPCS: 36415; 71045; 80053; 82550; 82728; 83615; 83880; 84145; 84484; 85025; 85379; 86140; 93005; 93010; 99284

== ENCOUNTER → 2021-08-26 11:56 | Outpatient (CLI) | payer OTHER, SELFPAY ==
[2021-06-09 16:05] VITALS: BMI 28.7
--- NOTE | 2021-08-26 11:57 | DI.RAD.S_ITS ---
PROCEDURE: XR CHEST 2V INDICATIONS: cough TECHNIQUE: 2 views of the chest were acquired. COMPARISON: [facility], CT, CT ABDOMEN PELVIS W CON, 05/11/2018, 7:39. [facility], CR, XR CHEST 1V, 08/10/2021, 11:45. FINDINGS: Surgical changes and devices: None. Lungs and pleura: Lungs are clear. Redemonstrated calcified nodular densities in the right lower lung zone. No pleural effusions or pneumothorax. Mediastinum: Prominence of the cardiomediastinal silhouette, partially exaggerated by technique. Bones and chest wall: No suspicious bony abnormalities. Soft tissues appear unremarkable. IMPRESSION: No acute cardiopulmonary abnormality. Dictated by: Felipe Soliz M.D. on 08/26/2021 at 13:14 Approved by: Felipe Soliz M.D. on 08/26/2021 at 13:18
== END ==
PROVIDERS: PCP Internal Medicine; Referring Provider Internal Medicine; Visit Provider Internal Medicine
DX: R05.9 Cough, unspecified (principal)
CPT/HCPCS: 71046

== ENCOUNTER 2021-09-22 22:02 | Emergency (ER) | payer OTHER, SELFPAY ==
[2021-06-09 16:05] VITALS: BMI 28.7
[2021-09-22 22:10] VITALS: BP 151/86; PULSE 65; RESP 18; TEMP 36.5; O2SAT 95; BMI 28.0
--- NOTE | 2021-09-22 22:26 | DI.RAD.S_ITS ---
PROCEDURE: XR CHEST 1V INDICATIONS: altered mental status TECHNIQUE: One view of the chest was acquired. COMPARISON: [facility], CR, XR CHEST 2V, 04/01/2021, 13:50. [facility], CR, XR CHEST 2V, 08/08/2021, 15:01. [facility], CR, XR CHEST 2V, 08/26/2021, 11:48. FINDINGS: Surgical changes and devices: None. Lungs and pleura: Lungs demonstrate no acute airspace opacities. No pleural effusions or pneumothorax. Mediastinum: There is tortuosity of the thoracic aorta redemonstrated. Heart size appears enlarged. Bones and chest wall: No suspicious bony lesions. Overlying soft tissues appear unremarkable. IMPRESSION: 1. No acute cardiopulmonary disease. Dictated by: Jay Arrieta M.D. on 09/22/2021 at 22:42 Approved by: Jay Arrieta M.D. on 09/22/2021 at 22:43
[2021-09-22 22:37] LABS: Add Manual Diff / Slide Review NO; Basophils Absolute Auto 100 /uL (0-100); Basophils Percent Auto 0.7 % (0-2); Eosinophils Absolute Auto 300 /uL (0-450); Eosinophils Percent Auto 3.3 % (2-4); Hematocrit 40.5 % (41-53); Hemoglobin 13.6 g/dL (13.5-17.5); Lymphocytes Absolute Auto 1700 /uL (1100-4500); Lymphocytes Percent Auto 21.6 % (25-40); Mean Corpuscular HGB Conc 33.7 % (30-36); Mean Corpuscular Hemoglobin 30.6 PG (26-34); Mean Corpuscular Volume 90.6 fL (80-100); Monocytes Absolute Auto 600 /uL (0-900); Monocytes Percent Auto 7.3 % (3-14); Neutrophils Absolute Auto 5200 /uL (1500-7000); Neutrophils Percent Auto 67.1 % (50-75); Platelet Count 144 X10^3/uL (150-400); Red Blood Cell Count 4.46 X10^6/uL (4.5-5.9); Red Cell Distribution Width 15.6 % (11.6-14.8); White Blood Cell Count 7.7 X10^3/uL (4.5-11.0)
[2021-09-22 22:38] LABS: Alanine Aminotransferase 20 IU/L (<50); Albumin 4.1 g/dL (3.5-5.0); Albumin Globulin Ratio 1.1 (1.0-2.8); Alkaline Phosphatase 68 U/L (38-126); Aspartate Aminotransferase 32 IU/L (17-59); BUN Creatinine Ratio 12.5 (6-22); Bilirubin Total 0.5 mg/dL (0.2-1.3); Blood Urea Nitrogen 22 mg/dL (9-20); Calcium 8.6 mg/dL (8.4-10.2); Carbon Dioxide 23 mmol/L (22-32); Chloride 101 mmol/L (98-107); Globulin 3.8 g/dL (1.7-4.1); Glucose 109 mg/dL (80-110); HEMOLYSIS 19 (0-50); Potassium 3.8 mmol/L (3.4-5.1); Sodium 137 mmol/L (137-145); Total Protein 7.9 g/dL (6.3-8.2)
[2021-09-22 23:44] LABS: Appearance Urine UA CLEAR; Bilirubin Urine UA 1+ (NEGATIVE); Color Urine UA YELLOW; Glucose Urine UA NEGATIVE (Negative); Ketones Urine UA TRACE (NEGATIVE); Leukocyte Esterase Urine UA NEGATIVE (NEGATIVE); Nitrite Urine UA NEGATIVE (Negative); Occult Blood Urine UA NEGATIVE (Negative); Protein Urine UA 1+ (Negative); Urobilinogen Urine UA 0.2 E.U./dL (0.2)
[2021-09-23] VITALS (7 sets, daily range): BP systolic 119–135; BP diastolic 59–75; PULSE 52–64; RESP 21–24; O2SAT 90–98
[2021-09-23 00:01] LABS: Ictotest Urine Negative (Negative)
--- NOTE | 2021-09-23 00:12 | PC.NURSE ---
Pt desatted to 83% on RA while sleeping and when woken pt was only 88-91%. Pt placed on 2L NC. Pt was not happy or very accepting of the NC but educated on the importance and let this RN apply the NC
[2021-09-23 00:16] LABS: Bacteria Urine None Seen; Culture Indicated Urine Cult Not Indicated; Granular Casts Urine 0-1/LPF; Hyaline Casts Urine 0-1/LPF; RBC Urine None Seen (0-5/HPF); WBC Urine None Seen (0-5/HPF)
[2021-09-23 00:33] LABS: UR Morphine/Opiate cutoff 300 Negative (Negative); Ur Creatinine 50 (Normal); Urine Amphetamines Negative (Negative); Urine Barbiturates Negative (Negative); Urine Benzodiazepines Negative (Negative); Urine Cocaine Negative (Negative); Urine MDMA Negative (Negative); Urine Methadone Negative (Negative); Urine Methamphetamines Negative (Negative); Urine Oxycodone Negative (Negative); Urine Phencyclidine Negative (Negative); Urine Tetrahydrocannabinol Negative (Negative); Urine Tricyclic Antidepressant Negative (Negative); Urine pH 5 (Normal)
--- NOTE | 2021-09-23 02:09 | ED.GENADULT ---
HPI - General Adult General Chief complaint: Weakness Stated complaint: not eating or drinking for last 24 hours Time Seen by Provider: 09/23/21 02:01 Source: family Mode of arrival: Wheelchair History of Present Illness HPI narrative: 86-year-old gentleman with COVID diagnosis mid July, progressive dementia, BPH, hypertension, hypothyroidism, presents with family reporting minimal p.o. intake over the last 24 hours. His caregiver was recently diagnosed with a gastroenteritis virus and she is concerned that that may be per his issue. Apparently over the last number of months he has had couple of days with diarrhea and vomiting couple days or he is well and then this then repeats. Recently he has not had a cough, fevers or chills. He has been sleeping more and is not interested in eating and drinking. He and his live together with 24 hour caregivers. His POLST form indicates full code and his would like as much done as possible to keep him alive. I spoke with their full-time caregiver for the last 3 years regarding all of these issues. The caregiver does not note that he has been complaining of chest pain, shortness a breast she has not noticed increased lower extremity edema. She does note that he has been sleeping quite a bit more. Related Data Home Medications Medication Instructions Recorded Confirmed clobetasol 0.05 % scalp solution 1 applic TOPICAL DAILY PRN 07/10/20 08/26/21 guaifenesin 600 mg tablet, 600 mg PO BID 07/10/20 08/26/21 extended release 12 hr (Mucinex) vitamins A,C,H-dhun-shcuwo 14,320 1 cap PO BID 07/10/20 08/26/21 unit-226 mg-200 unit capsule (PreserVision AREDS) trazodone 50 mg tablet 100 mg PO BEDTIME 08/10/21 08/26/21 Previous Rx's Medication Instructions Recorded loperamide 2 mg capsule See Rx Instructions .ROUTE 07/10/20 .COMPLEX #90 cap clotrimazole 1 % topical ointment 1 applic TOPICAL BID 28 Days #56.7 12/11/20 g mometasone 0.1 % topical solution 1 applic TOPICAL DAILY #60 ml 12/24/20 levothyroxine 125 mcg tablet 125 mcg PO DAILY #90 tab 01/14/21 ondansetron 4 mg disintegrating 4 mg PO Q6H PRN #7 tab 02/08/21 tablet benzonatate 100 mg capsule 100 mg PO Q6H PRN #30 cap 04/02/21 mirabegron 50 mg tablet,extended 50 mg PO DAILY #90 tab 07/12/21 release 24 hr (Myrbetriq) amlodipine 5 mg tablet 5 mg PO DAILY #90 tab 08/02/21 solifenacin 10 mg tablet See Rx Instructions .ROUTE 08/18/21 .COMPLEX #90 tab Disabled Parking #1 ea 08/20/21 azelastine 205.5 mcg (0.15 %) 2 spray INTRANASAL BID #30 ml 08/26/21 nasal spray fluticasone propionate 50 1 spray INTRANASAL DAILY #48 ml 08/26/21 mcg/actuation nasal spray,suspension (Flonase Allergy Relief) donepezil 10 mg tablet 10 mg PO DAILY #90 tab 09/17/21 Allergies Allergy/AdvReac Type Severity Reaction Status Date / Time Sulfa (Sulfonamide Allergy Intermediate Hives Verified 09/22/21 22:31 Antibiotics) venom-honey bee Allergy Intermediate Swelling Verified 09/22/21 22:31 Review of Systems Review of Systems Narrative: Remainder of complete review of systems is otherwise unremarkable except for that included in the HPI. Patient History Medical History Alzheimer's dementia Bowel and bladder incontinence BPH (benign prostatic hyperplasia) Candidal intertrigo Cardiomegaly Cataract (1999) Chronic renal failure, stage 3a COVID-19 Diverticulosis EKG abnormalities Emphysema (subcutaneous) (surgical) resulting from a procedure Essential hypertension (04/05/16) Hearing loss History of tuberculosis (04/05/16) Hypothyroidism (04/05/16) Lower extremity weakness Macular degeneration Mumps (~195) MOJGAN (obstructive sleep apnea) Polymyalgia rheumatica Psoriasis Pulmonary fibrosis Reactive airway disease Rubella Scoliosis Shortness of breath Sleep apnea Tuberculosis (~194) Unsteady gait Surgical History Anesthesia H/O hernia repair (~12/19/17) History of tonsillectomy (~194) History of umbilical hernia repair (12/19/17) Hx of cholecystectomy Status post appendectomy (2008) Family History Father Heart disease Brother No problems noted. Grandfather No problems noted. Mother Tuberculosis Son FSHD (facioscapulohumeral muscular dystrophy) Social History marital status: household members: spouse Smoking Status: Never smoker alcohol intake: never caffeine: Yes Smoking Status: Never smoker alcohol intake frequency: 0-2 drinks per day Substance Use Type: does not use Exam Initial Vital Signs Initial Vital Signs: Vital Signs Temperature 97.7 F 09/22/21 22:10 Pulse Rate 65 09/22/21 22:10 Respiratory Rate 18 09/22/21 22:10 Blood Pressure 151/86 H 09/22/21 22:10 Pulse Oximetry 95 09/22/21 22:10 General: Frail and older appearing but, in no acute distress. HEENT: Dry mucous membranes, normal sclera with reactive pupils, Neck: No JVD, supple Respiratory: Lungs are clear to auscultation, no wheezing no rales no rhonchi. Full and symmetrical air movement Cardiac: Regular rate and rhythm no murmurs no bruits Abdomen: Soft, nontender, no flank pain Skin: Pale but Warm and dry, no rashes Neurologic: Globally weak but moving all extremities. Extremities: No trauma, well perfused Psych: Minimally interactive Course Orders Ordered: ED Orders 09/22/21 22:20 Complete Blood Count AUTO DIFF Stat Comprehensive Metabolic Panel Stat 09/22/21 22:26 XR chest 1V Stat EKG-12 Lead Stat 09/22/21 23:15 Ictotest Urine Stat Urinalysis and Microscopic Stat 09/23/21 00:15 Urine Drug Screen, Rapid Stat Vital Signs Vital signs: Vital Signs - 8 hr 09/22/21 22:10 Temperature 97.7 F Pulse Rate 65 Respiratory Rate 18 Blood Pressure 151/86 H Pulse Oximetry 95 Medical Decision Making Lab Data Result diagrams: 09/22/21 22:20 09/22/21 22:20 Labs: Lab Results 09/22/21 09/22/21 09/22/21 Range/Units 22:20 22:20 23:15 WBC 7.7 (4.5-11.0) X10^3/uL RBC 4.46 L (4.5-5.9) X10^6/uL Hgb 13.6 (13.5-17.5) g/dL Hct 40.5 L (41-53) % MCV 90.6 (80-100) fL MCH 30.6 (26-34) PG MCHC 33.7 (30-36) % RDW 15.6 H (11.6-14.8) % Plt Count 144 L (150-400) X10^3/uL Neut % (Auto) 67.1 (50-75) % Lymph % (Auto) 21.6 L (25-40) % [place] % (Auto) 7.3 (3-14) % Eos % (Auto) 3.3 (2-4) % Baso % (Auto) 0.7 (0-2) % Neut # (Auto) 5200 (9462-1628) /uL Lymph # (Auto) 1700 (6872-4075) /uL [place] # (Auto) 600 (0-900) /uL Eos # (Auto) 300 (0-450) /uL Baso # (Auto) 100 (0-100) /uL Sodium 137 (137-145) mmol/L Potassium 3.8 (3.4-5.1) mmol/L Chloride 101 (98-107) mmol/L Carbon Dioxide 23 (22-32) mmol/L BUN 22 H (9-20) mg/dL Creatinine 1.76 H (0.66-1.25) mg/dL Estimated GFR 37.0 L (>60) mL/min BUN/Creatinine Ratio 12.5 (6-22) Glucose 109 (80-110) mg/dL Calcium 8.6 (8.4-10.2) mg/dL Total Bilirubin 0.5 (0.2-1.3) mg/dL AST 32 (17-59) IU/L ALT 20 (<50) IU/L Alkaline Phosphatase 68 (38-126) U/L Total Protein 7.9 (6.3-8.2) g/dL Albumin 4.1 (3.5-5.0) g/dL Globulin 3.8 (1.7-4.1) g/dL Albumin/Globulin Ratio 1.1 (1.0-2.8) Urine Color Yellow Urine Appearance Clear Urine pH 5.0 (4.5-8.0) Ur Specific [place] 1.020 (1.000-1.035) Urine Protein 1+ H (Negative) Urine Glucose (UA) Negative (Negative) g/dL Urine Ketones Trace H (NEGATIVE) Urine Occult Blood Negative (Negative) Urine Nitrate Negative (Negative) Urine Bilirubin 1+ H (NEGATIVE) Ur Bilirubin Confirm Negative (Negative) Urine Urobilinogen 0.2 (0.2) E.U./dL Ur Leukocyte Esterase Negative (NEGATIVE) Urine RBC None seen (0-5/HPF) Urine WBC None seen (0-5/HPF) Urine Bacteria None seen (None) Hyaline Casts 0-1/lpf (None) Granular Casts 0-1/lpf (None) Ur Culture Indicated? Cult not indicated U Opiates 300ng/mL cut (Negative) Ur Oxycodone Screen (Negative) Urine Methadone Screen (Negative) Ur Barbiturates Screen (Negative) U Tricyclic Antidepress (Negative) Ur Phencyclidine Scrn (Negative) Ur Amphetamines Screen (Negative) U Methamphetamines Scrn (Negative) Ur MDMA Scrn (Ecstasy) (Negative) U Benzodiazepines Scrn (Negative) Urine Cocaine Screen (Negative) U Marijuana (THC) Screen (Negative) 09/22/21 Range/Units 23:15 WBC (4.5-11.0) X10^3/uL RBC (4.5-5.9) X10^6/uL Hgb (13.5-17.5) g/dL Hct (41-53) % MCV (80-100) fL MCH (26-34) PG MCHC (30-36) % RDW (11.6-14.8) % Plt Count (150-400) X10^3/uL Neut % (Auto) (50-75) % Lymph % (Auto) (25-40) % [place] % (Auto) (3-14) % Eos % (Auto) (2-4) % Baso % (Auto) (0-2) % Neut # (Auto) (0098-5931) /uL Lymph # (Auto) (2645-4892) /uL [place] # (Auto) (0-900) /uL Eos # (Auto) (0-450) /uL Baso # (Auto) (0-100) /uL Sodium (137-145) mmol/L Potassium (3.4-5.1) mmol/L Chloride (98-107) mmol/L Carbon Dioxide (22-32) mmol/L BUN (9-20) mg/dL Creatinine (0.66-1.25) mg/dL Estimated GFR (>60) mL/min BUN/Creatinine Ratio (6-22) Glucose (80-110) mg/dL Calcium (8.4-10.2) mg/dL Total Bilirubin (0.2-1.3) mg/dL AST (17-59) IU/L ALT (<50) IU/L Alkaline Phosphatase (38-126) U/L Total Protein (6.3-8.2) g/dL Albumin (3.5-5.0) g/dL Globulin (1.7-4.1) g/dL Albumin/Globulin Ratio (1.0-2.8) Urine Color Urine Appearance Urine pH (4.5-8.0) Ur Specific [place] (1.000-1.035) Urine Protein (Negative) Urine Glucose (UA) (Negative) g/dL Urine Ketones (NEGATIVE) Urine Occult Blood (Negative) Urine Nitrate (Negative) Urine Bilirubin (NEGATIVE) Ur Bilirubin Confirm (Negative) Urine Urobilinogen (0.2) E.U./dL Ur Leukocyte Esterase (NEGATIVE) Urine RBC (0-5/HPF) Urine WBC (0-5/HPF) Urine Bacteria (None) Hyaline Casts (None) Granular Casts (None) Ur Culture Indicated? U Opiates 300ng/mL cut Negative (Negative) Ur Oxycodone Screen Negative (Negative) Urine Methadone Screen Negative (Negative) Ur Barbiturates Screen Negative (Negative) U Tricyclic Antidepress Negative (Negative) Ur Phencyclidine Scrn Negative (Negative) Ur Amphetamines Screen Negative (Negative) U Methamphetamines Scrn Negative (Negative) Ur MDMA Scrn (Ecstasy) Negative (Negative) U Benzodiazepines Scrn Negative (Negative) Urine Cocaine Screen Negative (Negative) U Marijuana (THC) Screen Negative (Negative) Imaging Data Chest x-ray: Radiologist's Impression: FINDINGS:? ? Surgical changes and devices:? None.? ? Lungs and pleura:? Lungs demonstrate no acute airspace opacities.? No pleural effusions or pneumothorax.? ? Mediastinum:? There is tortuosity of the thoracic aorta redemonstrated.? Heart size appears enlarged. ? Bones and chest wall:? No suspicious bony lesions.? Overlying soft tissues appear unremarkable.? ? IMPRESSION:? ? 1.? No acute cardiopulmonary disease. ? ? ? Dictated by: Jay Arrieta M.D. on 09/22/2021 at 22:42 ? ? ECG Data Interpretation: Sinus rhythm at a rate of 62 Poor readings over anterior leads No acute ischemic changes MDM Narrative Medical decision making narrative: 86-year-old gentleman of with progressive dementia brought in by his family with concerns of progressive decline, increasing time spent asleep and decreased oral intake. They wanted to confirm that he does not have any type reversible causes. With exam today there is no evidence of a bladder infection, pneumonia, cellulitis, congestive heart failure. His stage III kidney disease does look like it is progressing with a slight bump in his creatinine from 1.59-1.76 with a mild increase in BUN consistent with dehydration from on wanting to eat or drink. I did speak with their caregiver who has been with family for the last 3 years she indicates that the is very much wants all measures done. We talked about dementia and end-stage is and the fact that with increasing sleeping and decreasing eating and drinking this is likely the beginning of the and. At this point there are no obvious reversible causes. The did request that we give him a bit of fluids and will certainly facilitate this to see if that gives him a bit more energy or any interest in eating over the next 12-24 hours. Will ask them to follow-up with his primary care physician. Discussion regarding end of life issues particularly end of life issues in light of his advanced dementia may be very appropriate to discuss with the within the context of hospice as well. Her expectations and understanding of his progressive disease not sound completely appropriate at this time. Discharge Plan Departure Patient Disposition: Home Clinical Impression: Dehydration Dementia Qualifiers: Dementia type: Alzheimer's Alzheimer's disease onset: unspecified onset Dementia behavioral disturbance: without behavioral disturbance Qualified Code(s): G30.9 - Alzheimer's disease, unspecified Failure to thrive Qualifiers: Failure to thrive age range: in adult Qualified Code(s): R62.7 - Adult failure to thrive Instructions: DI for Alzheimer Disease Activity Restrictions/Additional Instructions: Thank you for bringing Rom in today. Unfortunately, he does not have any obvious medical issues such as a bladder infection, viral infection, pneumonia or something that is fixable at this time. He is slightly dehydrated and was given a L of fluid in the emergency department I am concerned that the behavior that we are seeing with increasing sleeping, not wanting to eat or drink are all signs of end-stage dementia suggesting that his body is getting ready to shut down. Dying from dementia can be a very slow process and it typically involves more time sleeping and significantly less interested in food or drinking. I would encourage you to schedule an appointment with his primary care physician to discuss this. Rom may also be a wonderful candidate for hospice. The goal of hospice is to allow you to live all the way to the very end of your life in the most comfort and in your own home. If you have new concerns, Rom develops new symptoms or you have additional findings, please feel free to return to the emergency department Prescriptions: No Action levothyroxine 125 mcg tablet 125 mcg PO DAILY Qty: 90 2RF Rx Instructions: Take one tablet by mouth once a day. ondansetron 4 mg tablet,disintegrating 4 mg PO Q6H PRN (Reason: nausea and vomiting) Qty: 7 0RF benzonatate 100 mg capsule 100 mg PO Q6H PRN (Reason: cough) Qty: 30 2RF Myrbetriq 50 mg tablet extended release 24 hr 50 mg PO DAILY Qty: 90 3RF Hold Instructions: Trial of pharmacy preferred medication amlodipine 5 mg tablet 5 mg PO DAILY Qty: 90 3RF Hold Instructions: Home Medication placed on hold at Doctor's office solifenacin 10 mg tablet See Rx Instructions .ROUTE .COMPLEX Qty: 90 3RF Dose Instruction: TAKE 1 TABLET BY MOUTH DAILY Rx Instructions: TAKE 1 TABLET BY MOUTH DAILY (DME) Disabled Parking See Rx Instructions .ROUTE .MEDSUPPLY Qty: 1 0RF Rx Instructions: Patient qualifies for disabled parking as per the attached form. donepezil 10 mg tablet 10 mg PO DAILY Qty: 90 3RF clobetasol 0.05 % solution 1 applic topical DAILY PRN (Reason: Rash) 0RF PreserVision AREDS [id number] capsule 1 cap PO BID 0RF guaifenesin [Mucinex] 600 mg tablet extended release 12hr 600 mg PO BID 0RF loperamide 2 mg capsule See Rx Instructions .ROUTE .COMPLEX Qty: 90 3RF Dose Instruction: TAKE 1 CAPSULE BY MOUTH EVERY 2 TO 4 HOURS AFTER EACH LOOSE STOOL UNTIL SYMPTOMS CONTROLLED. DO NOT EXCEED 8 CAPSULE IN 24 HOURS Rx Instructions: TAKE 1 CAPSULE BY MOUTH EVERY 2 TO 4 HOURS AFTER EACH LOOSE STOOL UNTIL SYMPTOMS CONTROLLED. DO NOT EXCEED 8 CAPSULE IN 24 HOURS clotrimazole 1 % ointment 1 applic topical BID 28 Days Qty: 56.7 2RF mometasone 0.1 % solution 1 applic topical DAILY Qty: 60 3RF azelastine 205.5 mcg (0.15 %) spray,non-aerosol 2 spray intranasal BID Qty: 30 3RF Rx Instructions: administer into each nostril fluticasone propionate [Flonase Allergy Relief] 50 mcg/actuation spray,suspension 1 spray intranasal DAILY Qty: 48 11RF Rx Instructions: administer into each nostril trazodone 50 mg tablet 100 mg PO BEDTIME 0RF Label Comments: TAKE 2 TABLETS BY MOUTH AT BEDTIME Referrals: Vinnie Herman MD [Primary Care Provider] -
== END 2021-09-23 03:15 | disposition home or self-care (01) ==
PROVIDERS: Emergency Provider Emergency Medicine; PCP Internal Medicine
DX: E86.0 Dehydration (principal); G30.9 Alzheimer's disease, unspecified; F02.81 Dementia in other diseases classified elsewhere, unspecified severity, with behavioral disturbance; R62.7 Adult failure to thrive; Z68.28 Body mass index [BMI] 28.0-28.9, adult
CPT/HCPCS: 71045; 80053; 80305; 81001; 85025; 93005; 99282; 99284

== ENCOUNTER → 2021-09-27 14:52 | Outpatient (CLI) | payer OTHER, SELFPAY ==
[2021-06-09 16:05] VITALS: BMI 28.7
[2021-09-27 19:50] LABS: Campylobacter Not Detected (Not Detect); Clostridium difficile toxin AB Not Detected (Not Detect); Cryptosporidium Not Detected (Not Detect); Enteroaggregative E.coli Not Detected (Not Detect); Enteropathogenic E.coli Not Detected (Not Detect); Enterotoxigenic E.coli It/st Not Detected (Not Detect); Plesiomonsa shigelloides Not Detected (Not Detect); Salmonella Not Detected (Not Detect); Shiga-like toxin-prod E.coli Not Detected (Not Detect); Shigella/Enteroinvasive E.coli Not Detected (Not Detect); Vibrio Not Detected (Not Detect); Vibrio cholerae Not Detected (Not Detect); Yersinia enterocolitica Not Detected (Not Detect)
[2021-09-27 19:51] LABS: Adenovirus F 40/41 Not Detected (Not Detect); Astrovirus Not Detected (Not Detect); Cyclospora cayetanensis Not Detected (Not Detect); Entamoeba histolytica Not Detected (Not Detect); Giardia lamblia Not Detected (Not Detect); Norovirus GI/GII Not Detected (Not Detect); Rotavirus A Not Detected (Not Detect); Sapovirus Not Detected (Not Detect)
== END ==
PROVIDERS: PCP Internal Medicine; Referring Provider Internal Medicine; Visit Provider Internal Medicine
DX: R19.7 Diarrhea, unspecified (principal); R11.10 Vomiting, unspecified
CPT/HCPCS: 87507